=== PATIENT | female | born 1940 | race Caucasian/White ===

== ENCOUNTER → 2017-10-27 | Outpatient (CLI) | payer MEDICARE ==
--- NOTE | 2017-10-27 14:01 | Diagnostic Imaging Report ---
INDICATION: Tobaccoism and chronic fatigue. PA and lateral chest. FINDINGS: Patient has bilateral breast implants with calcified fibrous capsules. Heart size and pulmonary vascularity are normal. Lungs are clear. There are no effusions or pneumothoraces. IMPRESSION: No acute abnormalities in the chest. Dictated by: Dictated on workstation # [id number]
== END ==
LOC: RAD 13:09
PROVIDERS: ATTEND Internal Medicine
DX: R05 Cough (principal); R53.83 Other fatigue; Z72.0 Tobacco use
CPT/HCPCS: 71046

== ENCOUNTER → 2020-02-06 | Outpatient (CLI) | payer MEDICARE | LOC: CARD 15:26 | PROVIDERS: ATTEND Nurse Practitioner Family | DX: I49.9 Cardiac arrhythmia, unspecified (principal); R06.02 Shortness of breath | CPT/HCPCS: 93005 ==

== ENCOUNTER → 2020-07-30 | Outpatient (CLI) | payer MEDICARE ==
[~2020-07-30] VITALS: Ht 165 cm; Wt 49.0 kg
[~2020-07-30] MED LIST: BAMLANIVIMAB (NON FORM) 700 MG in NS (IVPB) 250 ML IV ONE; EPINEPHrine INJECTION 1 MG/ML AMP IM PRN; diphenhydrAMINE 50 MG/ML INJ (BENADRYL) IV PRN
[2020-07-30 13:17] VITALS: BP 161/79
[2020-07-30 15:20] VITALS: BP 131/67
== END ==
LOC: INFUSION 13:19
PROVIDERS: ATTEND Nurse Practitioner Family
DX: U07.1 COVID-19 (principal); J44.9 Chronic obstructive pulmonary disease, unspecified

== ENCOUNTER → 2020-07-31 | Outpatient (CLI) | payer MEDICARE | LOC: LABNPT 05:16 | PROVIDERS: ATTEND Internal Medicine | DX: Z53.9 Procedure and treatment not carried out, unspecified reason (principal) ==

== ENCOUNTER 2021-05-29 10:53 | Emergency (ER) | payer MEDICARE ==
[~2021-05-29] VITALS: Ht 165 cm; Wt 49.0 kg
--- OUTSIDE RECORDS SUMMARY | 2021-05-29 10:58 | XMS REPORT | Clinical Summary ---
Author Author [facility] Organization [facility] Address Unknown Phone Unavailable Care Team Providers Care Cra Name Role Phone PCP Unavailable Allergies Not on File Medications Not on file Active Problems Not on file Social History Date Tobacco Use Types Packs/Day Years Used Never Assessed Sex Assigned at Date Recorded Not on file Last Filed Vital Signs Not on file Plan of Treatment Not on file Results Not on filefrom Last 3 Months
--- NOTE | 2021-05-29 11:22 | ED Lower Extremity ---
General Chief Complaint: Trauma-Non Activation Stated Complaint: FELL, R KNEE PAIN, DIFFICULTY WALKING Nursing Triage Note: TO ED PER W/C PATIENT REPORTS TRIPPED AND FELL IN GARAGE YESTERDAY C/O PAIN IN R KNEE. PAINFUL TO PUT WT ON . Source: patient Exam Limitations: no limitations History of Present Illness Date Seen by Provider: May 29, 2021 Time Seen by Provider: 11:20 Initial Comments To ER by private vehicle accompanied by daughter with reports of right knee pain after she tripped and fell in the garage. She tripped over the exhaust she was on a riding murmur yesterday and landed on a flexed right knee. She has been unable to bear weight on the right knee since then. She cannot lift her heel up off of the bed. Onset: yesterday Severity: moderate Pain/Injury Location: right knee Method of Injury: direct blow, fell Allergies and Home Medications Allergies Coded Allergies: Penicillins (Verified Allergy, Unknown, 07/30/20) Uncoded Allergies: WASP AND BEE STINGS (Allergy, Unknown, 07/30/20) Patient Home Medication List Home Medication List Reviewed: Yes Review of Systems Constitutional: see HPI EENTM: see HPI Respiratory: no symptoms reported Cardiovascular: no symptoms reported Genitourinary: no symptoms reported Musculoskeletal: see HPI Skin: no symptoms reported Psychiatric/Neurological: No Symptoms Reported Past Vuxgxno-Zfcziq-Xkgjcq Hx Patient Social History Tobacco Use?: Yes Tobacco type used: Cigarettes Substance use?: No Immunizations Up To Date First/Initial COVID19 Vaccinat: DECEMBER 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 oz. kg; 17.00 BMI Method: General Appearance: WD/WN, no apparent distress HEENT: PERRL/EOMI, normal ENT inspection, TMs normal Neck: non-tender, full range of motion Cardiovascular: regular rate, rhythm, no murmur Respiratory: no respiratory distress, no accessory muscle use Gastrointestinal: normal bowel sounds, non tender, soft Hips: bilateral hip non-tender, bilateral hip normal inspection, bilateral hip normal range of motion Legs: bilateral leg non-tender Knees: right knee pain, right knee soft tissue tenderness, right knee swelling, right knee other (Palpable joint effusion, swelling around the patella. No open wounds. Unable to lift her heel off of the bed due to pain in the patella.) Ankles: bilateral ankle non-tender, bilateral ankle normal inspection, bilateral ankle normal range of motion Feet: bilateral foot non-tender, bilateral foot normal inspection, bilateral foot normal range of motion Neurologic/Psychiatric: alert, normal mood/affect, oriented x 3 Skin: normal color, warm/dry Nonpalpable dorsalis pedis and posterior tibial pulse on both feet., Both feet have capillary refill of about 3 seconds. Progress/Results/Core Measures Results/Orders My Orders Orders - MARIANNE GUERIN APRN Knee, Right, 3 Views (05/29/21 11:19) Vital Signs/I&O 05/29/21 11:07 Pulse 75 Resp 18 B/P (MAP) 160/83 (108) Pulse Ox 96 O2 Delivery Room Air Blood Pressure Mean: 108 Departure Communication (Admissions) 1202-placed in a knee immobilizer and given a walker. She will follow-up with orthopedics. Daughter at the bedside and patient and daughter verbalized understanding of instructions. NAME: ALPA CORDERO [facility] REC#: [id number] PT STATUS: REG ER : 1940 PHYSICIAN: MARIANNE GUERIN APRN ADMIT DATE: 05/29/21/ER Draft Date of Exam:05/29/21 KNEE, RIGHT, 3 VIEWS INDICATION: Pain following a fall. FINDINGS: There is bony demineralization with osteopenia or osteoporosis. There is chondrocalcinosis with meniscal calcifications medially and laterally with relatively mild tricompartmental osteoarthritic joint space narrowing. Lateral view shows a moderate joint effusion. Seen only in the lateral view is indeterminate and incomplete lucency involving the lower pole of the patella oriented anteroposterior. There was no associated overlying soft tissue swelling, and this likely is incidental, but correlate with any focal tenderness to inferior patellar pole palpation. No other potential osseous injury. There are atherosclerotic vascular calcifications. IMPRESSION: Bony demineralization. Equivocal nondisplaced lucency, inferior patellar pole; correlate with palpation. Moderate joint effusion without loose body. Mild arthritis. Dictated on workstation # [id number] Dict: 05/29/21 1133 Trans: 05/29/21 1142 [id number] Interpreted by: RADHA HANNON Electronically signed by: Impression Primary Impression: Patella fracture Disposition: 01 HOME, SELF-CARE Condition: Stable Departure-Patient Inst. Decision time for Depature: 11:48 Referrals: TRAN PHOENIX MD (PCP/Family) Primary Care Physician KAYLEIGH STANTON MD, TERRY D MD ZAFUTA, MICHAEL P MD Patient Instructions: Patella Fracture ED Add. Discharge Instructions: 1. Ice pack to the area for 30 minutes to 1 hour every couple of hours. Return to ER for any concerns. Pain medication as directed. Call orthopedics today to make an appointment to be seen either later this week or next week for further evaluation. Wear the immobilizer at all times except when showering. All discharge instructions reviewed with patient and/or family. Voiced understanding. Scripts Tramadol HCl (Ultram) 50 Mg Tablet 50 MG PO Q6H PRN for PAIN-SEVERE (8-10), #14 TAB Prov: MARIANNE GUERIN APRN 05/29/21 MARIANNE GUERIN APRN May 29, 2021 11:22
--- NOTE | 2021-05-29 11:43 | Diagnostic Imaging Report ---
INDICATION: Pain following a fall. FINDINGS: There is bony demineralization with osteopenia or osteoporosis. There is chondrocalcinosis with meniscal calcifications medially and laterally with relatively mild tricompartmental osteoarthritic joint space narrowing. Lateral view shows a moderate joint effusion. Seen only in the lateral view is indeterminate and incomplete lucency involving the lower pole of the patella oriented anteroposterior. There was no associated overlying soft tissue swelling, and this likely is incidental, but correlate with any focal tenderness to inferior patellar pole palpation. No other potential osseous injury. There are atherosclerotic vascular calcifications. IMPRESSION: Bony demineralization. Equivocal nondisplaced lucency, inferior patellar pole; correlate with palpation. Moderate joint effusion without loose body. Mild arthritis. Dictated by: Dictated on workstation # [id number]
[2021-05-29] MEDS ORDERED: TRAM-42 PO (12:02)
[2021-05-29 12:09] VITALS: BP 160/83
== END 2021-05-29 12:08 | disposition home or self-care (01) ==
LOC: EDUNIT# 10:53 → ER 10:55
DX: S82.001A Unspecified fracture of right patella, initial encounter for closed fracture (principal); Z72.0 Tobacco use; W01.0XXA Fall on same level from slipping, tripping and stumbling without subsequent striking against object, initial encounter
CPT/HCPCS: 73562; 99282; L1830

== ENCOUNTER → 2021-06-05 | Outpatient (CLI) | payer MEDICARE ==
[~2021-06-05] MED LIST changes: -BAMLANIVIMAB (NON FORM) 700 MG in NS (IVPB) 250 ML IV ONE; +CATHETER FLUSH 10 ML SYR IV PRN; -EPINEPHrine INJECTION 1 MG/ML AMP IM PRN; +HOLD METFORMIN - RECEIVED CONTRAST 20 ML VIAL IV SCH; +IOHEXOL 350 MG/ML 100 ML (OMNIPAQUE 350) VIAL IV ONE; +NS 100 ML (IVPB) BAG IV ONE; +TRAM-42 PO; -diphenhydrAMINE 50 MG/ML INJ (BENADRYL) IV PRN
[2021-06-05 14:14] LABS: CREATININE SERUM 1.06 MG/DL (0.60-1.30)
--- NOTE | 2021-06-05 16:27 | Diagnostic Imaging Report ---
PROCEDURE: CT neck soft tissue with contrast. TECHNIQUE: Multiple contiguous axial images were obtained through the neck after the administration of contrast. Auto Exposure Controls were utilized during the CT exam to meet ALARA standards for radiation dose reduction. INDICATION: Left ear and neck pain. COMPARISON: None. FINDINGS: There is subtle asymmetric subcentimeter region of enhancement in the left submandibular space along the superior anterior margin the left submandibular gland. No sialoliths are identified. The left submandibular gland is unremarkable. Normal floor of the mouth and tongue base. No lymphadenopathy. Normal major salivary glands. The pharynx and larynx demonstrate no suspicious mass or enhancement. Normal thyroid gland. Moderate atherosclerotic calcifications in the carotid bifurcations. Biapical scarring. Mild spondylotic changes in the cervical spine. No acute osseous findings. Paranasal sinuses and mastoids are clear. The skull base is intact. IMPRESSION: 1. There is an indeterminate ill-defined subtle region of subcentimeter enhancement in the left submandibular space along the superior anterior margin of the left submandibular gland. Findings may be artifactual or due to an inflamed lymph node. A mass cannot be excluded. Recommend further evaluation with MRI of the neck without and with IV contrast. No other findings suspicious for lymphadenopathy or mass. 2. Moderate atherosclerotic calcifications in the carotid bifurcations. This likely results in at least 50% narrowing of the internal carotid artery origins bilaterally and could be better evaluated with carotid Doppler ultrasound or dedicated CTA. Dictated by: Dictated on workstation # [id number]
== END ==
LOC: RAD 13:48
PROVIDERS: ATTEND Otolaryngology Otolaryngology/Facial Plastic Surgery
DX: I65.23 Occlusion and stenosis of bilateral carotid arteries (principal); R22.1 Localized swelling, mass and lump, neck
CPT/HCPCS: 36415; 70491; 82565; 84520

== ENCOUNTER → 2021-06-09 | Outpatient (CLI) | payer MEDICARE ==
[~2021-06-09] MED LIST changes: -CATHETER FLUSH 10 ML SYR IV PRN; -HOLD METFORMIN - RECEIVED CONTRAST 20 ML VIAL IV SCH; -IOHEXOL 350 MG/ML 100 ML (OMNIPAQUE 350) VIAL IV ONE; -NS 100 ML (IVPB) BAG IV ONE
--- NOTE | 2021-06-09 12:26 | Diagnostic Imaging Report ---
INDICATION: Osteoarthritis. TIME OF EXAM: 11:50 a.m. COMPARISON: Comparison is made with prior radiograph of the right knee performed 05/29/2021. FINDINGS: Lucency described along the inferior aspect of the patella on the lateral view remains present but is less prominent on today's study. Overlying soft tissues are unremarkable. There is some trace knee joint fluid present. Chondrocalcinosis of the medial and lateral compartments is again noted. No other suspicious abnormalities are seen. IMPRESSION: Stable right knee radiograph. The lucency along the inferior aspect of the patella is less prominent on today's study. No new abnormality is identified. Dictated by: Dictated on workstation # [id number]
== END ==
LOC: ORTHO 11:23
PROVIDERS: ATTEND Orthopaedic Surgery
DX: M17.11 Unilateral primary osteoarthritis, right knee (principal)
CPT/HCPCS: 73562; G0463; 99202

== ENCOUNTER → 2021-06-23 | Outpatient (CLI) | payer MEDICARE ==
--- NOTE | 2021-06-23 11:46 | Diagnostic Imaging Report ---
INDICATION: Right patellar tendinitis. TIME OF EXAM: 10:32 AM 3 views right knee were obtained. Alignment is normal. Joint spaces are well maintained. Articular surfaces are smooth. No fracture, dislocation or effusion is seen. There is chondrocalcinosis of the medial and lateral compartments. IMPRESSION: Chronic changes. No acute bony abnormality is detected. Dictated by: Dictated on workstation # [id number]
== END ==
LOC: ORTHO 09:53
PROVIDERS: ATTEND Orthopaedic Surgery
DX: M76.51 Patellar tendinitis, right knee (principal)
CPT/HCPCS: 73562; G0463; 99212

== ENCOUNTER → 2021-06-24 | Outpatient (CLI) | payer MEDICARE ==
--- NOTE | 2021-06-24 19:27 | Diagnostic Imaging Report ---
PROCEDURE: US carotid duplex, bilateral. TECHNIQUE: Multiple real-time grayscale images were obtained over the carotid arteries in various projections, bilaterally. Additional spectral analysis and color Doppler duplex images were also obtained. INDICATION: Atherosclerosis. Parameters based on the consensus panel Hopkins-Scale and Doppler ultrasound criteria published April 2003, Radiology, Volume 229. DOPPLER (peak systolic velocity CM/S Right Left CCA 55.9 55.9 ICA Proximal 47.9 47.2 ICA Mid 51.8 48.5 ICA Distal 72.9 51.3 RATIO 1.30 .92 ECA 81.4 86.3 VERT 60.3 37.3 FINDINGS: There is significant plaque seen within the bilateral carotid bulbs and bifurcations extending into the internal carotid arteries. Waveforms are normal. There is normal antegrade flow within the vertebral arteries. IMPRESSION: Atherosclerosis with less than 50% stenosis of the bilateral internal carotid arteries by velocity and ratio criteria. Dictated by: Dictated on workstation # [id number]
== END ==
LOC: RAD 14:30
PROVIDERS: ATTEND Otolaryngology Otolaryngology/Facial Plastic Surgery
DX: I65.23 Occlusion and stenosis of bilateral carotid arteries (principal)
CPT/HCPCS: 93880

== ENCOUNTER → 2021-07-09 | Outpatient (CLI) | payer MEDICARE ==
--- NOTE | 2021-07-09 09:26 | Diagnostic Imaging Report ---
INDICATION: Followup patellar fracture. TIME OF EXAM: 9:16 AM Comparison is made with prior radiographs from 06/23/2021. Alignment is normal. No patellar fracture is identified. Lucency along the inferior aspect of the patella is not appreciated on today's study. There is chondrocalcinosis of the medial and lateral compartments. There is no joint effusion. IMPRESSION: Chondrocalcinosis. No definite patellar fracture is identified. Dictated by: Dictated on workstation # [id number]
== END ==
LOC: ORTHO 08:46
PROVIDERS: ATTEND Orthopaedic Surgery
DX: M11.261 Other chondrocalcinosis, right knee (principal); S82.034D Nondisplaced transverse fracture of right patella, subsequent encounter for closed fracture with routine healing; X58.XXXD Exposure to other specified factors, subsequent encounter
CPT/HCPCS: 73560

== ENCOUNTER → 2021-08-04 | Outpatient (CLI) | payer MEDICARE | LOC: ORTHO 11:24 | PROVIDERS: ATTEND Orthopaedic Surgery | DX: S82.001D Unspecified fracture of right patella, subsequent encounter for closed fracture with routine healing (principal); X58.XXXD Exposure to other specified factors, subsequent encounter | CPT/HCPCS: 99212 ==

== ENCOUNTER 2021-08-18 10:12 | Outpatient (RCR) | payer MEDICARE | END 2021-08-18 11:31 | disposition home or self-care (01) | PROVIDERS: ATTEND Orthopaedic Surgery | DX: S82.034D Nondisplaced transverse fracture of right patella, subsequent encounter for closed fracture with routine healing (principal); X58.XXXD Exposure to other specified factors, subsequent encounter ==

== ENCOUNTER → 2021-08-27 | Outpatient (CLI) | payer MEDICARE ==
--- NOTE | 2021-08-27 10:20 | Diagnostic Imaging Report ---
INDICATION: Injury, continued pain. EXAMINATION: Right knee 08/27/2021 COMPARISON: 07/09/2021 FINDINGS: 2 views of the knee. There is mild osteopenia limiting evaluation for nondisplaced fracture. No fracture is identified. No dislocations. 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 There is mild narrowing within the medial joint compartment and patellofemoral joint space. There is a tiny joint effusion. Atherosclerotic disease is noted. IMPRESSION: 1. 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 No acute osseous abnormality appreciated. If pain persists MRI recommended. Dictated by: Dictated on workstation # [id number]
== END ==
LOC: ORTHO 09:49
PROVIDERS: ATTEND Orthopaedic Surgery
DX: S82.034D Nondisplaced transverse fracture of right patella, subsequent encounter for closed fracture with routine healing (principal); X58.XXXD Exposure to other specified factors, subsequent encounter
CPT/HCPCS: 73560

== ENCOUNTER → 2022-02-11 | Outpatient (CLI) | payer MEDICARE ==
--- NOTE | 2022-02-11 17:14 | Diagnostic Imaging Report ---
INDICATION: Cough, chronic - SOB COMPARISON: 10/27/2017. FINDINGS: Frontal and lateral views of the chest demonstrate normal heart size and pulmonary vascularity. The lungs are hyperinflated, but are otherwise clear. There are no signs of infiltrate, pleural effusions or pneumothoraces. The visualized osseous structures show no acute abnormalities. IMPRESSION: 1. No acute process. No signs of infiltrates, effusions or pneumothoraces. 2. Background COPD changes Dictated by: Dictated on workstation # [id number]
== END ==
LOC: RAD 13:53
PROVIDERS: ATTEND Nurse Practitioner Family
DX: J44.9 Chronic obstructive pulmonary disease, unspecified (principal)
CPT/HCPCS: 71046

== ENCOUNTER → 2022-09-07 | Outpatient (CLI) | payer MEDICARE ==
--- NOTE | 2022-09-07 13:01 | Diagnostic Imaging Report ---
PROCEDURE: Pelvic comp/transvaginal sonogram. TECHNIQUE: Complete transabdominal and transvaginal pelvic ultrasound was performed. In addition, limited pelvic Doppler was performed. INDICATION: Vaginal bleeding. Uterus is anteverted measuring 5.2 x 2.6 x 4.1 cm. Endometrium is 2 mm in thickness. No myometrial mass is identified. The ovaries cannot be visualized due to overlying bowel gas. No adnexal mass or free fluid is detected. IMPRESSION: Nonvisualized ovaries. The study is otherwise unremarkable. Dictated by: Dictated on workstation # [id number]
== END ==
LOC: RAD 11:06
PROVIDERS: ATTEND Internal Medicine
DX: N93.9 Abnormal uterine and vaginal bleeding, unspecified (principal)
CPT/HCPCS: 76830; 76856

== ENCOUNTER 2022-10-06 10:13 | Outpatient (RCR) | payer MEDICARE | END 2022-10-25 | disposition home or self-care (01) | LOC: LAB 10:13 | PROVIDERS: ATTEND Internal Medicine | DX: R19.7 Diarrhea, unspecified (principal) | CPT/HCPCS: 87324; 87449 ==

== ENCOUNTER 2022-12-18 20:57 | Inpatient (IN) | payer MEDICARE ==
[~2022-12-18] VITALS: Ht 162.5 cm; Wt 49.6 kg
--- NOTE | 2022-12-18 21:40 | ED Fall/Injury ---
General Chief Complaint: Trauma-Non Activation Stated Complaint: FALL Nursing Triage Note: PT TO ED VIA [facility] FROM HOME W C/O FALL AT 1800 YESTERDAY. PT REMAINED ON CONCRETE FLOOR IN GARAGE UNTIL EMS ARRIVAL TONIGHT, C/O LEFT HIP PAIN. PT VERY HARD OF HEARING, STATES SHE HIT HER HEAD AND SAW STARS. PT A&OX4. EMS ADMIN 50MCG FENTANYL IVP AND 4MG ZOFRAN IVP EN ROUTE TO ED. Source: patient Exam Limitations: no limitations History of Present Illness Date Seen by Provider: Dec 18, 2022 Time Seen by Provider: 21:15 Allergies and Home Medications Allergies Coded Allergies: Penicillins (Verified Allergy, Unknown, 07/30/20) Uncoded Allergies: WASP AND BEE STINGS (Allergy, Unknown, 07/30/20) Patient Home Medication List Tramadol HCl (Ultram) 50 Mg Tablet, 50 MG PO Q6H PRN for PAIN-SEVERE (8-10) Prescribed by: MARIANNE GUERIN on 05/29/21 1202 Past Lzqccml-Fzraln-Ogbaif Hx Patient Social History Tobacco Use?: Yes Smoking Status: Former Smoker Use of E-Cig and/or Vaping dev: No Substance use?: No Alcohol Use?: No Immunizations Up To Date First/Initial COVID19 Vaccinat: DECEMBER Physical Exam Vital Signs Vital Signs - First Documented 12/18/22 20:57 Temp 36.9 Pulse 86 Resp 18 B/P (MAP) 175/95 (121) Pulse Ox 92 O2 Delivery Room Air Capillary Refill : Less Than 3 Seconds Height, Weight, BMI Height: '" Weight: lbs. oz. kg; 18.00 BMI Method: Progress/Results/Core Measures Results/Orders Lab Results Laboratory Tests Test 12/18/22 22:00 12/18/22 22:35 12/18/22 23:59 Range/Units White Blood Count 10.8 4.3-11.0 10^3/uL Red Blood Count 4.64 3.80-5.11 10^6/uL Hemoglobin 15.0 11.5-16.0 g/dL Hematocrit 44 35-52 % Mean Corpuscular Volume 94 80-99 fL Mean Corpuscular Hemoglobin 32 25-34 pg Mean Corpuscular Hemoglobin Concent 34 32-36 g/dL Red Cell Distribution Width 13.5 10.0-14.5 % Platelet Count 141 130-400 10^3/uL Mean Platelet Volume 12.4 H 9.0-12.2 fL Immature Granulocyte % (Auto) 0 % Neutrophils (%) (Auto) 85 H 42-75 % Lymphocytes (%) (Auto) 6 L 12-44 % Monocytes (%) (Auto) 9 0-12 % Eosinophils (%) (Auto) 0 0-10 % Basophils (%) (Auto) 0 0-10 % Neutrophils # (Auto) 9.1 H 1.8-7.8 10^3/uL Lymphocytes # (Auto) 0.7 L 1.0-4.0 10^3/uL Monocytes # (Auto) 0.9 0.0-1.0 10^3/uL Eosinophils # (Auto) 0.0 0.0-0.3 10^3/uL Basophils # (Auto) 0.0 0.0-0.1 10^3/uL Immature Granulocyte # (Auto) 0.0 0.0-0.1 10^3/uL Neutrophils % (Manual) 81 % Lymphocytes % (Manual) 8 % Monocytes % (Manual) 4 % Band Neutrophils 7 % Percent Immature Platelet Fraction 5.5 0.0-7.6 % Acanthocytes SLIGHT Sodium Level 138 135-145 MMOL/L Potassium Level 4.1 3.6-5.0 MMOL/L Chloride Level 101 98-107 MMOL/L Carbon Dioxide Level 23 21-32 MMOL/L Anion Gap 14 5-14 MMOL/L Blood Urea Nitrogen 18 7-18 MG/DL Creatinine 0.95 0.60-1.30 MG/DL Estimat Glomerular Filtration Rate 59 BUN/Creatinine Ratio 19 Glucose Level 117 H 70-105 MG/DL Calcium Level 10.3 H 8.5-10.1 MG/DL Corrected Calcium 10.0 8.5-10.1 MG/DL Magnesium Level 1.8 1.6-2.4 MG/DL Total Bilirubin 0.9 0.1-1.0 MG/DL Aspartate Amino Transf (AST/SGOT) 45 H 5-34 U/L Alanine Aminotransferase (ALT/SGPT) 33 0-55 U/L Alkaline Phosphatase 191 H 40-136 U/L Total Creatine Kinase 936 H 29-168 U/L Total Protein 7.9 6.4-8.2 GM/DL Albumin 4.4 3.2-4.5 GM/DL My Orders Orders - BRUEGGEMANN,SAMEERA T MD Cbc With Automated Diff (12/18/22 21:15) Comprehensive Metabolic Panel (12/18/22 21:15) Creatine Kinase (12/18/22 21:15) Magnesium (12/18/22 21:15) Ua Culture If Indicated (12/18/22 21:15) Ct Head/Cervical Spine Wo (12/18/22 21:15) Ed Iv/Invasive Line Start (12/18/22 21:15) Manual Differential (12/18/22 22:00) Ns Iv 1000 Ml (Sodium Chloride 0.9%) (12/18/22 23:15) Ct Chest/Abdomen/Pelvis Wo (12/18/22 23:06) Ct Lumbar Spine Wo (12/18/22 23:06) Pelvis 1 To 2 Views (12/18/22 23:06) Blood Culture (12/19/22 00:09) Sputum Culture (12/19/22 00:09) Protime With Inr (12/19/22 00:09) Partial Thromboplastin Time (12/19/22 00:09) Vital Signs Adult Sepsis Patie Q15M (12/19/22 00:09) O2 (12/19/22 00:09) Remove Rings In Anticipation O (12/19/22 00:09) Lactic Acid Analyzer (12/19/22 00:09) Ceftriaxone Iv/Im (Rocephin Iv/Im) (12/19/22 00:09) Vital Signs/I&O 12/18/22 20:57 Temp 36.9 Pulse 86 Resp 18 B/P (MAP) 175/95 (121) Pulse Ox 92 O2 Delivery Room Air Blood Pressure Mean: 121 Departure Impression Primary Impression: Intertrochanteric fracture of left hip Qualified Codes: S72.142A - Displaced intertrochanteric fracture of left femur, initial encounter for closed fracture Additional Impressions: Traumatic rhabdomyolysis Qualified Codes: T79.6XXA - Traumatic ischemia of muscle, initial encounter Fall on same level as cause of accidental injury Right lower lobe pneumonia Qualified Codes: J18.9 - Pneumonia, unspecified organism Disposition: ADMITTED INPATIENT Condition: Stable Admissions Decision to Admit Reason: Admit from ER (Trauma) Decision to Admit/Date: Dec 19, 2022 Time/Decision to Admit Time: 00:12 Departure-Patient Inst. Referrals: TRAN PHOENIX MD (PCP/Family) Primary Care Physician SAMEERA DAVIS MD Dec 18, 2022 21:40
--- NOTE | 2022-12-18 22:10 | Diagnostic Imaging Report ---
PROCEDURE: CT head and CT cervical spine without contrast. TECHNIQUE: Multiple contiguous axial images were obtained through the brain and cervical spine without the use of intravenous contrast. Sagittal and coronal reformations through the cervical spine were then performed. Auto Exposure Controls were utilized during the CT exam to meet ALARA standards for radiation dose reduction. INDICATION: Head and neck trauma. FINDINGS: There is prominence of the ventricles and sulci. There is some chronic microvascular ischemic disease. There is no hydrocephalus. There is no midline shift. There is no mass, hemorrhage or extra-axial fluid collection. The calvarium is intact. The sinuses and mastoid air cells are clear. There is mild cervical spondylosis. There is no fracture or traumatic subluxation. Odontoid is intact and the lateral masses are well aligned. IMPRESSION: 1. Atrophy and some chronic microvascular ischemic disease. 2. Mild cervical spondylosis without acute fracture or traumatic subluxation. Dictated by: Dictated on workstation # [id number]
[2022-12-18 22:18] LABS: BASOPHILS % (AUTO) 0 % (0-10); EOSINOPHILS % (AUTO) 0 % (0-10)
[2022-12-18 22:19] LABS: HEMATOCRIT 44 % (35-52); LYMPHOCYTES # (AUTO) 0.7 10^3/uL (1.0-4.0); LYMPHOCYTES % (AUTO) 6 % (12-44); MEAN CORPUSCULAR HEMOGLOBIN 32 pg (25-34); MEAN CORPUSCULAR HGB CONC 34 g/dL (32-36); MEAN CORPUSCULAR VOLUME 94 fL (80-99); MEAN PLATELET VOLUME 12.4 fL (9.0-12.2); MONOCYTES # (AUTO) 0.9 10^3/uL (0.0-1.0); MONOCYTES % (AUTO) 9 % (0-12); NEUTROPHILS # (AUTO) 9.1 10^3/uL (1.8-7.8); NEUTROPHILS % (AUTO) 85 % (42-75); PLATELET COUNT 141 10^3/uL (130-400); WHITE BLOOD COUNT 10.8 10^3/uL (4.3-11.0)
[2022-12-18 22:32] LABS: BAND NEUTROPHILS 7 %; LYMPHOCYTES % (MANUAL) 8 %; MONOCYTES % (MANUAL) 4 %; NEUTROPHILS % (MANUAL) 81 %
[2022-12-18 22:33] LABS: ACANTHOCYTES SLIGHT
[2022-12-18 22:55] LABS: ALBUMIN 4.4 GM/DL (3.2-4.5); POTASSIUM 4.1 MMOL/L (3.6-5.0)
[2022-12-18 22:56] LABS: CALCIUM 10.3 MG/DL (8.5-10.1)
[2022-12-18 22:57] LABS: TOTAL PROTEIN 7.9 GM/DL (6.4-8.2)
[2022-12-18 22:59] LABS: BILIRUBIN,TOTAL 0.9 MG/DL (0.1-1.0)
[2022-12-18 23:01] LABS: CREATININE SERUM 0.95 MG/DL (0.60-1.30)
[2022-12-18 23:04] LABS: MAGNESIUM 1.8 MG/DL (1.6-2.4)
[2022-12-18] MEDS ORDERED: NS IV 1000 ML 1,000 ML IV SCH (23:15)
[2022-12-19] VITALS (13 sets, daily range): BP systolic 89–177; BP diastolic 63–89
[2022-12-19 00:04] LABS: CLARITY,URINE SL CLOUDY; COLOR,URINE DARK YELLOW; GLUCOSE, URINE (UA) NEGATIVE (NEGATIVE); KETONES,URINE NEGATIVE (NEGATIVE); LEUKOCYTE ESTERASE ,URINE 1+ (NEGATIVE); NITRITE,URINE NEGATIVE (NEGATIVE); PH,URINE 5.5 (5-9); PROTEIN,URINE 2+ (NEGATIVE)
[2022-12-19] MEDS ORDERED: cefTRIAXone IV/IM 1,000 MG in NS (IVPB) 50 ML IV STA (00:09)
[2022-12-19 00:14] LABS: BILIRUBIN,URINE 1+ (NEGATIVE); RBC,URINE 0-2 /HPF
[2022-12-19 00:15] LABS: AMORPHOUS SEDIMENT,UR FEW AMOR URATES /LPF; BACTERIA,URINE FEW /HPF
[2022-12-19 00:16] LABS: GRANULAR CASTS,URINE RARE /LPF
[2022-12-19 01:23] LABS: PROTHROMBIN TIME PATIENT 13.5 SEC (12.2-14.7)
[2022-12-19] MEDS ORDERED: ONDANSETRON 4 MG/2 ML (SDV) Z0FRAN IV PRN ×2 (03:30→08:30)
[2022-12-19] MEDS ORDERED: NICOTINE 14 MG (NICODERM) PATCH TD PRN (03:30)
[2022-12-19] MEDS ORDERED: morphine INJ 4 MG/ML 1 ML (VIAL/SYRINGE) IV PRN (03:30)
[2022-12-19] MEDS: LACTATED RINGERS 1,000 ML IV SCH ×4 (03:33→20:50)
[2022-12-19] MEDS ORDERED: [UNRECOGNIZED DRUG - OTHER] PO (03:49)
[2022-12-19] MEDS ORDERED: ALPR.25T PO ×2 (03:49)
[2022-12-19] MEDS ORDERED: NICO-587 TD (03:49)
[2022-12-19] MEDS ORDERED: ROSU10TA28 PO (03:49)
[2022-12-19] MEDS ORDERED: PROP1DRO7 OU (03:49)
[2022-12-19] MEDS ORDERED: CETI10TA17 PO (03:49)
[2022-12-19] MEDS ORDERED: CHOL100048 PO (03:49)
[2022-12-19] MEDS ORDERED: ASCO500T16 PO (03:49)
[2022-12-19] MEDS ORDERED: OMEP20TA56 PO (03:49)
[2022-12-19 05:41] LABS: BASOPHILS % (AUTO) 0 % (0-10); EOSINOPHILS % (AUTO) 0 % (0-10); HEMATOCRIT 42 % (35-52); HEMOGLOBIN 13.9 g/dL (11.5-16.0); LYMPHOCYTES # (AUTO) 0.9 10^3/uL (1.0-4.0); LYMPHOCYTES % (AUTO) 9 % (12-44); MEAN CORPUSCULAR HEMOGLOBIN 31 pg (25-34); MEAN CORPUSCULAR HGB CONC 33 g/dL (32-36); MEAN CORPUSCULAR VOLUME 95 fL (80-99); MEAN PLATELET VOLUME 10.6 fL (9.0-12.2); MONOCYTES % (AUTO) 10 % (0-12); NEUTROPHILS # (AUTO) 8.4 10^3/uL (1.8-7.8); NEUTROPHILS % (AUTO) 81 % (42-75); PLATELET COUNT 191 10^3/uL (130-400); WHITE BLOOD COUNT 10.3 10^3/uL (4.3-11.0)
[2022-12-19 06:15] LABS: CALCIUM 9.3 MG/DL (8.5-10.1); CREATININE SERUM 0.92 MG/DL (0.60-1.30); POTASSIUM 4.3 MMOL/L (3.6-5.0)
--- NOTE | 2022-12-19 07:09 | Diagnostic Imaging Report ---
PROCEDURE: CT lumbar spine without contrast. TECHNIQUE: Multiple contiguous axial images were obtained through the lumbar spine without the use of intravenous contrast. Sagittal and coronal reformations were then performed. Auto Exposure Controls were utilized during the CT exam to meet ALARA standards for radiation dose reduction. INDICATION: Back pain after trauma. COMPARISON: CT chest, abdomen and pelvis performed concurrently. FINDINGS: Diffuse osseous demineralization. Degenerative dextrocurvature of the lumbar spine is present. No acute fracture. No traumatic subluxation. Severe degenerative disc disease is present at all levels. Please see CT abdomen and pelvis report for details of the aortic aneurysm. IMPRESSION: 1. No fracture within the lumbar spine. 2. Findings are in agreement with the preliminary report. Dictated by: Dictated on workstation # [id number]
--- NOTE | 2022-12-19 07:52 | Diagnostic Imaging Report ---
EXAMINATION: Left hip unilateral, 1 view (w/pelvis when done). HISTORY: Fracture. COMPARISON: None available. FINDINGS: A single frontal view shows a comminuted intertrochanteric fracture of the left femur. No dislocation. IMPRESSION: Comminuted intertrochanteric fracture of the left femur. Dictated by: Dictated on workstation # [id number]
--- NOTE | 2022-12-19 08:20 | Diagnostic Imaging Report ---
PROCEDURE: CT chest, abdomen, and pelvis without contrast. TECHNIQUE: Multiple contiguous axial images were obtained through the chest, abdomen, and pelvis without the use of intravenous contrast. Auto Exposure Controls were utilized during the CT exam to meet ALARA standards for radiation dose reduction. INDICATION: Chest and abdominal trauma. COMPARISON: CT lumbar spine performed concurrently FINDINGS: CT CHEST: Visualized portions of the thyroid are normal. No supraclavicular or axillary lymphadenopathy. No mediastinal or hilar lymphadenopathy. Heart is normal in size without pericardial effusion. Descending thoracic aortic aneurysm measures up to 5 cm near the level of the diaphragm. Ascending aorta is normal in caliber. Moderate calcification throughout the aorta. No pleural effusion or pneumothorax. No abnormality in the trachea. Mild centrilobular emphysema is noted. Calcified right perihilar nodule is indicative of old granulomatous infection. There are additional smaller skeleton pulmonary nodules also due to old granulomatous infection. No pneumonia or edema. Right basilar subpleural opacities favor atelectasis. Bilateral clavicles are intact. No sternal fracture. Rim calcified breast implants. No fracture within the thoracic spine. CT ABDOMEN AND PELVIS: Abdominal aortic aneurysm measures 4.5 cm. Unenhanced liver, spleen and pancreas are grossly normal. No free intraperitoneal air or fluid. Unenhanced kidneys are grossly normal. No features of bladder rupture. Uterus is unremarkable. No bowel obstruction or pericolonic inflammatory change. No abdominal or pelvic lymphadenopathy is seen. Multi-fragmentary intertrochanteric fracture in the proximal left femur. No additional fracture within the pelvis. IMPRESSION: 1. Left-sided intertrochanteric fracture of the proximal femur. 2. No other acute traumatic injury in the chest, abdomen or pelvis by noncontrast CT. 3. Thoracic and abdominal aortic aneurysm measures up to 5 cm. 4. Findings are in agreement with the preliminary report. Dictated by: Dictated on workstation # [id number]
[2022-12-19] MEDS ORDERED: ACETAMINOPHEN 325 MG TABLET PO PRN (08:30)
[2022-12-19] MEDS ORDERED: CALCIUM CARBONATE 500 MG (TUMS) TAB.CHEW PO PRN (08:30)
[2022-12-19] MEDS ORDERED: MELATONIN 3 MG TABLET PO PRN (08:30)
[2022-12-19] MEDS ORDERED: LACTULOSE SYRUP 10GM/15ML (ENULOSE) 30ML UDC PO PRN (08:30)
[2022-12-19] MEDS ORDERED: polyethylene glycoL POWDER 17 GM (MIRALAX) PACK PO PRN (08:30)
[2022-12-19] MEDS ORDERED: hydrALAZINE (APESOLINE) 20 MG/ML VIAL IV PRN (08:30)
[2022-12-19] MEDS ORDERED: BISACODYL 10 MG SUPP (DULCOLAX) PR PRN (08:30)
[2022-12-19] MEDS ORDERED: ONDANSETRON 4 MG (ZOFRAN) ORAL DISSOLVE TAB PO PRN (08:30)
[2022-12-19] MEDS ORDERED: ANTACID SUSP 30 ML UDC (MYLANTA) PO PRN (08:30)
[2022-12-19] MEDS ORDERED: MILK OF MAGNESIA 400 MG/5 ML 30 ML UDC PO PRN (08:30)
--- NOTE | 2022-12-19 09:07 | Progress Note-Pre Operative ---
Pre-Operative Progress Note Date of Available H&P: Dec 19, 2022 Date H&P Reviewed: Dec 19, 2022 Time H&P Reviewed: 09:06 Changes from last HP none Pre-Operative Diagnosis: left intertrochanteric femur fracture CHERELLE HERRMANN MD Dec 19, 2022 09:07
--- NOTE | 2022-12-19 09:08 | Progress Note-Post Operative ---
Post-Operative Progess Note Surgeon (s)/Esl Instructional Assistant (s) Surgeon CHERELLE HERRMANN MD Esl Instructional Assistant: Elian Strong Pre-Operative Diagnosis left intertrochanteric femur fracture Post-Operative Diagnosis left intertrochanteric femur fracture Procedure & Operative Findings Date of Procedure 12/19/22 Procedure Performed/Findings left hip IM nail Anesthesia Type spinal Estimated Blood Loss Estimated blood loss (mL): 100 ml Specimens/Packing Specimens Removed none Packing: none CHERELLE HERRMANN MD Dec 19, 2022 09:07
[2022-12-19] MEDS: SENNOSIDES 8.6 MG (SENOKOT) TAB PO SCH ×2 (09:29→20:14)
[2022-12-19] MEDS: DOCUSATE SODIUM 100 MG (COLACE) CAP PO SCH ×2 (09:29→20:14)
[2022-12-19] MEDS ORDERED: RT-ALBUTEROL/IPRATROPIUM 3 ML (DUONEB) VIAL INH PRN (09:30)
[2022-12-19] MEDS ORDERED: BUPIVACAINE 0.5% 30 ML (SENSORCAINE) VIAL ONE ×2 (10:37→11:03)
[2022-12-19] MEDS ORDERED: NALOXONE 0.4 MG/ML 1 ML (NARCAN) VIAL IV PRN (10:45)
[2022-12-19] MEDS ORDERED: ONDANSETRON 4 MG/2 ML (SDV) Z0FRAN IVP PRN (10:45)
[2022-12-19] MEDS ORDERED: morphine INJ 4 MG/ML 1 ML (VIAL/SYRINGE) IVP PRN (10:45)
--- NOTE | 2022-12-19 10:48 | CONSULTATION REPORT ---
DATE OF SERVICE: 12/19/2022 REASON FOR CONSULTATION: Left intertrochanteric femur fracture. HISTORY OF PRESENT ILLNESS: The patient is an 82-year-old female who fell sometime evening and presented to the emergency room late last evening after being found down in her garage. Ultimately, she was found to have a left intertrochanteric femur fracture for which I was consulted. She denies antecedent hip pain. The patient is slightly confused. ALLERGIES: PENICILLIN AND BEE STINGS. MEDICATIONS: Tramadol. SOCIAL HISTORY: The patient is a former smoker. Denies alcohol use. PHYSICAL EXAMINATION: ORTHOPEDIC EXAM: The left lower extremity shortened and externally rotated. CHEST: Symmetric. PULSES: She has intact dorsiflexion and plantarflexion of the toes. She is tender along her lateral aspect of the left hip. Radiographs reveal a displaced left intertrochanteric femur fracture. ASSESSMENT: Left intertrochanteric femur fracture. PLAN: Left hip intramedullary nail. Discussed risks, benefits, options, ramifications and recovery with the patient and her daughter due to her confusion. They understand and wished to proceed. Job ID: [id number] DocumentID: [id number] Dictated Date: 12/19/2022 09:10:05 Tool Clerk Date: 12/19/2022 10:46:00 Dictated By: CHERELLE HERRMANN MD
[2022-12-19] MEDS ORDERED: ceFAZolin INJECTION 2,000 MG in NS (IVPB) 50 ML IV ONE (11:00)
[2022-12-19] MEDS ORDERED: KETAMINE 50 MG/5 ML SYRINGE ONE (11:02)
[2022-12-19] MEDS ORDERED: MIDAZOLAM 2 MG/2 ML (VERSED) VIAL ONE (11:02)
[2022-12-19] MEDS ORDERED: ONDANSETRON 4 MG/2 ML (SDV) Z0FRAN ONE (11:02)
[2022-12-19] MEDS ORDERED: proPOfol 200 MG/20 ML (DIPRIVAN) VIAL IV ONE (11:02)
[2022-12-19] MEDS ORDERED: ceFAZolin INJECTION 2,000 MG ONE (11:24)
[2022-12-19] MEDS ORDERED: LACTATED RINGERS 1,000 ML IV PRN (12:00)
--- NOTE | 2022-12-19 13:10 | Diagnostic Imaging Report ---
EXAMINATION: Fluoroscopy up to 1 hour. HISTORY: Hip arthroplasty. COMPARISON: 12/19/2022. FINDINGS/ IMPRESSION: Three fluoroscopic images were provided for fluoroscopic guidance during hip arthroplasty. Dictated by: Dictated on workstation # [id number]
--- NOTE | 2022-12-19 14:35 | History & Physical-Hospitalist ---
History of Present Illness HPI/Chief Complaint Melissa Vicente is an 82 year old female with PMH HTN, HLD, anxiety, who was admitted after a fall. She had been down on the ground in her home for about a day. She had been in her normal state of health prior to the fall. She only has pain when she moves. She denies any other pain than her hip. She denies chest pain and shortness of breath. She had some nausea yesterday. Source: patient, family Exam Limitations: no limitations Date Seen 12/19/22 Time Seen by a Provider: 10:00 Attending Physician Brad Enrique MD PCP Admitting Physician: Ni Warner MD Attending Physician: Ni Warner MD Referring Physician Date of Admission Dec 19, 2022 at 02:17 Home Medications & Allergies Home Medications Reviewed patient Home Medication Reconciliation performed by pharmacy medication reconciliations echo technician and/or nursing. Patients Allergies have been reviewed. Allergies Allergies Coded Allergies Penicillins (Verified Allergy, Unknown, 07/30/20) Uncoded Allergies WASP AND BEE STINGS ( Allergy, Unknown, 07/30/20) Past Lkispmt-Uikcup-Rjgklw Hx Patient Social History Tobacco Use?: Yes Tobacco type used: Cigarettes Smoking Status: Former Smoker Use of E-Cig and/or Vaping dev: No Substance use?: No Alcohol Use?: No Pt feels they are or have been: Unable to obtain Immunizations Up To Date First/Initial COVID19 Vaccinat: DECEMBER Tetanus Booster (TDap): More Than 5 Years Hepatitis A: No Hepatitis B: No Current Status status: No status: No Advance Directives: Yes Communicates: Verbally Primary Language: Tongan Preferred Spoken Language: Tongan Is interpretation needed?: No Sensory deficits: Hearing impairment Implanted or Applied Medical D: None Past Medical History Currently Using CPAP: No Currently Using BIPAP: No Family Medical History No Pertinent Family Hx Review of Systems Constitutional: no symptoms reported Respiratory: no symptoms reported Cardiovascular: no symptoms reported Gastrointestinal: no symptoms reported Physical Exam Physical Exam Vital Signs Vital Signs - First Documented 12/18/22 12/19/22 20:57 02:34 Temp 36.9 Pulse 86 Resp 18 B/P (MAP) 175/95 (121) Pulse Ox 92 O2 Delivery Room Air O2 Flow Rate 1.00 Capillary Refill : Less Than 3 Seconds Height, Weight, BMI Height: '" Weight: lbs. oz. kg; 18.78 BMI Method: General Appearance: No Apparent Distress, Thin HEENT: PERRL/EOMI, Pharynx Normal Neck: Normal Inspection, Supple Respiratory: Lungs Clear, Normal Breath Sounds, No Respiratory Distress Cardiovascular: Regular Rate, Rhythm, No Edema Gastrointestinal: Normal Bowel Sounds, Non Tender, Soft Extremity: Normal Inspection, No Pedal Edema Neurologic/Psychiatric: Alert, Normal Mood/Affect Skin: Normal Color, Warm/Dry Results Results/Procedures Labs Laboratory Tests 12/18/22 22:00 12/18/22 22:35 12/19/22 05:15 Patient resulted labs reviewed. Imaging: Reviewed Imaging Report Assessment/Plan Admission Diagnosis Left comminuted intertrochanteric fracture of the femur Admission Status: Inpatient Order (span 2 midnights) Reason for Inpatient Admission: Hip surgery Assessment and Plan Left comminuted intertrochanteric fracture of femur Fall Rhabdomyolysis Ortho consulted, planning for surgery today, case discussed with Dr. Mueller IV fluids Pain regimen Bowel regimen PT/OT IRU evaluation Incentive spirometry Tobacco abuse Nicotine patch HTN IV Hydralazine as needed HLD Anxiety Continue home meds as able DVT prophylaxis: Lovenox Diagnosis/Problems Diagnosis/Problems (1) Intertrochanteric fracture of left hip Status: Acute Qualifiers: Encounter type: initial encounter Fracture type: closed Fracture alignment: displaced Qualified Codes: S72.142A - Displaced intertrochanteric fracture of left femur, initial encounter for closed fracture (2) Traumatic rhabdomyolysis Status: Acute Qualifiers: Encounter type: initial encounter Qualified Codes: T79.6XXA - Traumatic ischemia of muscle, initial encounter (3) Fall on same level as cause of accidental injury Status: Acute (4) AAA (abdominal aortic aneurysm) without rupture Status: Acute (5) Thoracic aortic aneurysm (TAA) Status: Acute Qualifiers: Thoracic aorta location: descending thoracic aorta Presence of rupture: without rupture Qualified Codes: I71.23 - Aneurysm of the descending thoracic aorta, without rupture (6) Tobacco abuse Status: Acute NI WARNER MD Dec 19, 2022 14:35
--- NOTE | 2022-12-19 17:35 | Physical Therapy Evaluation ---
PT Evaluation-General Medical Diagnosis Admission Date Dec 19, 2022 at 02:17 Medical Diagnosis: (L) intertrochanteric hip fx Onset Date: Dec 18, 2022 Therapy Diagnosis Therapy Diagnosis: impaired mobility Precautions Precautions/Isolations: Standard Precautions Weight Bear Status Right Lower Extremity: Right Full Weight Bearing Left Lower Extremity: Left Partial Weight Bearing Referral Physician: Ni Baez Reason for Referral: Evaluation/Treatment Medical History Pertinent Medical History: HTN Additional Medical History anxiety Reviewed History: Yes Social History Home: Single Level Current Living Status: Alone PT Steps Into Home: 1 reports one small step, no handrail, holds onto a concrete statue Prior Prior Level of Function SCALE: Activities may be completed with or without assistive devices. 8-Rcuhpvucpn-oaycnbu completes the activity by him/herself with no assistance from a helper. 5-Set-up or Clean-up Assistance-helper sets up or cleans up; patient completes activity. [place] assists only prior to or following the activity. 4-Supervision or Touching Assistance-helper provides verbal cues and/or touching/steadying and/or contact guard assistance as patient completes activity. Assistance may be provided throughout the activity or intermittently. 3-Partial/Moderate Assistance-helper does LESS THAN HALF the effort. [place] lifts, holds or supports trunk or limbs, but provides less than half the effort. 2-Substantial/Maximal Assistance-helper does MORE THAN HALF the effort. [place] lifts or holds trunk or limbs and provides more than half the effort. 0-Vsxqlxedt-pfhnjl does ALL the effort. Patient does none of the effort to complete the activity. Or, the assistance of 2 or more helpers is required for the patient to complete the activity. If activity was not attempted, code reason: 7-Patient Refused. 9-Not Applicable-not attempted and the patient did not perform the activity before the current illness, exacerbation or injury. 10-Not Attempted due to Environmental Limitations-(lack of equipment, weather restraints, etc.). 88-Not Attempted due to Medical Conditions or Safety Concerns. Bed Mobility: 6 Transfers (B,C,W/C): 6 Gait: 6 Prior Devices Use: None drives and does her own shopping; cares for her own home PT Evaluation-Current Subjective Pt reports she went to her garage to get some fly spray, turned around and lost her balance. When she fell she struck her head and fx her hip. she was on the floor for 24 hours before she was found. She reports she is a hard worker and will get through this. Objective Patient Orientation: Confused, Place, Situation Attachments: Oxygen, Mark Catheter, IV ROM/Strength ROM Upper Extremities WFL ROM Lower Extremities (R) LE WFL (L) LE ankle and knee WFL, hip flex 80 degrees, abd 10 degrees Strength Lower Extremities (R) LE gross 4/5 (L) LE gross 2/5 throughout, hip flex 1/5 Sensory Vision: Functional Hearing: Hearing Aid/Aides Sensation Right Lower Extremit: Intact Sensation Left Lower Extremity: Intact Transfers Roll Left to Right (QC): 1 Sit to Lying (QC): 1 Lying to Sitting/Side of Bed(Q: 1 Sit to Stand (QC): 3 Chair/Igk-su-Kbvox Xfer(QC): 1 Pt required assistance of 2 to come to sitting at edge of bed and to return to bed. Sit to stand was Moderate assist of 1 person. Required 2 people for stand pivot. one for balance and one to advance the (L) leg. Gait Does the Patient Walk?: Yes Mode of Locomotion: Walk Anticipated Mode of Locomotion: Walk Walk 10 feet (QC): 88 Walk 50 ft with 2 Turns(QC): 88 Walk 150 ft (QC): 88 Distance: 2 steps Dependent assist Gait Assistive Device: FWW Balance Sitting Static: Fair Sitting Dynamic: Fair Standing Static: Fair Standing Dynamic: Poor Treatment LE PROM (B) x 10 reps Assessment/Needs Rehab Potential: Good PT [facility] Goals Sales Account Director Goals PT M[facility] Goals Time Frame: Dec 25, 2022 Roll Left & Right (QC): 4 Sit to Lying (QC): 4 Lying-Sitting on Side/Bed(QC): 4 Sit to Stand (QC): 4 Chair/Kjg-fn-Vfwdd Xfer(QC): 4 Toilet Transfer (QC): 4 Walk 50ft with 2 Turns (QC): 4 PT Plan Problem List Problem List: Activity Tolerance, Balance, Gait, Transfer, Bed Mobility, ROM Treatment/Plan Treatment Plan: Continue Plan of Care Treatment Plan: Bed Mobility, Functional Strength, Gait, Safety, Therapeutic Exercise, Transfers Treatment Duration: Dec 25, 2022 Frequency: 6 times per week Estimated Hrs Per Day: .25 hour per day Patient and/or Family Agrees t: Yes Discharge Recommendations Therapy Discharge Recommendati: Post Acute PT, Post Acute OT Time Time In: 1700 Time Out: 1730 DATE: Dec 19, 2022 Total Billed Treatment Time: 30 Total Billed Treatment visit, evaluation Moderate complexity 30 minutes VAHE MERCHANT PT Dec 19, 2022 17:35
--- NOTE | 2022-12-19 17:49 | OPERATIVE REPORT ---
DATE OF SERVICE: 12/19/2022 PREOPERATIVE DIAGNOSIS: Left intertrochanteric femur fracture. POSTOPERATIVE DIAGNOSIS: Left intertrochanteric femur fracture. PROCEDURE: Left hip intramedullary nail. SURGEON: Satinder Mueller MD BLAST HOLE DRILLER: Elian Strong, who assisted throughout the procedure and closed the incisions. ANESTHESIA: Spinal anesthetic by Demian Hi CRNA. ESTIMATED BLOOD LOSS: 100 mL DRAINS: None. COMPLICATIONS: None. POSTOPERATIVE PLAN: Weightbearing as tolerated left lower extremity. MATERIALS: Synthes 11 diameter nail with a 95 mm blade, distally locked. STATEMENT OF MEDICAL NECESSITY: The patient is an 82-year-old female who presented to the emergency department early this morning with a left intertrochanteric femur fracture. She was admitted and I was consulted. She has been unattended for over 24 hours since her fall. Because of this, it was recommended the patient undergo urgent fixation. DESCRIPTION OF PROCEDURE: After risks and benefits of the procedure were discussed with the patient and her family and informed consent was signed and placed on chart. The operative site was confirmed in the preoperative holding area initialed by surgeon. The patient was then transferred to the operating room and after adequate levels of spinal anesthetic, was obtained, a timeout was called, confirming the operative site. The patient was then carefully placed on the traction table gentle longitudinal traction was applied. Fluoroscopy indicated and an anatomic reduction in the AP and lateral planes. The left hip and lower extremity were then prepped and draped in the usual sterile fashion. An incision was made from the greater trochanter extending proximally. Guidewire was passed from the greater trochanter tip into the canal. This was confirmed to be well positioned with AP and lateral projections. This was then overreamed. An 11 mm Synthes nail was placed through a percutaneous incision, the guidewire was passed into the femoral head. This was felt to be in excellent position in the AP and lateral planes. This was then overreamed and a 95 mm blade was placed with good purchase. This was then compressed anatomically and then left unlocked for compression. The distal locking screw was then placed through the guide. AP and lateral planes revealed anatomic reduction of the fracture with well placed hardware. The wounds were copiously irrigated. The iliotibial band was closed proximally with #1 Vicryl. Then, 2-0 Vicryl was used for the subcutaneous layers of both incisions and sophia used on the skin. Incisions were infiltrated with plain Marcaine. A sterile dressing was applied. The patient was transferred to recovery room awake and stable condition. Job ID: [id number] DocumentID: [id number] Dictated Date: 12/19/2022 12:37:35 Behavioral Health Consultant Date: 12/19/2022 17:47:00 Dictated By: SATINDER MUELLER MD
[2022-12-19] MEDS: ceFAZolin INJECTION 2,000 MG in NS (IVPB) 50 ML IV SCH (17:59)
[2022-12-19] MEDS ORDERED: ENOXAPARIN INJECTION 30 MG/0.3 ML SYR SC SCH (18:00)
[2022-12-19] MEDS: ROSUVASTATIN 10 MG (CRESTOR) TABLET PO SCH (20:50)
[2022-12-19] MEDS: HYDROcodone/APAP 5 MG/325 MG (LORTAB) TAB PO PRN (20:50)
[2022-12-19] MEDS: ALPRAZolam 0.5 MG (XANAX) TAB PO SCH (20:50)
[2022-12-19] MEDS ORDERED: cefTRIAXone 1 GM/NS 50 ML IVPB IV SCH ×2 (22:00)
[2022-12-20] VITALS (7 sets, daily range): BP systolic 100–157; BP diastolic 54–76
[2022-12-20] MEDS: ceFAZolin INJECTION 2,000 MG in NS (IVPB) 50 ML IV SCH (02:07)
[2022-12-20 05:26] LABS: BASOPHILS % (AUTO) 0 % (0-10); EOSINOPHILS % (AUTO) 0 % (0-10); HEMATOCRIT 34 % (35-52); HEMOGLOBIN 11.3 g/dL (11.5-16.0); LYMPHOCYTES # (AUTO) 1.2 10^3/uL (1.0-4.0); LYMPHOCYTES % (AUTO) 13 % (12-44); MEAN CORPUSCULAR HEMOGLOBIN 32 pg (25-34); MEAN CORPUSCULAR HGB CONC 33 g/dL (32-36); MEAN CORPUSCULAR VOLUME 97 fL (80-99); MEAN PLATELET VOLUME 10.7 fL (9.0-12.2); MONOCYTES # (AUTO) 1.1 10^3/uL (0.0-1.0); MONOCYTES % (AUTO) 13 % (0-12); NEUTROPHILS # (AUTO) 6.5 10^3/uL (1.8-7.8); NEUTROPHILS % (AUTO) 73 % (42-75); PLATELET COUNT 154 10^3/uL (130-400); WHITE BLOOD COUNT 8.8 10^3/uL (4.3-11.0)
[2022-12-20] MEDS: LACTATED RINGERS 1,000 ML IV SCH ×2 (05:34→10:43)
[2022-12-20 05:37] LABS: CALCIUM 8.6 MG/DL (8.5-10.1); CREATININE SERUM 0.8 MG/DL (0.60-1.30); POTASSIUM 3.6 MMOL/L (3.6-5.0)
[2022-12-20] MEDS: ALPRAZolam 0.5 MG (XANAX) TAB PO SCH ×2 (08:27→21:40)
[2022-12-20] MEDS: SENNOSIDES 8.6 MG (SENOKOT) TAB PO SCH ×2 (08:27→21:40)
[2022-12-20] MEDS: LORATADINE (CLARITIN) 10 MG TAB PO SCH (08:27)
[2022-12-20] MEDS: DOCUSATE SODIUM 100 MG (COLACE) CAP PO SCH ×2 (08:27→21:40)
[2022-12-20] MEDS: ENOXAPARIN INJECTION 30 MG/0.3 ML SYR SC SCH (08:27)
--- NOTE | 2022-12-20 08:30 | Physical Therapy Daily Note ---
PT Daily Note-Current Subjective Pt says she is better today. she is now able to move her right leg to shift in bed. Pain Section J - Health Conditions 1. Rarely or not at all 2. Occasionally 3. Frequently 4. Almost constantly 8. Unable to answer Pain Effect on Sleep: 2 Pain Interference with Therapy: 2 Pain Interference w/Day-to-Day: 2 Mental Status Patient Orientation: Person, Place, Situation Attachments: Mark Catheter, IV Transfers SCALE: Activities may be completed with or without assistive devices. 9-Objzojuxdp-uhnfuof completes the activity by him/herself with no assistance from a helper. 5-Set-up or Clean-up Assistance-helper sets up or cleans up; patient completes activity. [place] assists only prior to or following the activity. 4-Supervision or Touching Assistance-helper provides verbal cues and/or touching/steadying and/or contact guard assistance as patient completes activity. Assistance may be provided throughout the activity or intermittently. 3-Partial/Moderate Assistance-helper does LESS THAN HALF the effort. [place] lift s, holds or supports trunk or limbs, but provides less than half the effort. 2-Substantial/Maximal Assistance-helper does MORE THAN HALF the effort. [place] lifts or holds trunk or limbs and provides more than half the effort. 1-Xvxvavkfv-mdiydf does ALL the effort. Patient does none of the effort to complete the activity. Or, the assistance of 2 or more helpers is required for the patient to complete the activity. If activity was not attempted, code reason: 7-Patient Refused. 9-Not Applicable-not attempted and the patient did not perform the activity before the current illness, exacerbation or injury. 10-Not Attempted due to Environmental Limitations-(lack of equipment, weather restraints, etc.). 88-Not Attempted due to Medical Conditions or Safety Concerns. Roll Left & Right (QC): 2 Sit to Lying (QC): 2 Lying to Sitting/Side of Bed(Q: 2 Sit to Stand (QC): 3 Improved mobility this session. Able to transition sit to supine with assist of 1 person Weight Bearing Right Lower Extremity: Right Full Weight Bearing Left Lower Extremity: Left Partial Weight Bearing Gait Training Gait Assistive Device: FWW 3 steps forward and back with Moderate assist for (L) LE advancement. Able to take 5 side steps at bedside using FWW Exercises Supine Ex: LE Protocol Supine Reps: 10 AAROM left LE Assessment Current Status: Good Progress Pt showed good progress from yesterday with improved bed mobility and ability to advance the LE in standing. she has difficulty maintaing PWB status. Pt will benefit from continued therapy for mobility training. PT Long-Term Goals Long-Term Goals PT Long-Term Goals Time Frame: Dec 25, 2022 Roll Left & Right (QC): 4 Sit to Lying (QC): 4 Lying-Sitting on Side/Bed(QC): 4 Sit to Stand (QC): 4 Chair/Sqz-bm-Fehzq Xfer(QC): 4 Toilet Transfer (QC): 4 Walk 50ft with 2 Turns (QC): 4 PT Plan Treatment/Plan Treatment Plan: Continue Plan of Care Treatment Plan: Bed Mobility, Functional Strength, Gait, Safety, Therapeutic Exercise, Transfers Treatment Duration: Dec 25, 2022 Frequency: 6 times per week Estimated Hrs Per Day: .25 hour per day Patient and/or Family Agrees t: Yes Time Time In: 745 Time Out: 805 DATE: Dec 20, 2022 Total Billed Treatment Time: 20 Total Billed Treatment visit, FA 15 min, Gt 5 min VAHE MERCHANT PT Dec 20, 2022 08:30
[2022-12-20] MEDS: HYDROcodone/APAP 5 MG/325 MG (LORTAB) TAB PO PRN ×3 (08:31→21:40)
--- NOTE | 2022-12-20 11:13 | Progress Note ---
Standard Progress Note Progress Notes/Assess & Plan Date Seen by a Provider: Dec 20, 2022 Time Seen by a Provider: 11:04 Progress/Assessment & Plan no complaints Laboratory Tests Test 12/20/22 05:13 Range/Units White Blood Count 8.8 4.3-11.0 10^3/uL Red Blood Count 3.56 L 3.80-5.11 10^6/uL Hemoglobin 11.3 L 11.5-16.0 g/dL Hematocrit 34 L 35-52 % Mean Corpuscular Volume 97 80-99 fL Mean Corpuscular Hemoglobin 32 25-34 pg Mean Corpuscular Hemoglobin Concent 33 32-36 g/dL Red Cell Distribution Width 13.2 10.0-14.5 % Platelet Count 154 130-400 10^3/uL Mean Platelet Volume 10.7 9.0-12.2 fL Immature Granulocyte % (Auto) 0 % Neutrophils (%) (Auto) 73 42-75 % Lymphocytes (%) (Auto) 13 12-44 % Monocytes (%) (Auto) 13 H 0-12 % Eosinophils (%) (Auto) 0 0-10 % Basophils (%) (Auto) 0 0-10 % Neutrophils # (Auto) 6.5 1.8-7.8 10^3/uL Lymphocytes # (Auto) 1.2 1.0-4.0 10^3/uL Monocytes # (Auto) 1.1 H 0.0-1.0 10^3/uL Eosinophils # (Auto) 0.0 0.0-0.3 10^3/uL Basophils # (Auto) 0.0 0.0-0.1 10^3/uL Immature Granulocyte # (Auto) 0.0 0.0-0.1 10^3/uL Sodium Level 139 135-145 MMOL/L Potassium Level 3.6 3.6-5.0 MMOL/L Chloride Level 104 98-107 MMOL/L Carbon Dioxide Level 26 21-32 MMOL/L Anion Gap 9 5-14 MMOL/L Blood Urea Nitrogen 15 7-18 MG/DL Creatinine 0.80 0.60-1.30 MG/DL Estimat Glomerular Filtration Rate 73 BUN/Creatinine Ratio 19 Glucose Level 89 70-105 MG/DL Calcium Level 8.6 8.5-10.1 MG/DL Vital Signs Date Time Temp Pulse Resp B/P (MAP) Pulse Ox O2 Delivery O2 Flow Rate FiO2 12/20/22 08:13 37.0 85 16 150/72 (98) 94 Nasal Cannula 2.00 12/20/22 04:00 36.8 85 16 157/76 (103) 96 Nasal Cannula 2.00 12/20/22 00:00 36.9 84 16 125/68 (87) 98 Nasal Cannula 2.00 12/19/22 20:45 36.5 90 18 157/69 (98) 95 Nasal Cannula 2.00 12/19/22 20:45 Nasal Cannula 2.00 12/19/22 16:00 36.8 86 16 167/89 (115) 99 Nasal Cannula 2.00 12/19/22 14:08 35.8 74 18 139/85 (103) 97 Nasal Cannula 2.00 12/19/22 13:40 Nasal Cannula 2.00 12/19/22 13:30 36.7 16 150/82 (104) 99 Nasal Cannula 2.00 12/19/22 13:25 Nasal Cannula 2.00 12/19/22 13:20 16 154/82 (106) 98 Nasal Cannula 2.00 12/19/22 13:10 16 155/83 (107) 98 Nasal Cannula 2.00 12/19/22 13:10 Nasal Cannula 2.00 12/19/22 13:00 17 151/74 (99) 100 Nasal Cannula 2.00 12/19/22 12:50 Nasal Cannula 2.00 12/19/22 12:50 16 102/64 (77) 99 Nasal Cannula 2.00 12/19/22 12:40 16 107/63 (78) 99 Nasal Cannula 4.00 12/19/22 12:35 Nasal Cannula 4.00 12/19/22 12:35 36.3 16 89/68 (75) 99 Nasal Cannula 4.00 I & O 12/20/22 07:00 Intake Total 2300 ml Output Total 1715 ml Balance 585 ml L hip dressing intact intact DF and PF of toes and ankle sensation intact to light touch throughout equal pulses with brisk cap refill s/p L hip IM geri PT/OT IRU? Focused Exam Lactate Level 12/19/22 00:32: Lactic Acid Level 0.94 CHERELLE HERRMANN MD Dec 20, 2022 11:13
--- NOTE | 2022-12-20 15:16 | Progress Note - Hospitalist ---
Subjective HPI/CC On Admission Date Seen by Provider: Dec 20, 2022 Time Seen by Provider: 11:30 Melissa Vicente is an 82 year old female with PMH HTN, HLD, anxiety, who was admitted after a fall. She had been down on the ground in her home for about a day. She had been in her normal state of health prior to the fall. She only has pain when she moves. She denies any other pain than her hip. She denies chest pain and shortness of breath. She had some nausea yesterday. Subjective/Events-last exam She is feeling better. She was able to do more with therapy today. She has no complaints. Focused Exam Lactate Level 12/19/22 00:32: Lactic Acid Level 0.94 Objective Exam Vital Signs Vital Signs Date Time Temp Pulse Resp B/P (MAP) Pulse Ox O2 Delivery O2 Flow Rate FiO2 12/20/22 11:49 36.8 90 18 110/54 (72) 89 Nasal Cannula 2.00 Capillary Refill : Less Than 3 Seconds General Appearance: No Apparent Distress, Thin Respiratory: No Respiratory Distress, Decreased Breath Sounds Cardiovascular: Regular Rate, Rhythm, Systolic Murmur Gastrointestinal: Normal Bowel Sounds, Soft Extremity: Normal Inspection, No Pedal Edema Neurologic/Psychiatric: Alert, Normal Mood/Affect Skin: Normal Color, Warm/Dry Results/Procedures Lab Laboratory Tests 12/20/22 05:13 Patient resulted labs reviewed. Imaging: Reviewed Imaging Report Assessment/Plan Assessment and Plan Assess & Plan/Chief Complaint Left comminuted intertrochanteric fracture of femur Fall Rhabdomyolysis Ortho following, underwent left hip IM nailing 12/19 Stop IV fluids Pain regimen Bowel regimen PT/OT IRU evaluation Incentive spirometry Tobacco abuse Nicotine patch HTN IV Hydralazine as needed HLD Anxiety Continue home meds as able DVT prophylaxis: Lovenox Diagnosis/Problems Diagnosis/Problems (1) Intertrochanteric fracture of left hip Status: Acute Qualifiers: Encounter type: initial encounter Fracture type: closed Fracture alignment: displaced Qualified Codes: S72.142A - Displaced intertrochanteric fracture of left femur, initial encounter for closed fracture (2) Traumatic rhabdomyolysis Status: Acute Qualifiers: Encounter type: initial encounter Qualified Codes: T79.6XXA - Traumatic ischemia of muscle, initial encounter (3) Fall on same level as cause of accidental injury Status: Acute (4) AAA (abdominal aortic aneurysm) without rupture Status: Acute (5) Thoracic aortic aneurysm (TAA) Status: Acute Qualifiers: Thoracic aorta location: descending thoracic aorta Presence of rupture: without rupture Qualified Codes: I71.23 - Aneurysm of the descending thoracic aorta, without rupture (6) Tobacco abuse Status: Acute JOSE WARNER MD Dec 20, 2022 15:15
[2022-12-20] MEDS: ROSUVASTATIN 10 MG (CRESTOR) TABLET PO SCH (21:40)
[2022-12-21 03:38] VITALS: BP 146/69
[2022-12-21 06:07] LABS: CALCIUM 8.6 MG/DL (8.5-10.1); CREATININE SERUM 0.74 MG/DL (0.60-1.30); POTASSIUM 3.5 MMOL/L (3.6-5.0)
--- NOTE | 2022-12-21 07:40 | Progress Note ---
Standard Progress Note Progress Notes/Assess & Plan Date Seen by a Provider: Dec 21, 2022 Time Seen by a Provider: 07:32 Progress/Assessment & Plan no complaints Laboratory Tests Test 12/20/22 05:13 Range/Units White Blood Count 8.8 4.3-11.0 10^3/uL Red Blood Count 3.56 L 3.80-5.11 10^6/uL Hemoglobin 11.3 L 11.5-16.0 g/dL Hematocrit 34 L 35-52 % Mean Corpuscular Volume 97 80-99 fL Mean Corpuscular Hemoglobin 32 25-34 pg Mean Corpuscular Hemoglobin Concent 33 32-36 g/dL Red Cell Distribution Width 13.2 10.0-14.5 % Platelet Count 154 130-400 10^3/uL Mean Platelet Volume 10.7 9.0-12.2 fL Immature Granulocyte % (Auto) 0 % Neutrophils (%) (Auto) 73 42-75 % Lymphocytes (%) (Auto) 13 12-44 % Monocytes (%) (Auto) 13 H 0-12 % Eosinophils (%) (Auto) 0 0-10 % Basophils (%) (Auto) 0 0-10 % Neutrophils # (Auto) 6.5 1.8-7.8 10^3/uL Lymphocytes # (Auto) 1.2 1.0-4.0 10^3/uL Monocytes # (Auto) 1.1 H 0.0-1.0 10^3/uL Eosinophils # (Auto) 0.0 0.0-0.3 10^3/uL Basophils # (Auto) 0.0 0.0-0.1 10^3/uL Immature Granulocyte # (Auto) 0.0 0.0-0.1 10^3/uL Sodium Level 139 135-145 MMOL/L Potassium Level 3.6 3.6-5.0 MMOL/L Chloride Level 104 98-107 MMOL/L Carbon Dioxide Level 26 21-32 MMOL/L Anion Gap 9 5-14 MMOL/L Blood Urea Nitrogen 15 7-18 MG/DL Creatinine 0.80 0.60-1.30 MG/DL Estimat Glomerular Filtration Rate 73 BUN/Creatinine Ratio 19 Glucose Level 89 70-105 MG/DL Calcium Level 8.6 8.5-10.1 MG/DL Vital Signs Date Time Temp Pulse Resp B/P (MAP) Pulse Ox O2 Delivery O2 Flow Rate FiO2 12/20/22 08:13 37.0 85 16 150/72 (98) 94 Nasal Cannula 2.00 12/20/22 04:00 36.8 85 16 157/76 (103) 96 Nasal Cannula 2.00 12/20/22 00:00 36.9 84 16 125/68 (87) 98 Nasal Cannula 2.00 12/19/22 20:45 36.5 90 18 157/69 (98) 95 Nasal Cannula 2.00 12/19/22 20:45 Nasal Cannula 2.00 12/19/22 16:00 36.8 86 16 167/89 (115) 99 Nasal Cannula 2.00 12/19/22 14:08 35.8 74 18 139/85 (103) 97 Nasal Cannula 2.00 12/19/22 13:40 Nasal Cannula 2.00 12/19/22 13:30 36.7 16 150/82 (104) 99 Nasal Cannula 2.00 12/19/22 13:25 Nasal Cannula 2.00 12/19/22 13:20 16 154/82 (106) 98 Nasal Cannula 2.00 12/19/22 13:10 16 155/83 (107) 98 Nasal Cannula 2.00 12/19/22 13:10 Nasal Cannula 2.00 12/19/22 13:00 17 151/74 (99) 100 Nasal Cannula 2.00 12/19/22 12:50 Nasal Cannula 2.00 12/19/22 12:50 16 102/64 (77) 99 Nasal Cannula 2.00 12/19/22 12:40 16 107/63 (78) 99 Nasal Cannula 4.00 12/19/22 12:35 Nasal Cannula 4.00 12/19/22 12:35 36.3 16 89/68 (75) 99 Nasal Cannula 4.00 I & O 12/20/22 07:00 Intake Total 2300 ml Output Total 1715 ml Balance 585 ml L hip dressing intact intact DF and PF of toes and ankle sensation intact to light touch throughout equal pulses with brisk cap refill s/p L hip IM adamaris PT/OT IRU? Final Diagnosis feeling better Laboratory Tests Test 12/21/22 05:21 Range/Units Sodium Level 141 135-145 MMOL/L Potassium Level 3.5 L 3.6-5.0 MMOL/L Chloride Level 104 98-107 MMOL/L Carbon Dioxide Level 29 21-32 MMOL/L Anion Gap 8 5-14 MMOL/L Blood Urea Nitrogen 13 7-18 MG/DL Creatinine 0.74 0.60-1.30 MG/DL Estimat Glomerular Filtration Rate 80 BUN/Creatinine Ratio 18 Glucose Level 105 70-105 MG/DL Calcium Level 8.6 8.5-10.1 MG/DL Vital Signs Date Time Temp Pulse Resp B/P (MAP) Pulse Ox O2 Delivery O2 Flow Rate FiO2 12/21/22 03:38 36.9 73 18 146/69 (94) 97 Nasal Cannula 2.00 12/20/22 23:46 36.7 75 16 139/67 (91) 97 Nasal Cannula 2.00 12/20/22 20:17 36.9 73 20 100/56 (71) 95 Nasal Cannula 2.00 12/20/22 20:00 Nasal Cannula 2.00 12/20/22 18:45 Nasal Cannula 2.00 12/20/22 16:14 37.5 88 18 122/62 (82) 96 Nasal Cannula 2.00 12/20/22 11:49 36.8 90 18 110/54 (72) 89 Nasal Cannula 2.00 12/20/22 08:13 37.0 85 16 150/72 (98) 94 Nasal Cannula 2.00 12/20/22 08:00 Nasal Cannula 2.00 I & O 12/21/22 07:00 Intake Total 2030 ml Output Total 800 ml Balance 1230 ml L hip incisions clean and dry no calf tenderness neg Eddie's s/p L hip IM ADAMARIS to IRU when approved ZARIA Das Focused Exam Lactate Level 12/19/22 00:32: Lactic Acid Level 0.94 CHERELLE HERRMANN MD Dec 21, 2022 07:40
[2022-12-21 07:58] VITALS: BP 106/67
[2022-12-21] MEDS: LORATADINE (CLARITIN) 10 MG TAB PO SCH (08:31)
[2022-12-21] MEDS: SENNOSIDES 8.6 MG (SENOKOT) TAB PO SCH (08:31)
[2022-12-21] MEDS: ALPRAZolam 0.5 MG (XANAX) TAB PO SCH (08:31)
[2022-12-21] MEDS: DOCUSATE SODIUM 100 MG (COLACE) CAP PO SCH (08:31)
[2022-12-21] MEDS: ENOXAPARIN INJECTION 30 MG/0.3 ML SYR SC SCH (08:32)
[2022-12-21] MEDS: HYDROcodone/APAP 5 MG/325 MG (LORTAB) TAB PO PRN (08:32)
[2022-12-21] MEDS ORDERED: ALPR1TAB7 PO ×3 (08:59)
[2022-12-21] MEDS ORDERED: LORA10TA76 PO (09:00)
[2022-12-21] MEDS ORDERED: VITA0.4T18 PO (09:00)
--- NOTE | 2022-12-21 10:33 | Discharge Summary ---
Diagnosis/Chief Complaint Date of Admission Dec 19, 2022 at 02:17 Date of Discharge Discharge Date: Dec 21, 2022 Admission Diagnosis Left comminuted intertrochanteric fracture of the femur Primary Care Brad Enrique MD Discharge Diagnosis (1) Intertrochanteric fracture of left hip Status: Acute (2) Traumatic rhabdomyolysis Status: Acute (3) Fall on same level as cause of accidental injury Status: Acute (4) AAA (abdominal aortic aneurysm) without rupture Status: Acute (5) Thoracic aortic aneurysm (TAA) Status: Acute (6) Tobacco abuse Status: Acute Discharge Summary Discharge Physical Exam Allergies: Coded Allergies: Penicillins (Verified Allergy, Unknown, 07/30/20) Uncoded Allergies: WASP AND BEE STINGS (Allergy, Unknown, 07/30/20) Vitals & I&Os Vital Signs Date Time Temp Pulse Resp B/P (MAP) Pulse Ox O2 Delivery O2 Flow Rate FiO2 12/21/22 08:00 94 Nasal Cannula 2.00 12/21/22 07:58 37.0 87 18 106/67 (80) Hospital Course Labs (last 24 hrs) Laboratory Tests 12/21/22 05:21: Sodium Level 141, Potassium Level 3.5L, Chloride Level 104, Carbon Dioxide Level 29, Anion Gap 8, Blood Urea Nitrogen 13, Creatinine 0.74, Estimat Glomerular Filtration Rate 80, BUN/Creatinine Ratio 18, Glucose Level 105, Calcium Level 8.6 Microbiology 12/19/22 Blood Culture - Preliminary, Resulted No growth 12/18/22 Urine Culture - Preliminary, Resulted Pseudomonas aeruginosa Patient resulted labs reviewed. Pending Labs Laboratory Tests 12/21/22 05:21: Sodium Level 141, Potassium Level 3.5, Chloride Level 104, Carbon Dioxide Level 29, Anion Gap 8, Blood Urea Nitrogen 13, Creatinine 0.74, Estimat Glomerular Filtration Rate 80, BUN/Creatinine Ratio 18, Glucose Level 105, Calcium Level 8.6 Imaging: Reviewed Imaging Report Discharge Home Medications: Active Scripts Active Reported Claritin (Loratadine) 10 Mg Tablet 10 Mg PO DAILY Super B Maxi Complex Caplet (Vitamin B Complex/Folic Acid) 0.4 Mg Tablet 0.4 Mg PO DAILY Alprazolam 1 Mg Tablet 0.5 Mg PO HS Alprazolam 1 Mg Tablet 0.5 Mg PO 1200 Alprazolam 1 Mg Tablet 1 Mg PO DAILY Vitamin D3 (Cholecalciferol (Vitamin D3)) 25 Mcg (1000 Unit) Capsule 25 Mcg PO DAILY Vitamin C 500 mg Tablet Chew (Ascorbic Acid/Ascorbate Sodium) 500 Mg Tab.chew 1,000 Mg PO DAILY TAKES 2 (500MG) TAB Probiotic Pearls Women's Sfgl (L. Acidoph/L. Plantar/L. Rhamn) 1 Billion Cell Capsule.dr 1 Each PO DAILY Cetirizine HCl 10 Mg Tablet 10 Mg PO HS Omeprazole 20 Mg Tablet.dr 20 Mg PO DAILY Systane 0.3-0.4% Eye Drops (Propylene Glycol/Peg 400/Pf) 0.3 %-0.4 % Droperette 1 Drop OU BID Nicotine Patch (Nicotine) 14 Mg/24 Hour Patch.td24 14 Mg TD DAILY Rosuvastatin Calcium 10 Mg Tablet 10 Mg PO DAILY Instructions to patient/family Please see electronic discharge instructions given to patient. Problem Qualifiers (1) Intertrochanteric fracture of left hip: Encounter type: initial encounter Fracture type: closed Fracture alignment: displaced Qualified Codes: S72.142A - Displaced intertrochanteric fracture of left femur, initial encounter for closed fracture (2) Traumatic rhabdomyolysis: Encounter type: initial encounter Qualified Codes: T79.6XXA - Traumatic ischemia of muscle, initial encounter (3) Thoracic aortic aneurysm (TAA): Thoracic aorta location: descending thoracic aorta Presence of rupture: without rupture Qualified Codes: I71.23 - Aneurysm of the descending thoracic aorta, without rupture KEYLA MEI MD Dec 21, 2022 10:33
--- NOTE | 2022-12-21 11:26 | Occupational Therapy Eval ---
OT Evaluation-General/PLF Medical Diagnosis Admission Date Dec 19, 2022 at 02:17 Medical Diagnosis: (L) intertrochanteric hip fx Onset Date: Dec 18, 2022 Therapy Diagnosis Therapy Diagnosis: UE weaskness, s/p LLE fx Precautions Precautions/Isolations: Fall Prevention, Standard Precautions Weight Bear Status Weight Bearing Restriction: Partial Weight Bearing Location Restriction: L LE WBS (Ord/Comment): Requires constant cues for PWB precaution Referral Physician: Ni Baez Referral Reason: Activity Tolerance, Self Care, Evaluation/Treatment, Strengthening/ROM Medical History Pertinent Medical History: HTN Additional Medical History 82 year old female with PMH HTN, HLD, anxiety, who was admitted after a fall. She had been down on the ground in her home for about a day. She had been in her normal state of health prior to the fall. She only has pain when she moves. She denies any other pain than her hip. She denies chest pain and shortness of breath. Social History Home: Single Level Current Living Status: Alone Steps Into Home: 1 ADL-Prior Level of Function SCALE: Activities may be completed with or without assistive devices. 6-Idcgleldxz-lcbxfos completes the activity by him/herself with no assistance from a helper. 5-Set-up or Clean-up Assistance-helper sets up or cleans up; patient completes activity. [place] assists only prior to or following the activity. 4-Supervision or Touching Assistance-helper provides verbal cues and/or t ouching/steadying and/or contact guard assistance as patient completes activity. Assistance may be provided throughout the activity or intermittently. 3-Partial/Moderate Assistance-helper does LESS THAN HALF the effort. [place] lifts, holds or supports trunk or limbs, but provides less than half the effort. 2-Substantial/Maximal Assistance-helper does MORE THAN HALF the effort. [place] lifts or holds trunk or limbs and provides more than half the effort. 8-Kluklfvol-awbywh does ALL the effort. Patient does none of the effort to complete the activity. Or, the assistance of 2 or more helpers is required for the patient to complete the activity. If activity was not attempted, code reason: 7-Patient Refused. 9-Not Applicable-not attempted and the patient did not perform the activity before the current illness, exacerbation or injury. 10-Not Attempted due to Environmental Limitations-(lack of equipment, weather restraints, etc.). 88-Not Attempted due to Medical Conditions or Safety Concerns. Self Care: Independent Functional Cognition: Independent OT Current Status Subjective Up in bed looking for Hearing aid w/ housekeeping, agreeable to OT and sitting in recliner. Pain Numeric Pain Scale: 4 Location: Left Location Body Site: Thigh Comment: Patient is able to bridge and move BLEs to EOB for preparion of tra nsfer. 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 Patient reports she urinates frequently at home. 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 in both ears Education OT Patient Education: Correct positioning, Exercise program, Modified ADL techniques, Progress toward Goal/Update tx plan, Purpose of tx/functional activities, Reviewed precautions, Rehab process, Safety issues, Transfer techniques, Use of adapted equipment Teaching Recipient: Patient Teaching Methods: Demonstration, Discussion Response to Teaching: Reinforcement Needed OT Sugar Grinder Goals Skilled Nursing Goals Eating (QC): 6 Oral Hygiene (QC): 6 Toileting Hygiene (QC): 6 Shower/Bathe Self (QC): 6 Upper Body Dressing (QC): 6 Lower Body Dressing (QC): 6 On/Off Footwear (QC): 6 1=Demonstrate adherence to instructed precautions during ADL tasks. 2=Patient will verbalize/demonstrate understanding of assistive devices/modifications for ADL. 3=Patient will improve strength/tolerance for activity to enable patient to perform ADL's. OT Education/Plan Problem List/Assessment Assessment: Decreased Activ Tolerance, Decreased UE Strength, Impaired Funct Balance, Impaired Self-Care Skills Discharge Recommendations Plan/Recommendations: Continue POC Treatment Plan/Plan of Care Treatment,Training & Education: Yes Patient would benefit from OT for education, treatment and training to promote independence in ADL's, mobility, safety and/or upper extremity function for ADL's. Plan of Care: ADL Retraining, Functional Mobility, Group Exercise/Act as Ind, UE Funct Exercise/Act Treatment Duration: Dec 26, 2022 Frequency: 3 times per week (3-5 times per week) Rehab Potential: Good Time Start Time: 09:10 Stop Time: 09:25 DATE: Dec 21, 2022 Total Time Billed (hr/min): 15 Billed Treatment Time ADL 15 JOSE GONG OT Dec 21, 2022 11:26
[2022-12-21 11:36] VITALS: BP 106/67
[2022-12-22] MEDS ORDERED: IPRA3AMP31 INH (09:18)
[2022-12-22] MEDS ORDERED: ASPI-1238 PO (09:18)
[2022-12-22] MEDS ORDERED: CLOP75TA28 PO (09:18)
== END 2022-12-21 11:36 | DRG 956 ==
LOC: EDUNIT# 20:57 → ER 20:58 → 4TH 12-19 02:17
PROVIDERS: ADMIT Internal Medicine; ATTEND Internal Medicine
PROC: 0QS736Z Reposition Left Upper Femur with Intramedullary Internal Fixation Device, Percutaneous Approach (ICD-10-PCS; principal; 2022-12-19 11:03)
DX: S72.142A Displaced intertrochanteric fracture of left femur, initial encounter for closed fracture (principal); T79.6XXA Traumatic ischemia of muscle, initial encounter; J18.9 Pneumonia, unspecified organism; I71.20 Thoracic aortic aneurysm, without rupture, unspecified; I10 Essential (primary) hypertension; E78.5 Hyperlipidemia, unspecified; I71.40 Abdominal aortic aneurysm, without rupture, unspecified; F41.9 Anxiety disorder, unspecified; Z66 Do not resuscitate; H91.90 Unspecified hearing loss, unspecified ear; Z87.891 Personal history of nicotine dependence; Z79.891 Long term (current) use of opiate analgesic; Z88.0 Allergy status to penicillin; W19.XXXA Unspecified fall, initial encounter; Y92.008 Other place in unspecified non-institutional (private) residence as the place of occurrence of the external cause
CPT/HCPCS: 36415; 51702; 70450; 71250; 72125; 72131; 73502; 74176; 76000; 80048; 80053; 81000; 82550; 83605; 83735; 85007; 85025; 85027; 85610; 85730; 87040; 87077; 87088; 87186

== ENCOUNTER 2022-12-21 10:36 | Inpatient (IN) | payer MEDICARE ==
[~2022-12-21] VITALS: Ht 162.5 cm; Wt 48.6 kg
[~2022-12-21 10:36] MED LIST changes: +ALPR.25T PO; +ALPR1TAB7 PO; +ASCO500T16 PO; +CETI10TA17 PO; +CHOL100048 PO; +LORA10TA76 PO; +NICO-587 TD; +OMEP20TA56 PO; +PROP1DRO7 OU; +ROSU10TA28 PO; +VITA0.4T18 PO; +[UNRECOGNIZED DRUG - OTHER] PO
[2022-12-21 11:40] VITALS: BP 130/63
[2022-12-21 11:53] VITALS: BP 130/63
--- NOTE | 2022-12-21 12:11 | PM&R Post Admission Assessment ---
PM&R Date of Visit: Dec 21, 2022 Time of Visit: 12:30 History of Present Illness Chief complaint: Left hip fracture repair in need of recovery HPI: This is an 82-year-old female known to me from [place] admission a few months ago for generalized weakness and COPD issues prompting [facility] admission but returned home after skilled care who presented after a fall at her home on 12/17/2022 but could not get out of bed the next day so she was brought and found to have a left hip fracture and that was repaired on 12/19/2022 without complication. She continues to smoke and has COPD and she has been able to participate in therapy but will require aggressive therapy with slow recovery expected. Her prior level of functioning at home was use of a walker with independence in ADLs and family checking in on her. Past Mtuwoao-Iiiqia-Yqhpbd Hx Past Med/Social Hx: Reviewed Nursing Past Med/Soc Hx, Reviewed and Corrections made Patient Social History Marrital Status: single Employed/Student: retired Alcohol Use: Denies Use Smoking Status: Former Smoker Past Medical History Surgeries: Orthopedic (Left hip fracture) Respiratory: COPD Currently Using CPAP: No Currently Using BIPAP: No Cardiac: High Cholesterol Genitourinary: Bladder Infection Musculoskeletal: Arthritis Psychosocial: Sleep Difficulties, Anxiety Family History No Pertinent Family Hx PM&R Allergy/Meds/Data Review Allergies Coded Allergies: Penicillins (Verified Allergy, Unknown, 07/30/20) Uncoded Allergies: WASP AND BEE STINGS (Allergy, Unknown, 07/30/20) Home Medications Scheduled Alprazolam (Alprazolam), 1 MG PO DAILY, (Reported) Alprazolam (Alprazolam), 0.5 MG PO 1200, (Reported) Alprazolam (Alprazolam), 0.5 MG PO HS, (Reported) Ascorbic Acid/Ascorbate Sodium (Vitamin C 500 mg Tablet Chew), 1,000 MG PO DAILY , (Reported) Cetirizine HCl (Cetirizine HCl), 10 MG PO HS, (Reported) Cholecalciferol (Vitamin D3) (Vitamin D3), 25 MCG PO DAILY, (Reported) L. Acidoph/L. Plantar/L. Rhamn (Probiotic Pearls Women's Sfgl), 1 EACH PO DAILY, (Reported) Loratadine (Claritin), 10 MG PO DAILY, (Reported) Nicotine (Nicotine Patch), 14 MG TD DAILY, (Reported) Omeprazole (Omeprazole), 20 MG PO DAILY, (Reported) Propylene Glycol/Peg 400/Pf (Systane 0.3-0.4% Eye Drops), 1 DROP OU BID, (Reported) Rosuvastatin Calcium (Rosuvastatin Calcium), 10 MG PO DAILY, (Reported) Vitamin B Complex/Folic Acid (Super B Maxi Complex Caplet), 0.4 MG PO DAILY, (Reported) Current Medications Current Medications Reviewed Review of Systems Constitutional: see HPI, dizziness, malaise, weakness EENTM: no symptoms reported Respiratory: cough, dyspnea on exertion Cardiovascular: no symptoms reported Gastrointestinal: constipation Genitourinary: no symptoms reported Musculoskeletal: back pain, joint pain Skin: no symptoms reported Psychiatric/Neurological: Anxiety, Depressed All Other Systems Reviewed Negative Unless Noted: Yes Physical Exam Physical Exam Vital Signs Vital Signs - First Documented 12/21/22 11:40 Temp 36.6 Pulse 86 Resp 16 B/P (MAP) 130/63 (85) Pulse Ox 90 O2 Delivery Room Air Capillary Refill : Height, Weight, BMI Height: '" Weight: lbs. oz. kg; 18.78 BMI Method: General Appearance: No Apparent Distress, WD/WN, Chronically ill, Thin Eyes: Bilateral Eye Normal Inspection, Bilateral Eye PERRL HEENT: PERRL/EOMI, Normal ENT Inspection, Pharynx Normal Neck: Full Range of Motion, Normal Inspection, Non Tender, Supple, Carotid Bruit Respiratory: Chest Non Tender, Lungs Clear, No Accessory Muscle Use, No Respiratory Distress, Decreased Breath Sounds Cardiovascular: Regular Rate, Rhythm, No Edema, No Gallop, No JVD, No Murmur, Normal Peripheral Pulses Gastrointestinal: Normal Bowel Sounds, No Organomegaly, No Pulsatile Mass, Non Tender, Soft Back: Normal Inspection, No CVA Tenderness, No Vertebral Tenderness Extremity: Normal Capillary Refill, Normal Inspection, Normal Range of Motion (Except left leg), Non Tender, No Calf Tenderness, No Pedal Edema Neurologic/Psychiatric: Alert, Oriented x3, software engineering manager II-XII Norm as Tested, Abnormal Gait, Depressed Affect, Motor Weakness ( left leg weakness) Skin: Normal Color, Warm/Dry Lymphatic: No Adenopathy PM&R Medical Assessment & Plan REHAB/MEDICAL ASSESSMENT AND PLAN: REHAB IMPAIRMENT GROUP: Left hip fracture ETIOLOGIC DIAGNOSIS: left hip fracture The comorbidities that impact the patients function and/or functional outcome by: frail status, advanced age, COPD, anxiety REHAB PLAN: The patient is being admitted to our comprehensive inpatient rehabilitation facility and can tolerate the intensity of service consisting of at least: 180 minutes of therapy a day, 5 out of 7 days a week Rehab treatment will consist of: PT and OT will focus on ambulation with use of assistive devices in order to increase stamina and increase independence in ADLs in order to return back home to independent status The patient/family has a good understanding of our discharge process and will benefit from an interdisciplinary inpatient rehabilitation program. The patient has potential to make improvement and is in need of at least two of the following multidisciplinary therapies including but not limited to physical, occupational, speech, and prosthetics and orthotics. Additionally the patient will need services from respiratory, nutritional services, wound care, psychology, etc. (Customize this to each patient). Given the patients complex condition and risk of further medical complications, rehabilitation services cannot be safely or effectively provided at a lower level of care such as a [facility] facility. BARRIERS TO DISCHARGE: Lives alone with frail status and advanced age ESTIMATED LOS: 10 days DISPOSITION: home RELEVANT CHANGES SINCE PREADMISSION SCREENING: I have compared the patients medical and functional status at the time of the preadmission screening and there are: no changes PROGNOSIS: fair REHABILITATION GOALS: 1. PT and OT will focus on ambulation with use of assistive devices in order to increase stamina and increase independence in ADLs in order to return back home to independent status All the above goals were reviewed with the patient and he/she is in agreement. By signing this document, I acknowledge that I have personally performed a full physical examination on this patient within 24 hours of admission to this inpatient rehabilitation facility and have determined the patient to be able to tolerate the above course of treatment at an intensive level for a reasonable period of time. I will be completing a detailed individualized Plan of Care for this patient by day #4 of the patients stay based upon the Preadmission Screen, the Post-Admission Evaluation, and the therapy evaluations. Admission Dx/Comorbidities: (1) Hip fracture, left ICD Codes: S72.002A - Fracture of unspecified part of neck of left femur, initial encounter for closed fracture (2) Tobacco abuse Status: Acute ICD Codes: Z72.0 - Tobacco use (3) Thoracic aortic aneurysm (TAA) Status: Acute ICD Codes: I71.20 - Thoracic aortic aneurysm, without rupture, unspecified Assessment/Plan Assessment and Plan Assess & Plan/Chief Complaint Assessment: Left hip fracture with residual debility Acute neurological deficit with signs consistent with CVA NIH score 17 prompting ICU transfer a few hours after admission COPD Current smoker Frail status Advanced age Hyperlipidemia Anxiety Vitamin D deficiency Plan: Supportive care Monitor closely Fall risk Pain control ICU transfer for neurological deficit SOHAM LEBLANC DO Dec 21, 2022 12:11
[2022-12-21] MEDS ORDERED: BISACODYL 10 MG SUPP (DULCOLAX) PR PRN ×2 (12:15→12:30)
[2022-12-21] MEDS ORDERED: DOCUSATE SODIUM 100 MG (COLACE) CAP PO PRN (12:15)
[2022-12-21] MEDS ORDERED: guaiFENesin/CODEINE (ROBITUSSIN AC) 10ML UDC PO PRN (12:15)
[2022-12-21] MEDS ORDERED: diphenhydrAMINE 25 MG TAB (BENADRYL) PO PRN (12:15)
[2022-12-21] MEDS ORDERED: LACTULOSE SYRUP 10GM/15ML (ENULOSE) 30ML UDC PO PRN ×2 (12:15→12:30)
[2022-12-21] MEDS ORDERED: CALCIUM CARBONATE 500 MG (TUMS) TAB.CHEW PO PRN ×2 (12:15→12:30)
[2022-12-21] MEDS ORDERED: ONDANSETRON 4 MG (ZOFRAN) ORAL DISSOLVE TAB PO PRN (12:15)
[2022-12-21] MEDS ORDERED: FLEET ENEMA ADULT 1 EA BTL PR PRN (12:15)
[2022-12-21] MEDS ORDERED: MELATONIN 3 MG TABLET PO PRN (12:15)
[2022-12-21] MEDS ORDERED: LOPERAMIDE 2 MG (IMODIUM) TABLET PO PRN (12:15)
[2022-12-21] MEDS ORDERED: ANTACID SUSP 30 ML UDC (MYLANTA) PO PRN (12:30)
[2022-12-21] MEDS ORDERED: MILK OF MAGNESIA 400 MG/5 ML 30 ML UDC PO PRN (12:30)
[2022-12-21] MEDS ORDERED: hydrALAZINE (APESOLINE) 20 MG/ML VIAL IV PRN (12:30)
[2022-12-21] MEDS ORDERED: NICOTINE 14 MG (NICODERM) PATCH TD PRN (12:30)
[2022-12-21] MEDS ORDERED: NALOXONE 0.4 MG/ML 1 ML (NARCAN) VIAL IV PRN (12:30)
[2022-12-21] MEDS ORDERED: morphine INJ 4 MG/ML 1 ML (VIAL/SYRINGE) IVP PRN (12:30)
[2022-12-21] MEDS ORDERED: ONDANSETRON 4 MG/2 ML (SDV) Z0FRAN IVP PRN (12:30)
[2022-12-21] MEDS ORDERED: polyethylene glycoL POWDER 17 GM (MIRALAX) PACK PO PRN (12:30)
[2022-12-21] MEDS ORDERED: RT-ALBUTEROL/IPRATROPIUM 3 ML (DUONEB) VIAL INH PRN (12:30)
[2022-12-21] MEDS ORDERED: ACETAMINOPHEN 325 MG TABLET PO PRN (12:30)
--- NOTE | 2022-12-21 12:41 | Physical Therapy Evaluation ---
PT Evaluation-General Medical Diagnosis Admission Date Dec 21, 2022 at 11:44 Medical Diagnosis: L hip fracture s/p IM nail Onset Date: Dec 17, 2022 Therapy Diagnosis Therapy Diagnosis: Weakness, L hip pain, Decreased functional mobility Precautions Precautions/Isolations: Fall Prevention, Standard Precautions Weight Bear Status Right Lower Extremity: Right Full Weight Bearing Left Lower Extremity: Left Weight Bearing/Tolerated Referral Physician: Malik Reason for Referral: Evaluation/Treatment Medical History Pertinent Medical History: HTN Additional Medical History HTN, Tobacco abuse, HLD, Anxiety Current History Pt fell on 12/17/22, was unable to get up until the next day, when someone arrived and helped her up. ED 12/18/22 with L hip comminuted intertrochantic fx of femur, s/p L hip IM nail on 12/19/22. Reviewed History: Yes Social History Home: Single Level Current Living Status: Alone Entry Into Home: Stairs Without Railing PT Steps Into Home: 1 Pt lives alone in a single story home with 1 step without HR to enter/exit at the front door and the garage. Pt has a walk-in shower with SC, GBs, and standard toilet. Prior Prior Level of Function SCALE: Activities may be completed with or without assistive devices. 9-Bzbjbqineh-zmsqwom completes the activity by him/herself with no assistance from a helper. 5-Set-up or Clean-up Assistance-helper sets up or cleans up; patient completes activity. [place] assists only prior to or following the activity. 4-Supervision or Touching Assistance-helper provides verbal cues and/or touching/steadying and/or contact guard assistance as patient completes activity. Assistance may be provided throughout the activity or intermittently. 3-Partial/Moderate Assistance-helper does LESS THAN HALF the effort. [place] lifts, holds or supports trunk or limbs, but provides less than half the effort. 2-Substantial/Maximal Assistance-helper does MORE THAN HALF the effort. [place] lifts or holds trunk or limbs and provides more than half the effort. 9-Oghvgiwru-dsjurw does ALL the effort. Patient does none of the effort to complete the activity. Or, the assistance of 2 or more helpers is required for the patient to complete the activity. If activity was not attempted, code reason: 7-Patient Refused. 9-Not Applicable-not attempted and the patient did not perform the activity before the current illness, exacerbation or injury. 10-Not Attempted due to Environmental Limitations-(lack of equipment, weather restraints, etc.). 88-Not Attempted due to Medical Conditions or Safety Concerns. Bed Mobility: 6 Transfers (B,C,W/C): 6 Gait: 6 Stairs: 6 Wheelchair Mobility: 9 Indoor Mobility (Ambulation): Independent Stairs: Independent Prior Devices Use: None At PLOF, pt reports she was Ind with no AD and driving. Pt reports she does own a FWW. PT Evaluation-Current Subjective Pt is ageeable to PT eval. Reports L hip pain at 7/10. Pain Numeric Pain Scale: 7 Location: Left Location Body Site: Hip Section J - Health Conditions 1. Rarely or not at all 2. Occasionally 3. Frequently 4. Almost constantly 8. Unable to answer Pain Effect on Sleep: 2 Pain Interference with Therapy: 3 Pain Interference w/Day-to-Day: 3 Pt/Family Goals Safely return home Objective Patient Orientation: Person, Place, Time, Situation ROM/Strength ROM Upper Extremities WFL ROM Lower Extremities R LE - WFL L LE - Decreased due to pain and weakness Strength Upper Extremities WFL Strength Lower Extremities R LE MMT - 4/5 grossly L hip MMT - 3-/5; L knee/ankle MMT - 3+/5 Integumentary/Posture Integumentary See nurses note Bowel Incontinence: No Bladder Incontinence: Yes Sensory Vision: Wears Glasses Hearing: Hearing Aid/Aides Hand Dominance: Right Sensation Right Upper Extremit: Intact Sensation Left Upper Extremity: Intact Sensation Right Lower Extremit: Intact Sensation Left Lower Extremity: Intact Transfers Roll Left & Right (QC): 3 (Min A) Sit to Lying (QC): 3 (Min A) Lying to Sitting/Side of Bed(Q: 3 (Min A) Sit to Stand (QC): 3 (Min A) Chair/Ndx-xg-Jgnqc Xfer(QC): 3 (Min A) Toilet Transfer (QC): 3 (Min A) Car Transfer (QC): 88 Gait Does the Patient Walk?: Yes Mode of Locomotion: Both Anticipated Mode of Locomotion: Both Walk 10 feet (QC): 3 (Min A) Walk 50 ft with 2 Turns(QC): 88 Walk 150 ft (QC): 88 Walking 10ft/uneven surface-QC: 88 Distance: 10ft Gait Assistive Device: FWW Wheelchair Training Does the Pt Use a Wheelchair?: Yes Wheel 50 ft with 2 turns (QC): 3 (Min A) Wheel 150 ft (QC): 3 (Min A) Type of Wheelchair: Manual Stairs 1 Step (curb) (QC): 88 4 Steps (QC): 88 12 Steps (QC): 88 Balance Sitting Static: Good Sitting Dynamic: Fair Standing Static: Fair Picking up an Object (QC): 3 (Min A) Special Test Comments KU standing balance test - 3+/5 (goal - 4+/5) Treatment PT eval completed. Pt was Min A for bed mobility, functional transfers, walking with the FWW up to 10ft, and w/c mobility. Assessment/Needs Pt tolerated PT fairly well with good effort Rehab Potential: Good Post Rehab Potential-Barriers: Pain, Weakness Equipment Needs W/C? PT Retirement Goals Welt Stitcher Goals PT Welt Stitcher Goals Time Frame: Jan 01, 2023 Roll Left to Right (QC): 6 (Pt will be Mod I with bed mobility ) Sit to Lying (QC): 6 (Pt will be Mod I with bed mobility ) Lying-Sitting on Side/Bed(QC): 6 (Pt will be Mod I with bed mobility ) Sit to Stand (QC): 4 (SBA ) Chair/Ghm-qu-Oktyy Xfer(QC): 4 (SBA) Toilet/Commode Transfer (QC): 4 (SBA ) Car Transfer (QC): 4 (SBA ) Does the Patient Walk: Yes Walk 10 feet (QC): 4 (SBA) Walk 10ft-Uneven Surface(QC): 4 (SBA) Walk 50ft with 2 Turns (QC): 4 (SBA) Walk 150 ft (QC): 4 (SBA) Does the Pt use WC or Scooter?: Yes Wheel 50 feet with 2 turns (QC: 4 (SBA) Type: Manual Wheel 150 feet: 4 (SBA ) Type: Manual 1 Step (curb) (QC): 4 (CGA ) 4 Steps (QC): 4 (CGA ) 12 Steps (QC): 4 (CGA ) Picking up an Object (QC): 4 (SBA ) KU standing balance scale goal = 4+/5 PT Plan Problem List Problem List: Activity Tolerance, Functional Strength, Safety, Balance, Gait, Transfer, Bed Mobility Treatment/Plan Treatment Plan: Continue Plan of Care Treatment Plan: Bed Mobility, Concurrent Therapy, Education, Functional Activity Vincent, Functional Strength, Group Therapy, Gait, Safety, Therapeutic Exercise, Transfers Treatment Duration: Jan 01, 2023 Frequency: At least 5 of 7 days/Wk (IRF) Estimated Hrs Per Day: 1.5 hours per day Patient and/or Family Agrees t: Yes Safety Risks/Education Patient Education: Gait Training, Transfer Techniques, W/C Management, Safety Issues Teaching Recipient: Patient Teaching Methods: Demonstration, Discussion Response to Teaching: Verbalize Understanding, Return Demonstration, Sarabjit nforcement Needed Discharge Recommendations Therapy Discharge Recommendati: Home & Family Equpiment Recommendations-D/C: Manual Wheelchair Discharge Status/Home Program Cont per POC Barriers to Progress Pain/Weakness Target Placement Home Time Time In: 1230 Time Out: 1305 DATE: Dec 21, 2022 Total Billed Treatment Time: 35 Total Billed Treatment 35 min JOB MIGUEL PT Dec 21, 2022 12:41
--- NOTE | 2022-12-21 13:05 | Speech Therapy Progress Note ---
Therapy Progress Note Speech pathology was contacted by the patient's RN, Lenora, regarding a recent report she received on the patient. Per transfer RN, the patient "has some difficulties swallowing and when they occur the patient says she just stops eating." The clinician attempted to complete a discussion with the patient following the information received at 1249. At this time, the patient is receiving physical therapy services. The clinician will re-attempt discussion/possible clinical bedside swallowing on the subsequent treatment date, if appropriate. If concerns regarding swallowing safety or aspiration are present, please place the patient N.P.O. pending assessment by speech pathology. YOU LE 26, 2023 13:05
--- NOTE | 2022-12-21 13:28 | Occupational Therapy Eval ---
OT Evaluation-General/PLF Medical Diagnosis Admission Date Dec 21, 2022 at 11:44 Medical Diagnosis: L hip fracture s/p IM nail Onset Date: Dec 17, 2022 Therapy Diagnosis Therapy Diagnosis: UE weakness, s/p LLE fx Precautions Precautions/Isolations: Fall Prevention, Standard Precautions Weight Bear Status Weight Bearing Restriction: Weight Bearing/Tolerated Location Restriction: L LE Referral Physician: Malik Referral Reason: Activity Tolerance, Self Care, Evaluation/Treatment, Strengthening/ROM Medical History Pertinent Medical History: HTN Additional Medical History 82 year old female with PMH HTN, HLD, anxiety, who was admitted after a fall. She had been down on the ground in her home for about a day. She had been in her normal state of health prior to the fall. She only has pain when she moves. She denies any other pain than her hip Current History t fell on 12/17/22, was unable to get up until the next day, when someone arrived and helped her up. ED 12/18/22 with L hip comminuted intertrochantic fx of femur, s/p L hip IM nail on 12/19/22. Reviewed History: Yes Social History Home: Single Level Current Living Status: Alone Entry Into Home: Stairs Without Railing Steps Into Home: 1 ADL-Prior Level of Function SCALE: Activities may be completed with or without assistive devices. 0-Uatnksxiki-ffarghu completes the activity by him/herself with no assistance from a helper. 5-Set-up or Clean-up Assistance-helper sets up or cleans up; patient completes activity. [place] assists only prior to or following the activity. 4-Supervision or Touching Assistance-helper provides verbal cues and/or touching/steadying and/or contact guard assistance as patient completes activity. Assistance may be provided throughout the activity or intermittently. 3-Partial/Moderate Assistance-helper does LESS THAN HALF the effort. [place] lifts, holds or supports trunk or limbs, but provides less than half the effort. 2-Substantial/Maximal Assistance-helper does MORE THAN HALF the effort. [place] lifts or holds trunk or limbs and provides more than half the effort. 9-Suulchlrd-zauoij does ALL the effort. Patient does none of the effort to complete the activity. Or, the assistance of 2 or more helpers is required for the patient to complete the activity. If activity was not attempted, code reason: 7-Patient Refused. 9-Not Applicable-not attempted and the patient did not perform the activity before the current illness, exacerbation or injury. 10-Not Attempted due to Environmental Limitations-(lack of equipment, weather restraints, etc.). 88-Not Attempted due to Medical Conditions or Safety Concerns. Self Care: Independent Functional Cognition: Independent DME/Equipment: Bath Bench, Grab Bars, Shower (walk in shower) DME/Equipment Comments standard toilet OT Current Status Subjective OT arrives ion room following patient delivery of lunch, agrees to OT evaluation. Pain Numeric Pain Scale: 4 Location: Left Location Body Site: Hip Comment: Pain with movement and resides at rest Mental Status/Objective Patient Orientation: Person, Place, Time, Situation Current Glasses/Contacts: Yes Hearing Aids: Yes Hand Dominance: Right Upper Extremity ROM BUE ROM WFLS Upper Extremity Coordination Slow responses and processing commands Upper Extremity Sensation intact Upper Extremity Strength +3/5 proximal strength -4/5 distal strength, composite department clinician 4/5 ADL-Treatment Eating (QC): 5 Oral Hygiene (QC): 4 (VCs SBA in sitting) Shower/Bathe Self (QC): 4 (sitting, constant VCs, HHSH, GB) Upper Body Dressing (QC): 2 Lower Body Dressing (QC): 2 On/Off Footwear (QC): 2 Toileting Hygiene (QC): 3 Education OT Patient Education: Correct positioning, Exercise program, Modified ADL techniques, Progress toward Goal/Update tx plan, Purpose of tx/functional activities, Reviewed precautions, Rehab process, Safety issues, Transfer t echniques, Use of adapted equipment, W/C management Teaching Recipient: Patient Teaching Methods: Demonstration, Discussion Response to Teaching: Verbalize Understanding, Reinforcement Needed BIMS CAM BIMS Expression of Ideas and Wants: Without Difficulty Understanding Verbal Content: Understands Brief Interview/Mental Status: No IRF VERITO BIMS: IRF VERITO BIMS Response (Comments) Value Repitition of Three Words Three 3 Recalls Socks Yes, No Cue Required 2 Recalls Blue Yes, No Cue Required 2 Recalls Bed Yes, No Cue Required 2 Year Correct 3 Month Accurate Within 5 Days 2 Day Correct 1 Total 15 Patient Normally Able to Recal: Location of own room, Staff Names and faces, That he/she in a hsp Should Staff Asses. Mental St.: No CAM Mental Status Change/Baseline: 0 Inattention: 0 Disorganized thinkin Altered level of consciousness: 0 OT Short Term Goals Short Term Goals Time Frame: Dec 29, 2022 Eatin Oral hygiene: 5 Upper body dressin OT Engineer Assistant Goals Engineer Assistant Goals Time Frame: Jan 22, 2023 Disorganized thinkin Eating (QC): 6 Oral Hygiene (QC): 6 Toileting Hygiene (QC): 6 Shower/Bathe Self (QC): 6 Upper Body Dressing (QC): 6 Lower Body Dressing (QC): 6 On/Off Footwear (QC): 6 1=Demonstrate adherence to instructed precautions during ADL tasks. 2=Patient will verbalize/demonstrate understanding of assistive devices/ayden fications for ADL. 3=Patient will improve strength/tolerance for activity to enable patient to perform ADL's. OT Education/Plan Problem List/Assessment Assessment: Decreased Activ Tolerance, Decreased UE Strength, Impaired Cognition (questionable d/t hearing loss), Impaired Funct Balance, Impaired Self-Care Skills Discharge Recommendations Plan/Recommendations: Continue POC Treatment Plan/Plan of Care Treatment,Training & Education: Yes Patient would benefit from OT for education, treatment and training to promote independence in ADL's, mobility, safety and/or upper extremity function for ADL's. Plan of Care: ADL Retraining, Cognitive Retraining, Concurrent Therapy, Functional Mobility, Group Exercise/Act as Ind, UE Funct Exercise/Act, W/C Management Training Treatment Duration: Jan 22, 2023 Frequency: At least 5 of 7 days/Wk (IRF) Estimated Hrs Per Day: 1.5 hours per day Rehab Potential: Good Time Start Time: 13:05 Stop Time: 13:20 DATE: Dec 21, 2022 Total Time Billed (hr/min): 15 Billed Treatment Time EVM 15 min JOSE GONG OT Dec 21, 2022 13:28
[2022-12-21 13:35] VITALS: BP 113/56
[2022-12-21 13:54] VITALS: BP 113/56
--- NOTE | 2022-12-21 14:16 | Occupational Ther Daily Note ---
OT Current Status-Daily Note Subjective Took over care from OTR/L. Pt alert, answering questions at beginning of therapy session. Pt taken to bathroom to initiate shower via w/c. As pt transferred to shower, pt stopped following directions, verbalized she was dizzy. SHEA had pt sit on shower bench immediately. Pt stopped talking, attempted to rub pt's shldrs and sternum, place cold wash cloth on head and neck, pt would not verbalize but eyes open and blinking. Called nrsg in. Pt sitting on shower bench then turned head toward R side and kept it there. Vital signs taken 113/58, P 100, O2 93%. Nrsg took blood sugar 130. Assist x3 to transfer back to w/c then bed. Nrsg call physician and took over care. Mental Status/Objective Patient Orientation: Person, Unable to Assess Attachments: IV ADL-Treatment PT/OT cotreat([id number]), skills of 2 clinicians required to decrease fall risk, increase overall safety during all functional tasks. Assist x3 needed for all transfers due to episode. PT focusing on transfers and mobility while OT focusing on functional mobility. Unable to complete shower or any other ADLs due to episode. Pt left in nrsg care. Therapy Code Descriptions/Definitions Functional [place] Measure: 0=Not Assessed/NA 4=Minimal Assistance 1=Total Assistance 5=Supervision or Setup 2=Maximal Assistance 6=Modified [place] 3=Moderate Assistance 7=Complete IndependenceSCALE: Activities may be completed with or without assistive devices. 2-Pbessqxvsz-lfpzdth completes the activity by him/herself with no assistance from a helper. 5-Set-up or Clean-up Assistance-helper sets up or cleans up; patient completes activity. [place] assists only prior to or following the activity. 4-Supervision or Touching Assistance-helper provides verbal cues and/or touching/steadying and/or contact guard assistance as patient completes activity. Assistance may be provided throughout the activity or intermittently. 3-Partial/Moderate Assistance-helper does LESS THAN HALF the effort. [place] lifts, holds or supports trunk or limbs, but provides less than half the effort. 2-Substantial/Maximal Assistance-helper does MORE THAN HALF the effort. [place] lifts or holds trunk or limbs and provides more than half the effort. 1-Quetbkwuv-svxmic does ALL the effort. Patient does none of the effort to complete the activity. Or, the assistance of 2 or more helpers is required for the patient to complete the activity. If activity was not attempted, code reason: 7-Patient Refused. 9-Not Applicable-not attempted and the patient did not perform the activity befo re the current illness, exacerbation or injury. 10-Not Attempted due to Environmental Limitations-(lack of equipment, weather re straints, etc.). 88-Not Attempted due to Medical Conditions or Safety Concerns. OT Short Term Goals Short Term Goals Eatin Oral hygiene: 5 Upper body dressin OT Phone Technician Goals Phone Technician Goals Acute change in mental status: 0 Inattention: 0 Disorganized thinkin Altered level of consciousness: 0 Eating (QC): 6 Oral Hygiene (QC): 6 Toileting Hygiene (QC): 6 Shower/Bathe Self (QC): 6 Upper Body Dressing (QC): 6 Lower Body Dressing (QC): 6 On/Off Footwear (QC): 6 1=Demonstrate adherence to instructed precautions during ADL tasks. 2=Patient will verbalize/demonstrate understanding of assistive devices/modifications for ADL. 3=Patient will improve strength/tolerance for activity to enable patient to perform ADL's. OT Education/Plan Problem List/Assessment Assessment: Decreased Activ Tolerance, Impaired Self-Care Skills Discharge Recommendations Plan/Recommendations: Continue POC Treatment Plan/Plan of Care Patient would benefit from OT for education, treatment and training to promote independence in ADL's, mobility, safety and/or upper extremity function for ADL's. Plan of Care: ADL Retraining, Cognitive Retraining, Concurrent Therapy, Functional Mobility, Group Exercise/Act as Ind, UE Funct Exercise/Act, W/C Management Training Treatment Duration: Jan 22, 2023 Frequency: At least 5 of 7 days/Wk (IRF) Estimated Hrs Per Day: 1.5 hours per day Rehab Potential: Good Time Start Time: 13:20 Stop Time: 14:00 DATE: Dec 21, 2022 Total Time Billed (hr/min): 40 Billed Treatment Time 1 visit-FA 3 (40 min) co-treat with PT 40 min MOSHE SCHAFFER Dec 21, 2022 14:16
[2022-12-21 14:18] LABS: BASOPHILS % (AUTO) 0 % (0-10); EOSINOPHILS % (AUTO) 0 % (0-10); HEMATOCRIT 36 % (35-52); HEMOGLOBIN 11.4 g/dL (11.5-16.0); LYMPHOCYTES # (AUTO) 1.3 10^3/uL (1.0-4.0); LYMPHOCYTES % (AUTO) 12 % (12-44); MEAN CORPUSCULAR HEMOGLOBIN 32 pg (25-34); MEAN CORPUSCULAR HGB CONC 32 g/dL (32-36); MEAN CORPUSCULAR VOLUME 98 fL (80-99); MEAN PLATELET VOLUME 10.7 fL (9.0-12.2); MONOCYTES # (AUTO) 1.1 10^3/uL (0.0-1.0); MONOCYTES % (AUTO) 11 % (0-12); NEUTROPHILS # (AUTO) 8.1 10^3/uL (1.8-7.8); NEUTROPHILS % (AUTO) 76 % (42-75); PLATELET COUNT 194 10^3/uL (130-400); WHITE BLOOD COUNT 10.5 10^3/uL (4.3-11.0)
--- NOTE | 2022-12-21 14:25 | Physical Therapy Daily Note ---
PT Daily Note-Current Subjective Pt sitting upon arrival. TON CYLINDER INSPECTOR takes over care from PT. Pain Section J - Health Conditions 1. Rarely or not at all 2. Occasionally 3. Frequently 4. Almost constantly 8. Unable to answer Pain Effect on Sleep: 2 Pain Interference with Therapy: 3 Pain Interference w/Day-to-Day: 3 Mental Status Patient Orientation: Person Transfers SCALE: Activities may be completed with or without assistive devices. 9-Oephgojdnn-ssjdkiq completes the activity by him/herself with no assistance from a helper. 5-Set-up or Clean-up Assistance-helper sets up or cleans up; patient completes activity. [place] assists only prior to or following the activity. 4-Supervision or Touching Assistance-helper provides verbal cues and/or touching/steadying and/or contact guard assistance as patient completes activity. Assistance may be provided throughout the activity or intermittently. 3-Partial/Moderate Assistance-helper does LESS THAN HALF the effort. [place] lifts, holds or supports trunk or limbs, but provides less than half the effort. 2-Substantial/Maximal Assistance-helper does MORE THAN HALF the effort. [place] lifts or holds trunk or limbs and provides more than half the effort. 8-Aklzmzcvf-dvpmir does ALL the effort. Patient does none of the effort to complete the activity. Or, the assistance of 2 or more helpers is required for the patient to complete the activity. If activity was not attempted, code reason: 7-Patient Refused. 9-Not Applicable-not attempted and the patient did not perform the activity before the current illness, exacerbation or injury. 10-Not Attempted due to Environmental Limitations-(lack of equipment, weather restraints, etc.). 88-Not Attempted due to Medical Conditions or Safety Concerns. Weight Bearing Right Lower Extremity: Right Full Weight Bearing Left Lower Extremity: Left Weight Bearing/Tolerated Treatments Took over care from PT. Pt alert, answering questions at beginning of therapy session. Pt taken to bathroom to initiate shower via w/c. As pt transferred to shower, pt stopped following directions, verbalized she was dizzy. SHEA had pt sit on shower bench immediately. Pt stopped talking, attempted to rub pt's shldrs and sternum, place cold wash cloth on head and neck, pt would not verbalize but eyes open and blinking. Called nrsg in. Pt sitting on shower bench then turned head toward R side and kept it there. Vital signs taken 113/58, P 100, O2 93%. Nrsg took blood sugar 130. Assist x3 to transfer back to w/c then bed. Nrsg call physician and took over care. Assessment Current Status: Poor Progress See tx section. PT Jail Goals Rover Tender Goals Roll Left & Right (QC): 6 Sit to Lying (QC): 6 Lying-Sitting on Side/Bed(QC): 6 Sit to Stand (QC): 4 Chair/Thf-et-Ecptm Xfer(QC): 4 Toilet Transfer (QC): 4 Car Transfer (QC): 4 Does the Patient Walk: Yes Walk 10 feet (QC): 4 Walk 50ft with 2 Turns (QC): 4 Walk 150 ft (QC): 4 Walking 10ft on Uneven Surface: 4 1 Step (curb) (QC): 4 4 Steps (QC): 4 12 Steps (QC): 4 Picking up an Object (QC): 4 Does the Pt use WC or Scooter?: Yes Wheel 50 feet with 2 turns (QC: 4 Wheel 150 feet: 4 Type: Manual PT Plan Treatment/Plan Treatment Plan: Continue Plan of Care Treatment Plan: Bed Mobility, Concurrent Therapy, Education, Functional Activity Vincent, Functional Strength, Group Therapy, Gait, Safety, Therapeutic Exercise, Transfers Treatment Duration: Jan 01, 2023 Frequency: At least 5 of 7 days/Wk (IRF) Estimated Hrs Per Day: 1.5 hours per day Patient and/or Family Agrees t: Yes Time Time In: 1320 Time Out: 1400 DATE: Dec 21, 2022 Total Billed Treatment Time: 40 Total Billed Treatment 1, FA x3 (40m) SANTANA OATES TON CYLINDER INSPECTOR Dec 21, 2022 14:25
[2022-12-21 14:30] LABS: ALBUMIN 3.4 GM/DL (3.2-4.5); CHLORIDE 101 MMOL/L (98-107); POTASSIUM 3.7 MMOL/L (3.6-5.0); SODIUM 140 MMOL/L (135-145)
[2022-12-21 14:32] LABS: GLUCOSE 130 MG/DL (70-105); INR 1.1 (0.8-1.4)
[2022-12-21 14:33] LABS: CARBON DIOXIDE 31 MMOL/L (21-32)
[2022-12-21 14:34] LABS: BILIRUBIN,TOTAL 0.7 MG/DL (0.1-1.0)
[2022-12-21 14:36] LABS: ALKALINE PHOSPHATASE 119 U/L (40-136); CREATININE SERUM 0.84 MG/DL (0.60-1.30); GFR ESTIMATED 68
[2022-12-21 14:37] LABS: BUN/CREATININE RATIO 17
--- NOTE | 2022-12-21 14:38 | Diagnostic Imaging Report ---
PROCEDURE: CT head wo r/o stroke. TECHNIQUE: Multiple contiguous axial images were obtained through the brain without the use of intravenous contrast. Auto Exposure Controls were utilized during the CT exam to meet ALARA standards for radiation dose reduction. INDICATION: Left-sided weakness. COMPARISON: CT of the head and cervical spine 12/18/2022. FINDINGS: No acute intracranial hemorrhage. No intracranial mass or fluid collection. The recio-white matter differentiation is preserved. Mild generalized cerebral volume loss. Mild nonspecific periventricular hypoattenuation. No midline shift or mass effect. Mild generalized prominence of the ventricles and cortical sulci. The paranasal sinuses and mastoids are clear. The globes and orbits are normal. IMPRESSION: No acute intracranial hemorrhage. No large vascular territory carcamo-white loss. No intracranial mass, midline shift, or hydrocephalus. Mild chronic small vessel ischemic disease. Mild global volume loss. Dictated by: Dictated on workstation # [id number]
[2022-12-21 14:39] LABS: ALANINE AMINOTRANSFERASE 10 U/L (0-55)
[2022-12-21 14:42] LABS: FIBRIN DEGRADATION PRODUCTS 5.05 UG/ML (0.00-0.49)
--- NOTE | 2022-12-21 14:50 | Diagnostic Imaging Report ---
INDICATION: Cerebrovascular accident. Single AP view of chest is obtained. Study limited by patient positioning. Heart size is at the upper limits of normal. There is no evidence of pneumothorax, consolidation or pleural fluid. IMPRESSION: Borderline cardiomegaly without other evidence of acute abnormality. Dictated by: Dictated on workstation # [id number]
[2022-12-21] MEDS ORDERED: SENNA W/DOCUSATE (SENOKOT S) TABLET PO SCH (21:00)
[2022-12-21] MEDS ORDERED: DOCUSATE SODIUM 100 MG (COLACE) CAP PO SCH (21:00)
[2022-12-22] MEDS ORDERED: IPRA3AMP31 INH (09:18)
[2022-12-22] MEDS ORDERED: CLOP75TA28 PO (09:18)
[2022-12-22] MEDS ORDERED: ASPI-1238 PO (09:18)
[2022-12-22] MEDS: DOCUSATE SODIUM 100 MG (COLACE) CAP PO SCH ×3 (11:18→21:20)
[2022-12-22] MEDS: ROSUVASTATIN 10 MG (CRESTOR) TABLET PO SCH ×2 (11:19→21:19)
[2022-12-22] MEDS: LORATADINE (CLARITIN) 10 MG TAB PO SCH (11:20)
[2022-12-22] MEDS: ALPRAZolam 0.5 MG (XANAX) TAB PO SCH ×3 (11:20→21:19)
[2022-12-22] MEDS: SENNOSIDES 8.6 MG (SENOKOT) TAB PO SCH ×2 (11:21→21:20)
[2022-12-22] MEDS: polyethylene glycoL POWDER 17 GM (MIRALAX) PACK PO SCH ×2 (11:21→21:20)
[2022-12-22] MEDS: ENOXAPARIN INJECTION 30 MG/0.3 ML SYR SC SCH (11:23)
--- NOTE | 2022-12-22 11:31 | Physical Therapy Daily Note ---
PT Daily Note-Current Subjective Pt in ICU upon arrival and aided with transfer down to 2nd floor. pt reports pain only when standing this day. pt is alert and aware of surroundings and willing for therapy. pt was left in room upright in WC with call light, ST was coming in directly after me. Pain Section J - Health Conditions 1. Rarely or not at all 2. Occasionally 3. Frequently 4. Almost constantly 8. Unable to answer Pain Effect on Sleep: 2 Pain Interference with Therapy: 3 Pain Interference w/Day-to-Day: 3 Mental Status Patient Orientation: Person, Place, Situation Transfers SCALE: Activities may be completed with or without assistive devices. 1-Irngmkaosv-pvilewa completes the activity by him/herself with no assistance from a helper. 5-Set-up or Clean-up Assistance-helper sets up or cleans up; patient completes activity. [place] assists only prior to or following the activity. 4-Supervision or Touching Assistance-helper provides verbal cues and/or touching/steadying and/or contact guard assistance as patient completes activity. Assistance may be provided throughout the activity or intermittently. 3-Partial/Moderate Assistance-helper does LESS THAN HALF the effort. [place] lifts, holds or supports trunk or limbs, but provides less than half the effort. 2-Substantial/Maximal Assistance-helper does MORE THAN HALF the effort. [place] lifts or holds trunk or limbs and provides more than half the effort. 1-Ncxtrfonw-qotxcc does ALL the effort. Patient does none of the effort to complete the activity. Or, the assistance of 2 or more helpers is required for the patient to complete the activity. If activity was not attempted, code reason: 7-Patient Refused. 9-Not Applicable-not attempted and the patient did not perform the activity before the current illness, exacerbation or injury. 10-Not Attempted due to Environmental Limitations-(lack of equipment, weather restraints, etc.). 88-Not Attempted due to Medical Conditions or Safety Concerns. Weight Bearing Right Lower Extremity: Right Full Weight Bearing Left Lower Extremity: Left Weight Bearing/Tolerated Exercises Seated Therapy Exercises: Ankle pumps, Long arc quads, Hip flexion, Kicking activity Standing: Sit to Stand Treatments Pt preformed 3 stand pivot transfer with Min A. VC for sequencing and correct hand placement of 40% where needed for safety. Pt preformed sitting there-ex in all planes of motion available. pt preformed 2 sets of 10 each with rest in between secondary to fatigue in the left leg especially. Assessment Current Status: Good Progress PT Halfway Goals Halfway Goals PT Halfway Goals Time Frame: Jan 01, 2023 Roll Left & Right (QC): 6 Sit to Lying (QC): 6 Lying-Sitting on Side/Bed(QC): 6 Sit to Stand (QC): 4 Chair/Gfl-gw-Pgaqb Xfer(QC): 4 Toilet Transfer (QC): 4 Car Transfer (QC): 4 Does the Patient Walk: Yes Walk 10 feet (QC): 4 Walk 50ft with 2 Turns (QC): 4 Walk 150 ft (QC): 4 Walking 10ft on Uneven Surface: 4 1 Step (curb) (QC): 4 4 Steps (QC): 4 12 Steps (QC): 4 Picking up an Object (QC): 4 Does the Pt use WC or Scooter?: Yes Wheel 50 feet with 2 turns (QC: 4 Type: Manual Wheel 150 feet: 4 Type: Manual PT Plan Treatment/Plan Treatment Plan: Continue Plan of Care Treatment Plan: Bed Mobility, Concurrent Therapy, Education, Functional Activity Vincent, Functional Strength, Group Therapy, Gait, Safety, Therapeutic Exercise, Transfers Treatment Duration: Jan 01, 2023 Frequency: At least 5 of 7 days/Wk (IRF) Estimated Hrs Per Day: 1.5 hours per day Patient and/or Family Agrees t: Yes Time Time In: 0945 Time Out: 1030 DATE: Dec 22, 2022 Total Billed Treatment Time: 45 Total Billed Treatment 1 FAx 2 EX Mayra Navas WET CHEMISTRY ANALYST Dec 22, 2022 11:31
[2022-12-22 12:00] VITALS: BP 103/51
[2022-12-22] MEDS: HYDROcodone/APAP 5 MG/325 MG (LORTAB) TAB PO PRN (12:04)
--- NOTE | 2022-12-22 12:17 | Occupational Ther Daily Note ---
OT Current Status-Daily Note Subjective Pt alert, sitting in w/c. Daughter in room. Pt began session making appropriate conversations with SHEA and daughter. After shower, pt began to be come more confused and with speech amplifier on was not able to follow the conversation or answer questions appropriately. Nrsg aware and pain pills administered, pt left with feet elevated in recliner. Mental Status/Objective Patient Orientation: Person, Situation Attachments: IV ADL-Treatment Pt able to complete shower using shower bench, grabbar and hand held shower, close SBA and verbal cues. Pt able to doff shirt by self before shower then after shower pt began by attempting to don shirt like pants and required max A to don appropriately. Pt doffed briefs with CGA for safety in standing then after shower assist to thread feet and CGA while pt hiked pants over hips. Pt doffed R sock by self, assist with L sock then assist donning B socks. Pt required physical and gestural cues for transfers. CGA to min A for transfers. After session, pt sitting in recliner with feet elevated, TalkBox in place. Call light/phone in reach. Nrsg in room. Therapy Code Descriptions/Definitions Functional [place] Measure: 0=Not Assessed/NA 4=Minimal Assistance 1=Total Assistance 5=Supervision or Setup 2=Maximal Assistance 6=Modified [place] 3=Moderate Assistance 7=Complete IndependenceSCALE: Activities may be completed with or without assistive devices. 5-Vvifqxvpaa-zqegizr completes the activity by him/herself with no assistance from a helper. 5-Set-up or Clean-up Assistance-helper sets up or cleans up; patient completes activity. [place] assists only prior to or following the activity. 4-Supervision or Touching Assistance-helper provides verbal cues and/or touching/steadying and/or contact guard assistance as patient completes activity. Assistance may be provided throughout the activity or intermittently. 3-Partial/Moderate Assistance-helper does LESS THAN HALF the effort. [place] lifts, holds or supports trunk or limbs, but provides less than half the effort. 2-Substantial/Maximal Assistance-helper does MORE THAN HALF the effort. [place] lifts or holds trunk or limbs and provides more than half the effort. 0-Gsvlwwabd-ldtaxu does ALL the effort. Patient does none of the effort to complete the activity. Or, the assistance of 2 or more helpers is required for the patient to complete the activity. If activity was not attempted, code reason: 7-Patient Refused. 9-Not Applicable-not attempted and the patient did not perform the activity before the current illness, exacerbation or injury. 10-Not Attempted due to Environmental Limitations-(lack of equipment, weather restraints, etc.). 88-Not Attempted due to Medical Conditions or Safety Concerns. OT Short Term Goals Short Term Goals Eatin Oral hygiene: 5 Upper body dressin OT Penitentiary Goals Penitentiary Goals Acute change in mental status: 0 Inattention: 0 Disorganized thinkin Altered level of consciousness: 0 Eating (QC): 6 Oral Hygiene (QC): 6 Toileting Hygiene (QC): 6 Shower/Bathe Self (QC): 6 Upper Body Dressing (QC): 6 Lower Body Dressing (QC): 6 On/Off Footwear (QC): 6 1=Demonstrate adherence to instructed precautions during ADL tasks. 2=Patient will verbalize/demonstrate understanding of assistive devices/modifications for ADL. 3=Patient will improve strength/tolerance for activity to enable patient to perform ADL's. OT Education/Plan Problem List/Assessment Assessment: Decreased Activ Tolerance, Decreased Safety Aware, Decreased UE Strength, Impaired Cognition, Impaired Coordination, Impaired Funct Balance, Impaired Self-Care Skills Discharge Recommendations Plan/Recommendations: Continue POC Treatment Plan/Plan of Care Patient would benefit from OT for education, treatment and training to promote independence in ADL's, mobility, safety and/or upper extremity function for ADL's. Plan of Care: ADL Retraining, Cognitive Retraining, Concurrent Therapy, Functional Mobility, Group Exercise/Act as Ind, UE Funct Exercise/Act, W/C Management Training Treatment Duration: Jan 22, 2023 Frequency: At least 5 of 7 days/Wk (IRF) Estimated Hrs Per Day: 1.5 hours per day Rehab Potential: Good Time Start Time: 11:00 Stop Time: 12:15 DATE: Dec 22, 2022 Total Time Billed (hr/min): 75 Billed Treatment Time 1 visit-ADL 5 (75 min) MOSHE SCHAFFER Dec 22, 2022 12:17
--- NOTE | 2022-12-22 12:53 | Individualized Plan of Care ---
Individualized Plan of Care Rehab Nursing IPOC Order Admission Date Dec 21, 2022 at 11:44 Current Orders Orders Admission Arrival Bed Request (12/21/22 11:44) Admission Order(Inpt,Obs,Sdc) (12/21/22 12:06) Vital Signs: Per Unit Policy ( 08,16,00 (12/21/22 12:06) Phu Brito 09,21 (12/21/22 12:06) Sequential Compression Device (12/21/22 12:06) Emery Wheel Molder-Inpt Rehab Con (12/21/22 12:06) Rehab Nursing Orders-Ipoc (12/21/22 12:06) Physical Therapy Rehab Orders (12/21/22 12:06) Occupational Therapy Rehab Ord (12/21/22 12:06) Speech Therapy Rehab Orders (12/21/22 12:06) Precautions (Aru) (12/21/22 12:06) Weekly Weight WEEK (12/21/22 12:06) Rehab-Intensity Of Therapy (12/21/22 12:06) Initiate Admission Nursing Pro .admission (12/21/22 12:06) Alprazolam Tablet (Xanax Tablet) (12/21/22 12:15) Calcium Carbonate Chew Tablet (Antacid C (12/21/22 12:15) Diphenhydramine Tablet (Benadryl Tablet) (12/21/22 12:15) Docusate Sodium Capsule (Colace Capsule) (12/21/22 21:00) Docusate Sodium Capsule (Colace Capsule) (12/21/22 12:15) Bisacodyl Suppository (Dulcolax Supposit (12/21/22 12:15) Lactulose Oral Solution (Enulose Oral So (12/21/22 12:15) Na Phos/Na Biphos Enema (Fleet Enema [place] (12/21/22 12:15) Guaifenesin/Codeine Syrup (Robitussin Ac (12/21/22 12:15) Loperamide Tablet (Imodium Tablet) (12/21/22 12:15) Melatonin Tablet (Melatonin Tablet) (12/21/22 12:15) Polyethylene Glycol Powder Pkt (Miralax (12/21/22 21:00) Ondansetron Oral Dissolve Tab (Zofran (12/21/22 12:15) Senna S Tablet (Senokot S Tablet) (12/21/22 21:00) Acetaminophen Tablet/Caplet (Tylenol T (12/21/22 12:15) Therapeutic Activity Goals: .PRN (12/21/22 12:06) Nursing Communication (Order) (12/21/22 ) Initiate Admission Nursing Pro .admission (12/21/22 12:06) Code/Resuscitation (12/21/22 12:19) Activity (12/21/22 12:19) Catheter(Urinary) Discontinue (12/21/22 12:19) Dressing Order (Intervention) DAILY (12/21/22 12:19) Ice: Apply To Affected Area (12/21/22 12:19) Incentive Spirometry (Nursing) Q2H (12/21/22 12:19) Sequential Compression Device (12/21/22 12:19) Phu Hose (12/21/22 12:19) Vital Signs: Every 4 Hours (Or (12/21/22 12:19) Alprazolam Tablet (Xanax Tablet) (12/21/22 21:00) Albuterol/Ipra Inhalation Soln (Duoneb I (12/21/22 12:30) Docusate Sodium Capsule (Colace Capsule) (12/21/22 21:00) Bisacodyl Suppository (Dulcolax Supposit (12/21/22 12:30) Lactulose Oral Solution (Enulose Oral So (12/21/22 12:30) Hydrocodone/Apap 5/325 Tablet (Lortab 5 (12/21/22 12:30) Loratadine Tablet (Claritin Tablet) (12/22/22 09:00) Melatonin Tablet (Melatonin Tablet) (12/21/22 12:30) Magnesium Hydroxide Oral Susp (Mom Oral (12/21/22 12:30) Polyethylene Glycol Powder Pkt (Miralax (12/21/22 12:30) Antacid Suspension (Mylanta Suspension (12/21/22 12:30) Naloxone Injection (Narcan Injection) (12/21/22 12:30) Nicotine Patch (Nicoderm Patch) (12/21/22 12:30) Rosuvastatin Tablet (Crestor Tablet) (12/21/22 21:00) Sennosides Tablet (Senokot Tablet) (12/21/22 21:00) Calcium Carbonate Chew Tablet (Antacid C (12/21/22 12:30) Acetaminophen Tablet/Caplet (Tylenol T (12/21/22 12:30) Ondansetron Injection (Zofran Injectio (12/21/22 12:30) Hydralazine Injection (Apresoline Inject (12/21/22 12:30) Morphine Injection (Morphine Injection (12/21/22 12:30) Consult Orthopedic Surgery (12/21/22 12:19) Mat Initiate Protocol (12/21/22 12:19) Svn Small Volume Nebulizer (12/21/22 12:19) Svn Small Volume Nebulizer (12/21/22 12:19) Enoxaparin Injection (Lovenox Injection) (12/22/22 08:00) Cbc With Automated Diff (12/21/22 13:51) Protime With Inr (12/21/22 13:51) Partial Thromboplastin Time (12/21/22 13:51) Comprehensive Metabolic Panel (12/21/22 13:51) Fibrin Degradation Products (12/21/22 13:51) Troponin I Yaakov (12/21/22 13:51) Ua Culture If Indicated (12/21/22 13:51) Chest 1 View, Ap/Pa Only (12/21/22 13:51) Ekg Tracing (12/21/22 13:51) Nothing By Mouth (12/21/22 Lunch) Accucheck Stat ONCE (12/21/22 13:51) Vital Signs Stroke Patient Q15M (12/21/22 13:51) Ct Head Wo-R/O Stroke (12/21/22 13:51) Intake & Output 06,14,22 (12/21/22 13:50) Monitor-Rhythm Ecg Trace Only (12/21/22 13:51) Dysphagia Screening Tool Q10MX1 (12/21/22 13:51) Notify Physician (12/21/22 13:51) HOB (12/21/22 13:51) Oxygen-Administer 07,19 (12/21/22 13:51) Accucheck Stat ONCE (12/21/22 13:51) Vital Signs Stroke Patient Q15M (12/21/22 13:51) Follow Hypoglycemia Protocol (12/21/22 13:51) Dysphagia Screening Tool Q10MX1 (12/21/22 14:00) Stroke Team Activation (12/21/22 13:51) Telemetry (12/21/22 13:51) Notify Physician: (12/21/22 13:51) Asrt Form (12/21/22 13:51) Patient Visit (12/21/22 ) Functional Activities, Ea 15 (12/21/22 ) Patient Visit (12/21/22 ) Pt Eval Moderate Complexity (12/21/22 ) Nih-Stroke Scale 09,21 (12/21/22 15:12) Clopidogrel Tablet (Plavix Tablet) (12/23/22 09:00) Aspirin Enteric Coated Tablet (Ecotrin T (12/23/22 09:00) General/Regular (12/22/22 Lunch) Patient Visit (12/22/22 ) Functional Activities, Ea 15 (12/22/22 ) Exercise Therap, Ea 15 Min (12/22/22 ) Patient Visit (12/22/22 ) Functional Activities, Ea 15 (12/22/22 ) Patient Visit (12/22/22 ) Speech Sound Lang Comp (12/22/22 ) Telemetry (12/22/22 19:33) Telemetry Nursing Assessment ( (12/22/22 19:33) Rehab Nursing Orders: Ongoing Assess. of Cognitive Status, Ongoing Assess. of Function Status, Bladder Management, Bladder Scan, Bladder Training, Bowel Management, Bowel Training, Disease Management & Educaiton, DVT Prophylaxis, Fall Prevention, Fluid/Electrolyte/Nutrition Mgmt, Infection Prevention, Medication Management & Education, Management of Risks & Complications, Nutrition Management, Pain Management, Patient/Family Support, Safety Management, Wound Management Intensity of Therapy to be met Patient to be seen: Min.3h per day/5 of 7d PT IPOC Problem List: Activity Tolerance, Functional Strength, Safety, Balance, Gait, Transfer, Bed Mobility Treatment Plan: Continue Plan of Care Bed Mobility, Concurrent Therapy, Education, Functional Activity Vincent, Functional Strength, Group Therapy, Gait, Safety, Therapeutic Exercise, Transfers Treatment Duration: Jan 01, 2023 Frequency: At least 5 of 7 days/Wk (IRF) Estimated Hrs Per Day: 1.5 hours per day OT IPOC Problems: Decreased Activ Tolerance, Decreased Safety Aware, Decreased UE Strength, Impaired Cognition, Impaired Coordination, Impaired Funct Balance, Impaired Self-Care Skills OT Treatment, Training and Edu: Yes Plan of Care: ADL Retraining, Cognitive Retraining, Concurrent Therapy, Functional Mobility, Group Exercise/Act as Ind, UE Funct Exercise/Act, W/C Management Training Treatment Duration: Jan 22, 2023 Frequency: At least 5 of 7 days/Wk (IRF) Estimated Hrs Per Day: 1.[address] IPOC Speech Therapy Treatment Plan: Continue Plan of Care Treatment Duration: Dec 22, 2022 Frequency: Modified Program (IRF) Estimated Hrs Per Day: Other Emery Wheel Molder/Case Mgmt Emery Wheel Molder/Case Managemen: Discharge Planning Dietitian/[place] Hand Dietitian/[place] Hand to monitor nutritional status and make changes and/or recommendations as needed and work with speech pathology on dietary upgrades as the occur. Physician IPOC Medical Issues being managed closely and that require the 24 hour availability of a physician: Recent hip fracture repair with debility and recent severe neurological deficit with NIH score of 17 now resolved but carotid stenosis on carotid ultrasound and MRI unable to be performed due to recent hip fracture with sophia that could heat will require close monitoring for any decompensation Medical Issues: Bowel/Bladder Function, DVT Prophylaxis, Falls Precautions, Fluid/Electrolyte/Nutrition Balance, Infection Protection, Pain Management, Wound Care Brief Synthesis of Preadmission Screen, Post-Admission Evaluation, and Therapy Evaluations: PT and OT will focus on regaining function from neurological deficit and the hip fracture with subsequent debility and COPD and very severe presbycusis in order to gain stamina and increase ADL independence. Medical Prognosis: Fair Anticipated Length of Stay: 10 days SOHAM LEBLANC DO Dec 22, 2022 12:53
--- NOTE | 2022-12-22 12:53 | PM&R Progress Note ---
Subjective HPI/CC On Admission Date Seen by Provider: Dec 22, 2022 Time Seen by Provider: 11:00 Subjective/Events-last exam 12/22/2022: Patient doing well Moved down from the ICU today No residual from TIA Carotid stenosis noted maintained on Plavix and aspirin and statin Cannot perform MRI due to sophia from hip repair could heat up Review of Systems General: Fatigue, Malaise Pulmonary: Dyspnea Neurological: Weakness Objective Exam Vital Signs Vital Signs Date Time Temp Pulse Resp B/P (MAP) Pulse Ox O2 Delivery O2 Flow Rate FiO2 12/22/22 19:55 101 12/22/22 19:30 37.6 18 137/66 (89) 94 Room Air Capillary Refill : General Appearance: No Apparent Distress, WD/WN, Chronically ill, Thin HEENT: PERRL/EOMI, Normal ENT Inspection, Pharynx Normal Neck: Full Range of Motion, Normal Inspection, Non Tender, Supple, Carotid Bruit Respiratory: Chest Non Tender, Lungs Clear, No Accessory Muscle Use, No Respiratory Distress, Decreased Breath Sounds Cardiovascular: Regular Rate, Rhythm, No Edema, No Gallop, No JVD, No Murmur, Normal Peripheral Pulses Gastrointestinal: Normal Bowel Sounds, No Organomegaly, No Pulsatile Mass, Non Tender, Soft Back: Normal Inspection, No CVA Tenderness, No Vertebral Tenderness Extremity: Normal Capillary Refill, Normal Inspection, Normal Range of Motion (Except left leg), Non Tender, No Calf Tenderness, No Pedal Edema Neurologic/Psychiatric: Alert, Oriented x3, rock splitter II-XII Norm as Tested, Abnormal Gait, Depressed Affect, Motor Weakness ( left leg weakness) Skin: Normal Color, Warm/Dry Lymphatic: No Adenopathy Results/Procedures Lab Patient resulted labs reviewed. FIM Transfers Therapy Code Descriptions/Definitions Functional [place] Measure: 0=Not Assessed/NA 4=Minimal Assistance 1=Total Assistance 5=Supervision or Setup 2=Maximal Assistance 6=Modified [place] 3=Moderate Assistance 7=Complete IndependenceSCALE: Activities may be completed with or without assistive devices. 7-Rxkgkjoyyb-wihbmzr completes the activity by him/herself with no assistance from a helper. 5-Set-up or Clean-up Assistance-helper sets up or cleans up; patient completes activity. [place] assists only prior to or following the activity. 4-Supervision or Touching Assistance-helper provides verbal cues and/or touching/steadying and/or contact guard assistance as patient completes activity. Assistance may be provided throughout the activity or intermittently. 3-Partial/Moderate Assistance-helper does LESS THAN HALF the effort. [place] lifts, holds or supports trunk or limbs, but provides less than half the effort. 2-Substantial/Maximal Assistance-helper does MORE THAN HALF the effort. [place] lifts or holds trunk or limbs and provides more than half the effort. 9-Tewojucgq-heqxlj does ALL the effort. Patient does none of the effort to complete the activity. Or, the assistance of 2 or more helpers is required for the patient to complete the activity. If activity was not attempted, code reason: 7-Patient Refused. 9-Not Applicable-not attempted and the patient did not perform the activity before the current illness, exacerbation or injury. 10-Not Attempted due to Environmental Limitations-(lack of equipment, weather restraints, etc.). 88-Not Attempted due to Medical Conditions or Safety Concerns. Roll Left to Right (QC): 3 (Min A) Sit to Lying (QC): 3 (Min A) Sit to Stand (QC): 3 (Min A) Chair/Bog-pj-Uurmg Xfer(QC): 3 (Min A) Car Transfer (QC): 88 Gait Training Does the Patient Walk?: Yes Walk 10 feet (QC): 3 (Min A) Walk 50 ft with 2 Turns(QC): 88 Walk 150 ft (QC): 88 Walking 10ft/uneven surface-QC: 88 Gait Assistive Device: FWW Wheelchair Training Does the Pt Use a Wheelchair?: Yes Wheel 50 ft with 2 turns (QC): 3 (Min A) Wheel 150 ft (QC): 3 (Min A) Type of Wheelchair: Manual Stair Training 1 Step (curb) (QC): 88 4 Steps (QC): 88 12 Steps (QC): 88 Balance Picking up an Object (QC): 3 (Min A) Assessment/Plan Assessment and Plan Assess & Plan/Chief Complaint Assessment: Left hip fracture with residual debility Acute neurological deficit with signs consistent with CVA NIH score 17 prompting ICU transfer a few hours after admissionBut resolved spontaneously so maintained on aspirin Plavix and statin COPD Current smoker Frail status Advanced age Hyperlipidemia Anxiety Vitamin D deficiency Aortic aneurysm chronic Hypertension Plan: Supportive care Monitor closely Fall risk Pain control ICU transfer for neurological deficit 12/22/2022: Aggressive rehab Supportive care (1) Hip fracture, left (2) Tobacco abuse Status: Acute (3) Thoracic aortic aneurysm (TAA) Status: Acute SOHAM LEBLANC DO Dec 22, 2022 12:53
--- NOTE | 2022-12-22 12:59 | ST Cognitive Linguistic Eval ---
Speech Evaluation-General Medical Diagnosis L hip fracture s/p IM nail Onset Date: Dec 17, 2022 Therapy Diagnosis Therapy Diagnosis: Severe cognitive deficits Precautions Precautions/Isolations: Fall Prevention, Standard Precautions Referral Referring Physician: Dr. Gan Reason for Referral: Evaluation/Treatment Medical History Pertinent Medical History: HTN HTN, tobacco use, HLD, Anxiety Current History Pt fell at home on 12/17/2022 and was unable to get up until the following day when someone arrived and helped her up. Pt was diagnosed with a L hip fracture at the ED on 12/18 and s/p L hip IM nail on 12/19/2022. Reviewed History: Yes Social History Current Living Status: Alone Speech PLF-Current Status Prior Level of Function Pt was living at home. Pt managed her own medications and finances. Subjective Pt sitting up in wheelchair, having just finished with physical therapy. Pt hard of hearing and wearing an amplifying system. Pt still has difficulty hearing and understanding therapist, which could have affected results. Pt was pleasant and cooperative throughout the evaluation. She did require some redirection throughout the session. Pt's daughter arrives for the last half of the evaluation. Pt's daughter clarifies information for the INSURANCE CONSULTANT. Language Eval: Auditory Comprehends Simple Yes/No Ques: Mild Follows 1-Step Commands: Moderate Follows General Conversations: Moderate Objective Cognitive Domain Attention: Moderate Memory: Severe Problem Solving: Severe Executive Functions: Severe Visuospatial Skills: Severe Composite Severity Rating: Severe Clock Drawing Severity Rating: Severe Score: 5 Objective Formal/Standardized Tests SLUMS Results 11/24 Impression Pt presents with SEVERE cognitive deficits at this time. As noted previously, pt with significant difficulty understanding therapist, even with an amplifying system. This difficulty could have resulted in a lower score than pt's abilities. Pt states the day of the week is Wednesday and tells the therapist she has her days and nights mixed up and is not sure if it morning or night at the time of this evaluation. Pt is able to immediately recall 2/5 words and is able to recall 1/5 words after a short delay. Pt demonstrates difficulty with basic problem solving. Pt demonstrates difficulty generative naming/speed of processing, naming 6 animals in 1 minute. Pt unable to complete mental manipul ation, the clock drawing. Pt follows 1/2 simple directions and is unable to recall details from a story. Pt to receive skilled speech therapy services. Pt was asked about swallowing. Pt and daughter stated pt was having difficulty, however this was the day she had surgery and her mouth was dry. When asked multiple times, pt states the difficulty with swallowing has resolved. Pt and daughter informed to let staff know if difficulties with swallowing reoccur. Speech Short Term Goals Short Term Goals Short Term Goals 1. Pt to complete immediate memory tasks with 80% accuracy with min verbal cues. 2. Pt to complete basic problem solving tasks with 80% accuracy with min verbal cues. Speech Penitentiary Goals Penitentiary Goals 1. Pt to complete mental manipulation tasks containing 3 components with 80% accuracy with min verbal cues. 2. Pt to follow basic directions with 80% accuracy with min verbal cues. 3. Pt to complete basic executive functioning tasks with 80% accuracy with min verbal cues. Speech-Plan Patient/Family Goals Patient/Family Goals: Pending progress while on IRU Treatment Plan Speech Therapy Treatment Plan: Continue Plan of Care Frequency: 5 times per week Estimated Hrs Per Day: .5 hour per day Rehab Potential: Good Pt/Family Agrees to Plan: Yes Safety Risks/Education Teaching Recipient: Patient, Family Teaching Methods: Discussion Response to Teaching: Verbalize Understanding, Reinforcement Needed Education Topics Provided: Pt and daughter educated on the role of the INSURANCE CONSULTANT, purpose of the evaluation, results, and recommendations. Pt and daughter receptive and verbalized understanding. The pt will likely require reinforcement. Time Speech Therapy Time In: 10:30 Speech Therapy Time Out: 11:00 DATE: Dec 22, 2022 Total Billed Time: 30 Billed Treatment Time S/L Marika Jain Speech Therapy Dec 22, 2022 12:59
--- NOTE | 2022-12-22 13:23 | Physical Therapy Daily Note ---
PT Daily Note-Current Subjective Pt in recliner upon arrival and willing for therapy. captain waiter noticed pt slurring speech a bit and nursing was notified to check vitals. BP was 107/52 O2 95 HR was 87. nursing assessed for possible stroke. . Pt was moved from recliner to bed as ECHO was needed for pt was prescribed earlier. pt was left in bed with call light and an ECHO was being preformed. Pain Section J - Health Conditions 1. Rarely or not at all 2. Occasionally 3. Frequently 4. Almost constantly 8. Unable to answer Pain Effect on Sleep: 2 Pain Interference with Therapy: 3 Pain Interference w/Day-to-Day: 3 Transfers SCALE: Activities may be completed with or without assistive devices. 7-Btmrrlyfri-ebnbotr completes the activity by him/herself with no assistance from a helper. 5-Set-up or Clean-up Assistance-helper sets up or cleans up; patient completes activity. [place] assists only prior to or following the activity. 4-Supervision or Touching Assistance-helper provides verbal cues and/or touching/steadying and/or contact guard assistance as patient completes activity. Assistance may be provided throughout the activity or intermittently. 3-Partial/Moderate Assistance-helper does LESS THAN HALF the effort. [place] lifts, holds or supports trunk or limbs, but provides less than half the effort. 2-Substantial/Maximal Assistance-helper does MORE THAN HALF the effort. [place] lifts or holds trunk or limbs and provides more than half the effort. 5-Lxueynarw-qgujpe does ALL the effort. Patient does none of the effort to complete the activity. Or, the assistance of 2 or more helpers is required for the patient to complete the activity. If activity was not attempted, code reason: 7-Patient Refused. 9-Not Applicable-not attempted and the patient did not perform the activity before the current illness, exacerbation or injury. 10-Not Attempted due to Environmental Limitations-(lack of equipment, weather restraints, etc.). 88-Not Attempted due to Medical Conditions or Safety Concerns. Weight Bearing Right Lower Extremity: Right Full Weight Bearing Left Lower Extremity: Left Weight Bearing/Tolerated Treatments Pt preformed stand pivot transfer from recliner with Min A x 2 for safety. PT Veterinary Technology Instructor Goals Veterinary Technology Instructor Goals PT Veterinary Technology Instructor Goals Time Frame: Jan 01, 2023 Roll Left & Right (QC): 6 Sit to Lying (QC): 6 Lying-Sitting on Side/Bed(QC): 6 Sit to Stand (QC): 4 Chair/Sey-vb-Gztkt Xfer(QC): 4 Toilet Transfer (QC): 4 Car Transfer (QC): 4 Does the Patient Walk: Yes Walk 10 feet (QC): 4 Walk 50ft with 2 Turns (QC): 4 Walk 150 ft (QC): 4 Walking 10ft on Uneven Surface: 4 1 Step (curb) (QC): 4 4 Steps (QC): 4 12 Steps (QC): 4 Picking up an Object (QC): 4 Does the Pt use WC or Scooter?: Yes Wheel 50 feet with 2 turns (QC: 4 Type: Manual Wheel 150 feet: 4 Type: Manual PT Plan Treatment/Plan Treatment Plan: Continue Plan of Care Treatment Plan: Bed Mobility, Concurrent Therapy, Education, Functional Activity Vincent, Functional Strength, Group Therapy, Gait, Safety, Therapeutic Exercise, Transfers Treatment Duration: Jan 01, 2023 Frequency: At least 5 of 7 days/Wk (IRF) Estimated Hrs Per Day: 1.5 hours per day Patient and/or Family Agrees t: Yes Time Time In: 1245 Time Out: 1315 DATE: Dec 22, 2022 Total Billed Treatment Time: 30 Total Billed Treatment 1 FA x 2 Mayra Navas MEDICAL BILL PROCESSOR Dec 22, 2022 13:23
[2022-12-22] MEDS: ALPRAZolam 0.25 MG (XANAX) TAB PO PRN (15:39)
[2022-12-22 19:30] VITALS: BP 137/66
[2022-12-22] MEDS: MELATONIN 3 MG TABLET PO PRN (21:20)
[2022-12-23 00:30] LABS: BILIRUBIN,URINE NEGATIVE (NEGATIVE); CLARITY,URINE SL CLOUDY; COLOR,URINE YELLOW; GLUCOSE, URINE (UA) NEGATIVE (NEGATIVE); KETONES,URINE NEGATIVE (NEGATIVE); LEUKOCYTE ESTERASE ,URINE NEGATIVE (NEGATIVE); NITRITE,URINE NEGATIVE (NEGATIVE); PROTEIN,URINE TRACE (NEGATIVE)
[2022-12-23 02:16] LABS: BACTERIA,URINE NEGATIVE /HPF; WBC,URINE 0-2 /HPF
[2022-12-23 02:17] LABS: HYALINE CASTS, URINE 0-2 /LPF
[2022-12-23] MEDS: HYDROcodone/APAP 5 MG/325 MG (LORTAB) TAB PO PRN ×3 (03:27→20:28)
--- NOTE | 2022-12-23 05:59 | PM&R Progress Note ---
Subjective HPI/CC On Admission Date Seen by Provider: Dec 23, 2022 Time Seen by Provider: 12:30 Subjective/Events-last exam 12/23/2022: Patient doing tremendously well No pain is reported Walking very well with walker No neurological deficits Cardiothoracic surgeon will needed to assess carotid stenosis 12/22/2022: Patient doing well Moved down from the ICU today No residual from TIA Carotid stenosis noted maintained on Plavix and aspirin and statin Cannot perform MRI due to sophia from hip repair could heat up Review of Systems General: Fatigue, Malaise Pulmonary: Dyspnea Musculoskeletal: leg pain Objective Exam Vital Signs Vital Signs Date Time Temp Pulse Resp B/P (MAP) Pulse Ox O2 Delivery O2 Flow Rate FiO2 12/23/22 19:02 36.8 92 18 107/53 (71) 94 Room Air 18 94 Room Air 12/22/22 22:21 21 Capillary Refill : General Appearance: No Apparent Distress, WD/WN, Chronically ill, Thin HEENT: PERRL/EOMI, Normal ENT Inspection, Pharynx Normal Neck: Full Range of Motion, Normal Inspection, Non Tender, Supple, Carotid Bruit Respiratory: Chest Non Tender, Lungs Clear, No Accessory Muscle Use, No Respiratory Distress, Decreased Breath Sounds Cardiovascular: Regular Rate, Rhythm, No Edema, No Gallop, No JVD, No Murmur, Normal Peripheral Pulses Gastrointestinal: Normal Bowel Sounds, No Organomegaly, No Pulsatile Mass, Non Tender, Soft Back: Normal Inspection, No CVA Tenderness, No Vertebral Tenderness Extremity: Normal Capillary Refill, Normal Inspection, Normal Range of Motion (Except left leg), Non Tender, No Calf Tenderness, No Pedal Edema Neurologic/Psychiatric: Alert, Oriented x3, mushroom cutter II-XII Norm as Tested, Abnormal Gait, Depressed Affect, Motor Weakness ( left leg weakness) Skin: Normal Color, Warm/Dry Lymphatic: No Adenopathy Results/Procedures Lab Patient resulted labs reviewed. FIM Transfers Therapy Code Descriptions/Definitions Functional [place] Measure: 0=Not Assessed/NA 4=Minimal Assistance 1=Total Assistance 5=Supervision or Setup 2=Maximal Assistance 6=Modified [place] 3=Moderate Assistance 7=Complete IndependenceSCALE: Activities may be completed with or without assistive devices. 7-Lmyqjmgkuy-qcptbdj completes the activity by him/herself with no assistance from a helper. 5-Set-up or Clean-up Assistance-helper sets up or cleans up; patient completes activity. [place] assists only prior to or following the activity. 4-Supervision or Touching Assistance-helper provides verbal cues and/or touching/steadying and/or contact guard assistance as patient completes activity. Assistance may be provided throughout the activity or intermittently. 3-Partial/Moderate Assistance-helper does LESS THAN HALF the effort. [place] lifts, holds or supports trunk or limbs, but provides less than half the effort. 2-Substantial/Maximal Assistance-helper does MORE THAN HALF the effort. [place] lifts or holds trunk or limbs and provides more than half the effort. 0-Tqcmmogbv-lpjzuq does ALL the effort. Patient does none of the effort to complete the activity. Or, the assistance of 2 or more helpers is required for the patient to complete the activity. If activity was not attempted, code reason: 7-Patient Refused. 9-Not Applicable-not attempted and the patient did not perform the activity before the current illness, exacerbation or injury. 10-Not Attempted due to Environmental Limitations-(lack of equipment, weather restraints, etc.). 88-Not Attempted due to Medical Conditions or Safety Concerns. Roll Left to Right (QC): 3 (Min A) Sit to Lying (QC): 3 (Min A) Sit to Stand (QC): 3 (Min A) Chair/Wcg-up-Ryxxb Xfer(QC): 3 (Min A) Car Transfer (QC): 88 Gait Training Does the Patient Walk?: Yes Walk 10 feet (QC): 3 (Min A) Walk 50 ft with 2 Turns(QC): 88 Walk 150 ft (QC): 88 Walking 10ft/uneven surface-QC: 88 Gait Assistive Device: FWW Wheelchair Training Does the Pt Use a Wheelchair?: Yes Wheel 50 ft with 2 turns (QC): 3 (Min A) Wheel 150 ft (QC): 3 (Min A) Type of Wheelchair: Manual Stair Training 1 Step (curb) (QC): 88 4 Steps (QC): 88 12 Steps (QC): 88 Balance Picking up an Object (QC): 3 (Min A) ADL-Treatment Eating (QC): 5 Oral Hygiene (QC): 4 (VCs SBA in sitting) Shower/Bathe Self (QC): 4 (sitting, constant VCs, HHSH, GB) Upper Body Dressing (QC): 2 Lower Body Dressing (QC): 2 On/Off Footwear (QC): 2 Toileting Hygiene (QC): 3 Assessment/Plan Assessment and Plan Assess & Plan/Chief Complaint Assessment: Left hip fracture with residual debility Acute neurological deficit with signs consistent with CVA NIH score 17 prompting ICU transfer a few hours after admissionBut resolved spontaneously so maintained on aspirin Plavix and statin COPD Current smoker Frail status Advanced age Hyperlipidemia Anxiety Vitamin D deficiency Aortic aneurysm chronic Hypertension Plan: Supportive care Monitor closely Fall risk Pain control ICU transfer for neurological deficit 12/22/2022: Aggressive rehab Supportive care 12/23/2022: Cardiothoracic surgery appointment for carotid stenosis (1) Hip fracture, left (2) Tobacco abuse Status: Acute (3) Thoracic aortic aneurysm (TAA) Status: Acute SOHAM LEBLANC DO Dec 23, 2022 05:59
[2022-12-23 08:00] VITALS: BP 144/69
[2022-12-23] MEDS: ASPIRIN E.C. 81 MG (ECOTRIN) TAB PO SCH (08:14)
[2022-12-23] MEDS: LORATADINE (CLARITIN) 10 MG TAB PO SCH (08:14)
[2022-12-23] MEDS: CLOPIDOGREL 75 MG (PLAVIX) TABLET PO SCH (08:14)
[2022-12-23] MEDS: DOCUSATE SODIUM 100 MG (COLACE) CAP PO SCH ×2 (08:15→20:22)
[2022-12-23] MEDS: ALPRAZolam 0.5 MG (XANAX) TAB PO SCH ×2 (08:15→20:22)
[2022-12-23] MEDS: SENNOSIDES 8.6 MG (SENOKOT) TAB PO SCH ×2 (08:16→20:22)
[2022-12-23] MEDS: polyethylene glycoL POWDER 17 GM (MIRALAX) PACK PO SCH ×2 (08:16→20:30)
[2022-12-23] MEDS: ENOXAPARIN INJECTION 30 MG/0.3 ML SYR SC SCH (08:17)
--- NOTE | 2022-12-23 09:30 | Physical Therapy Daily Note ---
PT Daily Note-Current Subjective Pt in recliner and willing for therapy. pt was eating breakfast and requested to "eat a couple more bites before we start" pt stated 3/10 pain "soreness" in the left leg. Pt recieved her morning meds while eating. Pt stated after ambulation that "that's what i needed to get me jumpstarted" pt is very motivated to work and get back home. Pt was left in recliner at the end of therapy with call light and all needs met. Pain Section J - Health Conditions 1. Rarely or not at all 2. Occasionally 3. Frequently 4. Almost constantly 8. Unable to answer Pain Effect on Sleep: 2 Pain Interference with Therapy: 3 Pain Interference w/Day-to-Day: 3 Mental Status Patient Orientation: Person, Place Transfers SCALE: Activities may be completed with or without assistive devices. 4-Oaslemzrri-jnnrwcz completes the activity by him/herself with no assistance from a helper. 5-Set-up or Clean-up Assistance-helper sets up or cleans up; patient completes activity. [place] assists only prior to or following the activity. 4-Supervision or Touching Assistance-helper provides verbal cues and/or touching/steadying and/or contact guard assistance as patient completes activity. Assistance may be provided throughout the activity or intermittently. 3-Partial/Moderate Assistance-helper does LESS THAN HALF the effort. [place] lifts, holds or supports trunk or limbs, but provides less than half the effort. 2-Substantial/Maximal Assistance-helper does MORE THAN HALF the effort. [place] lifts or holds trunk or limbs and provides more than half the effort. 0-Qdepbpigg-bhtrkp does ALL the effort. Patient does none of the effort to complete the activity. Or, the assistance of 2 or more helpers is required for the patient to complete the activity. If activity was not attempted, code reason: 7-Patient Refused. 9-Not Applicable-not attempted and the patient did not perform the activity before the current illness, exacerbation or injury. 10-Not Attempted due to Environmental Limitations-(lack of equipment, weather restraints, etc.). 88-Not Attempted due to Medical Conditions or Safety Concerns. Sit to Stand (QC): 4 Chair/Xni-sj-Yiall Xfer(QC): 4 Weight Bearing Right Lower Extremity: Right Full Weight Bearing Left Lower Extremity: Left Weight Bearing/Tolerated Gait Training Walk 10 feet (QC): 4 Walk 50 ft with 2 Turns(QC): 4 Walk 150 ft (QC): 4 Wheelchair Training Wheel 50 ft with 2 turns (QC): 9 Wheel 150 ft (QC): 9 Exercises Seated Therapy Exercises: Ankle pumps, Sit to stand, Long arc quads, Hip flexion, Kicking activity, Hamstring Curls, Glut set Treatments Pt was able to preform 4 sit to stand with CGA for safety secondary to left leg pain. pt is able to ambulate 335 ft with RW and CGA for safety and then rest and fishing vessel captain adjusted RW height for the 20 degree arm angle required. pt is then able to ambulate another 256 ft with RW and CGA for a total of 591 ft. pt presents with no LOB and has a quickened gait speed with VC of 30% reminder to slow down for safety to prevent falls. Assessment Current Status: Good Progress PT Mcc Goals Mcc Goals PT Behavioral Consultant Goals Time Frame: Jan 01, 2023 Roll Left & Right (QC): 6 Sit to Lying (QC): 6 Lying-Sitting on Side/Bed(QC): 6 Sit to Stand (QC): 4 Chair/Qcm-du-Hajtx Xfer(QC): 4 Toilet Transfer (QC): 4 Car Transfer (QC): 4 Does the Patient Walk: Yes Walk 10 feet (QC): 4 Walk 50ft with 2 Turns (QC): 4 Walk 150 ft (QC): 4 Walking 10ft on Uneven Surface: 4 1 Step (curb) (QC): 4 4 Steps (QC): 4 12 Steps (QC): 4 Picking up an Object (QC): 4 Does the Pt use WC or Scooter?: Yes Wheel 50 feet with 2 turns (QC: 4 Type: Manual Wheel 150 feet: 4 Type: Manual PT Plan Treatment/Plan Treatment Plan: Continue Plan of Care Treatment Plan: Bed Mobility, Concurrent Therapy, Education, Functional Activity Vincent, Functional Strength, Group Therapy, Gait, Safety, Therapeutic Exercise, Transfers Treatment Duration: Jan 01, 2023 Frequency: At least 5 of 7 days/Wk (IRF) Estimated Hrs Per Day: 1.5 hours per day Patient and/or Family Agrees t: Yes Time Time In: 0800 Time Out: 0915 DATE: Dec 23, 2022 Total Billed Treatment Time: 75 Total Billed Treatment 1 FA x 2 GT x 3 Mayra Navas TECHNOLOGY TRAINING ASSOCIATE Dec 23, 2022 09:30
--- NOTE | 2022-12-23 13:57 | Speech Therapy Daily Note ---
Speech Daily Progress Note Subjective Date Seen by Provider: Dec 23, 2022 Time Seen by Provider: 12:30 Pt sitting up in recliner. Pt did not eat very much lunch. Pt said she did not have much of an appetite. Pt's cognition appears to be better this date. Dr. Gan requested the SLUMS be readministered. Pt had her hearing aids in this date appears to more easily understand the FRESH MEAT GRADER. Pt was pleasant and cooperative throughout the session. Pain Location: Left Pain Description: Ache, Throbbing Comment: leg Objective The SLUMS was readministered this date. Pt received a score of 14/30. Pt unable to recall any of the words following a delay, pt unable to complete basic problem solving. Pt able to answer 2/4 questions following story. Pt demonstrates significant difficulty with executive functioning and visuospatial skills during the clock drawing. Pt aware that her drawing was not correct but was unable to correct the spacing of the numbers on her second attempt. Pt does well with generative naming task and mental manipulation. Pt answers all orientation questions correctly and follows basic directions. Assessment Assessment Current Status: Good Progress Treatment Plan Continue Plan of Care Speech Short Term Goals Short Term Goals Short Term Goals 1. Pt to complete immediate memory tasks with 80% accuracy with min verbal cues. 2. Pt to complete basic problem solving tasks with 80% accuracy with min verbal cues. Speech Helminthologist Goals Helminthologist Goals 1. Pt to complete mental manipulation tasks containing 3 components with 80% accuracy with min verbal cues. 2. Pt to follow basic directions with 80% accuracy with min verbal cues. 3. Pt to complete basic executive functioning tasks with 80% accuracy with min verbal cues. Speech-Plan Patient/Family Goals Patient/Family Goals: Pt's goal is to return home. Treatment Plan Speech Therapy Treatment Plan: Continue Plan of Care Treatment Duration: Dec 22, 2022 Frequency: Modified Program (IRF) Estimated Hrs Per Day: Other Rehab Potential: Good Safety Risks/Education Teaching Recipient: Patient Teaching Methods: Discussion Response to Teaching: Verbalize Understanding Education Topics Provided: Pt educated on purpose of speech therapy tasks. Pt receptive and verbalized understanding. Time Speech Therapy Time In: 12:30 Speech Therapy Time Out: 13:00 DATE: Dec 23, 2022 Total Billed Time: 30 Billed Treatment Time S/L Marika Hernández Speech Therapy Dec 23, 2022 13:57
[2022-12-23] MEDS ORDERED: PATIENT MAY USE OWN MED,SINGLE MED PO PRN (14:30)
--- NOTE | 2022-12-23 14:32 | Progress Note ---
Standard Progress Note Progress Notes/Assess & Plan Date Seen by a Provider: Dec 23, 2022 Time Seen by a Provider: 14:22 Progress/Assessment & Plan no complaints LLE without calf tenderness neg Eddie's s/p L hip IM geri PT/OT CHERELLE HERRMANN MD Dec 23, 2022 14:32
--- NOTE | 2022-12-23 14:38 | Occupational Ther Daily Note ---
OT Current Status-Daily Note Subjective Pt was sitting up in chair, upon arrival, agreed to therapy, alert and cooperative. Pt refused to change clothes today, "didn't feel up to it". ADL-Treatment Pt ambulated with FWW CGA, max assist verbal cues for placement of walker. Pt attempted to stand and completed oral care, and grooming, pt fatigued, so therapist got chair, and pt completed rest of task while seated. Pt then ambulated with FWW, CGA to therapy gym. Pt sat and completed arm bike for 10 mins with 2 recovery recovery breaks required. Pt then ambulated back to room from therapy gym with FWW, CGA. Pt faitgued quickly and had to stop for multiple recovery breaks while standing with FWW. Pt completed ambulation to chair in room, and was left sitting up in chair, with call light and phone within reach and lunch tray brought to side table. All needs met, in room Therapy Code Descriptions/Definitions Functional [place] Measure: 0=Not Assessed/NA 4=Minimal Assistance 1=Total Assistance 5=Supervision or Setup 2=Maximal Assistance 6=Modified [place] 3=Moderate Assistance 7=Complete IndependenceSCALE: Activities may be completed with or without assistive devices. 4-Qiauwmoglr-tcyfxtt completes the activity by him/herself with no assistance from a helper. 5-Set-up or Clean-up Assistance-helper sets up or cleans up; patient completes activity. [place] assists only prior to or following the activity. 4-Supervision or Touching Assistance-helper provides verbal cues and/or touch ing/steadying and/or contact guard assistance as patient completes activity. Assistance may be provided throughout the activity or intermittently. 3-Partial/Moderate Assistance-helper does LESS THAN HALF the effort. [place] lifts, holds or supports trunk or limbs, but provides less than half the effort. 2-Substantial/Maximal Assistance-helper does MORE THAN HALF the effort. [place] lifts or holds trunk or limbs and provides more than half the effort. 4-Ezhvywhfr-grkqpb does ALL the effort. Patient does none of the effort to complete the activity. Or, the assistance of 2 or more helpers is required for the patient to complete the activity. If activity was not attempted, code reason: 7-Patient Refused. 9-Not Applicable-not attempted and the patient did not perform the activity before the current illness, exacerbation or injury. 10-Not Attempted due to Environmental Limitations-(lack of equipment, weather restraints, etc.). 88-Not Attempted due to Medical Conditions or Safety Concerns. OT Short Term Goals Short Term Goals Time Frame: Dec 29, 2022 Eatin Oral hygiene: 5 Upper body dressin OT Prison Goals Fruit Thinner Goals Time Frame: Jan 22, 2023 Acute change in mental status: 0 Inattention: 0 Disorganized thinkin Altered level of consciousness: 0 Eating (QC): 6 Oral Hygiene (QC): 6 Toileting Hygiene (QC): 6 Shower/Bathe Self (QC): 6 Upper Body Dressing (QC): 6 Lower Body Dressing (QC): 6 On/Off Footwear (QC): 6 1=Demonstrate adherence to instructed precautions during ADL tasks. 2=Patient will verbalize/demonstrate understanding of assistive devices/modifications for ADL. 3=Patient will improve strength/tolerance for activity to enable patient to perform ADL's. OT Education/Plan Discharge Recommendations Plan/Recommendations: Continue POC Treatment Plan/Plan of Care Patient would benefit from OT for education, treatment and training to promote independence in ADL's, mobility, safety and/or upper extremity function for ADL's. Plan of Care: ADL Retraining, Cognitive Retraining, Concurrent Therapy, Functional Mobility, Group Exercise/Act as Ind, UE Funct Exercise/Act, W/C Management Training Treatment Duration: Jan 22, 2023 Frequency: At least 5 of 7 days/Wk (IRF) Estimated Hrs Per Day: 1.5 hours per day Rehab Potential: Good Time Start Time: 11:15 Stop Time: 12:15 DATE: Dec 23, 2022 Total Time Billed (hr/min): 60 Billed Treatment Time 1 visit ADL 4 (60 min) Danyelle Macias COTA Dec 23, 2022 14:38
[2022-12-23] MEDS ORDERED: SYSTANE LUBRICANT EYE DROPS PO PRN (14:45)
--- NOTE | 2022-12-23 14:54 | Physical Therapy Daily Note ---
PT Daily Note-Current Subjective Pt in [facility] area and willing for therapy. pt reports no pain at this time. pt was left in therapy [facility] area with coffee and all needs met. Pain Section J - Health Conditions 1. Rarely or not at all 2. Occasionally 3. Frequently 4. Almost constantly 8. Unable to answer Pain Effect on Sleep: 2 Pain Interference with Therapy: 3 Pain Interference w/Day-to-Day: 3 Mental Status Patient Orientation: Person, Place, Situation Transfers SCALE: Activities may be completed with or without assistive devices. 8-Xojnaedwwg-gqzyiqs completes the activity by him/herself with no assistance from a helper. 5-Set-up or Clean-up Assistance-helper sets up or cleans up; patient completes activity. [place] assists only prior to or following the activity. 4-Supervision or Touching Assistance-helper provides verbal cues and/or touching/steadying and/or contact guard assistance as patient completes activity. Assistance may be provided throughout the activity or intermittently. 3-Partial/Moderate Assistance-helper does LESS THAN HALF the effort. [place] lifts, holds or supports trunk or limbs, but provides less than half the effort. 2-Substantial/Maximal Assistance-helper does MORE THAN HALF the effort. [place] lifts or holds trunk or limbs and provides more than half the effort. 4-Uterprnpx-lkzskt does ALL the effort. Patient does none of the effort to complete the activity. Or, the assistance of 2 or more helpers is required for the patient to complete the activity. If activity was not attempted, code reason: 7-Patient Refused. 9-Not Applicable-not attempted and the patient did not perform the activity before the current illness, exacerbation or injury. 10-Not Attempted due to Environmental Limitations-(lack of equipment, weather restraints, etc.). 88-Not Attempted due to Medical Conditions or Safety Concerns. Weight Bearing Right Lower Extremity: Right Full Weight Bearing Left Lower Extremity: Left Weight Bearing/Tolerated Treatments Pt ambulated 80ft with RW and SBA and no LOB and no rest breaks. Assessment Current Status: Good Progress PT Nursing Home Goals Nursing Home Goals PT Machine Tool Mechanic Goals Time Frame: Jan 01, 2023 Roll Left & Right (QC): 6 Sit to Lying (QC): 6 Lying-Sitting on Side/Bed(QC): 6 Sit to Stand (QC): 4 Chair/Jjb-jx-Jpkga Xfer(QC): 4 Toilet Transfer (QC): 4 Car Transfer (QC): 4 Does the Patient Walk: Yes Walk 10 feet (QC): 4 Walk 50ft with 2 Turns (QC): 4 Walk 150 ft (QC): 4 Walking 10ft on Uneven Surface: 4 1 Step (curb) (QC): 4 4 Steps (QC): 4 12 Steps (QC): 4 Picking up an Object (QC): 4 Does the Pt use WC or Scooter?: Yes Wheel 50 feet with 2 turns (QC: 4 Type: Manual Wheel 150 feet: 4 Type: Manual PT Plan Treatment/Plan Treatment Plan: Continue Plan of Care Treatment Plan: Bed Mobility, Concurrent Therapy, Education, Functional Activi ty Vincent, Functional Strength, Group Therapy, Gait, Safety, Therapeutic Exercise, Transfers Treatment Duration: Jan 01, 2023 Frequency: At least 5 of 7 days/Wk (IRF) Estimated Hrs Per Day: 1.5 hours per day Patient and/or Family Agrees t: Yes Time Time In: 1430 Time Out: 1445 DATE: Dec 23, 2022 Total Billed Treatment Time: 15 Total Billed Treatment 1 gt Mayra Navas [employer]LECT[employer]ODU[employer] SALES ENGINEER Dec 23, 2022 14:54
[2022-12-23 19:02] VITALS: BP 107/53
[2022-12-23] MEDS: MELATONIN 3 MG TABLET PO PRN (20:22)
[2022-12-23] MEDS: ROSUVASTATIN 10 MG (CRESTOR) TABLET PO SCH (20:22)
--- NOTE | 2022-12-24 06:14 | PM&R Progress Note ---
Subjective HPI/CC On Admission Date Seen by Provider: Dec 24, 2022 Time Seen by Provider: 12:00 Subjective/Events-last exam 12/24/2022: Patient doing really well Feels like she is getting stronger Less pain No falls Changed around the times of her Xanax 12/23/2022: Patient doing tremendously well No pain is reported Walking very well with walker No neurological deficits Cardiothoracic surgeon will needed to assess carotid stenosis 12/22/2022: Patient doing well Moved down from the ICU today No residual from TIA Carotid stenosis noted maintained on Plavix and aspirin and statin Cannot perform MRI due to sophia from hip repair could heat up Review of Systems General: Fatigue, Malaise Objective Exam Vital Signs Vital Signs Date Time Temp Pulse Resp B/P (MAP) Pulse Ox O2 Delivery O2 Flow Rate FiO2 12/24/22 19:34 37.3 74 20 148/82 (104) 94 Room Air 12/22/22 22:21 21 Capillary Refill : General Appearance: No Apparent Distress, WD/WN, Chronically ill, Thin HEENT: PERRL/EOMI, Normal ENT Inspection, Pharynx Normal Neck: Full Range of Motion, Normal Inspection, Non Tender, Supple, Carotid Bruit Respiratory: Chest Non Tender, Lungs Clear, No Accessory Muscle Use, No Respiratory Distress, Decreased Breath Sounds Cardiovascular: Regular Rate, Rhythm, No Edema, No Gallop, No JVD, No Murmur, Normal Peripheral Pulses Gastrointestinal: Normal Bowel Sounds, No Organomegaly, No Pulsatile Mass, Non Tender, Soft Back: Normal Inspection, No CVA Tenderness, No Vertebral Tenderness Extremity: Normal Capillary Refill, Normal Inspection, Normal Range of Motion (Except left leg), Non Tender, No Calf Tenderness, No Pedal Edema Neurologic/Psychiatric: Alert, Oriented x3, cell operator II-XII Norm as Tested, Abnormal Gait, Depressed Affect, Motor Weakness ( left leg weakness) Skin: Normal Color, Warm/Dry Lymphatic: No Adenopathy Results/Procedures Lab Patient resulted labs reviewed. FIM Transfers Therapy Code Descriptions/Definitions Functional [place] Measure: 0=Not Assessed/NA 4=Minimal Assistance 1=Total Assistance 5=Supervision or Setup 2=Maximal Assistance 6=Modified [place] 3=Moderate Assistance 7=Complete IndependenceSCALE: Activities may be completed with or without assistive devices. 3-Lxrrkltcpx-dfcsldm completes the activity by him/herself with no assistance from a helper. 5-Set-up or Clean-up Assistance-helper sets up or cleans up; patient completes activity. [place] assists only prior to or following the activity. 4-Supervision or Touching Assistance-helper provides verbal cues and/or touching/steadying and/or contact guard assistance as patient completes activity. Assistance may be provided throughout the activity or intermittently. 3-Partial/Moderate Assistance-helper does LESS THAN HALF the effort. [place] lifts, holds or supports trunk or limbs, but provides less than half the effort. 2-Substantial/Maximal Assistance-helper does MORE THAN HALF the effort. [place] lifts or holds trunk or limbs and provides more than half the effort. 1-Ugbnwjdwt-phjjkd does ALL the effort. Patient does none of the effort to complete the activity. Or, the assistance of 2 or more helpers is required for the patient to complete the activity. If activity was not attempted, code reason: 7-Patient Refused. 9-Not Applicable-not attempted and the patient did not perform the activity before the current illness, exacerbation or injury. 10-Not Attempted due to Environmental Limitations-(lack of equipment, weather restraints, etc.). 88-Not Attempted due to Medical Conditions or Safety Concerns. Roll Left to Right (QC): 3 (Min A) Sit to Lying (QC): 3 (Min A) Sit to Stand (QC): 4 Chair/Cbd-ks-Vftml Xfer(QC): 4 Car Transfer (QC): 88 Gait Training Does the Patient Walk?: Yes Walk 10 feet (QC): 4 Walk 50 ft with 2 Turns(QC): 4 Walk 150 ft (QC): 4 Walking 10ft/uneven surface-QC: 88 Gait Assistive Device: FWW Wheelchair Training Does the Pt Use a Wheelchair?: Yes Wheel 50 ft with 2 turns (QC): 9 Wheel 150 ft (QC): 9 Type of Wheelchair: Manual Stair Training 1 Step (curb) (QC): 88 4 Steps (QC): 88 12 Steps (QC): 88 Balance Picking up an Object (QC): 3 (Min A) ADL-Treatment Eating (QC): 5 Oral Hygiene (QC): 4 (VCs SBA in sitting) Shower/Bathe Self (QC): 4 (sitting, constant VCs, HHSH, GB) Upper Body Dressing (QC): 2 Lower Body Dressing (QC): 2 On/Off Footwear (QC): 2 Toileting Hygiene (QC): 3 Assessment/Plan Assessment and Plan Assess & Plan/Chief Complaint Assessment: Left hip fracture with residual debility Acute neurological deficit with signs consistent with CVA NIH score 17 prompting ICU transfer a few hours after admissionBut resolved spontaneously so maintained on aspirin Plavix and statin COPD Current smoker Frail status Advanced age Hyperlipidemia Anxiety Vitamin D deficiency Aortic aneurysm chronic Hypertension Plan: Supportive care Monitor closely Fall risk Pain control ICU transfer for neurological deficit 12/22/2022: Aggressive rehab Supportive care 12/23/2022: Cardiothoracic surgery appointment for carotid stenosis 12/24/2022: Supportive care Monitor closely (1) Hip fracture, left (2) Tobacco abuse Status: Acute (3) Thoracic aortic aneurysm (TAA) Status: Acute SOHAM LEBLANC DO Dec 24, 2022 06:14
[2022-12-24] MEDS: ENOXAPARIN INJECTION 30 MG/0.3 ML SYR SC SCH (07:49)
[2022-12-24] MEDS: ASPIRIN E.C. 81 MG (ECOTRIN) TAB PO SCH (07:49)
[2022-12-24] MEDS: ALPRAZolam 0.5 MG (XANAX) TAB PO SCH ×2 (07:49→20:30)
[2022-12-24] MEDS: LORATADINE (CLARITIN) 10 MG TAB PO SCH (07:50)
[2022-12-24] MEDS: HYDROcodone/APAP 5 MG/325 MG (LORTAB) TAB PO PRN ×3 (07:50→20:30)
[2022-12-24] MEDS: CLOPIDOGREL 75 MG (PLAVIX) TABLET PO SCH (07:50)
[2022-12-24 07:55] VITALS: BP 112/81
[2022-12-24] MEDS: ACETAMINOPHEN 325 MG TABLET PO PRN (09:15)
[2022-12-24] MEDS: ALPRAZolam 0.25 MG (XANAX) TAB PO PRN (09:15)
--- NOTE | 2022-12-24 09:30 | Physical Therapy Daily Note ---
PT Daily Note-Current Subjective Pt in recliner upon entering and willing for therapy. Pt states her left leg is in pain this day but was unable to give a number. pt forgot that she had taken her pain med about an hour previously. at the end of treatment pt was left in recliner in room with call light and all need met Pain Section J - Health Conditions 1. Rarely or not at all 2. Occasionally 3. Frequently 4. Almost constantly 8. Unable to answer Pain Effect on Sleep: 2 Pain Interference with Therapy: 3 Pain Interference w/Day-to-Day: 3 Mental Status Patient Orientation: Person, Place, Time Transfers SCALE: Activities may be completed with or without assistive devices. 8-Ppbsxvncci-ahqbfyv completes the activity by him/herself with no assistance from a helper. 5-Set-up or Clean-up Assistance-helper sets up or cleans up; patient completes activity. [place] assists only prior to or following the activity. 4-Supervision or Touching Assistance-helper provides verbal cues and/or touching/steadying and/or contact guard assistance as patient completes activity. Assistance may be provided throughout the activity or intermittently. 3-Partial/Moderate Assistance-helper does LESS THAN HALF the effort. [place] lifts, holds or supports trunk or limbs, but provides less than half the effort. 2-Substantial/Maximal Assistance-helper does MORE THAN HALF the effort. [place] lifts or holds trunk or limbs and provides more than half the effort. 3-Aeljqxeny-pbkknf does ALL the effort. Patient does none of the effort to complete the activity. Or, the assistance of 2 or more helpers is required for the patient to complete the activity. If activity was not attempted, code reason: 7-Patient Refused. 9-Not Applicable-not attempted and the patient did not perform the activity before the current illness, exacerbation or injury. 10-Not Attempted due to Environmental Limitations-(lack of equipment, weather restraints, etc.). 88-Not Attempted due to Medical Conditions or Safety Concerns. Weight Bearing Right Lower Extremity: Right Full Weight Bearing Left Lower Extremity: Left Weight Bearing/Tolerated Exercises Seated Therapy Exercises: Ankle pumps, Sit to stand, Long arc quads, Hip flexion, Hamstring Curls, Hip abd/add, Glut set Seated Reps: 15 Treatments Pt is able to ambulate 80 ft with RW and CGA secondary to pain to and then from her room to the therapy gym. Pt is able to preform sitting ther-ex in all planes of motion available pt is able to use red thera-band for increased resistance for a total of 15 resp x 3 sets. . Assessment Current Status: Good Progress PT Usp Goals Usp Goals PT Resourcing Consultant Goals Time Frame: Jan 01, 2023 Roll Left & Right (QC): 6 Sit to Lying (QC): 6 Lying-Sitting on Side/Bed(QC): 6 Sit to Stand (QC): 4 Chair/Eys-ah-Whvjf Xfer(QC): 4 Toilet Transfer (QC): 4 Car Transfer (QC): 4 Does the Patient Walk: Yes Walk 10 feet (QC): 4 Walk 50ft with 2 Turns (QC): 4 Walk 150 ft (QC): 4 Walking 10ft on Uneven Surface: 4 1 Step (curb) (QC): 4 4 Steps (QC): 4 12 Steps (QC): 4 Picking up an Object (QC): 4 Does the Pt use WC or Scooter?: Yes Wheel 50 feet with 2 turns (QC: 4 Type: Manual Wheel 150 feet: 4 Type: Manual PT Plan Treatment/Plan Treatment Plan: Continue Plan of Care Treatment Plan: Bed Mobility, Concurrent Therapy, Education, Functional Activity Vincent, Functional Strength, Group Therapy, Gait, Safety, Therapeutic Exercise, Transfers Treatment Duration: Jan 01, 2023 Frequency: At least 5 of 7 days/Wk (IRF) Estimated Hrs Per Day: 1.5 hours per day Patient and/or Family Agrees t: Yes Time Time In: 0800 Time Out: 0900 DATE: Dec 24, 2022 Total Billed Treatment Time: 60 Total Billed Treatment 1 GT x 2 EX x 2 Mayra Navas AIR CREW SUPERVISOR Dec 24, 2022 09:30
[2022-12-24] MEDS: DOCUSATE SODIUM 100 MG (COLACE) CAP PO SCH ×2 (11:25→20:29)
[2022-12-24] MEDS: polyethylene glycoL POWDER 17 GM (MIRALAX) PACK PO SCH ×2 (11:25→20:30)
[2022-12-24] MEDS: SENNOSIDES 8.6 MG (SENOKOT) TAB PO SCH ×2 (11:26→20:30)
--- NOTE | 2022-12-24 11:55 | Speech Therapy Daily Note ---
Speech Daily Progress Note Subjective Date Seen by Provider: Dec 24, 2022 Time Seen by Provider: 09:00 Pt sitting up in her chair. Pt reports she wants to change clothes. ADDICTION COUNSELOR says she will be able to with OT later in the morning. Pt pleasant and cooperative throughout session. Pt does fatigue towards end of session, falling asleep once. Pain Numeric Pain Scale: 7 Location: Left Comment: leg - nurse notified Objective Pt completes 2 step directions with 100% accuracy independently. Pt completes 4 step sequencing of daily tasks with 70% accuracy independently. Pt completes basic reasoning with 66% accuracy with min verbal cues. Pt becomes more fatigued at this time and has a hard time remaining alert. Assessment Assessment Current Status: Good Progress Treatment Plan Continue Plan of Care Speech Short Term Goals Short Term Goals Short Term Goals 1. Pt to complete immediate memory tasks with 80% accuracy with min verbal cues. 2. Pt to complete basic problem solving tasks with 80% accuracy with min verbal cues. Speech Halfway Goals Religion Teacher Goals 1. Pt to complete mental manipulation tasks containing 3 components with 80% accuracy with min verbal cues. 2. Pt to follow basic directions with 80% accuracy with min verbal cues. 3. Pt to complete basic executive functioning tasks with 80% accuracy with min verbal cues. Speech-Plan Patient/Family Goals Patient/Family Goals: Pt's goal is to return home. Treatment Plan Speech Therapy Treatment Plan: Continue Plan of Care Treatment Duration: Dec 22, 2022 Frequency: Modified Program (IRF) Estimated Hrs Per Day: Other Rehab Potential: Good Safety Risks/Education Teaching Recipient: Patient Teaching Methods: Discussion Response to Teaching: Reinforcement Needed Education Topics Provided: Pt educated on purpose of therapy tasks. Pt receptive and will require reinforcement. Time Speech Therapy Time In: 09:00 Speech Therapy Time Out: 09:30 DATE: Dec 24, 2022 Total Billed Time: 30 Billed Treatment Time S/L Marika Hernández Speech Therapy Dec 24, 2022 11:54
--- NOTE | 2022-12-24 13:17 | Occupational Ther Daily Note ---
OT Current Status-Daily Note Subjective Pt alert, sitting in recliner. Pt agrees to therapy. Pt c/o L hip pain, did not rate. Co-treat with PT ([id number]), skills of 2 clinicians required to decrease fall risk, work on higher level balance tasks to improve dynamic balance for daily functional tasks. PT focusing on ambulation, transfers and dynamic balance while OT focusing on functional mobility, B UE placement during functional tasks and dynamic standing for functional tasks. Mental Status/Objective Patient Orientation: Person, Place, Time, Situation Attachments: IV, Telemetry ADL-Treatment SBA for toileting and hand washing standing at sink. Pt left in gym to participate in OT/PT group. All needs met. Therapy Code Descriptions/Definitions Functional [place] Measure: 0=Not Assessed/NA 4=Minimal Assistance 1=Total Assistance 5=Supervision or Setup 2=Maximal Assistance 6=Modified [place] 3=Moderate Assistance 7=Complete IndependenceSCALE: Activities may be completed with or without assistive devices. 5-Tsdkblhipy-eitkxvb completes the activity by him/herself with no assistance from a helper. 5-Set-up or Clean-up Assistance-helper sets up or cleans up; patient completes activity. [place] assists only prior to or following the activity. 4-Supervision or Touching Assistance-helper provides verbal cues and/or touching/steadying and/or contact guard assistance as patient completes activity. Assistance may be provided throughout the activity or intermittently. 3-Partial/Moderate Assistance-helper does LESS THAN HALF the effort. [place] lifts, holds or supports trunk or limbs, but provides less than half the effort. 2-Substantial/Maximal Assistance-helper does MORE THAN HALF the effort. [place] lifts or holds trunk or limbs and provides more than half the effort. 1-Ieagfsudd-klmwva does ALL the effort. Patient does none of the effort to complete the activity. Or, the assistance of 2 or more helpers is required for the patient to complete the activity. If activity was not attempted, code reason: 7-Patient Refused. 9-Not Applicable-not attempted and the patient did not perform the activity before the current illness, exacerbation or injury. 10-Not Attempted due to Environmental Limitations-(lack of equipment, weather restraints, etc.). 88-Not Attempted due to Medical Conditions or Safety Concerns. Eating (QC): 6 Toileting Hygiene (QC): 4 Other Treatment Pt ambulated to therapy gym to work on dynamic balance activity utilizing //bars(simulating counter top). Pt used 1 hand to stabilize with //bars then other hand to retrieve object and place in designated area with no LOB. Pt also working on side stepping during tasks when not holding onto object. OT Short Term Goals Short Term Goals Time Frame: Dec 29, 2022 Eatin Oral hygiene: 5 Upper body dressin OT Sawmill Manager Goals Sawmill Manager Goals Time Frame: Jan 22, 2023 Acute change in mental status: 0 Inattention: 0 Disorganized thinkin Altered level of consciousness: 0 Eating (QC): 6 Oral Hygiene (QC): 6 Toileting Hygiene (QC): 6 Shower/Bathe Self (QC): 6 Upper Body Dressing (QC): 6 Lower Body Dressing (QC): 6 On/Off Footwear (QC): 6 1=Demonstrate adherence to instructed precautions during ADL tasks. 2=Patient will verbalize/demonstrate understanding of assistive devices/modifications for ADL. 3=Patient will improve strength/tolerance for activity to enable patient to perform ADL's. OT Education/Plan Problem List/Assessment Assessment: Decreased Activ Tolerance, Decreased UE Strength, Impaired Funct Balance Discharge Recommendations Plan/Recommendations: Continue POC Treatment Plan/Plan of Care Patient would benefit from OT for education, treatment and training to promote independence in ADL's, mobility, safety and/or upper extremity function for ADL's. Plan of Care: ADL Retraining, Cognitive Retraining, Concurrent Therapy, Functional Mobility, Group Exercise/Act as Ind, UE Funct Exercise/Act, W/C Management Training Treatment Duration: Jan 22, 2023 Frequency: At least 5 of 7 days/Wk (IRF) Estimated Hrs Per Day: 1.5 hours per day Rehab Potential: Good Time Start Time: 12:30 Stop Time: 13:00 DATE: Dec 24, 2022 Total Time Billed (hr/min): 30 Billed Treatment Time 1 visit-FA 2 (30 min) co-treat with PT 30 min MOSHE SCHAFFER Dec 24, 2022 13:17
--- NOTE | 2022-12-24 13:29 | Physical Therapy Daily Note ---
PT Daily Note-Current Subjective Pt alert, sitting in recliner. Pt agrees to therapy. Pt c/o L hip pain, did not rate. Co-treat with PT ([phone]), skills of 2 clinicians required to decrease fall risk, work on higher level balance tasks to improve dynamic balance for daily functional tasks. PT focusing on ambulation, transfers and dynamic balance while OT focusing on functional mobility, B UE placement during functional tasks and dynamic standing for functional tasks. Pain Location: No Pain Reported Section J - Health Conditions 1. Rarely or not at all 2. Occasionally 3. Frequently 4. Almost constantly 8. Unable to answer Pain Effect on Sleep: 2 Pain Interference with Therapy: 3 Pain Interference w/Day-to-Day: 3 Mental Status Patient Orientation: Person, Place Attachments: Other-See Comments (Hearing Aids & Telemetry), IV Transfers SCALE: Activities may be completed with or without assistive devices. 8-Adijumbgyo-qrbodwj completes the activity by him/herself with no assistance from a helper. 5-Set-up or Clean-up Assistance-helper sets up or cleans up; patient completes activity. [place] assists only prior to or following the activity. 4-Supervision or Touching Assistance-helper provides verbal cues and/or touching/steadying and/or contact guard assistance as patient completes activity. Assistance may be provided throughout the activity or intermittently. 3-Partial/Moderate Assistance-helper does LESS THAN HALF the effort. [place] lifts, holds or supports trunk or limbs, but provides less than half the effort. 2-Substantial/Maximal Assistance-helper does MORE THAN HALF the effort. [place] lifts or holds trunk or limbs and provides more than half the effort. 3-Ditwloonc-aqpoja does ALL the effort. Patient does none of the effort to complete the activity. Or, the assistance of 2 or more helpers is required for the patient to complete the activity. If activity was not attempted, code reason: 7-Patient Refused. 9-Not Applicable-not attempted and the patient did not perform the activity before the current illness, exacerbation or injury. 10-Not Attempted due to Environmental Limitations-(lack of equipment, weather restraints, etc.). 88-Not Attempted due to Medical Conditions or Safety Concerns. Sit to Stand (QC): 4 Toilet Transfer (QC): 4 Weight Bearing Right Lower Extremity: Right Full Weight Bearing Left Lower Extremity: Left Weight Bearing/Tolerated Gait Training Does the Patient Walk?: Yes Distance: 60' Walk 10 feet (QC): 4 Walk 50 ft with 2 Turns(QC): 4 Gait Persons Needed: 1 Gait Assistive Device: FWW Wheelchair Training Does the Pt Use a Wheelchair?: No Treatments Pt ambulated to therapy gym to work on dynamic balance activity utilizing //bars(simulating counter top). Pt used 1 hand to stabilize with //bars then other hand to retrieve object and place in designated area with no LOB. Pt also working on side stepping during tasks when not holding onto object. Assessment Current Status: Good Progress Pt duglas. tx well. PT Correction Goals Infantry Unit Leader Goals PT Correction Goals Time Frame: Jan 01, 2023 Roll Left & Right (QC): 6 Sit to Lying (QC): 6 Lying-Sitting on Side/Bed(QC): 6 Sit to Stand (QC): 4 Chair/Tcm-yq-Xsftx Xfer(QC): 4 Toilet Transfer (QC): 4 Car Transfer (QC): 4 Does the Patient Walk: Yes Walk 10 feet (QC): 4 Walk 50ft with 2 Turns (QC): 4 Walk 150 ft (QC): 4 Walking 10ft on Uneven Surface: 4 1 Step (curb) (QC): 4 4 Steps (QC): 4 12 Steps (QC): 4 Picking up an Object (QC): 4 Does the Pt use WC or Scooter?: Yes Wheel 50 feet with 2 turns (QC: 4 Type: Manual Wheel 150 feet: 4 Type: Manual PT Plan Problem List Problem List: Safety Treatment/Plan Treatment Plan: Continue Plan of Care Treatment Plan: Bed Mobility, Concurrent Therapy, Education, Functional Activity Vincent, Functional Strength, Group Therapy, Gait, Safety, Therapeutic Exercise, Transfers Treatment Duration: Jan 01, 2023 Frequency: At least 5 of 7 days/Wk (IRF) Estimated Hrs Per Day: 1.5 hours per day Patient and/or Family Agrees t: Yes Safety Risks/Education Patient Education: Gait Training, Transfer Techniques, Correct Positioning, Safety Issues Teaching Recipient: Patient Teaching Methods: Discussion Response to Teaching: Verbalize Understanding Time Time In: 1230 Time Out: 1300 DATE: Dec 24, 2022 Total Billed Treatment Time: 30 Total Billed Treatment 1, GT (10m) & FA (20m) SANTANA OATES POULTRYMAN Dec 24, 2022 13:29
--- NOTE | 2022-12-24 14:29 | Occupational Ther Daily Note ---
OT Current Status-Daily Note Subjective Pt alert and cooperative, in chair in room upon arrival. Pt agreed to therapy, and requesting shower. Mental Status/Objective Patient Orientation: [place] ADL-Treatment Pt ambulated from chair in room with FWW, CGA. Pt doffed pants and brief independently, while standing with FWW, CGA. Pt sat on shower bench and doffed shirt independently. Pt completed showering/bathing self with multiple verbal cues for sequencing, seated 95% of the time, supervision. Pt dried self off, and transferred out of shower to chair in room with FWW, CGA. Pt completed upperbpdy dressing with set up assist. Pt very distracted during this time and demanded to ally 2 shirts, therapist explained pt didn't need to wear two shirts but pt refused to only ally one. Pt then required modA for lower body dressing with therapist assisting threading pants onto ankles. Pt presented with swelling to L leg/hip, nursing notified and compression stocking applied by therapist. Pt stood at sink with FWW, CGA completed grooming and oral hygiene. Pt required max verbal cues to remember to use walker instead of walking into it and not using it. Pt ambulated with FWW, CGA to chair in room, pt was left sitting in chair, call light and phone within reach, all needs met. Therapy Code Descriptions/Definitions Functional [place] Measure: 0=Not Assessed/NA 4=Minimal Assistance 1=Total Assistance 5=Supervision or Setup 2=Maximal Assistance 6=Modified [place] 3=Moderate Assistance 7=Complete IndependenceSCALE: Activities may be completed with or without assistive devices. 7-Hzacytpexp-gtqkjle completes the activity by him/herself with no assistance from a helper. 5-Set-up or Clean-up Assistance-helper sets up or cleans up; patient completes activity. [place] assists only prior to or following the activity. 4-Supervision or Touching Assistance-helper provides verbal cues and/or touching/steadying and/or contact guard assistance as patient completes activ ity. Assistance may be provided throughout the activity or intermittently. 3-Partial/Moderate Assistance-helper does LESS THAN HALF the effort. [place] lifts, holds or supports trunk or limbs, but provides less than half the effort. 2-Substantial/Maximal Assistance-helper does MORE THAN HALF the effort. [place] lifts or holds trunk or limbs and provides more than half the effort. 6-Gafytveth-zrvppw does ALL the effort. Patient does none of the effort to complete the activity. Or, the assistance of 2 or more helpers is required for the patient to complete the activity. If activity was not attempted, code reason: 7-Patient Refused. 9-Not Applicable-not attempted and the patient did not perform the activity before the current illness, exacerbation or injury. 10-Not Attempted due to Environmental Limitations-(lack of equipment, weather restraints, etc.). 88-Not Attempted due to Medical Conditions or Safety Concerns. Eating (QC): 6 Oral Hygiene (QC): 4 Shower/Bathe Self (QC): 4 Upper Body Dressing (QC): 5 Lower Body Dressing (QC): 3 On/Off Footwear: 1 Education OT Patient Education: Correct positioning, Energy conservation, Progress toward Goal/Update tx plan, Purpose of tx/functional activities, Safety issues, Trans meg techniques Teaching Recipient: Patient Teaching Methods: Discussion Response to Teaching: Verbalize Understanding OT Short Term Goals Short Term Goals Time Frame: Dec 29, 2022 Eatin Oral hygiene: 5 Upper body dressin OT Warehouse Receiving Clerk Goals Skilled Nursing Goals Time Frame: Jan 22, 2023 Acute change in mental status: 0 Inattention: 0 Disorganized thinkin Altered level of consciousness: 0 Eating (QC): 6 Oral Hygiene (QC): 6 Toileting Hygiene (QC): 6 Shower/Bathe Self (QC): 6 Upper Body Dressing (QC): 6 Lower Body Dressing (QC): 6 On/Off Footwear (QC): 6 1=Demonstrate adherence to instructed precautions during ADL tasks. 2=Patient will verbalize/demonstrate understanding of assistive devices/modifications for ADL. 3=Patient will improve strength/tolerance for activity to enable patient to perform ADL's. OT Education/Plan Problem List/Assessment Assessment: Decreased Activ Tolerance, Decreased Safety Aware Discharge Recommendations Plan/Recommendations: Continue POC Treatment Plan/Plan of Care Patient would benefit from OT for education, treatment and training to promote independence in ADL's, mobility, safety and/or upper extremity function for ADL's. Plan of Care: ADL Retraining, Cognitive Retraining, Concurrent Therapy, Functional Mobility, Group Exercise/Act as Ind, UE Funct Exercise/Act, W/C Management Training Treatment Duration: Jan 22, 2023 Frequency: At least 5 of 7 days/Wk (IRF) Estimated Hrs Per Day: 1.5 hours per day Rehab Potential: Good Time Start Time: 09:30 Stop Time: 10:30 DATE: Dec 24, 2022 Total Time Billed (hr/min): 60 Billed Treatment Time 1 visit ADL 4 (60 min) Danyelle Macias COTA Dec 24, 2022 14:28
--- NOTE | 2022-12-24 14:39 | Therapy Group Daily Note ---
Therapy Daily Group Note Patient Education Topic Exercises Exercises LE Seated Exercise, UE Exercise Session Ratio (pt:therapist): 3:1 Goal of Session: Memory Strategies, UE/LE Strengthing Goal Met for this Session: Yes Pt Benefit of Group: Contributions to Others, F/U Use of Strategies @Home, Increased Functional Safety, Increased Functional Strength, Improved Cognition, Recognition of Peers, Socialization Other/Notes pt ambulated to PT/OT group. group consisted of exercises and trivia activity. activity was to improve understand of HEP for release to home. pt met 3/4 trivia questions. pt activity participated in seated in UE and LE exercises and then ambulated back to room and was left in recliner with call light and all needs met. Start Time: 13:00 Stop Time: 14:00 Total Billed Treatment Time: 60 Total Billed Treatment 1 GRP Mayra Navas WOOD CABINETMAKER Dec 24, 2022 14:39
[2022-12-24 19:34] VITALS: BP 148/82
[2022-12-24] MEDS: MELATONIN 3 MG TABLET PO PRN (20:30)
[2022-12-24] MEDS: ROSUVASTATIN 10 MG (CRESTOR) TABLET PO SCH (20:30)
[2022-12-25] MEDS: HYDROcodone/APAP 5 MG/325 MG (LORTAB) TAB PO PRN ×2 (05:52→14:17)
[2022-12-25 08:20] VITALS: BP 133/63
[2022-12-25 08:33] VITALS: BP 133/63
[2022-12-25] MEDS: CLOPIDOGREL 75 MG (PLAVIX) TABLET PO SCH (09:19)
[2022-12-25] MEDS: ASPIRIN E.C. 81 MG (ECOTRIN) TAB PO SCH (09:19)
[2022-12-25] MEDS: ALPRAZolam 1 MG (XANAX) TAB PO SCH (09:19)
[2022-12-25] MEDS: LORATADINE (CLARITIN) 10 MG TAB PO SCH (09:19)
[2022-12-25] MEDS: ENOXAPARIN INJECTION 30 MG/0.3 ML SYR SC SCH (09:22)
[2022-12-25] MEDS: SENNOSIDES 8.6 MG (SENOKOT) TAB PO SCH ×2 (09:35→20:20)
[2022-12-25] MEDS: DOCUSATE SODIUM 100 MG (COLACE) CAP PO SCH ×2 (09:35→20:20)
[2022-12-25] MEDS: polyethylene glycoL POWDER 17 GM (MIRALAX) PACK PO SCH ×2 (09:35→20:18)
[2022-12-25 09:42] VITALS: BP 105/52
--- NOTE | 2022-12-25 10:40 | Progress Note ---
Standard Progress Note Progress Notes/Assess & Plan Date Seen by a Provider: Dec 25, 2022 Time Seen by a Provider: 10:38 Progress/Assessment & Plan Pt. verbalizes no c/o. Witnessed her ambulating with walker. LLE calf is soft and nontender with negative Eddie's. VSS Assessment: Doing well s/p IM nail left femur Plan: OT/PT mobilize dvt proph MALICK PRINGLE Dec 25, 2022 10:40
--- NOTE | 2022-12-25 10:46 | PM&R Progress Note ---
Subjective HPI/CC On Admission Date Seen by Provider: Dec 25, 2022 Time Seen by Provider: 11:00 Subjective/Events-last exam 12/25/2022: Patient doing really well getting stronger every day Minimal pain Checked meds and labs 12/24/2022: Patient doing really well Feels like she is getting stronger Less pain No falls Changed around the times of her Xanax 12/23/2022: Patient doing tremendously well No pain is reported Walking very well with walker No neurological deficits Cardiothoracic surgeon will needed to assess carotid stenosis 12/22/2022: Patient doing well Moved down from the ICU today No residual from TIA Carotid stenosis noted maintained on Plavix and aspirin and statin Cannot perform MRI due to sophia from hip repair could heat up Review of Systems General: Fatigue, Malaise Neurological: Confusion Objective Exam Vital Signs Vital Signs Date Time Temp Pulse Resp B/P (MAP) Pulse Ox O2 Delivery O2 Flow Rate FiO2 12/25/22 20:28 Room Air 12/25/22 20:04 37.5 82 20 114/64 (81) 94 12/22/22 22:21 21 Capillary Refill : General Appearance: No Apparent Distress, WD/WN, Chronically ill, Thin HEENT: PERRL/EOMI, Normal ENT Inspection, Pharynx Normal Neck: Full Range of Motion, Normal Inspection, Non Tender, Supple, Carotid Brui t Respiratory: Chest Non Tender, Lungs Clear, No Accessory Muscle Use, No Respiratory Distress, Decreased Breath Sounds Cardiovascular: Regular Rate, Rhythm, No Edema, No Gallop, No JVD, No Murmur, Normal Peripheral Pulses Gastrointestinal: Normal Bowel Sounds, No Organomegaly, No Pulsatile Mass, Non Tender, Soft Back: Normal Inspection, No CVA Tenderness, No Vertebral Tenderness Extremity: Normal Capillary Refill, Normal Inspection, Normal Range of Motion (Except left leg), Non Tender, No Calf Tenderness, No Pedal Edema Neurologic/Psychiatric: Alert, Oriented x3, superintendent laundry II-XII Norm as Tested, Abnormal Gait, Depressed Affect, Motor Weakness ( left leg weakness) Skin: Normal Color, Warm/Dry Lymphatic: No Adenopathy Results/Procedures Lab Patient resulted labs reviewed. FIM Transfers Therapy Code Descriptions/Definitions Functional [place] Measure: 0=Not Assessed/NA 4=Minimal Assistance 1=Total Assistance 5=Supervision or Setup 2=Maximal Assistance 6=Modified [place] 3=Moderate Assistance 7=Complete IndependenceSCALE: Activities may be completed with or without assistive devices. 5-Ttjjthucwf-rrcatmv completes the activity by him/herself with no assistance from a helper. 5-Set-up or Clean-up Assistance-helper sets up or cleans up; patient completes activity. [place] assists only prior to or following the activity. 4-Supervision or Touching Assistance-helper provides verbal cues and/or touching/steadying and/or contact guard assistance as patient completes activity. Assistance may be provided throughout the activity or intermittently. 3-Partial/Moderate Assistance-helper does LESS THAN HALF the effort. [place] lifts, holds or supports trunk or limbs, but provides less than half the effort. 2-Substantial/Maximal Assistance-helper does MORE THAN HALF the effort. [place] lifts or holds trunk or limbs and provides more than half the effort. 5-Sktteulep-pdpdrg does ALL the effort. Patient does none of the effort to complete the activity. Or, the assistance of 2 or more helpers is required for the patient to complete the activity. If activity was not attempted, code reason: 7-Patient Refused. 9-Not Applicable-not attempted and the patient did not perform the activity before the current illness, exacerbation or injury. 10-Not Attempted due to Environmental Limitations-(lack of equipment, weather restraints, etc.). 88-Not Attempted due to Medical Conditions or Safety Concerns. Roll Left to Right (QC): 3 (Min A) Sit to Lying (QC): 3 (Min A) Sit to Stand (QC): 4 Chair/Vkz-jw-Cpbzq Xfer(QC): 4 Car Transfer (QC): 88 Gait Training Does the Patient Walk?: Yes Distance: 60' Walk 10 feet (QC): 4 Walk 50 ft with 2 Turns(QC): 4 Walk 150 ft (QC): 4 Walking 10ft/uneven surface-QC: 88 Gait Persons Needed: 1 Gait Assistive Device: FWW Wheelchair Training Does the Pt Use a Wheelchair?: No Wheel 50 ft with 2 turns (QC): 9 Wheel 150 ft (QC): 9 Type of Wheelchair: Manual Stair Training 1 Step (curb) (QC): 88 4 Steps (QC): 88 12 Steps (QC): 88 Balance Picking up an Object (QC): 3 (Min A) ADL-Treatment Eating (QC): 6 Oral Hygiene (QC): 4 Shower/Bathe Self (QC): 4 Upper Body Dressing (QC): 5 Lower Body Dressing (QC): 3 On/Off Footwear (QC): 1 Toileting Hygiene (QC): 4 Assessment/Plan Assessment and Plan Assess & Plan/Chief Complaint Assessment: Left hip fracture with residual debility Acute neurological deficit with signs consistent with CVA NIH score 17 prompting ICU transfer a few hours after admissionBut resolved spontaneously so maintained on aspirin Plavix and statin COPD Current smoker Frail status Advanced age Hyperlipidemia Anxiety Vitamin D deficiency Aortic aneurysm chronic Hypertension Plan: Supportive care Monitor closely Fall risk Pain control ICU transfer for neurological deficit 12/22/2022: Aggressive rehab Supportive care 12/23/2022: Cardiothoracic surgery appointment for carotid stenosis 12/24/2022: Supportive care Monitor closely 12/25/2022: Supportive care Pain control (1) Hip fracture, left (2) Tobacco abuse Status: Acute (3) Thoracic aortic aneurysm (TAA) Status: Acute SOHAM LEBLANC DO Dec 25, 2022 10:46
--- NOTE | 2022-12-25 10:55 | Physical Therapy Daily Note ---
PT Daily Note-Current Subjective Pt found lying in recliner upon entry. Agreed to PT. Reports that she is very dizzy this morning. RN notified about pt's condition. States that she is having pain and stiffness in her L hip but does not rate. Pain Section J - Health Conditions 1. Rarely or not at all 2. Occasionally 3. Frequently 4. Almost constantly 8. Unable to answer Pain Effect on Sleep: 2 Pain Interference with Therapy: 3 Pain Interference w/Day-to-Day: 3 Mental Status Patient Orientation: Person, Place Transfers SCALE: Activities may be completed with or without assistive devices. 6-Qfnlsqqroc-ycxibta completes the activity by him/herself with no assistance from a helper. 5-Set-up or Clean-up Assistance-helper sets up or cleans up; patient completes activity. [place] assists only prior to or following the activity. 4-Supervision or Touching Assistance-helper provides verbal cues and/or touching/steadying and/or contact guard assistance as patient completes activity. Assistance may be provided throughout the activity or intermittently. 3-Partial/Moderate Assistance-helper does LESS THAN HALF the effort. [place] lifts, holds or supports trunk or limbs, but provides less than half the effort. 2-Substantial/Maximal Assistance-helper does MORE THAN HALF the effort. [place] lifts or holds trunk or limbs and provides more than half the effort. 8-Chhoyfvml-femdce does ALL the effort. Patient does none of the effort to complete the activity. Or, the assistance of 2 or more helpers is required for the patient to complete the activity. If activity was not attempted, code reason: 7-Patient Refused. 9-Not Applicable-not attempted and the patient did not perform the activity before the current illness, exacerbation or injury. 10-Not Attempted due to Environmental Limitations-(lack of equipment, weather restraints, etc.). 88-Not Attempted due to Medical Conditions or Safety Concerns. Sit to Lying (QC): 3 Lying to Sitting/Side of Bed(Q: 3 Sit to Stand (QC): 4 Toilet Transfer (QC): 4 SBA for sit to stand and toilet transfers due to pain and balance deficits. Sit to stands completed 10x from chair /c armrests. MIN assist for LE lifting/lowering /c bed mobility. Weight Bearing Right Lower Extremity: Right Full Weight Bearing Left Lower Extremity: Left Weight Bearing/Tolerated Gait Training Does the Patient Walk?: Yes Distance: 120, 120, 40, 40 Walk 10 feet (QC): 4 Walk 50 ft with 2 Turns(QC): 4 Gait Persons Needed: 1 Gait Assistive Device: FWW CGA for safety due to pain and balance deficits. Stair Training Stair Training: Handrails/: 2 handrails #of Steps: 4 1 Step (curb) (QC): 4 4 Steps (QC): 4 Stairs: Pattern: Step to CGA for safety due to pain and balance deficits. Verbal cues for proper step pattern. Exercises NuStep Minutes: 8 NuStep Workload: 2 Treatments Seated Therapeutic Exercises: TA sets x 10 Assessment Current Status: Good Progress Pt demonstrates limited endurance /c therapeutic activity likely due to reported pain. Pt able to ambulate up to 120 feet this visit before requiring a seated rest break. Ambulates /c use of FWW and required CGA for safety as well as verbal cues for proper posture during gait cycle. Bed mobility practiced /c raised bed height and a step to simulate home environment. Pt required MIN LE lifting assistance to complete bed mobility. Increased pain reported /c movement. Continue to progress pt as tolerated per POC to address pain, endurance, and functional ability deficits. PT Shelter Goals Factory Representative Goals PT Factory Representative Goals Time Frame: Jan 01, 2023 Roll Left & Right (QC): 6 Sit to Lying (QC): 6 Lying-Sitting on Side/Bed(QC): 6 Sit to Stand (QC): 4 Chair/Obp-ad-Kvsjg Xfer(QC): 4 Toilet Transfer (QC): 4 Car Transfer (QC): 4 Does the Patient Walk: Yes Walk 10 feet (QC): 4 Walk 50ft with 2 Turns (QC): 4 Walk 150 ft (QC): 4 Walking 10ft on Uneven Surface: 4 1 Step (curb) (QC): 4 4 Steps (QC): 4 12 Steps (QC): 4 Picking up an Object (QC): 4 Does the Pt use WC or Scooter?: Yes Wheel 50 feet with 2 turns (QC: 4 Type: Manual Wheel 150 feet: 4 Type: Manual PT Plan Treatment/Plan Treatment Plan: Continue Plan of Care Treatment Plan: Bed Mobility, Concurrent Therapy, Education, Functional Activity Vincent, Functional Strength, Group Therapy, Gait, Safety, Therapeutic Exercise, Transfers Treatment Duration: Jan 01, 2023 Frequency: At least 5 of 7 days/Wk (IRF) Estimated Hrs Per Day: 1.5 hours per day Patient and/or Family Agrees t: Yes Time Time In: 0800 Time Out: 0915 DATE: Dec 25, 2022 Total Billed Treatment Time: 75 Total Billed Treatment 1 visit GT x 1 EX x 2 FA x 2 LINCOLN CHRISTINE PTA Dec 25, 2022 10:55
[2022-12-25] MEDS: ALPRAZolam 0.5 MG (XANAX) TAB PO SCH ×2 (12:33→20:20)
--- NOTE | 2022-12-25 13:18 | Speech Therapy Daily Note ---
Speech Daily Progress Note Subjective Date Seen by Provider: Dec 25, 2022 Time Seen by Provider: 10:30 Pt cotreated with Occupational Therapy to address higher level cognitive functioning by having pt perform cognitive tasks along with physical tasks. Pt was pleasant and cooperative throughout the session. Pt does report increased pain from physical therapy earlier in the day. Pain Numeric Pain Scale: 8 Location: Left Comment: leg Objective Pt completes sequencing tasks with 90% accuracy with mod-max assist. Pt completes divided attention tasks of a physical activity and a cognitive task with mod cues. Pt completes visuospatial task with 70% accuracy with mod cues. Pt completes alternating attention with 60% accuracy with mod cues. Assessment Assessment Current Status: Fair Progress Higher level cognitive tasks were targeted this date. Pt demonstrates better sustained attention throughout the entire session. Treatment Plan Continue Plan of Care Speech Short Term Goals Short Term Goals Short Term Goals 1. Pt to complete immediate memory tasks with 80% accuracy with min verbal cues. 2. Pt to complete basic problem solving tasks with 80% accuracy with min verbal cues. Speech Mcc Goals Mcc Goals 1. Pt to complete mental manipulation tasks containing 3 components with 80% accuracy with min verbal cues. 2. Pt to follow basic directions with 80% accuracy with min verbal cues. 3. Pt to complete basic executive functioning tasks with 80% accuracy with min verbal cues. Speech-Plan Patient/Family Goals Patient/Family Goals: Pt's goal is to return home. Treatment Plan Speech Therapy Treatment Plan: Continue Plan of Care Treatment Duration: Dec 22, 2022 Frequency: Modified Program (IRF) Estimated Hrs Per Day: Other Rehab Potential: Good Safety Risks/Education Teaching Recipient: Patient Teaching Methods: Discussion Response to Teaching: Verbalize Understanding, Reinforcement Needed Education Topics Provided: Pt educated on purpose of cotreat with occupational therapy and purpose of therapy tasks. Pt receptive and verbalized understanding, but will likely require reinforcement. Discharge Recommendations Post Acute ST Time Speech Therapy Time In: 10:30 Speech Therapy Time Out: 11:00 DATE: Dec 25, 2022 Total Billed Time: 30 Billed Treatment Time S/L TX cotreat with OT Marika Khalil Speech Therapy Dec 25, 2022 13:18
--- NOTE | 2022-12-25 13:22 | Occupational Ther Daily Note ---
OT Current Status-Daily Note Subjective Pt sitting in chair in room, alert and cooperative. Agreed to therapy. Cotx ([id number]) OT/ST ADL-Treatment Pt refused to change clothes or any ADL today. Pt ambulated to therapy gym, with FWW, CGA. Pt required mod verbal cues, to keep walker close and walk steady and slow. To address strengthening and ROM pt completed 10 mins on the arm bike. Pt then ambulated back to room with FWW, requiring mod verbal cues to keep walker close. Pt then participated in cotx OT/ST ([id number]) skill of two clinicians required for higher complexity cognitive task, for increase safety when completing daily task. After session, pt was let sitting in chair in room, with call light and phone within reach. all needs met. Therapy Code Descriptions/Definitions Functional [place] Measure: 0=Not Assessed/NA 4=Minimal Assistance 1=Total Assistance 5=Supervision or Setup 2=Maximal Assistance 6=Modified [place] 3=Moderate Assistance 7=Complete IndependenceSCALE: Activities may be completed with or without assistive devices. 8-Lqsnkidmbe-dyrwhmg completes the activity by him/herself with no assistance from a helper. 5-Set-up or Clean-up Assistance-helper sets up or cleans up; patient completes activity. [place] assists only prior to or following the activity. 4-Supervision or Touching Assistance-helper provides verbal cues and/or touc zoran/steadying and/or contact guard assistance as patient completes activity. Assistance may be provided throughout the activity or intermittently. 3-Partial/Moderate Assistance-helper does LESS THAN HALF the effort. [place] lifts, holds or supports trunk or limbs, but provides less than half the effort. 2-Substantial/Maximal Assistance-helper does MORE THAN HALF the effort. [place] lifts or holds trunk or limbs and provides more than half the effort. 0-Mwrsyelyh-jvnjdv does ALL the effort. Patient does none of the effort to complete the activity. Or, the assistance of 2 or more helpers is required for the patient to complete the activity. If activity was not attempted, code reason: 7-Patient Refused. 9-Not Applicable-not attempted and the patient did not perform the activity before the current illness, exacerbation or injury. 10-Not Attempted due to Environmental Limitations-(lack of equipment, weather restraints, etc.). 88-Not Attempted due to Medical Conditions or Safety Concerns. 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 2=Patient will verbalize/demonstrate understanding of assistive devices/modifi cations for ADL. 3=Patient will improve strength/tolerance for activity to enable patient to perform ADL's. OT Education/Plan Problem List/Assessment Assessment: Decreased Activ Tolerance, Decreased Safety Aware, Decreased UE Strength Discharge Recommendations Plan/Recommendations: Continue POC Treatment Plan/Plan of Care Patient would benefit from OT for education, treatment and training to promote independence in ADL's, mobility, safety and/or upper extremity function for ADL's. Plan of Care: ADL Retraining, Cognitive Retraining, Concurrent Therapy, Functional Mobility, Group Exercise/Act as Ind, UE Funct Exercise/Act, W/C Management Training Treatment Duration: Jan 22, 2023 Frequency: At least 5 of 7 days/Wk (IRF) Estimated Hrs Per Day: 1.5 hours per day Rehab Potential: Good Time Start Time: 10:00 Stop Time: 11:00 DATE: Dec 25, 2022 Total Time Billed (hr/min): 60 Billed Treatment Time 1 visit EX (30) FA (30) CoTx (10:30-11:00) OT/Danyelle Anna COTA Dec 25, 2022 13:22
[2022-12-25 19:53] VITALS: BP 105/52
[2022-12-25 20:04] VITALS: BP 114/64
[2022-12-25] MEDS: ROSUVASTATIN 10 MG (CRESTOR) TABLET PO SCH (20:20)
--- NOTE | 2022-12-26 06:48 | PM&R Progress Note ---
Subjective HPI/CC On Admission Date Seen by Provider: Dec 26, 2022 Time Seen by Provider: 12:30 Subjective/Events-last exam 12/26/2022: Patient doing really well Working with therapy No falls Confusion is improved 12/25/2022: Patient doing really well getting stronger every day Minimal pain Checked meds and labs 12/24/2022: Patient doing really well Feels like she is getting stronger Less pain No falls Changed around the times of her Xanax 12/23/2022: Patient doing tremendously well No pain is reported Walking very well with walker No neurological deficits Cardiothoracic surgeon will needed to assess carotid stenosis 12/22/2022: Patient doing well Moved down from the ICU today No residual from TIA Carotid stenosis noted maintained on Plavix and aspirin and statin Cannot perform MRI due to sophia from hip repair could heat up Review of Systems General: Fatigue, Malaise Objective Exam Vital Signs Vital Signs Date Time Temp Pulse Resp B/P (MAP) Pulse Ox O2 Delivery O2 Flow Rate FiO2 12/26/22 15:15 96 Room Air 12/26/22 12:54 89 12/26/22 08:00 36.9 16 132/58 (82) 12/22/22 22:21 21 Capillary Refill : General Appearance: No Apparent Distress, WD/WN, Chronically ill, Thin HEENT: PERRL/EOMI, Normal ENT Inspection, Pharynx Normal Neck: Full Range of Motion, Normal Inspection, Non Tender, Supple, Carotid Bruit Respiratory: Chest Non Tender, Lungs Clear, No Accessory Muscle Use, No Respiratory Distress, Decreased Breath Sounds Cardiovascular: Regular Rate, Rhythm, No Edema, No Gallop, No JVD, No Murmur, Normal Peripheral Pulses Gastrointestinal: Normal Bowel Sounds, No Organomegaly, No Pulsatile Mass, Non Tender, Soft Back: Normal Inspection, No CVA Tenderness, No Vertebral Tenderness Extremity: Normal Capillary Refill, Normal Inspection, Normal Range of Motion (Except left leg), Non Tender, No Calf Tenderness, No Pedal Edema Neurologic/Psychiatric: Alert, Oriented x3, lead software tester II-XII Norm as Tested, Abnormal Gait, Depressed Affect, Motor Weakness ( left leg weakness) Skin: Normal Color, Warm/Dry Lymphatic: No Adenopathy Results/Procedures Lab Patient resulted labs reviewed. FIM Transfers Therapy Code Descriptions/Definitions Functional [place] Measure: 0=Not Assessed/NA 4=Minimal Assistance 1=Total Assistance 5=Supervision or Setup 2=Maximal Assistance 6=Modified [place] 3=Moderate Assistance 7=Complete IndependenceSCALE: Activities may be completed with or without assistive devices. 9-Ntmlnwqqyi-pmmbffl completes the activity by him/herself with no assistance from a helper. 5-Set-up or Clean-up Assistance-helper sets up or cleans up; patient completes activity. [place] assists only prior to or following the activity. 4-Supervision or Touching Assistance-helper provides verbal cues and/or touching/steadying and/or contact guard assistance as patient completes activity. Assistance may be provided throughout the activity or intermittently. 3-Partial/Moderate Assistance-helper does LESS THAN HALF the effort. [place] lifts, holds or supports trunk or limbs, but provides less than half the effort. 2-Substantial/Maximal Assistance-helper does MORE THAN HALF the effort. [place] lifts or holds trunk or limbs and provides more than half the effort. 1-Tyosmigkd-iyujja does ALL the effort. Patient does none of the effort to complete the activity. Or, the assistance of 2 or more helpers is required for the patient to complete the activity. If activity was not attempted, code reason: 7-Patient Refused. 9-Not Applicable-not attempted and the patient did not perform the activity before the current illness, exacerbation or injury. 10-Not Attempted due to Environmental Limitations-(lack of equipment, weather restraints, etc.). 88-Not Attempted due to Medical Conditions or Safety Concerns. Roll Left to Right (QC): 3 (Min A) Sit to Lying (QC): 3 Sit to Stand (QC): 4 Chair/Kwj-sa-Nkcgw Xfer(QC): 4 Car Transfer (QC): 88 Gait Training Does the Patient Walk?: Yes Distance: 120, 120, 40, 40 Walk 10 feet (QC): 4 Walk 50 ft with 2 Turns(QC): 4 Walk 150 ft (QC): 4 Walking 10ft/uneven surface-QC: 88 Gait Persons Needed: 1 Gait Assistive Device: FWW Wheelchair Training Does the Pt Use a Wheelchair?: No Wheel 50 ft with 2 turns (QC): 9 Wheel 150 ft (QC): 9 Type of Wheelchair: Manual Stair Training Stair Training: Handrails/: 2 handrails #of Steps: 4 1 Step (curb) (QC): 4 4 Steps (QC): 4 12 Steps (QC): 88 Stairs: Pattern: Step to Balance Picking up an Object (QC): 3 (Min A) ADL-Treatment Eating (QC): 6 Oral Hygiene (QC): 4 Shower/Bathe Self (QC): 4 Upper Body Dressing (QC): 5 Lower Body Dressing (QC): 3 On/Off Footwear (QC): 1 Toileting Hygiene (QC): 4 Assessment/Plan Assessment and Plan Assess & Plan/Chief Complaint Assessment: Left hip fracture with residual debility Acute neurological deficit with signs consistent with CVA NIH score 17 prompting ICU transfer a few hours after admissionBut resolved spontaneously so maintained on aspirin Plavix and statin COPD Current smoker Frail status Advanced age Hyperlipidemia Anxiety Vitamin D deficiency Aortic aneurysm chronic Hypertension Plan: Supportive care Monitor closely Fall risk Pain control ICU transfer for neurological deficit 12/22/2022: Aggressive rehab Supportive care 12/23/2022: Cardiothoracic surgery appointment for carotid stenosis 12/24/2022: Supportive care Monitor closely 12/25/2022: Supportive care Pain control 12/26/2022: Continue aggressive care Monitor closely (1) Hip fracture, left (2) Tobacco abuse Status: Acute (3) Thoracic aortic aneurysm (TAA) Status: Acute SOHAM LEBLANC DO Dec 26, 2022 06:48
[2022-12-26 08:00] VITALS: BP 132/58
[2022-12-26] MEDS: LORATADINE (CLARITIN) 10 MG TAB PO SCH (09:56)
[2022-12-26] MEDS: ENOXAPARIN INJECTION 30 MG/0.3 ML SYR SC SCH (09:56)
[2022-12-26] MEDS: ASPIRIN E.C. 81 MG (ECOTRIN) TAB PO SCH (09:56)
[2022-12-26] MEDS: CLOPIDOGREL 75 MG (PLAVIX) TABLET PO SCH (09:56)
[2022-12-26] MEDS: ALPRAZolam 1 MG (XANAX) TAB PO SCH (09:56)
[2022-12-26] MEDS: DOCUSATE SODIUM 100 MG (COLACE) CAP PO SCH ×2 (10:02→20:04)
[2022-12-26] MEDS: SENNOSIDES 8.6 MG (SENOKOT) TAB PO SCH ×2 (10:02→20:04)
[2022-12-26] MEDS: polyethylene glycoL POWDER 17 GM (MIRALAX) PACK PO SCH ×2 (10:02→19:57)
[2022-12-26] MEDS: ALPRAZolam 0.5 MG (XANAX) TAB PO SCH ×2 (13:49→20:04)
[2022-12-26] MEDS: HYDROcodone/APAP 5 MG/325 MG (LORTAB) TAB PO PRN (17:46)
[2022-12-26 20:01] VITALS: BP 99/66
[2022-12-26] MEDS: ROSUVASTATIN 10 MG (CRESTOR) TABLET PO SCH (20:04)
[2022-12-27] MEDS: HYDROcodone/APAP 5 MG/325 MG (LORTAB) TAB PO PRN ×4 (00:49→21:50)
--- NOTE | 2022-12-27 07:32 | PM&R Progress Note ---
Subjective HPI/CC On Admission Date Seen by Provider: Dec 27, 2022 Time Seen by Provider: 12:00 Subjective/Events-last exam 12/27/2022: No significant problems Check meds and labs No falls Pain comes and goes 12/26/2022: Patient doing really well Working with therapy No falls Confusion is improved 12/25/2022: Patient doing really well getting stronger every day Minimal pain Checked meds and labs 12/24/2022: Patient doing really well Feels like she is getting stronger Less pain No falls Changed around the times of her Xanax 12/23/2022: Patient doing tremendously well No pain is reported Walking very well with walker No neurological deficits Cardiothoracic surgeon will needed to assess carotid stenosis 12/22/2022: Patient doing well Moved down from the ICU today No residual from TIA Carotid stenosis noted maintained on Plavix and aspirin and statin Cannot perform MRI due to sophia from hip repair could heat up Review of Systems General: Fatigue, Malaise Objective Exam Vital Signs Vital Signs Date Time Temp Pulse Resp B/P (MAP) Pulse Ox O2 Delivery O2 Flow Rate FiO2 12/27/22 12:45 81 12/27/22 09:00 Room Air 12/27/22 08:00 37.0 18 120/59 (79) 92 12/22/22 22:21 21 Capillary Refill : General Appearance: No Apparent Distress, WD/WN, Chronically ill, Thin HEENT: PERRL/EOMI, Normal ENT Inspection, Pharynx Normal Neck: Full Range of Motion, Normal Inspection, Non Tender, Supple, Carotid Bruit Respiratory: Chest Non Tender, Lungs Clear, No Accessory Muscle Use, No Respiratory Distress, Decreased Breath Sounds Cardiovascular: Regular Rate, Rhythm, No Edema, No Gallop, No JVD, No Murmur, Normal Peripheral Pulses Gastrointestinal: Normal Bowel Sounds, No Organomegaly, No Pulsatile Mass, Non Tender, Soft Back: Normal Inspection, No CVA Tenderness, No Vertebral Tenderness Extremity: Normal Capillary Refill, Normal Inspection, Normal Range of Motion (Except left leg), Non Tender, No Calf Tenderness, No Pedal Edema Neurologic/Psychiatric: Alert, Oriented x3, manager gaming II-XII Norm as Tested, Abnormal Gait, Depressed Affect, Motor Weakness ( left leg weakness) Skin: Normal Color, Warm/Dry Lymphatic: No Adenopathy Results/Procedures Lab Patient resulted labs reviewed. FIM Transfers Therapy Code Descriptions/Definitions Functional [place] Measure: 0=Not Assessed/NA 4=Minimal Assistance 1=Total Assistance 5=Supervision or Setup 2=Maximal Assistance 6=Modified [place] 3=Moderate Assistance 7=Complete IndependenceSCALE: Activities may be completed with or without assistive devices. 8-Mdlfefcajs-fkusbst completes the activity by him/herself with no assistance from a helper. 5-Set-up or Clean-up Assistance-helper sets up or cleans up; patient completes activity. [place] assists only prior to or following the activity. 4-Supervision or Touching Assistance-helper provides verbal cues and/or touching/steadying and/or contact guard assistance as patient completes activity. Assistance may be provided throughout the activity or intermittently. 3-Partial/Moderate Assistance-helper does LESS THAN HALF the effort. [place] lifts, holds or supports trunk or limbs, but provides less than half the effort. 2-Substantial/Maximal Assistance-helper does MORE THAN HALF the effort. [place] lifts or holds trunk or limbs and provides more than half the effort. 0-Otwpthdcv-daxoux does ALL the effort. Patient does none of the effort to complete the activity. Or, the assistance of 2 or more helpers is required for the patient to complete the activity. If activity was not attempted, code reason: 7-Patient Refused. 9-Not Applicable-not attempted and the patient did not perform the activity before the current illness, exacerbation or injury. 10-Not Attempted due to Environmental Limitations-(lack of equipment, weather restraints, etc.). 88-Not Attempted due to Medical Conditions or Safety Concerns. Roll Left to Right (QC): 3 (Min A) Sit to Lying (QC): 3 Sit to Stand (QC): 4 Chair/Loz-ws-Ylmnr Xfer(QC): 4 Car Transfer (QC): 88 Gait Training Does the Patient Walk?: Yes Distance: 120, 120, 40, 40 Walk 10 feet (QC): 4 Walk 50 ft with 2 Turns(QC): 4 Walk 150 ft (QC): 4 Walking 10ft/uneven surface-QC: 88 Gait Persons Needed: 1 Gait Assistive Device: FWW Wheelchair Training Does the Pt Use a Wheelchair?: No Wheel 50 ft with 2 turns (QC): 9 Wheel 150 ft (QC): 9 Type of Wheelchair: Manual Stair Training Stair Training: Handrails/: 2 handrails #of Steps: 4 1 Step (curb) (QC): 4 4 Steps (QC): 4 12 Steps (QC): 88 Stairs: Pattern: Step to Balance Picking up an Object (QC): 3 (Min A) ADL-Treatment Eating (QC): 6 Oral Hygiene (QC): 4 Shower/Bathe Self (QC): 4 Upper Body Dressing (QC): 5 Lower Body Dressing (QC): 3 On/Off Footwear (QC): 1 Toileting Hygiene (QC): 4 Assessment/Plan Assessment and Plan Assess & Plan/Chief Complaint Assessment: Left hip fracture with residual debility Acute neurological deficit with signs consistent with CVA NIH score 17 prompting ICU transfer a few hours after admissionBut resolved spontaneously so maintained on aspirin Plavix and statin COPD Current smoker Frail status Advanced age Hyperlipidemia Anxiety Vitamin D deficiency Aortic aneurysm chronic Hypertension Plan: Supportive care Monitor closely Fall risk Pain control ICU transfer for neurological deficit 12/22/2022: Aggressive rehab Supportive care 12/23/2022: Cardiothoracic surgery appointment for carotid stenosis 12/24/2022: Supportive care Monitor closely 12/25/2022: Supportive care Pain control 12/26/2022: Continue aggressive care Monitor closely 12/27/2022: Supportive care Aggressive rehab (1) Hip fracture, left (2) Tobacco abuse Status: Acute (3) Thoracic aortic aneurysm (TAA) Status: Acute SOHAM LEBLANC DO Dec 27, 2022 07:32
[2022-12-27] MEDS: ASPIRIN E.C. 81 MG (ECOTRIN) TAB PO SCH (07:36)
[2022-12-27] MEDS: CLOPIDOGREL 75 MG (PLAVIX) TABLET PO SCH (07:36)
[2022-12-27] MEDS: LORATADINE (CLARITIN) 10 MG TAB PO SCH (07:36)
[2022-12-27] MEDS: ALPRAZolam 1 MG (XANAX) TAB PO SCH (07:36)
[2022-12-27] MEDS: ENOXAPARIN INJECTION 30 MG/0.3 ML SYR SC SCH (07:36)
[2022-12-27] MEDS: polyethylene glycoL POWDER 17 GM (MIRALAX) PACK PO SCH ×2 (07:37→20:48)
[2022-12-27] MEDS: SENNOSIDES 8.6 MG (SENOKOT) TAB PO SCH ×2 (07:37→20:48)
[2022-12-27] MEDS: DOCUSATE SODIUM 100 MG (COLACE) CAP PO SCH ×2 (07:37→20:40)
[2022-12-27 08:00] VITALS: BP 120/59
[2022-12-27] MEDS: ALPRAZolam 0.5 MG (XANAX) TAB PO SCH ×2 (12:22→20:42)
[2022-12-27 20:00] VITALS: BP 115/75
[2022-12-27] MEDS: ROSUVASTATIN 10 MG (CRESTOR) TABLET PO SCH (20:43)
[2022-12-28] MEDS: HYDROcodone/APAP 5 MG/325 MG (LORTAB) TAB PO PRN ×3 (05:52→16:53)
[2022-12-28 05:57] LABS: BASOPHILS # (AUTO) 0.1 10^3/uL (0.0-0.1); BASOPHILS % (AUTO) 1 % (0-10); EOSINOPHILS # (AUTO) 0.3 10^3/uL (0.0-0.3); EOSINOPHILS % (AUTO) 3 % (0-10); HEMATOCRIT 34 % (35-52); HEMOGLOBIN 10.8 g/dL (11.5-16.0); LYMPHOCYTES % (AUTO) 23 % (12-44); MEAN CORPUSCULAR HEMOGLOBIN 32 pg (25-34); MEAN CORPUSCULAR HGB CONC 32 g/dL (32-36); MEAN CORPUSCULAR VOLUME 99 fL (80-99); MEAN PLATELET VOLUME 9.6 fL (9.0-12.2); MONOCYTES # (AUTO) 0.9 10^3/uL (0.0-1.0); MONOCYTES % (AUTO) 10 % (0-12); NEUTROPHILS # (AUTO) 5.3 10^3/uL (1.8-7.8); NEUTROPHILS % (AUTO) 62 % (42-75); PLATELET COUNT 415 10^3/uL (130-400); WHITE BLOOD COUNT 8.6 10^3/uL (4.3-11.0)
[2022-12-28 06:25] LABS: ALBUMIN 3.2 GM/DL (3.2-4.5); BILIRUBIN,TOTAL 0.5 MG/DL (0.1-1.0); CALCIUM 9.1 MG/DL (8.5-10.1); CREATININE SERUM 1.1 MG/DL (0.60-1.30); POTASSIUM 4.1 MMOL/L (3.6-5.0); TOTAL PROTEIN 5.8 GM/DL (6.4-8.2)
[2022-12-28] MEDS: polyethylene glycoL POWDER 17 GM (MIRALAX) PACK PO SCH ×2 (07:56→20:12)
[2022-12-28 08:00] VITALS: BP 108/58
[2022-12-28] MEDS: CLOPIDOGREL 75 MG (PLAVIX) TABLET PO SCH (08:29)
[2022-12-28] MEDS: LORATADINE (CLARITIN) 10 MG TAB PO SCH (08:29)
[2022-12-28] MEDS: ENOXAPARIN INJECTION 30 MG/0.3 ML SYR SC SCH (08:29)
[2022-12-28] MEDS: ASPIRIN E.C. 81 MG (ECOTRIN) TAB PO SCH (08:29)
[2022-12-28] MEDS: ACETAMINOPHEN 325 MG TABLET PO PRN (08:29)
[2022-12-28] MEDS: ALPRAZolam 1 MG (XANAX) TAB PO SCH (08:29)
[2022-12-28] MEDS: DOCUSATE SODIUM 100 MG (COLACE) CAP PO SCH ×2 (08:29→20:47)
[2022-12-28] MEDS: SENNOSIDES 8.6 MG (SENOKOT) TAB PO SCH ×2 (08:29→20:47)
--- NOTE | 2022-12-28 09:44 | Physical Therapy Daily Note ---
PT Daily Note-Current Subjective Pt sitting in recliner upon arrival. Pt agrees to PT but reports pain & stiffness in L hip & upper thigh. Pain Numeric Pain Scale: 5-Moderate Pain Location: Left Location Body Site: Hip Pain Description: Ache, Tightness Section J - Health Conditions 1. Rarely or not at all 2. Occasionally 3. Frequently 4. Almost constantly 8. Unable to answer Pain Effect on Sleep: 2 Pain Interference with Therapy: 3 Pain Interference w/Day-to-Day: 3 Mental Status Patient Orientation: Person, Confused, Place Attachments: Other-See Comments (Telemetry) Transfers SCALE: Activities may be completed with or without assistive devices. 9-Uabomtgonz-mcxqyur completes the activity by him/herself with no assistance from a helper. 5-Set-up or Clean-up Assistance-helper sets up or cleans up; patient completes activity. [place] assists only prior to or following the activity. 4-Supervision or Touching Assistance-helper provides verbal cues and/or touching/steadying and/or contact guard assistance as patient completes activity. Assistance may be provided throughout the activity or intermittently. 3-Partial/Moderate Assistance-helper does LESS THAN HALF the effort. [place] lifts, holds or supports trunk or limbs, but provides less than half the effort. 2-Substantial/Maximal Assistance-helper does MORE THAN HALF the effort. [place] lifts or holds trunk or limbs and provides more than half the effort. 5-Geasudwix-hwnuiw does ALL the effort. Patient does none of the effort to complete the activity. Or, the assistance of 2 or more helpers is required for the patient to complete the activity. If activity was not attempted, code reason: 7-Patient Refused. 9-Not Applicable-not attempted and the patient did not perform the activity before the current illness, exacerbation or injury. 10-Not Attempted due to Environmental Limitations-(lack of equipment, weather restraints, etc.). 88-Not Attempted due to Medical Conditions or Safety Concerns. Sit to Stand (QC): 5 Toilet Transfer (QC): 5 Weight Bearing Right Lower Extremity: Right Full Weight Bearing Left Lower Extremity: Left Weight Bearing/Tolerated Gait Training Does the Patient Walk?: Yes Distance: 125' Walk 10 feet (QC): 5 Walk 50 ft with 2 Turns(QC): 5 Gait Assistive Device: FWW Wheelchair Training Does the Pt Use a Wheelchair?: No Treatments TF to standing and amb to BR. Pt amb in hallway before taking RB. Pt returns to room to rest in recliner at end of tx. All needs met, call light in hand. Assessment Current Status: Fair Progress Pt focused on pain and d/c planning/date & needed to be redirected to focus on tx. PT [facility] Goals Fci Goals PT [facility] Goals Time Frame: Jan 01, 2023 Roll Left & Right (QC): 6 Sit to Lying (QC): 6 Lying-Sitting on Side/Bed(QC): 6 Sit to Stand (QC): 4 Chair/Lok-vu-Ujwoh Xfer(QC): 4 Toilet Transfer (QC): 4 Car Transfer (QC): 4 Does the Patient Walk: Yes Walk 10 feet (QC): 4 Walk 50ft with 2 Turns (QC): 4 Walk 150 ft (QC): 4 Walking 10ft on Uneven Surface: 4 1 Step (curb) (QC): 4 4 Steps (QC): 4 12 Steps (QC): 4 Picking up an Object (QC): 4 Does the Pt use WC or Scooter?: Yes Wheel 50 feet with 2 turns (QC: 4 Type: Manual Wheel 150 feet: 4 Type: Manual PT Plan Problem List Problem List: Safety Treatment/Plan Treatment Plan: Continue Plan of Care Treatment Plan: Bed Mobility, Concurrent Therapy, Education, Functional Activity [place], Functional Strength, Group Therapy, Gait, Safety, Therapeutic Exercise, Transfers Treatment Duration: Jan 01, 2023 Frequency: At least 5 of 7 days/Wk (IRF) Estimated Hrs Per Day: 1.5 hours per day Patient and/or Family Agrees t: Yes Safety Risks/Education Patient Education: Gait Training, Correct Positioning, Safety Issues Teaching Recipient: Patient Teaching Methods: Discussion Response to Teaching: Reinforcement Needed Time Time In: 830 Time Out: 915 DATE: Dec 28, 2022 Total Billed Treatment Time: 45 Total Billed Treatment 1, FA x2 (30m) & GT (15m) [facility] [employer] [employer] Dec 28, 2022 09:44
[2022-12-28] MEDS: ALPRAZolam 0.5 MG (XANAX) TAB PO SCH ×2 (10:52→20:47)
--- NOTE | 2022-12-28 11:43 | PM&R Progress Note ---
Subjective HPI/CC On Admission Date Seen by Provider: Dec 28, 2022 Time Seen by Provider: 12:00 Subjective/Events-last exam 12/28/2022: Patient doing a lot better Pleased with her progress Labs reviewed No further stroke symptoms 12/27/2022: No significant problems Check meds and labs No falls Pain comes and goes 12/26/2022: Patient doing really well Working with therapy No falls Confusion is improved 12/25/2022: Patient doing really well getting stronger every day Minimal pain Checked meds and labs 12/24/2022: Patient doing really well Feels like she is getting stronger Less pain No falls Changed around the times of her Xanax 12/23/2022: Patient doing tremendously well No pain is reported Walking very well with walker No neurological deficits Cardiothoracic surgeon will needed to assess carotid stenosis 12/22/2022: Patient doing well Moved down from the ICU today No residual from TIA Carotid stenosis noted maintained on Plavix and aspirin and statin Cannot perform MRI due to sophia from hip repair could heat up Review of Systems General: Fatigue, Malaise Musculoskeletal: leg pain Neurological: Weakness, Incoordination Objective Exam Vital Signs Vital Signs Date Time Temp Pulse Resp B/P (MAP) Pulse Ox O2 Delivery O2 Flow Rate FiO2 12/29/22 01:00 76 12/28/22 20:10 Room Air 12/28/22 19:31 36.8 18 110/58 (75) 95 12/28/22 18:28 21 Capillary Refill : General Appearance: No Apparent Distress, WD/WN, Chronically ill, Thin HEENT: PERRL/EOMI, Normal ENT Inspection, Pharynx Normal Neck: Full Range of Motion, Normal Inspection, Non Tender, Supple, Carotid Bruit Respiratory: Chest Non Tender, Lungs Clear, No Accessory Muscle Use, No Respiratory Distress, Decreased Breath Sounds Cardiovascular: Regular Rate, Rhythm, No Edema, No Gallop, No JVD, No Murmur, Normal Peripheral Pulses Gastrointestinal: Normal Bowel Sounds, No Organomegaly, No Pulsatile Mass, Non Tender, Soft Back: Normal Inspection, No CVA Tenderness, No Vertebral Tenderness Extremity: Normal Capillary Refill, Normal Inspection, Normal Range of Motion (Except left leg), Non Tender, No Calf Tenderness, No Pedal Edema Neurologic/Psychiatric: Alert, Oriented x3, security services specialist II-XII Norm as Tested, Abnormal Gait, Depressed Affect, Motor Weakness ( left leg weakness) Skin: Normal Color, Warm/Dry Lymphatic: No Adenopathy Results/Procedures Lab Patient resulted labs reviewed. FIM Transfers Therapy Code Descriptions/Definitions Functional [place] Measure: 0=Not Assessed/NA 4=Minimal Assistance 1=Total Assistance 5=Supervision or Setup 2=Maximal Assistance 6=Modified [place] 3=Moderate Assistance 7=Complete IndependenceSCALE: Activities may be completed with or without assistive devices. 2-Dsyehjyzzo-ancdkzt completes the activity by him/herself with no assistance from a helper. 5-Set-up or Clean-up Assistance-helper sets up or cleans up; patient completes activity. [place] assists only prior to or following the activity. 4-Supervision or Touching Assistance-helper provides verbal cues and/or touching/steadying and/or contact guard assistance as patient completes activity. Assistance may be provided throughout the activity or intermittently. 3-Partial/Moderate Assistance-helper does LESS THAN HALF the effort. [place] lifts, holds or supports trunk or limbs, but provides less than half the effort. 2-Substantial/Maximal Assistance-helper does MORE THAN HALF the effort. [place] lifts or holds trunk or limbs and provides more than half the effort. 4-Intqqczne-vicfbo does ALL the effort. Patient does none of the effort to complete the activity. Or, the assistance of 2 or more helpers is required for the patient to complete the activity. If activity was not attempted, code reason: 7-Patient Refused. 9-Not Applicable-not attempted and the patient did not perform the activity before the current illness, exacerbation or injury. 10-Not Attempted due to Environmental Limitations-(lack of equipment, weather restraints, etc.). 88-Not Attempted due to Medical Conditions or Safety Concerns. Roll Left to Right (QC): 3 (Min A) Sit to Lying (QC): 3 Sit to Stand (QC): 5 Chair/Crk-me-Ickos Xfer(QC): 4 Car Transfer (QC): 88 Gait Training Does the Patient Walk?: Yes Distance: 125' Walk 10 feet (QC): 5 Walk 50 ft with 2 Turns(QC): 5 Walk 150 ft (QC): 4 Walking 10ft/uneven surface-QC: 88 Gait Persons Needed: 1 Gait Assistive Device: FWW Wheelchair Training Does the Pt Use a Wheelchair?: No Wheel 50 ft with 2 turns (QC): 9 Wheel 150 ft (QC): 9 Type of Wheelchair: Manual Stair Training Stair Training: Handrails/: 2 handrails #of Steps: 4 1 Step (curb) (QC): 4 4 Steps (QC): 4 12 Steps (QC): 88 Stairs: Pattern: Step to Balance Picking up an Object (QC): 3 (Min A) ADL-Treatment Eating (QC): 6 Oral Hygiene (QC): 4 Shower/Bathe Self (QC): 4 Upper Body Dressing (QC): 5 Lower Body Dressing (QC): 3 On/Off Footwear (QC): 1 Toileting Hygiene (QC): 4 Assessment/Plan Assessment and Plan Assess & Plan/Chief Complaint Assessment: Left hip fracture with residual debility Acute neurological deficit with signs consistent with CVA NIH score 17 prompting ICU transfer a few hours after admission but resolved spontaneously so maintained on aspirin Plavix and statin COPD Current smoker Frail status Advanced age Hyperlipidemia Anxiety Vitamin D deficiency Aortic aneurysm chronic Hypertension Plan: Supportive care Monitor closely Fall risk Pain control ICU transfer for neurological deficit 12/22/2022: Aggressive rehab Supportive care 12/23/2022: Cardiothoracic surgery appointment for carotid stenosis 12/24/2022: Supportive care Monitor closely 12/25/2022: Supportive care Pain control 12/26/2022: Continue aggressive care Monitor closely 12/27/2022: Supportive care Aggressive rehab 12/28/2022: Supportive care Maintain Plavix (1) Hip fracture, left (2) Tobacco abuse Status: Acute (3) Thoracic aortic aneurysm (TAA) Status: Acute SOHAM LEBLANC DO Dec 28, 2022 11:43
--- NOTE | 2022-12-28 13:12 | Speech Therapy Daily Note ---
Speech Daily Progress Note Subjective Date Seen by Provider: Dec 28, 2022 Time Seen by Provider: 10:15 Pt cotreated with OT for initial 15 minutes of session to address functional fine motor tasks with cognition. Pt then seen by MARKETING COMMUNITY LIAISON for 20 minutes independently. Pt pleasant and cooperative throughout session. Pt with family who also participate with pt in therapy services. Pt's family reports they plan on pt living with family member until ready to be alone. Pt states she is ready to home independently. Pain Location: No Pain Reported Objective Pt completes functional fine motor tasks with a cognitive component with 70% accuracy with min verbal cues. Pt continues to require cuing to stay on task as she is easily distracted. Pt taught a new card game this date. Pt with difficulty recalling the rules of the game, requiring mod cues. Pt completes speed of processing tasks with 70% accuracy with min verbal cues. Assessment Assessment Current Status: Fair Progress Treatment Plan Continue Plan of Care Speech Short Term Goals Short Term Goals Short Term Goals 1. Pt to complete immediate memory tasks with 80% accuracy with min verbal cues. 2. Pt to complete basic problem solving tasks with 80% accuracy with min verbal cues. Speech Intermediate Goals Intermediate Goals 1. Pt to complete mental manipulation tasks containing 3 components with 80% accuracy with min verbal cues. 2. Pt to follow basic directions with 80% accuracy with min verbal cues. 3. Pt to complete basic executive functioning tasks with 80% accuracy with min verbal cues. Speech-Plan Patient/Family Goals Patient/Family Goals: Pending IRU progress Treatment Plan Speech Therapy Treatment Plan: Continue Plan of Care Treatment Duration: Dec 22, 2022 Frequency: Modified Program (IRF) Estimated Hrs Per Day: Other Rehab Potential: Good Pt/Family Agrees to Plan: Yes Safety Risks/Education Teaching Recipient: Patient, Family Teaching Methods: Discussion Response to Teaching: Verbalize Understanding Education Topics Provided: Pt and family educated on purpose of therapy tasks and tasks they can do with pt when she is dismissed from IRU. Pt and family receptive and verbalized understanding. Time Speech Therapy Time In: 10:15 Speech Therapy Time Out: 10:50 DATE: Dec 28, 2022 Total Billed Time: 35 Billed Treatment Time S/L TX 15 cotreat 20 independent = 35 mins total Marika Khalil Speech Therapy Dec 28, 2022 13:12
--- NOTE | 2022-12-28 15:02 | Therapy Group Daily Note ---
Therapy Daily Group Note Patient Education Topic Energy Cons, Other List Below Exercises Balance, Sit to/from Stand, Walking, ROM Session Ratio (pt:therapist): 4:1 Goal of Session: Memory Strategies Goal Met for this Session: Yes Pt Benefit of Group: Improved Cognition, Recognition of Peers, Socialization Other/Notes Pt was sitting in chair upon arrival, pt agreed to group therapy. Pt ambulated to therapy gym with SBA FWW. Group consisted of memory strategies and ARU expectations, socialization, and a section of AROM. Pt introduced self appropriately and actively listened to peers. Pt was able to verbalize understanding of educational topic by answering questions on topic, and asking questions. Pt able to roll dice, to receive a question and participated well. After session, pt sitting in chair in room with call light/phone in reach. All needs met in room. Start Time: 13:00 Stop Time: 14:25 Total Billed Treatment Time: 85 Total Billed Treatment 1 [facility] Danyelle Macias COTA Dec 28, 2022 15:02
--- NOTE | 2022-12-28 16:27 | Occupational Ther Daily Note ---
OT Current Status-Daily Note Subjective Pt sitting in chair in room upon arrival, agreed to therapy, alert and cooperative. OT/ST cotx ([id number]) ADL-Treatment Pt ambulated to bathroom, from chair in room, with FWW, CGA. Pt completed toileting, with therapist CGA for safety precautions. Pt completed upper body dressing with set up assist, pt completed lower body dressing, with Min A, requiring help from therapist to thread pants on over weak leg first, therapist educated pt on this on this date, will introduce AE as needed. Pt completed grooming and oral hygiene standing at sink with CGA, using FWW. Pt ambulated to [facility] area on ARU with ST for a cotx of 15 mins, skill of two clinicians required for higher level cognitive activity on this date.OT focused on functional mobility, fine motor and ST focused on cognition and sequencing, divided attention activity. Pt left with ST in [facility], all needs met. Therapy Code Descriptions/Definitions Functional [place] Measure: 0=Not Assessed/NA 4=Minimal Assistance 1=Total Assistance 5=Supervision or Setup 2=Maximal Assistance 6=Modified [place] 3=Moderate Assistance 7=Complete IndependenceSCALE: Activities may be completed with or without assistive devices. 9-Wqtsokwpzt-ogqrbmv completes the activity by him/herself with no assistance from a helper. 5-Set-up or Clean-up Assistance-helper sets up or cleans up; patient completes activity. [place] assists only prior to or following the activity. 4-Supervision or Touching Assistance-helper provides verbal cues and/or touching/steadying and/or contact guard assistance as patient completes activity. Assistance may be provided throughout the activity or intermittently. 3-Partial/Moderate Assistance-helper does LESS THAN HALF the effort. [place] lifts, holds or supports trunk or limbs, but provides less than half the effort. 2-Substantial/Maximal Assistance-helper does MORE THAN HALF the effort. [place] lifts or holds trunk or limbs and provides more than half the effort. 8-Mxuvfvqcq-jazols does ALL the effort. Patient does none of the effort to complete the activity. Or, the assistance of 2 or more helpers is required for the patient to complete the activity. If activity was not attempted, code reason: 7-Patient Refused. 9-Not Applicable-not attempted and the patient did not perform the activity before the current illness, exacerbation or injury. 10-Not Attempted due to Environmental Limitations-(lack of equipment, weather restraints, etc.). 88-Not Attempted due to Medical Conditions or Safety Concerns. Upper Body Dressing (QC): 5 Lower Body Dressing (QC): 3 (Shakir) On/Off Footwear: 1 Toileting Hygiene (QC): 4 Education OT Patient Education: Correct positioning, Energy conservation, Modified ADL techniques, Progress toward Goal/Update tx plan, Purpose of tx/functional activities, Safety issues, Transfer techniques Teaching Recipient: Patient Teaching Methods: Discussion OT Short Term Goals Short Term Goals Time Frame: Dec 29, 2022 Eatin Oral hygiene: 5 Upper body dressin OT Advertising Sales Assistant Goals Advertising Sales Assistant Goals Time Frame: Jan 22, 2023 Acute change in mental status: 0 Inattention: 0 Disorganized thinkin Altered level of consciousness: 0 Eating (QC): 6 Oral Hygiene (QC): 6 Toileting Hygiene (QC): 6 Shower/Bathe Self (QC): 6 Upper Body Dressing (QC): 6 Lower Body Dressing (QC): 6 On/Off Footwear (QC): 6 1=Demonstrate adherence to instructed precautions during ADL tasks. 2=Patient will verbalize/demonstrate understanding of assistive devices/modifications for ADL. 3=Patient will improve strength/tolerance for activity to enable patient to perform ADL's. OT Education/Plan Problem List/Assessment Assessment: Decreased Activ Tolerance, Decreased Safety Aware, Decreased UE Strength Discharge Recommendations Plan/Recommendations: Continue POC Treatment Plan/Plan of Care Patient would benefit from OT for education, treatment and training to promote independence in ADL's, mobility, safety and/or upper extremity function for ADL's. Plan of Care: ADL Retraining, Cognitive Retraining, Concurrent Therapy, Functional Mobility, Group Exercise/Act as Ind, UE Funct Exercise/Act, W/C Management Training Treatment Duration: Jan 22, 2023 Frequency: At least 5 of 7 days/Wk (IRF) Estimated Hrs Per Day: 1.5 hours per day Rehab Potential: Good Time Start Time: 09:45 Stop Time: 10:30 DATE: Dec 28, 2022 Total Time Billed (hr/min): 45 Billed Treatment Time 1 visit ADL 2 (30) FA 1(15) Cotx OT/ST ([id number]) 15 min cotx Danyelle Macias COTA Dec 28, 2022 16:27
[2022-12-28 19:31] VITALS: BP 110/58
[2022-12-28] MEDS: ROSUVASTATIN 10 MG (CRESTOR) TABLET PO SCH (20:47)
[2022-12-29 07:30] VITALS: BP 104/88
[2022-12-29] MEDS: ASPIRIN E.C. 81 MG (ECOTRIN) TAB PO SCH (08:02)
[2022-12-29] MEDS: CLOPIDOGREL 75 MG (PLAVIX) TABLET PO SCH (08:02)
[2022-12-29] MEDS: ALPRAZolam 1 MG (XANAX) TAB PO SCH (08:02)
[2022-12-29] MEDS: LORATADINE (CLARITIN) 10 MG TAB PO SCH (08:02)
[2022-12-29] MEDS: ENOXAPARIN INJECTION 30 MG/0.3 ML SYR SC SCH (08:05)
[2022-12-29] MEDS: polyethylene glycoL POWDER 17 GM (MIRALAX) PACK PO SCH ×2 (08:05→19:37)
[2022-12-29] MEDS: DOCUSATE SODIUM 100 MG (COLACE) CAP PO SCH ×2 (08:05→19:37)
[2022-12-29] MEDS: SENNOSIDES 8.6 MG (SENOKOT) TAB PO SCH ×2 (08:05→19:37)
--- NOTE | 2022-12-29 09:15 | PM&R Progress Note ---
Subjective HPI/CC On Admission Date Seen by Provider: Dec 29, 2022 Time Seen by Provider: 12:00 Subjective/Events-last exam 12/29/2022: Doing much better No falls No pain today Checked meds 12/28/2022: Patient doing a lot better Pleased with her progress Labs reviewed No further stroke symptoms 12/27/2022: No significant problems Check meds and labs No falls Pain comes and goes 12/26/2022: Patient doing really well Working with therapy No falls Confusion is improved 12/25/2022: Patient doing really well getting stronger every day Minimal pain Checked meds and labs 12/24/2022: Patient doing really well Feels like she is getting stronger Less pain No falls Changed around the times of her Xanax 12/23/2022: Patient doing tremendously well No pain is reported Walking very well with walker No neurological deficits Cardiothoracic surgeon will needed to assess carotid stenosis 12/22/2022: Patient doing well Moved down from the ICU today No residual from TIA Carotid stenosis noted maintained on Plavix and aspirin and statin Cannot perform MRI due to sophia from hip repair could heat up Review of Systems General: Fatigue, Malaise Objective Exam Vital Signs Vital Signs Date Time Temp Pulse Resp B/P (MAP) Pulse Ox O2 Delivery O2 Flow Rate FiO2 12/29/22 13:00 82 12/29/22 09:00 Room Air 12/29/22 07:30 36.8 18 104/88 (93) 99 12/28/22 18:28 21 Capillary Refill : General Appearance: No Apparent Distress, WD/WN, Chronically ill, Thin HEENT: PERRL/EOMI, Normal ENT Inspection, Pharynx Normal Neck: Full Range of Motion, Normal Inspection, Non Tender, Supple, Carotid Bruit Respiratory: Chest Non Tender, Lungs Clear, No Accessory Muscle Use, No Respiratory Distress, Decreased Breath Sounds Cardiovascular: Regular Rate, Rhythm, No Edema, No Gallop, No JVD, No Murmur, Normal Peripheral Pulses Gastrointestinal: Normal Bowel Sounds, No Organomegaly, No Pulsatile Mass, Non Tender, Soft Back: Normal Inspection, No CVA Tenderness, No Vertebral Tenderness Extremity: Normal Capillary Refill, Normal Inspection, Normal Range of Motion (Except left leg), Non Tender, No Calf Tenderness, No Pedal Edema Neurologic/Psychiatric: Alert, Oriented x3, supervisor joiners II-XII Norm as Tested, Abnormal Gait, Depressed Affect, Motor Weakness ( left leg weakness) Skin: Normal Color, Warm/Dry Lymphatic: No Adenopathy Results/Procedures Lab Patient resulted labs reviewed. FIM Transfers Therapy Code Descriptions/Definitions Functional [place] Measure: 0=Not Assessed/NA 4=Minimal Assistance 1=Total Assistance 5=Supervision or Setup 2=Maximal Assistance 6=Modified [place] 3=Moderate Assistance 7=Complete IndependenceSCALE: Activities may be completed with or without assistive devices. 2-Mzhzmhxenh-xzortmr completes the activity by him/herself with no assistance from a helper. 5-Set-up or Clean-up Assistance-helper sets up or cleans up; patient completes activity. [place] assists only prior to or following the activity. 4-Supervision or Touching Assistance-helper provides verbal cues and/or touching/steadying and/or contact guard assistance as patient completes activity. Assistance may be provided throughout the activity or intermittently. 3-Partial/Moderate Assistance-helper does LESS THAN HALF the effort. [place] lifts, holds or supports trunk or limbs, but provides less than half the effort. 2-Substantial/Maximal Assistance-helper does MORE THAN HALF the effort. [place] lifts or holds trunk or limbs and provides more than half the effort. 1-Zedxyytki-qcskus does ALL the effort. Patient does none of the effort to complete the activity. Or, the assistance of 2 or more helpers is required for the patient to complete the activity. If activity was not attempted, code reason: 7-Patient Refused. 9-Not Applicable-not attempted and the patient did not perform the activity before the current illness, exacerbation or injury. 10-Not Attempted due to Environmental Limitations-(lack of equipment, weather restraints, etc.). 88-Not Attempted due to Medical Conditions or Safety Concerns. Roll Left to Right (QC): 3 (Min A) Sit to Lying (QC): 3 Sit to Stand (QC): 5 Chair/Eal-zt-Ypszj Xfer(QC): 4 Car Transfer (QC): 88 Gait Training Does the Patient Walk?: Yes Distance: 125' Walk 10 feet (QC): 5 Walk 50 ft with 2 Turns(QC): 5 Walk 150 ft (QC): 4 Walking 10ft/uneven surface-QC: 88 Gait Persons Needed: 1 Gait Assistive Device: FWW Wheelchair Training Does the Pt Use a Wheelchair?: No Wheel 50 ft with 2 turns (QC): 9 Wheel 150 ft (QC): 9 Type of Wheelchair: Manual Stair Training Stair Training: Handrails/: 2 handrails #of Steps: 4 1 Step (curb) (QC): 4 4 Steps (QC): 4 12 Steps (QC): 88 Stairs: Pattern: Step to Balance Picking up an Object (QC): 3 (Min A) ADL-Treatment Eating (QC): 6 Oral Hygiene (QC): 4 Shower/Bathe Self (QC): 4 Upper Body Dressing (QC): 5 Lower Body Dressing (QC): 3 (Shakir) On/Off Footwear (QC): 1 Toileting Hygiene (QC): 4 Assessment/Plan Assessment and Plan Assess & Plan/Chief Complaint Assessment: Left hip fracture with residual debility Acute neurological deficit with signs consistent with CVA NIH score 17 prompting ICU transfer a few hours after admission but resolved spontaneously so maintained on aspirin Plavix and statin COPD Current smoker Frail status Advanced age Hyperlipidemia Anxiety Vitamin D deficiency Aortic aneurysm chronic Hypertension Plan: Supportive care Monitor closely Fall risk Pain control ICU transfer for neurological deficit 12/22/2022: Aggressive rehab Supportive care 12/23/2022: Cardiothoracic surgery appointment for carotid stenosis 12/24/2022: Supportive care Monitor closely 12/25/2022: Supportive care Pain control 12/26/2022: Continue aggressive care Monitor closely 12/27/2022: Supportive care Aggressive rehab 12/28/2022: Supportive care Maintain Plavix 12/29/2022: Much improved status (1) Hip fracture, left (2) Tobacco abuse Status: Acute (3) Thoracic aortic aneurysm (TAA) Status: Acute SOHAM LEBLANC DO Dec 29, 2022 09:15
--- NOTE | 2022-12-29 09:46 | Occupational Ther Daily Note ---
OT Current Status-Daily Note Subjective Pt sitting in chair in room, alert and cooperative upon arrival. No pain mentioned. Mental Status/Objective Patient Orientation: Person, Place Attachments: IV ADL-Treatment Pt ambulated to bathroom, with FWW, CGA. Pt refused to change clothes, pt did stand with FWW, at sink with CGA, to complete grooming and oral hygiene with CGA. Pt then ambulated to therapy gym with FWW, CGA. To work on ROM, and arm strengthening, pt completed arm bike 12 mins, with 20 rivera, no recovery breaks required. Pt required moderate verbal cues to keep peddling the arm bike, very distracted on this date, requiring skilled instruction for correct technique, for max benefit to pt. Pt then ambulated back to room from therapy gym with FWW, CGA. Pt was left in chair in room, call light and phone within reach, all needs met in room. Therapy Code Descriptions/Definitions Functional [place] Measure: 0=Not Assessed/NA 4=Minimal Assistance 1=Total Assistance 5=Supervision or Setup 2=Maximal Assistance 6=Modified [place] 3=Moderate Assistance 7=Complete IndependenceSCALE: Activities may be completed with or without assistive devices. 3-Hshtzwtlpy-auzuktg completes the activity by him/herself with no assistance from a helper. 5-Set-up or Clean-up Assistance-helper sets up or cleans up; patient completes activity. [place] assists only prior to or following the activity. 4-Supervision or Touching Assistance-helper provides verbal cues and/or touching/steadying and/or contact guard assistance as patient completes activity. Assistance may be provided throughout the activity or intermittently. 3-Partial/Moderate Assistance-helper does LESS THAN HALF the effort. [place] lifts, holds or supports trunk or limbs, but provides less than half the effort. 2-Substantial/Maximal Assistance-helper does MORE THAN HALF the effort. [place] lifts or holds trunk or limbs and provides more than half the effort. 3-Exermnqtk-usipsd does ALL the effort. Patient does none of the effort to complete the activity. Or, the assistance of 2 or more helpers is required for the patient to complete the activity. If activity was not attempted, code reason: 7-Patient Refused. 9-Not Applicable-not attempted and the patient did not perform the activity before the current illness, exacerbation or injury. 10-Not Attempted due to Environmental Limitations-(lack of equipment, weather restraints, etc.). 88-Not Attempted due to Medical Conditions or Safety Concerns. Oral Hygiene (QC): 4 Education OT Patient Education: Correct positioning, Energy conservation, Progress toward Goal/Update tx plan, Purpose of tx/functional activities, Use of adapted equipment Teaching Recipient: Patient Teaching Methods: Discussion Response to Teaching: Verbalize Understanding OT Short Term Goals Short Term Goals Time Frame: Dec 29, 2022 Eatin Oral hygiene: 5 Upper body dressin OT Group Home Goals Psychology Professor Goals Time Frame: Jan 22, 2023 Acute change in mental status: 0 Inattention: 0 Disorganized thinkin Altered level of consciousness: 0 Eating (QC): 6 Oral Hygiene (QC): 6 Toileting Hygiene (QC): 6 Shower/Bathe Self (QC): 6 Upper Body Dressing (QC): 6 Lower Body Dressing (QC): 6 On/Off Footwear (QC): 6 1=Demonstrate adherence to instructed precautions during ADL tasks. 2=Patient will verbalize/demonstrate understanding of assistive devices/modifications for ADL. 3=Patient will improve strength/tolerance for activity to enable patient to perform ADL's. OT Education/Plan Problem List/Assessment Assessment: Decreased Activ Tolerance, Decreased Safety Aware, Decreased UE Strength Discharge Recommendations Plan/Recommendations: Continue POC Treatment Plan/Plan of Care Patient would benefit from OT for education, treatment and training to promote independence in ADL's, mobility, safety and/or upper extremity function for ADL's. Plan of Care: ADL Retraining, Cognitive Retraining, Concurrent Therapy, Functional Mobility, Group Exercise/Act as Ind, UE Funct Exercise/Act, W/C Management Training Treatment Duration: Jan 22, 2023 Frequency: At least 5 of 7 days/Wk (IRF) Estimated Hrs Per Day: 1.5 hours per day Rehab Potential: Good Time Start Time: 09:15 Stop Time: 10:00 DATE: Dec 29, 2022 Total Time Billed (hr/min): 45 Billed Treatment Time 1 visit ADL 2 (30) EX 1 (15) Danyelle Macias COTA Dec 29, 2022 09:46
--- NOTE | 2022-12-29 10:21 | Speech Therapy Daily Note ---
Speech Daily Progress Note Subjective Date Seen by Provider: Dec 29, 2022 Time Seen by Provider: 08:00 Pt sitting up in recliner. Pt pleasant and cooperative throughout session. Pain Numeric Pain Scale: 0-No Pain Objective Pt completes cognitive task of matching state to state nickname. Pt does well with using process of elimination with min verbal cues. Assessment Assessment Current Status: Good Progress Treatment Plan Continue Plan of Care Speech Short Term Goals Short Term Goals Short Term Goals 1. Pt to complete immediate memory tasks with 80% accuracy with min verbal cues. 2. Pt to complete basic problem solving tasks with 80% accuracy with min verbal cues. Speech Lead Electrical Controls Engineer Goals Longterm Goals 1. Pt to complete mental manipulation tasks containing 3 components with 80% accuracy with min verbal cues. 2. Pt to follow basic directions with 80% accuracy with min verbal cues. 3. Pt to complete basic executive functioning tasks with 80% accuracy with min verbal cues. Speech-Plan Patient/Family Goals Patient/Family Goals: Family's goal is for pt to return home with family member. Treatment Plan Speech Therapy Treatment Plan: Continue Plan of Care Treatment Duration: Dec 22, 2022 Frequency: Modified Program (IRF) Estimated Hrs Per Day: Other Rehab Potential: Good Safety Risks/Education Teaching Recipient: Patient Teaching Methods: Discussion Response to Teaching: Verbalize Understanding Education Topics Provided: Pt educated on purpose of therapy tasks. Pt receptive and verbalized understanding. Time Speech Therapy Time In: 08:00 Speech Therapy Time Out: 08:35 DATE: Dec 29, 2022 Total Billed Time: 35 Billed Treatment Time S/L Marika Hernández Speech Therapy Dec 29, 2022 10:21
--- NOTE | 2022-12-29 10:34 | Progress Note ---
Standard Progress Note Progress Notes/Assess & Plan Date Seen by a Provider: Dec 29, 2022 Time Seen by a Provider: 10:25 Progress/Assessment & Plan no complaints LLE without calf tenderness neg Eddie's s/p L hip IM geri PT/OT Final Diagnosis no complaints Vital Signs Date Time Temp Pulse Resp B/P (MAP) Pulse Ox O2 Delivery O2 Flow Rate FiO2 12/29/22 09:00 Room Air 12/29/22 07:30 36.8 79 18 104/88 (93) 99 Room Air 12/29/22 07:08 79 12/29/22 01:00 76 12/28/22 20:10 Room Air 12/28/22 19:31 36.8 80 18 110/58 (75) 95 Room Air 12/28/22 19:00 80 12/28/22 18:28 36.3 82 95 21 12/28/22 13:00 76 I & O 12/29/22 07:00 Intake Total 1200 ml Balance 1200 ml L hip incisions clean and dry no calf tenderness s/p L hip IM geri PT/OT CHERELLE HERRMANN MD Dec 29, 2022 10:34
[2022-12-29] MEDS: ALPRAZolam 0.5 MG (XANAX) TAB PO SCH ×2 (11:47→21:23)
--- NOTE | 2022-12-29 13:26 | Physical Therapy Daily Note ---
PT Daily Note-Current Subjective pt in recliner upon arrival and willing of for therapy. pt states her left hip feels tight and pulls sometimes when ambulating. pt was left in therapy commons area for the next therapy group session. with nursing present. Pain Section J - Health Conditions 1. Rarely or not at all 2. Occasionally 3. Frequently 4. Almost constantly 8. Unable to answer Pain Effect on Sleep: 2 Pain Interference with Therapy: 3 Pain Interference w/Day-to-Day: 3 Mental Status Patient Orientation: Person, Place Transfers SCALE: Activities may be completed with or without assistive devices. 0-Gpnslhavvd-qmogtsl completes the activity by him/herself with no assistance from a helper. 5-Set-up or Clean-up Assistance-helper sets up or cleans up; patient completes activity. [place] assists only prior to or following the activity. 4-Supervision or Touching Assistance-helper provides verbal cues and/or touching/steadying and/or contact guard assistance as patient completes activity. Assistance may be provided throughout the activity or intermittently. 3-Partial/Moderate Assistance-helper does LESS THAN HALF the effort. [place] lifts, holds or supports trunk or limbs, but provides less than half the effort. 2-Substantial/Maximal Assistance-helper does MORE THAN HALF the effort. [place] lifts or holds trunk or limbs and provides more than half the effort. 4-Xxzmouckf-gvvwst does ALL the effort. Patient does none of the effort to complete the activity. Or, the assistance of 2 or more helpers is required for the patient to complete the activity. If activity was not attempted, code reason: 7-Patient Refused. 9-Not Applicable-not attempted and the patient did not perform the activity before the current illness, exacerbation or injury. 10-Not Attempted due to Environmental Limitations-(lack of equipment, weather restraints, etc.). 88-Not Attempted due to Medical Conditions or Safety Concerns. Weight Bearing Right Lower Extremity: Right Full Weight Bearing Left Lower Extremity: Left Weight Bearing/Tolerated Exercises Seated Therapy Exercises: LE Protocol, Ankle pumps, Sit to stand, Long arc quads, Hip flexion, Hamstring Curls, Hip abd/add Treatments Pt is able to ambulate to and from therapy gym aprox 80 ft with RW and SBA. pt is able to preform 5 sit to stands with no LOB. pt is able to preform sitting ther-ex in all planes of motion available with 1 lb ankle weights for increased resistance for 3 sets of 12 with rest inbetween each set. . PT Residential Goals Inside Sales Specialist Goals PT Residential Goals Time Frame: Jan 01, 2023 Roll Left & Right (QC): 6 Sit to Lying (QC): 6 Lying-Sitting on Side/Bed(QC): 6 Sit to Stand (QC): 4 Chair/Qwv-cf-Vumnn Xfer(QC): 4 Toilet Transfer (QC): 4 Car Transfer (QC): 4 Does the Patient Walk: Yes Walk 10 feet (QC): 4 Walk 50ft with 2 Turns (QC): 4 Walk 150 ft (QC): 4 Walking 10ft on Uneven Surface: 4 1 Step (curb) (QC): 4 4 Steps (QC): 4 12 Steps (QC): 4 Picking up an Object (QC): 4 Does the Pt use WC or Scooter?: Yes Wheel 50 feet with 2 turns (QC: 4 Type: Manual Wheel 150 feet: 4 Type: Manual PT Plan Treatment/Plan Treatment Plan: Continue Plan of Care Treatment Plan: Bed Mobility, Concurrent Therapy, Education, Functional Acti vity Vincent, Functional Strength, Group Therapy, Gait, Safety, Therapeutic Exercise, Transfers Treatment Duration: Jan 01, 2023 Frequency: At least 5 of 7 days/Wk (IRF) Estimated Hrs Per Day: 1.5 hours per day Patient and/or Family Agrees t: Yes Time Time In: 1100 Time Out: 1200 DATE: Dec 29, 2022 Total Billed Treatment Time: 60 Total Billed Treatment 1 ex x 3 GT x 1 Mayra Navas PIPE COVERER Dec 29, 2022 13:26
--- NOTE | 2022-12-29 14:05 | Therapy Group Daily Note ---
Therapy Daily Group Note Patient Education Topic Home Safety, Exercises Exercises LE Seated Exercise, UE Exercise Session Ratio (pt:therapist): 4:1 Goal of Session: Memory Strategies, UE/LE Strengthing Goal Met for this Session: Yes Pt Benefit of Group: Contributions to Others, F/U Use of Strategies @Home, Increased Functional Safety, Increased Functional Strength, Improved Cognition, Recognition of Peers, Socialization Pt ambulated to group therapy with RW and CGA. pt engaged eating lunch and socializing with other patients in the until. pt also participate in memory/trivia game giving an anser for all qurestion asked. pt exicuted sitting UE/LE exercises to engge in sitting cardio this day to promote movment at home after realse. Start Time: 12:00 Stop Time: 13:10 Total Billed Treatment Time: 70 Total Billed Treatment 1 GRP Mayra Navas HARDWARE ASSEMBLER Dec 29, 2022 14:04
[2022-12-29 19:26] VITALS: BP 131/70
[2022-12-29] MEDS: ROSUVASTATIN 10 MG (CRESTOR) TABLET PO SCH (21:23)
[2022-12-29] MEDS: MELATONIN 3 MG TABLET PO PRN (21:25)
[2022-12-29] MEDS: HYDROcodone/APAP 5 MG/325 MG (LORTAB) TAB PO PRN (22:45)
--- NOTE | 2022-12-30 06:02 | PM&R Progress Note ---
Subjective HPI/CC On Admission Date Seen by Provider: Dec 30, 2022 Time Seen by Provider: 12:00 Subjective/Events-last exam 12/30/2022: Patient doing very well Much improved ambulation Much improved cognition At discharge she will stay with her daughter 12/29/2022: Doing much better No falls No pain today Checked meds 12/28/2022: Patient doing a lot better Pleased with her progress Labs reviewed No further stroke symptoms 12/27/2022: No significant problems Check meds and labs No falls Pain comes and goes 12/26/2022: Patient doing really well Working with therapy No falls Confusion is improved 12/25/2022: Patient doing really well getting stronger every day Minimal pain Checked meds and labs 12/24/2022: Patient doing really well Feels like she is getting stronger Less pain No falls Changed around the times of her Xanax 12/23/2022: Patient doing tremendously well No pain is reported Walking very well with walker No neurological deficits Cardiothoracic surgeon will needed to assess carotid stenosis 12/22/2022: Patient doing well Moved down from the ICU today No residual from TIA Carotid stenosis noted maintained on Plavix and aspirin and statin Cannot perform MRI due to sophia from hip repair could heat up Review of Systems General: Fatigue, Malaise Musculoskeletal: leg pain Objective Exam Vital Signs Vital Signs Date Time Temp Pulse Resp B/P (MAP) Pulse Ox O2 Delivery O2 Flow Rate FiO2 12/30/22 19:32 36.7 76 16 110/67 (81) 95 Room Air 12/28/22 18:28 21 Capillary Refill : General Appearance: No Apparent Distress, WD/WN, Chronically ill, Thin HEENT: PERRL/EOMI, Normal ENT Inspection, Pharynx Normal Neck: Full Range of Motion, Normal Inspection, Non Tender, Supple, Carotid Bruit Respiratory: Chest Non Tender, Lungs Clear, No Accessory Muscle Use, No Respiratory Distress, Decreased Breath Sounds Cardiovascular: Regular Rate, Rhythm, No Edema, No Gallop, No JVD, No Murmur, Normal Peripheral Pulses Gastrointestinal: Normal Bowel Sounds, No Organomegaly, No Pulsatile Mass, Non Tender, Soft Back: Normal Inspection, No CVA Tenderness, No Vertebral Tenderness Extremity: Normal Capillary Refill, Normal Inspection, Normal Range of Motion (Except left leg), Non Tender, No Calf Tenderness, No Pedal Edema Neurologic/Psychiatric: Alert, Oriented x3, esthetician spa II-XII Norm as Tested, Abnormal Gait, Depressed Affect, Motor Weakness ( left leg weakness) Skin: Normal Color, Warm/Dry Lymphatic: No Adenopathy Results/Procedures Lab Patient resulted labs reviewed. FIM Transfers Therapy Code Descriptions/Definitions Functional [place] Measure: 0=Not Assessed/NA 4=Minimal Assistance 1=Total Assistance 5=Supervision or Setup 2=Maximal Assistance 6=Modified [place] 3=Moderate Assistance 7=Complete IndependenceSCALE: Activities may be completed with or without assistive devices. 1-Vajpgahpbo-ocgylqt completes the activity by him/herself with no assistance from a helper. 5-Set-up or Clean-up Assistance-helper sets up or cleans up; patient completes activity. [place] assists only prior to or following the activity. 4-Supervision or Touching Assistance-helper provides verbal cues and/or touching/steadying and/or contact guard assistance as patient completes activity. Assistance may be provided throughout the activity or intermittently. 3-Partial/Moderate Assistance-helper does LESS THAN HALF the effort. [place] lifts, holds or supports trunk or limbs, but provides less than half the effort. 2-Substantial/Maximal Assistance-helper does MORE THAN HALF the effort. [place] lifts or holds trunk or limbs and provides more than half the effort. 5-Copzjxabq-sttixa does ALL the effort. Patient does none of the effort to complete the activity. Or, the assistance of 2 or more helpers is required for the patient to complete the activity. If activity was not attempted, code reason: 7-Patient Refused. 9-Not Applicable-not attempted and the patient did not perform the activity before the current illness, exacerbation or injury. 10-Not Attempted due to Environmental Limitations-(lack of equipment, weather restraints, etc.). 88-Not Attempted due to Medical Conditions or Safety Concerns. Roll Left to Right (QC): 3 (Min A) Sit to Lying (QC): 3 Sit to Stand (QC): 5 Chair/Fth-gz-Bgdnm Xfer(QC): 4 Car Transfer (QC): 88 Gait Training Does the Patient Walk?: Yes Distance: 125' Walk 10 feet (QC): 5 Walk 50 ft with 2 Turns(QC): 5 Walk 150 ft (QC): 4 Walking 10ft/uneven surface-QC: 88 Gait Persons Needed: 1 Gait Assistive Device: FWW Wheelchair Training Does the Pt Use a Wheelchair?: No Wheel 50 ft with 2 turns (QC): 9 Wheel 150 ft (QC): 9 Type of Wheelchair: Manual Stair Training Stair Training: Handrails/: 2 handrails #of Steps: 4 1 Step (curb) (QC): 4 4 Steps (QC): 4 12 Steps (QC): 88 Stairs: Pattern: Step to Balance Picking up an Object (QC): 3 (Min A) ADL-Treatment Eating (QC): 6 Oral Hygiene (QC): 4 Shower/Bathe Self (QC): 4 Upper Body Dressing (QC): 5 Lower Body Dressing (QC): 3 (Shakir) On/Off Footwear (QC): 1 Toileting Hygiene (QC): 4 Assessment/Plan Assessment and Plan Assess & Plan/Chief Complaint Assessment: Left hip fracture with residual debility Acute neurological deficit with signs consistent with CVA NIH score 17 prompting ICU transfer a few hours after admission but resolved spontaneously so maintained on aspirin Plavix and statin COPD Current smoker Frail status Advanced age Hyperlipidemia Anxiety Vitamin D deficiency Aortic aneurysm chronic Hypertension Plan: Supportive care Monitor closely Fall risk Pain control ICU transfer for neurological deficit 12/22/2022: Aggressive rehab Supportive care 12/23/2022: Cardiothoracic surgery appointment for carotid stenosis 12/24/2022: Supportive care Monitor closely 12/25/2022: Supportive care Pain control 12/26/2022: Continue aggressive care Monitor closely 12/27/2022: Supportive care Aggressive rehab 12/28/2022: Supportive care Maintain Plavix 12/29/2022: Much improved status 12/30/2022: Supportive care Cardiology consult (1) Hip fracture, left (2) Tobacco abuse Status: Acute (3) Thoracic aortic aneurysm (TAA) Status: Acute SOHAM LEBLANC DO Dec 30, 2022 06:02
[2022-12-30 08:00] VITALS: BP 134/62
[2022-12-30] MEDS: ASPIRIN E.C. 81 MG (ECOTRIN) TAB PO SCH (08:25)
[2022-12-30] MEDS: CLOPIDOGREL 75 MG (PLAVIX) TABLET PO SCH (08:26)
[2022-12-30] MEDS: LORATADINE (CLARITIN) 10 MG TAB PO SCH (08:26)
[2022-12-30] MEDS: ALPRAZolam 1 MG (XANAX) TAB PO SCH (08:26)
[2022-12-30] MEDS: HYDROcodone/APAP 5 MG/325 MG (LORTAB) TAB PO PRN ×2 (08:27→21:07)
[2022-12-30] MEDS: ENOXAPARIN INJECTION 30 MG/0.3 ML SYR SC SCH (08:28)
[2022-12-30] MEDS: DOCUSATE SODIUM 100 MG (COLACE) CAP PO SCH ×2 (09:00→19:47)
[2022-12-30] MEDS: polyethylene glycoL POWDER 17 GM (MIRALAX) PACK PO SCH ×2 (09:12→19:47)
[2022-12-30] MEDS: SENNOSIDES 8.6 MG (SENOKOT) TAB PO SCH ×2 (09:12→19:47)
--- NOTE | 2022-12-30 09:23 | Speech Therapy Daily Note ---
Speech Daily Progress Note Subjective Date Seen by Provider: Dec 30, 2022 Time Seen by Provider: 07:58 Pt sitting up in recliner. She states she hasn't had her medications yet this morning and she appears more anxious throughout the session. The nurse brings in her medications during the session. Pt states she realizes she is not ready to go home, even with help. She states she wants the sophia out before going home. Pt reports her vision is blurry this morning, with and without her glasses. Pt puts eyedrops in her eyes and states that resolves the blurriness. Pt pleasant and cooperative throughout the session. Pain Location: No Pain Reported Objective Pt completes medication management task. At the start of the task, pt puts one pill in the Wednesday slot, then does not complete the rest of the week. Pt grabs the next medication and goes to start putting it in and becomes confused by why she only has one pill on Wednesday. Pt realizes there is a mistake, but is unable to figure out how to correct it. With a verbal prompt, pt is then able to correctly fill out the medication organizer. Pt has distractions throughout the task, and is still able to complete with 100% accuracy independently following the initial verbal prompt at the beginning of the task. Pt gets to the bottle that is an as needed medication for pain, pt is able to accurately state she would not put the medication in her pill organizer and she would set the bottle aside as she would only take it when needed and not on a schedule. Pt the completes a deductive reasoning puzzle with 100% accuracy with min to mod verbal cues. Assessment Assessment Current Status: Good Progress Treatment Plan Continue Plan of Care Speech Short Term Goals Short Term Goals Short Term Goals 1. Pt to complete immediate memory tasks with 80% accuracy with min verbal cues. 2. Pt to complete basic problem solving tasks with 80% accuracy with min verbal cues. Speech Jail Goals Mechanical Equipment Test Engineer Goals 1. Pt to complete mental manipulation tasks containing 3 components with 80% accuracy with min verbal cues. 2. Pt to follow basic directions with 80% accuracy with min verbal cues. 3. Pt to complete basic executive functioning tasks with 80% accuracy with min verbal cues. Speech-Plan Patient/Family Goals Patient/Family Goals: Family's goal is for pt to live with her daughter. Treatment Plan Speech Therapy Treatment Plan: Continue Plan of Care Treatment Duration: Dec 22, 2022 Frequency: Modified Program (IRF) Estimated Hrs Per Day: Other Rehab Potential: Good Safety Risks/Education Teaching Recipient: Patient Teaching Methods: Discussion Response to Teaching: Verbalize Understanding Education Topics Provided: Pt educated on purpose of therapy tasks. Pt receptive and verbalized understanding. Time Speech Therapy Time In: 07:58 Speech Therapy Time Out: 09:00 DATE: Dec 30, 2022 Total Billed Time: 62 Billed Treatment Time S/L Marika Hernández Speech Therapy Dec 30, 2022 09:23
[2022-12-30] MEDS: ALPRAZolam 0.5 MG (XANAX) TAB PO SCH ×2 (11:54→21:08)
--- NOTE | 2022-12-30 12:23 | Physical Therapy Daily Note ---
PT Daily Note-Current Subjective Pt sitting in recliner upon arrival. Pt agrees to PT. Pain Numeric Pain Scale: 10-Worst Possible Pain Location: Left, Upper Location Body Site: Thigh Pain Description: Sharp Section J - Health Conditions 1. Rarely or not at all 2. Occasionally 3. Frequently 4. Almost constantly 8. Unable to answer Pain Effect on Sleep: 2 Pain Interference with Therapy: 3 Pain Interference w/Day-to-Day: 3 Mental Status Patient Orientation: Person, Confused, Place Transfers SCALE: Activities may be completed with or without assistive devices. 5-Gsxqdzvvhi-ghpnguf completes the activity by him/herself with no assistance from a helper. 5-Set-up or Clean-up Assistance-helper sets up or cleans up; patient completes activity. [place] assists only prior to or following the activity. 4-Supervision or Touching Assistance-helper provides verbal cues and/or touching/steadying and/or contact guard assistance as patient completes activity. Assistance may be provided throughout the activity or intermittently. 3-Partial/Moderate Assistance-helper does LESS THAN HALF the effort. Broadway lif ts, holds or supports trunk or limbs, but provides less than half the effort. 2-Substantial/Maximal Assistance-helper does MORE THAN HALF the effort. [place] lifts or holds trunk or limbs and provides more than half the effort. 1-Hsmgcswtm-xrcfpd does ALL the effort. Patient does none of the effort to complete the activity. Or, the assistance of 2 or more helpers is required for the patient to complete the activity. If activity was not attempted, code reason: 7-Patient Refused. 9-Not Applicable-not attempted and the patient did not perform the activity before the current illness, exacerbation or injury. 10-Not Attempted due to Environmental Limitations-(lack of equipment, weather restraints, etc.). 88-Not Attempted due to Medical Conditions or Safety Concerns. Roll Left & Right (QC): 6 Sit to Lying (QC): 6 Lying to Sitting/Side of Bed(Q: 6 Sit to Stand (QC): 4 Chair/Kdg-fc-Wthzu Xfer(QC): 4 Toilet Transfer (QC): 4 Weight Bearing Right Lower Extremity: Right Full Weight Bearing Left Lower Extremity: Left Weight Bearing/Tolerated Gait Training Does the Patient Walk?: Yes Distance: 300' Walk 10 feet (QC): 4 Walk 50 ft with 2 Turns(QC): 4 Walk 150 ft (QC): 4 Gait Assistive Device: FWW Exercises Seated Therapy Exercises: Ankle pumps, Long arc quads, Hamstring Curls, Hip abd/add, Glut set Seated Reps: 15 Treatments TF from recliner to standing and amb to BR. Pt amb in hallway. Pt completes Seated EX as well as participates in discussion w/HEARING HEALTHCARE PRACTITIONER over pain management, how to prevent stiffness/benefit of continued movement & recall of current events & how pt & HEARING HEALTHCARE PRACTITIONER have overlapping familiar connections. Pt returns to room to rest at end of tx to rest in recliner, eat lunch with all needs met, call light in hand. Assessment Current Status: Good Progress Pt's gait starts off stiff and more analgetic but lessens as pt continues to move. PT Wringer Machine Operator Goals Wringer Machine Operator Goals PT Mcc Goals Time Frame: Jan 01, 2023 Roll Left & Right (QC): 6 Sit to Lying (QC): 6 Lying-Sitting on Side/Bed(QC): 6 Sit to Stand (QC): 4 Chair/Xhf-jj-Wekpx Xfer(QC): 4 Toilet Transfer (QC): 4 Car Transfer (QC): 4 Does the Patient Walk: Yes Walk 10 feet (QC): 4 Walk 50ft with 2 Turns (QC): 4 Walk 150 ft (QC): 4 Walking 10ft on Uneven Surface: 4 1 Step (curb) (QC): 4 4 Steps (QC): 4 12 Steps (QC): 4 Picking up an Object (QC): 4 Does the Pt use WC or Scooter?: Yes Wheel 50 feet with 2 turns (QC: 4 Type: Manual Wheel 150 feet: 4 Type: Manual PT Plan Problem List Problem List: Activity Tolerance, Safety Treatment/Plan Treatment Plan: Continue Plan of Care Treatment Plan: Bed Mobility, Concurrent Therapy, Education, Functional Activity Vincent, Functional Strength, Group Therapy, Gait, Safety, Therapeutic Exercise, Transfers Treatment Duration: Jan 01, 2023 Frequency: At least 5 of 7 days/Wk (IRF) Estimated Hrs Per Day: 1.5 hours per day Patient and/or Family Agrees t: Yes Safety Risks/Education Patient Education: Gait Training, Correct Positioning, Safety Issues Teaching Recipient: Patient Teaching Methods: Discussion Response to Teaching: Verbalize Understanding Time Time In: 1030 Time Out: 1200 DATE: Dec 30, 2022 Total Billed Treatment Time: 90 Total Billed Treatment 1, FA x3 (45m), EX (20m) & GT x2 (25m) SANTANA OATES HEARING HEALTHCARE PRACTITIONER Dec 30, 2022 12:23
--- NOTE | 2022-12-30 13:09 | Occupational Ther Daily Note ---
OT Current Status-Daily Note Subjective Pt sitting in chair in room upon arrival, alert and cooperative. Pt refused to change clothing on this date but requested tomorrow be the day. ADL-Treatment Pt ambulated with FWW, CGA to bathroom, completed toilet hygiene, with CGA. Pt ambulated to sink and washed hands. Pt then ambulated to therapy gym with FWW, CGA to address functional endurance, functional mobility, and functional balance. Pt completed arm bike to address strengthening and endurance, for 10 mins at 20 rivera. Pt didn't require recovery breaks during that time. Pt ambula brittny from therapy gym to room, with FWW, CGA with mod verbal cues to keep walker close, and verbal cues for guidance to keep on straight path when walking. Pt sat in chair and was left with call light within reach, and all needs met. Therapy Code Descriptions/Definitions Functional [place] Measure: 0=Not Assessed/NA 4=Minimal Assistance 1=Total Assistance 5=Supervision or Setup 2=Maximal Assistance 6=Modified [place] 3=Moderate Assistance 7=Complete IndependenceSCALE: Activities may be completed with or without assistive devices. 1-Depeblewzt-aujunie completes the activity by him/herself with no assistance from a helper. 5-Set-up or Clean-up Assistance-helper sets up or cleans up; patient completes activity. [place] assists only prior to or following the activity. 4-Supervision or Touching Assistance-helper provides verbal cues and/or touching/steadying and/or contact guard assistance as patient completes activity. Assistance may be provided throughout the activity or intermittently. 3-Partial/Moderate Assistance-helper does LESS THAN HALF the effort. Saxis lifts, holds or supports trunk or limbs, but provides less than half the effort. 2-Substantial/Maximal Assistance-helper does MORE THAN HALF the effort. S[place] lifts or holds trunk or limbs and provides more than half the effort. 4-Ifzkglwig-vcnzpy does ALL the effort. Patient does none of the effort to complete the activity. Or, the assistance of 2 or more helpers is required for the patient to complete the activity. If activity was not attempted, code reason: 7-Patient Refused. 9-Not Applicable-not attempted and the patient did not perform the activity before the current illness, exacerbation or injury. 10-Not Attempted due to Environmental Limitations-(lack of equipment, weather restraints, etc.). 88-Not Attempted due to Medical Conditions or Safety Concerns. Education OT Patient Education: Correct positioning, Energy conservation, Exercise program, Progress toward Goal/Update tx plan, Purpose of tx/functional activities, Safety issues Teaching Recipient: Patient Teaching Methods: Discussion OT Short Term Goals Short Term Goals Time Frame: Dec 29, 2022 Eatin Oral hygiene: 5 Upper body dressin OT Retirement Goals Auto Mechanic Apprentice Goals Time Frame: Jan 22, 2023 Acute change in mental status: 0 Inattention: 0 Disorganized thinkin Altered level of consciousness: 0 Eating (QC): 6 Oral Hygiene (QC): 6 Toileting Hygiene (QC): 6 Shower/Bathe Self (QC): 6 Upper Body Dressing (QC): 6 Lower Body Dressing (QC): 6 On/Off Footwear (QC): 6 1=Demonstrate adherence to instructed precautions during ADL tasks. 2=Patient will verbalize/demonstrate understanding of assistive devices/modifications for ADL. 3=Patient will improve strength/tolerance for activity to enable patient to perform ADL's. OT Education/Plan Problem List/Assessment Assessment: Decreased Activ Tolerance Discharge Recommendations Plan/Recommendations: Continue POC Therapy Discharge Recommendati: Bath Aide, Home & Family Treatment Plan/Plan of Care Patient would benefit from OT for education, treatment and training to promote independence in ADL's, mobility, safety and/or upper extremity function for ADL's. Plan of Care: ADL Retraining, Cognitive Retraining, Concurrent Therapy, Functional Mobility, Group Exercise/Act as Ind, UE Funct Exercise/Act, W/C Management Training Treatment Duration: Jan 22, 2023 Frequency: At least 5 of 7 days/Wk (IRF) Estimated Hrs Per Day: 1.5 hours per day Rehab Potential: Good Time Start Time: 12:45 Stop Time: 13:13 DATE: Dec 30, 2022 Total Time Billed (hr/min): 28 Billed Treatment Time 1 visit EX 2 (28) Danyelle Macias COTA Dec 30, 2022 13:09
--- NOTE | 2022-12-30 14:27 | Consultation-Cardiology ---
HPI-Cardiology Cardiology Consultation: Date of Consultation 12/30/22 Time Seen by a Provider: 14:15 Date of Admission 12-18-22 Attending Physician Brad Enrique MD Admitting Physician Admitting Physician: Hazel Leblanc DO Attending Physician: Hazel Leblanc DO Consulting Physician REGINA COLEMAN HPI: Chief Complaint: TIA on 12-21-22 Provider requesting consult: Dr. Leblanc Ms. Vicente is an 82 yr old female who came in on 12-18-22 after a non-syncopal fall at home resulting in a left hip fracture. She underwent left hip repair by Dr. Mueller on 12-19-22. She was on the IRU when she developed left sided facial droop, left sided weakness and mental status changes. She had a CT of the head which did not show any acute findings. Symptoms resolved. [facility] stroke team was contacted and TpA was not advised d/t symptom resolution. We have been consulted today d/t patient having telemetry with no arrhythmia seen thus far. She denies any CP, SOB, weakness since the event on 12-21-22. She reports she does not really recall the events of that day, but has been doing fine since then. Review of Systems-Cardiology Review of Systems Constitutional: No chills, No fever, No malaise Eyes: No vision change Ears/Nose/Throat: No epistaxis Respiratory: As described under HPI Cardiovascular: As described under HPI Gastrointestinal: no symptoms reported Genitourinary: no symptoms reported Musculoskeletal: no symptoms reported Skin: No rash on exposed areas, No ulcerations on exposed areas Psychiatric/Neurological: As described under HPI Hematologic: No bleeding abnormalities All Other Systems Reviewed Negative Unless Noted: Yes EYB-Wybqlu-Utyfds Hx Patient Social History Marrital Status: single Employed/Student: retired Smoking Status: Former Smoker Alcohol Use?: No Pt feels they are or have been: No Past Medical History PMH As described under Assessment. Family Medical History Family Medical History: She reports her mother had h/o DVT's, [place] in her 80's. She reports her father had an abdominal aneurysm. Allergies and Home Medications Allergies Coded Allergies: Penicillins (Verified Allergy, Unknown, 07/30/20) Uncoded Allergies: WASP AND BEE STINGS (Allergy, Unknown, 07/30/20) Patient Home Medication List Alprazolam (Alprazolam) 1 Mg Tablet, 1 MG PO DAILY Prescribed by: HAZEL LEBLANC on 01/01/23548 Alprazolam (Alprazolam) 1 Mg Tablet, 0.5 MG PO 1200 Prescribed by: HAZEL LEBLANC on 01/01/23548 Alprazolam (Alprazolam) 1 Mg Tablet, 0.5 MG PO HS Prescribed by: HAZEL LEBLANC on 01/01/23548 Ascorbic Acid/Ascorbate Sodium (Vitamin C 500 mg Tablet Chew) 500 Mg Tab.chew, 1,000 MG PO DAILY, (Reported) Entered as Reported by: Antonio Ross on 12/19/22348 Aspirin (Aspirin EC) 81 Mg Tablet.dr, 81 MG PO DAILY Prescribed by: HAZEL LEBLANC on 01/01/23548 Cholecalciferol (Vitamin D3) (Vitamin D3) 25 Mcg (1000 Unit) Capsule, 25 MCG PO DAILY, (Reported) Entered as Reported by: Antonio Ross on 12/19/22348 Clopidogrel Bisulfate (Clopidogrel) 75 Mg Tablet, 75 MG PO DAILY Prescribed by: HAZEL LEBLANC on 01/01/23548 Hydrocodone/Acetaminophen (Hydrocodone-Acetamin 5-325 mg) 5 Mg-325 Mg Tablet, 1 EA PO Q4H PRN for PAIN-MODERATE (5-7) Prescribed by: HAZEL LEBLANC on 01/01/23548 Ipratropium/Albuterol Sulfate (Iprat-Albut 0.5-3(2.5) mg/3 ml) 0.5 Mg-3 Mg (2.5 Mg Base)/3 Ml Ampul.neb, 3 ML INH RTQ6HR PRN for SOA/ WHEEZING Prescribed by: HAZEL LEBLANC on 12/22/22 09 L. Acidoph/L. Plantar/L. Rhamn (Probiotic Pearls Women's Sfgl) 1 Billion Cell Capsule.dr, 1 EACH PO DAILY, (Reported) Entered as Reported by: Antonio Ross on 12/19/22348 Loratadine (Claritin) 10 Mg Tablet, 10 MG PO DAILY Prescribed by: HAZEL LEBLANC on 01/01/23548 Nicotine (Nicotine Patch) 14 Mg/24 Hour Patch.td24, 14 MG TD DAILY Prescribed by: HAZEL LEBLANC on 01/01/23548 Omeprazole (Omeprazole) 20 Mg Tablet.dr, 20 MG PO DAILY Prescribed by: HAZEL LEBLANC on 01/01/23 0549 Ondansetron (Ondansetron Odt) 4 Mg Tab.rapdis, 4 MG PO Q6H PRN for NAUSEA/VOMITING-1ST LINE Prescribed by: HAZEL LEBLANC on 01/01/23 0549 Propylene Glycol/Peg 400/Pf (Systane 0.3-0.4% Eye Drops) 0.3 %-0.4 % Droperette, 1 DROP OU BID, (Reported) Entered as Reported by: Antonio Ross on 12/19/22 0349 Rosuvastatin Calcium (Rosuvastatin Calcium) 10 Mg Tablet, 10 MG PO DAILY Prescribed by: HAZEL LEBLANC on 01/01/23 0549 Sennosides (Senna Lax) 8.6 Mg Tablet, 8.6 MG PO BID Prescribed by: HAZEL LEBLANC on 01/01/23 0549 Vitamin B Complex/Folic Acid (Super B Maxi Complex Caplet) 0.4 Mg Tablet, 0.4 MG PO DAILY, (Reported) Entered as Reported by: TATYANA STEWART on 12/21/22 0900 Physical Exam-Cardiology Physical Exam Vital Signs/I&O 01/01/23 01/01/23 01/01/23 01:00 07:00 07:55 Temp 36.6 Pulse 80 71 72 Resp 16 B/P (MAP) 131/61 (84) Pulse Ox 95 O2 Delivery Room Air 01/01/23 00:00 Intake Total 980 ml Balance 980 ml Capillary Refill : Constitutional: AAO x 3, well-developed, well-nourished HEENT: PERRL, hearing is well preserved, oral hygience is good Neck: carotid bruit, carotid pulses are 2 + bilaterally Respiratory: No accessory muscle use, No respiratory distress; chest expansion is symmetric, chest is bilaterally symmetric, other (prolonged exp phase) Cardiovascular: regular rate-rhythm; No JVD; S1 and S2 Gastrointestinal: No tender; soft, round; No guarding; audible bowel sounds Extremities: other (mild bilat LE swelling - LAURIE hose in place) Neurologic/Psychiatric: other (moves all extremities) Skin: No rash on exposed areas, No ulcerations on exposed areas ECG Impression ECG Initial ECG Rhythm: Normal Sinus A/P-Cardiology Assessment/Admission Diagnosis S/P fall resulting in L hip fracture on 12-18-22 - S/P L hip IM nail by Dr. Mueller on 12-19-22 TIA - 12-21-22 - CT of the head showed no acute findings - d/t resolution of symptoms [facility] stroke team did not advise TPA - management per Dr. Leblanc Carotid dz: - Carotid u/s of 12-21-22: There is interval progression of stenosis involving the ECA with increased velocities. There is roughly 50-69% stenosis involving the right ECA and greater than 70% stenosis but less than near occlusion involving the left ECA. The remainder of the bilateral carotid arteries shows atherosclerotic disease without significant Doppler grayscale stenosis. TAA and AAA - Per CT of the abdomen on 12-18-22: Thoracic and abdominal aortic aneurysm measures up to 5 cm. Echocardiogram of 12-22-[address] Gurrola (cardiology locum) showed LVEF 55-60%. Mitral valve annulus mild to mod calcified. AoV thickening, consistent with sclerosis. Trivial TR. No pericardial effusion. COPD H/O tobaccoism - quit smoking approx 3 months ago Discussion and Recomendations Probable TIA which is likely secondary to carotid dz - continue Plavix and ASA Continue tele for now AAA and TAA seen on CT of abdomen Advise out pt f/u with CV services Continue current medication regimen Records have been reviewed Advise continued smoking cessation Monitor lab Further recs will be based on her course We would like to thank Dr. Leblanc for this consult REGINA ORTEGA Dec 30, 2022 14:27
--- NOTE | 2022-12-30 18:58 | Consultation-Cardiology ---
HPI-Cardiology Cardiology Consultation: Date of Consultation 12/30/22 Time Seen by a Provider: 18:40 Date of Admission Attending Physician Brad Enrique MD Admitting Physician Admitting Physician: Hazel Leblanc DO Attending Physician: Hazel Leblanc DO Consulting Physician IRIS ESCALONA MD, MA, FACP, FACC, [facility], [facility] HPI: Chief Complaint: TIA on 12-21-22 Provider requesting consult: Dr. Leblanc Ms. Vicente is an 82 yr old female who came in on 12-18-22 after a non-syncopal fall at home resulting in a left hip fracture. She underwent left hip repair by Dr. Mueller on 12-19-22. She was on the IRU when she developed left sided facial droop, left sided weakness and mental status changes. She had a CT of the head which did not show any acute findings. Symptoms resolved. [facility] stroke team was contacted and TpA was not advised d/t symptom resolution. We have been consulted today d/t patient having telemetry with no arrhythmia seen thus far. She denies any CP, SOB, weakness since the event on 12-21-22. She reports she does not really recall the events of that day, but has been doing fine since then. Review of Systems-Cardiology Review of Systems Constitutional: No chills, No fever, No malaise Eyes: No vision change Ears/Nose/Throat: No epistaxis Respiratory: As described under HPI Cardiovascular: As described under HPI Gastrointestinal: no symptoms reported Genitourinary: no symptoms reported Musculoskeletal: no symptoms reported Skin: No rash on exposed areas, No ulcerations on exposed areas Psychiatric/Neurological: As described under HPI Hematologic: No bleeding abnormalities All Other Systems Reviewed Negative Unless Noted: Yes DPF-Ycpwbe-Pmhzmy Hx Patient Social History Marrital Status: single Employed/Student: retired Smoking Status: Former Smoker Alcohol Use?: No Pt feels they are or have been: No Past Medical History PMH As described under Assessment. Family Medical History Family Medical History: She reports her mother had h/o DVT's, [place] in her 80's. She reports her father had an abdominal aneurysm. Allergies and Home Medications Allergies Coded Allergies: Penicillins (Verified Allergy, Unknown, 07/30/20) Uncoded Allergies: WASP AND BEE STINGS (Allergy, Unknown, 07/30/20) Patient Home Medication List Home Medication List Reviewed: Yes Alprazolam (Alprazolam) 1 Mg Tablet, 1 MG PO DAILY, (Reported) Entered as Reported by: TATYANA STEWART on 12/21/22858 Last Action: Continued Alprazolam (Alprazolam) 1 Mg Tablet, 0.5 MG PO 1200, (Reported) Entered as Reported by: TATYANA STEWART on 12/21/22858 Last Action: Continued Alprazolam (Alprazolam) 1 Mg Tablet, 0.5 MG PO HS, (Reported) Entered as Reported by: TATYANA STEWART on 12/21/22858 Last Action: Continued Ascorbic Acid/Ascorbate Sodium (Vitamin C 500 mg Tablet Chew) 500 Mg Tab.chew, 1,000 MG PO DAILY, (Reported) Entered as Reported by: Antonio Ross on 12/19/22348 Aspirin (Aspirin EC) 81 Mg Tablet.dr, 81 MG PO DAILY Prescribed by: HAZEL LEBLANC on 12/22/22917 Cholecalciferol (Vitamin D3) (Vitamin D3) 25 Mcg (1000 Unit) Capsule, 25 MCG PO DAILY, (Reported) Entered as Reported by: Antonio Ross on 12/19/22348 Clopidogrel Bisulfate (Clopidogrel) 75 Mg Tablet, 75 MG PO DAILY Prescribed by: HAZEL LEBLANC on 12/22/22917 Ipratropium/Albuterol Sulfate (Iprat-Albut 0.5-3(2.5) mg/3 ml) 0.5 Mg-3 Mg (2.5 Mg Base)/3 Ml Ampul.neb, 3 ML INH RTQ6HR PRN for SOA/ WHEEZING Prescribed by: HAZEL LEBLANC on 12/22/22917 L. Acidoph/L. Plantar/L. Rhamn (Probiotic Pearls Women's Sfgl) 1 Billion Cell Capsule.dr, 1 EACH PO DAILY, (Reported) Entered as Reported by: Antonio Ross on 12/19/22348 Loratadine (Claritin) 10 Mg Tablet, 10 MG PO DAILY, (Reported) Entered as Reported by: TATYANA STEWART on 12/21/22899 Nicotine (Nicotine Patch) 14 Mg/24 Hour Patch.td24, 14 MG TD DAILY, (Reported) Entered as Reported by: Antonio Ross on 12/19/22348 Omeprazole (Omeprazole) 20 Mg Tablet., 20 MG PO DAILY, (Reported) Entered as Reported by: Antonio Ross on 12/19/22 034 Propylene Glycol/Peg 400/Pf (Systane 0.3-0.4% Eye Drops) 0.3 %-0.4 % Droperette, 1 DROP OU BID, (Reported) Entered as Reported by: Antonio Ross on 12/19/22 034 Rosuvastatin Calcium (Rosuvastatin Calcium) 10 Mg Tablet, 10 MG PO DAILY, (Reported) Entered as Reported by: Antonio Ross on 12/19/22 034 Vitamin B Complex/Folic Acid (Super B Maxi Complex Caplet) 0.4 Mg Tablet, 0.4 MG PO DAILY, (Reported) Entered as Reported by: TATYANA STEWART on 12/21/22 0900 Physical Exam-Cardiology Physical Exam Vital Signs/I&O 12/30/22 12/30/22 12/30/22 12/30/22 07:25 08:00 09:12 12:19 Temp 35.4 Pulse 74 77 73 Resp 16 B/P (MAP) 134/62 (86) Pulse Ox 90 O2 Delivery Room Air Room Air 12/30/22 00:00 Intake Total 720 ml Balance 720 ml Capillary Refill : Constitutional: AAO x 3, well-developed, well-nourished HEENT: PERRL, hearing is well preserved, oral hygience is good Neck: carotid bruit, carotid pulses are 2 + bilaterally Respiratory: No accessory muscle use, No respiratory distress; chest expansion is symmetric, chest is bilaterally symmetric, other (prolonged exp phase) Cardiovascular: regular rate-rhythm; No JVD; S1 and S2 Gastrointestinal: No tender; soft, round; No guarding; audible bowel sounds Extremities: other (mild bilat LE swelling - LAURIE hose in place) Neurologic/Psychiatric: other (moves all extremities) Skin: No rash on exposed areas, No ulcerations on exposed areas A/P-Cardiology Assessment/Admission Diagnosis S/P fall resulting in L hip fracture on 12-18-22 - S/P L hip IM nail by Dr. Mueller on 12-19-22 TIA - 12-21-22 - CT of the head showed no acute findings - d/t resolution of symptoms [facility] stroke team did not advise TPA - management per Dr. Leblanc Carotid dz: - Carotid u/s of 12-21-22: There is interval progression of stenosis involving the ECA with increased velocities. There is roughly 50-69% stenosis involving the right ECA and greater than 70% stenosis but less than near occlusion involving the left ECA. The remainder of the bilateral carotid arteries shows atherosclerotic disease without significant Doppler grayscale stenosis. TAA and AAA - Per CT of the abdomen on 12-18-22: Thoracic and abdominal aortic aneurysm measures up to 5 cm. Echocardiogram of 12-22-[address] Gurrola (cardiology locum) showed LVEF 55-60%. Mitral valve annulus mild to mod calcified. AoV thickening, consistent with sclerosis. Trivial TR. No pericardial effusion. COPD H/O tobaccoism - quit smoking approx 3 months ago Discussion and Recomendations Probable TIA which is likely secondary to carotid dz - continue Plavix and ASA Continue tele for now AAA and TAA seen on CT of abdomen Advise out pt f/u with CV services Continue current medication regimen Records have been reviewed Advise continued smoking cessation Monitor lab Further recs will be based on her course We would like to thank Dr. Leblanc for this consult IRIS ESCALONA MD FACP FAC CCDS Dec 30, 2022 18:58
[2022-12-30 19:32] VITALS: BP 110/67
[2022-12-30] MEDS: MELATONIN 3 MG TABLET PO PRN (21:07)
[2022-12-30] MEDS: ROSUVASTATIN 10 MG (CRESTOR) TABLET PO SCH (21:07)
--- NOTE | 2022-12-31 05:41 | PM&R Progress Note ---
Subjective HPI/CC On Admission Date Seen by Provider: Dec 31, 2022 Time Seen by Provider: 12:00 Subjective/Events-last exam 12/31/2022: Patient doing really well No pain is reported No falls Checked meds and labs 12/30/2022: Patient doing very well Much improved ambulation Much improved cognition At discharge she will stay with her daughter 12/29/2022: Doing much better No falls No pain today Checked meds 12/28/2022: Patient doing a lot better Pleased with her progress Labs reviewed No further stroke symptoms 12/27/2022: No significant problems Check meds and labs No falls Pain comes and goes 12/26/2022: Patient doing really well Working with therapy No falls Confusion is improved 12/25/2022: Patient doing really well getting stronger every day Minimal pain Checked meds and labs 12/24/2022: Patient doing really well Feels like she is getting stronger Less pain No falls Changed around the times of her Xanax 12/23/2022: Patient doing tremendously well No pain is reported Walking very well with walker No neurological deficits Cardiothoracic surgeon will needed to assess carotid stenosis 12/22/2022: Patient doing well Moved down from the ICU today No residual from TIA Carotid stenosis noted maintained on Plavix and aspirin and statin Cannot perform MRI due to sophia from hip repair could heat up Review of Systems General: Fatigue, Malaise Musculoskeletal: leg pain Neurological: Weakness Objective Exam Vital Signs Vital Signs Date Time Temp Pulse Resp B/P (MAP) Pulse Ox O2 Delivery O2 Flow Rate FiO2 12/31/22 20:32 36.6 83 16 114/64 (81) 96 Room Air 12/28/22 18:28 21 Capillary Refill : General Appearance: No Apparent Distress, WD/WN, Chronically ill, Thin HEENT: PERRL/EOMI, Normal ENT Inspection, Pharynx Normal Neck: Full Range of Motion, Normal Inspection, Non Tender, Supple, Carotid Bruit Respiratory: Chest Non Tender, Lungs Clear, No Accessory Muscle Use, No Respiratory Distress, Decreased Breath Sounds Cardiovascular: Regular Rate, Rhythm, No Edema, No Gallop, No JVD, No Murmur, Normal Peripheral Pulses Gastrointestinal: Normal Bowel Sounds, No Organomegaly, No Pulsatile Mass, Non Tender, Soft Back: Normal Inspection, No CVA Tenderness, No Vertebral Tenderness Extremity: Normal Capillary Refill, Normal Inspection, Normal Range of Motion (Except left leg), Non Tender, No Calf Tenderness, No Pedal Edema Neurologic/Psychiatric: Alert, Oriented x3, technical marketing engineer II-XII Norm as Tested, Abnormal Gait, Depressed Affect, Motor Weakness ( left leg weakness) Skin: Normal Color, Warm/Dry Lymphatic: No Adenopathy Results/Procedures Lab Patient resulted labs reviewed. FIM Transfers Therapy Code Descriptions/Definitions Functional [place] Measure: 0=Not Assessed/NA 4=Minimal Assistance 1=Total Assistance 5=Supervision or Setup 2=Maximal Assistance 6=Modified [place] 3=Moderate Assistance 7=Complete IndependenceSCALE: Activities may be completed with or without assistive devices. 4-Voniyrksai-twcpheo completes the activity by him/herself with no assistance from a helper. 5-Set-up or Clean-up Assistance-helper sets up or cleans up; patient completes activity. [place] assists only prior to or following the activity. 4-Supervision or Touching Assistance-helper provides verbal cues and/or touching/steadying and/or contact guard assistance as patient completes activity. Assistance may be provided throughout the activity or intermittently. 3-Partial/Moderate Assistance-helper does LESS THAN HALF the effort. [place] lifts, holds or supports trunk or limbs, but provides less than half the effort. 2-Substantial/Maximal Assistance-helper does MORE THAN HALF the effort. [place] lifts or holds trunk or limbs and provides more than half the effort. 1-Iuupurthu-fnymwy does ALL the effort. Patient does none of the effort to complete the activity. Or, the assistance of 2 or more helpers is required for the patient to complete the activity. If activity was not attempted, code reason: 7-Patient Refused. 9-Not Applicable-not attempted and the patient did not perform the activity before the current illness, exacerbation or injury. 10-Not Attempted due to Environmental Limitations-(lack of equipment, weather restraints, etc.). 88-Not Attempted due to Medical Conditions or Safety Concerns. Roll Left to Right (QC): 6 Sit to Lying (QC): 6 Sit to Stand (QC): 4 Chair/Oat-yf-Qtoua Xfer(QC): 4 Car Transfer (QC): 88 Gait Training Does the Patient Walk?: Yes Distance: 300' Walk 10 feet (QC): 4 Walk 50 ft with 2 Turns(QC): 4 Walk 150 ft (QC): 4 Walking 10ft/uneven surface-QC: 88 Gait Persons Needed: 1 Gait Assistive Device: FWW Wheelchair Training Does the Pt Use a Wheelchair?: No Wheel 50 ft with 2 turns (QC): 9 Wheel 150 ft (QC): 9 Type of Wheelchair: Manual Stair Training Stair Training: Handrails/: 2 handrails #of Steps: 4 1 Step (curb) (QC): 4 4 Steps (QC): 4 12 Steps (QC): 88 Stairs: Pattern: Step to Balance Picking up an Object (QC): 3 (Min A) ADL-Treatment Eating (QC): 6 Oral Hygiene (QC): 4 Shower/Bathe Self (QC): 4 Upper Body Dressing (QC): 5 Lower Body Dressing (QC): 3 (Shakir) On/Off Footwear (QC): 1 Toileting Hygiene (QC): 4 Assessment/Plan Assessment and Plan Assess & Plan/Chief Complaint Assessment: Left hip fracture with residual debility Acute neurological deficit with signs consistent with CVA NIH score 17 prompting ICU transfer a few hours after admission but resolved spontaneously so maintained on aspirin Plavix and statin COPD Current smoker Frail status Advanced age Hyperlipidemia Anxiety Vitamin D deficiency Aortic aneurysm chronic Hypertension Plan: Supportive care Monitor closely Fall risk Pain control ICU transfer for neurological deficit 12/22/2022: Aggressive rehab Supportive care 12/23/2022: Cardiothoracic surgery appointment for carotid stenosis 12/24/2022: Supportive care Monitor closely 12/25/2022: Supportive care Pain control 12/26/2022: Continue aggressive care Monitor closely 12/27/2022: Supportive care Aggressive rehab 12/28/2022: Supportive care Maintain Plavix 12/29/2022: Much improved status 12/30/2022: Supportive care Cardiology consult 12/31/2022: Needs follow-up with cardiology Cardiothoracic surgery appointment for carotid stenosis (1) Hip fracture, left (2) Tobacco abuse Status: Acute (3) Thoracic aortic aneurysm (TAA) Status: Acute SOHAM LEBLANC DO Dec 31, 2022 05:41
[2022-12-31] MEDS: ALPRAZolam 1 MG (XANAX) TAB PO SCH (07:13)
[2022-12-31] MEDS: HYDROcodone/APAP 5 MG/325 MG (LORTAB) TAB PO PRN ×2 (07:13→21:01)
[2022-12-31 08:00] VITALS: BP 133/71
[2022-12-31] MEDS: SENNOSIDES 8.6 MG (SENOKOT) TAB PO SCH ×2 (10:00→21:00)
[2022-12-31] MEDS: DOCUSATE SODIUM 100 MG (COLACE) CAP PO SCH ×2 (10:00→21:00)
[2022-12-31] MEDS: polyethylene glycoL POWDER 17 GM (MIRALAX) PACK PO SCH ×2 (10:00→21:00)
[2022-12-31] MEDS: CLOPIDOGREL 75 MG (PLAVIX) TABLET PO SCH (10:08)
[2022-12-31] MEDS: ENOXAPARIN INJECTION 30 MG/0.3 ML SYR SC SCH (10:08)
[2022-12-31] MEDS: ASPIRIN E.C. 81 MG (ECOTRIN) TAB PO SCH (10:08)
[2022-12-31] MEDS: LORATADINE (CLARITIN) 10 MG TAB PO SCH (10:08)
[2022-12-31] MEDS: ALPRAZolam 0.5 MG (XANAX) TAB PO SCH ×2 (11:18→21:01)
--- NOTE | 2022-12-31 11:22 | Speech Therapy Daily Note ---
Speech Daily Progress Note Subjective Date Seen by Provider: Dec 31, 2022 Time Seen by Provider: 10:00 Pt's daughter Vivien present for family training. [employer]IV[employer]GE cotreats with PT this date to address functional cognitive and memory to increase safety with physical tasks. Pt sitting up in recliner and reporting hip pain. Objective Pt is able to recall physical restrictions from surgery with min assist with 60% accuracy. Therapist discussed with pt and daughter about putting up signs to remind pt of those restrictions. [employer]GE, PT, and pt's daughter discuss different activities and help pt brainstorm ways to modify those activities. Pt is able to identify possible barriers from restrictions with min-mod assist in conversation. Pt is able to identify functional cognitive tasks she can do at home, to continue to target and improve her cognitive skills. Assessment Assessment Current Status: Fair Progress Treatment Plan Continue Plan of Care Speech Short Term Goals Short Term Goals Short Term Goals 1. Pt to complete immediate memory tasks with 80% accuracy with min verbal cues. 2. Pt to complete basic problem solving tasks with 80% accuracy with min verbal cues. Speech Fdc Goals Fdc Goals 1. Pt to complete mental manipulation tasks containing 3 components with 80% accuracy with min verbal cues. 2. Pt to follow basic directions with 80% accuracy with min verbal cues. 3. Pt to complete basic executive functioning tasks with 80% accuracy with min verbal cues. Speech-Plan Patient/Family Goals Patient/Family Goals: Pt's goal is to return home with her daughter. Treatment Plan Speech Therapy Treatment Plan: Continue Plan of Care Treatment Duration: Dec 22, 2022 Frequency: Modified Program (IRF) Estimated Hrs Per Day: Other Rehab Potential: Good Safety Risks/Education Teaching Recipient: Patient, Family Teaching Methods: Discussion Response to Teaching: Verbalize Understanding Education Topics Provided: Pt and daughter were educated on cognitive tasks pt has completed and current concerns with cognition. Pt was encouraged to complete medication management and paying bills once home, but with supervision. Pt also encouraged to perform other functional cognitive tasks, such as following a recipe while someone cooks. Pt and daughter receptive and verbalized understanding. Discharge Recommendations Post Acute ST Time Speech Therapy Time In: 10:00 Speech Therapy Time Out: 11:00 DATE: Dec 31, 2022 Total Billed Time: 60 Billed Treatment Time S/L TX cotreat with PT Marika Khalil Speech Therapy Dec 31, 2022 11:22
--- NOTE | 2022-12-31 12:13 | Physical Therapy Daily Note ---
PT Daily Note-Current Subjective Pt sitting in recliner with daughter, Mame present. Pt agrees to PT/ST co- treat. PRIVATE WEALTH ADVISOR cotreats with PT this date to address functional cognitive and memory to increase safety with physical tasks. Pain Numeric Pain Scale: 5-Moderate Pain Location: Left Location Body Site: Hip Pain Description: Ache Comment: Reported stiffness and pain w/movement but not rated Section J - Health Conditions 1. Rarely or not at all 2. Occasionally 3. Frequently 4. Almost constantly 8. Unable to answer Pain Effect on Sleep: 2 Pain Interference with Therapy: 3 Pain Interference w/Day-to-Day: 3 Mental Status Patient Orientation: Person, Confused, Place Attachments: Other-See Comments (Telemetry) Transfers SCALE: Activities may be completed with or without assistive devices. 0-Ogiettehwn-rjsxnzg completes the activity by him/herself with no assistance from a helper. 5-Set-up or Clean-up Assistance-helper sets up or cleans up; patient completes activity. [place] assists only prior to or following the activity. 4-Supervision or Touching Assistance-helper provides verbal cues and/or touching/steadying and/or contact guard assistance as patient completes activity. Assistance may be provided throughout the activity or intermittently. 3-Partial/Moderate Assistance-helper does LESS THAN HALF the effort. Firth lifts, holds or supports trunk or limbs, but provides less than half the effort. 2-Substantial/Maximal Assistance-helper does MORE THAN HALF the effort. Firth lifts or holds trunk or limbs and provides more than half the effort. 0-Zuhcfkgro-lrsjie does ALL the effort. Patient does none of the effort to complete the activity. Or, the assistance of 2 or more helpers is required for the patient to complete the activity. If activity was not attempted, code reason: 7-Patient Refused. 9-Not Applicable-not attempted and the patient did not perform the activity before the current illness, exacerbation or injury. 10-Not Attempted due to Environmental Limitations-(lack of equipment, weather restraints, etc.). 88-Not Attempted due to Medical Conditions or Safety Concerns. Roll Left & Right (QC): 5 Sit to Lying (QC): 4 Lying to Sitting/Side of Bed(Q: 5 Sit to Stand (QC): 5 Chair/Jvp-li-Fjnwd Xfer(QC): 5 Toilet Transfer (QC): 5 Car Transfer (QC): 4 Weight Bearing Right Lower Extremity: Right Full Weight Bearing Left Lower Extremity: Left Weight Bearing/Tolerated Gait Training Does the Patient Walk?: Yes Distance: 60' x2 Walk 10 feet (QC): 5 Walk 50 ft with 2 Turns(QC): 5 Walk 150 ft (QC): 5 Walking 10ft/uneven surface-QC: 5 Gait Assistive Device: FWW Analgtic gait pattern & encouraged staying closer to FWW Wheelchair Training Does the Pt Use a Wheelchair?: No Stair Training Stair Training: Handrails/: 1 handrail #of Steps: 4 1 Step (curb) (QC): 5 4 Steps (QC): 5 12 Steps (QC): 88 Stairs: Pattern: Step to Balance Picking up an Object (QC): 5 Treatments Pt works w/PT & PRIVATE WEALTH ADVISOR to recall Hip Precautions. Therapist discussed with pt and daughter about putting up signs to remind pt of those restrictions. PRIVATE WEALTH ADVISOR, PT, and pt's daughter discuss different activities and help pt brainstorm ways to modify those activities. Pt is able to identify possible barriers from restrictions with min-mod assist in conversation. Pt is able to identify functional cognitive tasks she can do at home, to continue to target and improve her cognitive skills. Family Training also involves QC scoring items listed above including demonstration of transfers lunba. sit to stand, amb. in hallway & amb. of 4 steps using handrail w/VC for safety. Pt & daughter are also left written HEP for Supine & Supine LE EX as well as UE w/Red Tband. Pt returns to room to rest in recliner at end of tx w/all needs met, call light in hand. Assessment Current Status: Good Progress Confusion is improving and pt has improved with independence of transfers and amb. Pt still reports pain in L hip & thigh but pain does not limit as much as pt perceives pain to limit. PT Mcc Goals Mcc Goals PT Hook Up Driver Goals Time Frame: Jan 01, 2023 Roll Left & Right (QC): 6 Sit to Lying (QC): 6 Lying-Sitting on Side/Bed(QC): 6 Sit to Stand (QC): 4 Chair/Bkr-ug-Fsuzz Xfer(QC): 4 Toilet Transfer (QC): 4 Car Transfer (QC): 4 Does the Patient Walk: Yes Walk 10 feet (QC): 4 Walk 50ft with 2 Turns (QC): 4 Walk 150 ft (QC): 4 Walking 10ft on Uneven Surface: 4 1 Step (curb) (QC): 4 4 Steps (QC): 4 12 Steps (QC): 4 Picking up an Object (QC): 4 Does the Pt use WC or Scooter?: Yes Wheel 50 feet with 2 turns (QC: 4 Type: Manual Wheel 150 feet: 4 Type: Manual PT Plan Problem List Problem List: Safety Treatment/Plan Treatment Plan: Continue Plan of Care Treatment Plan: Bed Mobility, Concurrent Therapy, Education, Functional Activity Vincent, Functional Strength, Group Therapy, Gait, Safety, Therapeutic Exercise, Transfers Treatment Duration: Jan 01, 2023 Frequency: At least 5 of 7 days/Wk (IRF) Estimated Hrs Per Day: 1.5 hours per day Patient and/or Family Agrees t: Yes Safety Risks/Education Patient Education: Gait Training, Transfer Techniques, Steps, Issued Written HEP, Reviewed Precautions, Correct Positioning, Safety Issues Teaching Recipient: Patient, Family Teaching Methods: Demonstration, Discussion Response to Teaching: Verbalize Understanding, Return Demonstration Time Time In: 1000 Time Out: 1115 DATE: Dec 31, 2022 Total Billed Treatment Time: 75 Total Billed Treatment 1, FA x3 (45m), EX (20m) & GT (10m) SANTANA OATES PTA Dec 31, 2022 12:13
--- NOTE | 2022-12-31 12:56 | Progress Note - Cardiology ---
Cardiology SOAP Progress Note Subjective: Sitting up in the recliner No c/o CP, SOB, palpitations Objective: I&O/Vital Signs 01/01/23 01/01/23 01/01/23 01:00 07:00 07:55 Temp 36.6 Pulse 80 71 72 Resp 16 B/P (MAP) 131/61 (84) Pulse Ox 95 O2 Delivery Room Air 01/01/23 00:00 Intake Total 980 ml Balance 980 ml Constitutional: AAO x 3, well-developed, well-nourished Respiratory: No accessory muscle use, No respiratory distress; chest expansion is symmetric, chest is bilaterally symmetric, other (prolonged exp phase) Cardiovascular: regular rate-rhythm; No JVD; S1 and S2 Gastrointestional: No tender; soft, round; No guarding; audible bowel sounds Extremities: other (mild bilat LE swelling - LAURIE hose in place) Neurologic/Psychiatric: other (moves all extremities) Skin: No rash on exposed areas, No ulcerations on exposed areas A/P: Assessment: S/P fall resulting in L hip fracture on 12-18-22 - S/P L hip IM nail by Dr. Mueller on 12-19-22 TIA - 12-21-22 - CT of the head showed no acute findings - d/t resolution of symptoms [facility] stroke team did not advise TPA - management per Dr. Gan Carotid dz: - Carotid u/s of 12-21-22: There is interval progression of stenosis involving the ECA with increased velocities. There is roughly 50-69% stenosis involving the right ECA and greater than 70% stenosis but less than near occlusion involving the left ECA. The remainder of the bilateral carotid arteries shows atherosclerotic disease without significant Doppler grayscale stenosis. TAA and AAA - Per CT of the abdomen on 12-18-22: Thoracic and abdominal aortic aneurysm measures up to 5 cm. Echocardiogram of 12-22-[address] Gurrola (cardiology locum) showed LVEF 55-60%. Mitral valve annulus mild to mod calcified. AoV thickening, consistent with sclerosis. Trivial TR. No pericardial effusion. COPD H/O tobaccoism - quit smoking approx 3 months ago Plan: Probable TIA which is likely secondary to carotid dz - continue Plavix and ASA Continue tele for now AAA and TAA seen on CT of abdomen Advise out pt f/u with CV services Continue current medication regimen Advise continued smoking cessation Monitor lab REGINA ORTEGA DIAL PAINTER Dec 31, 2022 12:56
--- NOTE | 2022-12-31 14:51 | Occupational Ther Daily Note ---
OT Current Status-Daily Note Subjective Pt seen in room, up in recliner, agreeable to OT. No pain mentioned. Appearance Alert and cooperative ADL-Treatment Therapy Code Descriptions/Definitions Functional [place] Measure: 0=Not Assessed/NA 4=Minimal Assistance 1=Total Assistance 5=Supervision or Setup 2=Maximal Assistance 6=Modified [place] 3=Moderate Assistance 7=Complete IndependenceSCALE: Activities may be completed with or without assistive devices. 6-Ohikxkxanb-eukriig completes the activity by him/herself with no assistance from a helper. 5-Set-up or Clean-up Assistance-helper sets up or cleans up; patient completes activity. [place] assists only prior to or following the activity. 4-Supervision or Touching Assistance-helper provides verbal cues and/or touching/steadying and/or contact guard assistance as patient completes a ctivity. Assistance may be provided throughout the activity or intermittently. 3-Partial/Moderate Assistance-helper does LESS THAN HALF the effort. [place] lifts, holds or supports trunk or limbs, but provides less than half the effort. 2-Substantial/Maximal Assistance-helper does MORE THAN HALF the effort. [place] lifts or holds trunk or limbs and provides more than half the effort. 2-Zktqccydd-aakqjm does ALL the effort. Patient does none of the effort to complete the activity. Or, the assistance of 2 or more helpers is required for the patient to complete the activity. If activity was not attempted, code reason: 7-Patient Refused. 9-Not Applicable-not attempted and the patient did not perform the activity before the current illness, exacerbation or injury. 10-Not Attempted due to Environmental Limitations-(lack of equipment, weather restraints, etc.). 88-Not Attempted due to Medical Conditions or Safety Concerns. Other Treatment Pt completed 10 repetitions bilat UE to strengthen arms to help with getting up and down and ADLs. She needed visual and physical cues to do the exercises correctly and had a little difficulty switching sides with the same exercise. She followed written instructions with physical assistance to identify each exercise. She completed 10 reps each exercise using red (medium resistance) theraband. Pt left up in recliner, all needs met. Education OT Patient Education: Exercise program, Purpose of tx/functional activities Teaching Recipient: Patient Teaching Methods: Demonstration, Discussion Response to Teaching: Verbalize Understanding, Return Demonstration, Reinforcement Needed OT Short Term Goals Short Term Goals Time Frame: Dec 29, 2022 Eatin Oral hygiene: 5 Upper body dressin OT Retirement Goals Retirement Goals Time Frame: Jan 22, 2023 Acute change in mental status: 0 Inattention: 0 Disorganized thinkin Altered level of consciousness: 0 Eating (QC): 6 Oral Hygiene (QC): 6 Toileting Hygiene (QC): 6 Shower/Bathe Self (QC): 6 Upper Body Dressing (QC): 6 Lower Body Dressing (QC): 6 On/Off Footwear (QC): 6 1=Demonstrate adherence to instructed precautions during ADL tasks. 2=Patient will verbalize/demonstrate understanding of assistive devices/modifications for ADL. 3=Patient will improve strength/tolerance for activity to enable patient to perform ADL's. OT Education/Plan Discharge Recommendations Plan/Recommendations: Continue POC Treatment Plan/Plan of Care Patient would benefit from OT for education, treatment and training to promote independence in ADL's, mobility, safety and/or upper extremity function for ADL's. Plan of Care: ADL Retraining, Cognitive Retraining, Concurrent Therapy, Functional Mobility, Group Exercise/Act as Ind, UE Funct Exercise/Act, W/C Management Training Treatment Duration: Jan 22, 2023 Frequency: At least 5 of 7 days/Wk (IRF) Estimated Hrs Per Day: 1.5 hours per day Rehab Potential: Good Time Start Time: 13:15 Stop Time: 13:30 DATE: Dec 31, 2022 Total Time Billed (hr/min): 15 Billed Treatment Time visit, 15 minutes exercise LANG CELESTE OT Dec 31, 2022 14:51
--- NOTE | 2022-12-31 15:11 | Physical Therapy Progress Note ---
Therapy Progress Note Patient has mobility limitation that significantly impairs her ability to participate in one or more mobility-related activities of daily living (MRADL) in the home. Patient is able to safely use walker and functional mobility deficit can be sufficiently resolved with the use of a walker. Patient has no need for a cane or wheelchair at this time. SANTANA OATES PSYCHOTHERAPIST Dec 31, 2022 15:11
--- NOTE | 2022-12-31 15:26 | Occupational Ther Daily Note ---
OT Current Status-Daily Note Subjective Pt alert and cooperative, pt sitting up in chair upon arrival. Pain and stiffness mentioned at beginning of treatment, pt couldn't rate it. ADL-Treatment Pt ambulated to bathroom from chair with FWW, CGA. Pt completed toilet transfer with CGA. Pt completed toileti hygiene independently. Pt transferred to shower bench and doffed clothing. Pt bathed/showered self with supervision when standing. Pt dried self off, and therapist put telemetry back on and pt completed upper body dressing dressing with set up assist. Pt transferred out of shower to chair in bathroom with CGA, FWW. Pt is Shakir with donning brief and lower body dressing, requiring help threading pants over L Leg only, due to pain and swelling in that Leg. Pt stood with FWW, CGA to pull up brief and pants. Pt ambulated with FWW, CGA to sink, stood and completed grooming and oral hygiene. Pt ambulated with FWW, working on functional mobility, endurance. Pt left in chair in room, all needs met, call light and phone within reach. Therapy Code Descriptions/Definitions Functional [place] Measure: 0=Not Assessed/NA 4=Minimal Assistance 1=Total Assistance 5=Supervision or Setup 2=Maximal Assistance 6=Modified [place] 3=Moderate Assistance 7=Complete IndependenceSCALE: Activities may be completed with or without assistive devices. 2-Hterysardp-kulqpdq completes the activity by him/herself with no assistance from a helper. 5-Set-up or Clean-up Assistance-helper sets up or cleans up; patient completes activity. [place] assists only prior to or following the activity. 4-Supervision or Touching Assistance-helper provides verbal cues and/or touching/steadying and/or contact guard assistance as patient completes activity. Assistance may be provided throughout the activity or intermittently. 3-Partial/Moderate Assistance-helper does LESS THAN HALF the effort. [place] lifts, holds or supports trunk or limbs, but provides less than half the effort. 2-Substantial/Maximal Assistance-helper does MORE THAN HALF the effort. [place] lifts or holds trunk or limbs and provides more than half the effort. 6-Elhwqdcea-jlnyqq does ALL the effort. Patient does none of the effort to complete the activity. Or, the assistance of 2 or more helpers is required for the patient to complete the activity. If activity was not attempted, code reason: 7-Patient Refused. 9-Not Applicable-not attempted and the patient did not perform the activity before the current illness, exacerbation or injury. 10-Not Attempted due to Environmental Limitations-(lack of equipment, weather restraints, etc.). 88-Not Attempted due to Medical Conditions or Safety Concerns. Eating (QC): 6 Oral Hygiene (QC): 4 (CGA) Shower/Bathe Self (QC): 4 Upper Body Dressing (QC): 5 Lower Body Dressing (QC): 3 (Shakir) On/Off Footwear: 3 Toileting Hygiene (QC): 6 BIMS CAM BIMS Expression of Ideas and Wants: Without Difficulty Understanding Verbal Content: Understands IRF VERITO BIMS: IRF VERITO BIMS Response (Comments) Value Repitition of Three Words Three 3 Recalls Socks Yes, No Cue Required 2 Recalls Blue Yes, No Cue Required 2 Recalls Bed Yes, After Cueing 1 Year Correct 3 Month Accurate Within 5 Days 2 Day Correct 1 Total 14 Patient Normally Able to Recal: Current Session, Location of own room, Staff Names and faces, That he/she in a [facility] Should Staff Asses. Mental St.: No CAM Mental Status Change/Baseline: 0 Inattention: 0 Disorganized thinkin Altered level of consciousness: 0 OT Short Term Goals Short Term Goals Time Frame: Dec 29, 2022 Eatin Oral hygiene: 5 Upper body dressin OT Alf Goals Alf Goals Time Frame: Jan 22, 2023 Acute change in mental status: 0 Inattention: 0 Disorganized thinkin Altered level of consciousness: 0 Eating (QC): 6 (met) Oral Hygiene (QC): 6 (notmet) Toileting Hygiene (QC): 6 Shower/Bathe Self (QC): 6 Upper Body Dressing (QC): 6 Lower Body Dressing (QC): 6 On/Off Footwear (QC): 6 1=Demonstrate adherence to instructed precautions during ADL tasks. 2=Patient will verbalize/demonstrate understanding of assistive devices/modifications for ADL. 3=Patient will improve strength/tolerance for activity to enable patient to perform ADL's. OT Education/Plan Problem List/Assessment Assessment: Decreased Activ Tolerance, Decreased Safety Aware Discharge Recommendations Plan/Recommendations: Continue POC Treatment Plan/Plan of Care Patient would benefit from OT for education, treatment and training to promote independence in ADL's, mobility, safety and/or upper extremity function for ADL's. Plan of Care: ADL Retraining, Cognitive Retraining, Concurrent Therapy, Functional Mobility, Group Exercise/Act as Ind, UE Funct Exercise/Act, W/C Management Training Treatment Duration: Jan 22, 2023 Frequency: At least 5 of 7 days/Wk (IRF) Estimated Hrs Per Day: 1.5 hours per day Rehab Potential: Good Time Start Time: 09:00 Stop Time: 10:00 DATE: Dec 31, 2022 Total Time Billed (hr/min): 60 Billed Treatment Time 1 visit ADL 4 (60) Danyelle Macias COTA Dec 31, 2022 15:26
--- NOTE | 2022-12-31 17:39 | Progress Note - Cardiology ---
Cardiology SOAP Progress Note Subjective: No cp or palp or syncope or shortness of breath Denies focal weakness Some gen weakness present No n/v/d Objective: I&O/Vital Signs 12/31/22 12/31/22 12/31/22 12/31/22 07:00 08:00 09:15 13:00 Temp 36.7 Pulse 73 75 79 Resp 16 B/P (MAP) 133/71 (91) Pulse Ox 92 O2 Delivery Room Air Room Air 12/31/22 00:00 Intake Total 800 ml Balance 800 ml Constitutional: AAO x 3, well-developed, well-nourished Respiratory: No accessory muscle use, No respiratory distress; chest expansion is symmetric, chest is bilaterally symmetric, other (prolonged exp phase) Cardiovascular: regular rate-rhythm; No JVD; S1 and S2 Gastrointestional: No tender; soft, round; No guarding; audible bowel sounds Extremities: other (mild bilat LE swelling - LAURIE hose in place) Neurologic/Psychiatric: other (moves all extremities) Skin: No rash on exposed areas, No ulcerations on exposed areas A/P: Assessment: S/P fall resulting in L hip fracture on 12-18-22 - S/P L hip IM nail by Dr. Mueller on 12-19-22 TIA - 12-21-22 - CT of the head showed no acute findings - d/t resolution of symptoms [facility] stroke team did not advise TPA - management per Dr. Gan Carotid dz: - Carotid u/s of 12-21-22: There is interval progression of stenosis involving the ECA with increased velocities. There is roughly 50-69% stenosis involving the right ECA and greater than 70% stenosis but less than near occlusion involving the left ECA. The remainder of the bilateral carotid arteries shows atherosclerotic disease without significant Doppler grayscale stenosis. TAA and AAA - Per CT of the abdomen on 12-18-22: Thoracic and abdominal aortic aneurysm measures up to 5 cm. Echocardiogram of 12-22-[address] Gurrola (cardiology locum) showed LVEF 55-60%. Mitral valve annulus mild to mod calcified. AoV thickening, consistent with sclerosis. Trivial TR. No pericardial effusion. COPD H/O tobaccoism - quit smoking approx 3 months ago Plan: Probable TIA which is likely secondary to carotid dz - continue Plavix and ASA AAA and TAA seen on CT of abdomen Advise out pt f/u with CV services Continue current medication regimen Advise continued smoking cessation IRIS ESCALONA MD FACP FAC CCDS Dec 31, 2022 17:39
[2022-12-31 20:32] VITALS: BP 114/64
[2022-12-31] MEDS: ROSUVASTATIN 10 MG (CRESTOR) TABLET PO SCH (21:01)
[2023-01-01] MEDS ORDERED: SNN187T PO (05:49)
[2023-01-01] MEDS ORDERED: CLOP75TA28 PO (05:49)
[2023-01-01] MEDS ORDERED: NICO-587 TD (05:49)
[2023-01-01] MEDS ORDERED: ALPR1TAB7 PO ×3 (05:49)
[2023-01-01] MEDS ORDERED: ONDA4TAB11 PO (05:49)
[2023-01-01] MEDS ORDERED: LORA10TA76 PO (05:49)
[2023-01-01] MEDS ORDERED: ROSU10TA28 PO (05:49)
[2023-01-01] MEDS ORDERED: ASPI-1238 PO (05:49)
[2023-01-01] MEDS ORDERED: ACHD5005 PO (05:49)
[2023-01-01] MEDS ORDERED: OMEP20TA56 PO (05:49)
--- NOTE | 2023-01-01 05:50 | D/C HH Face to Face Order ---
D/C HH Face to Face Orders Reconcile Patient Problems Problems Reviewed?: Yes Instructions for Patient HH Patient Instructions/FollowUp: pcp 1 week Physician to follow Patient: Iva Discharge Diet for Home: No Restrictions Patient Problems: hip fx cva Patient Data-Allergies,Ht & Wt Patient Allergies: Coded Allergies: Penicillins (Verified Allergy, Unknown, 07/30/20) Uncoded Allergies: WASP AND BEE STINGS (Allergy, Unknown, 07/30/20) Home Health Need/Face to Face Date of Face to Face: Jan 01, 2023 Clinical Findings: Generalized weakness and fatigue, Instability, Muscle weakness I have seen Pt [id number]: Yes Discharged To: Home Diagnosis/Conditions: hip fx Patient is Homebound due to: CognItive deficits, Albino fall risk due to instabilty, Muscle weakness Homebound Status Due to the above stated illness, injury or surgical procedure (medical condition or diagnosis) and associated clinical findings, the patient is homebound because of his/her inability to leave home except with aid of a supportive device and/or person AND leaving the home requires a considerable and taxing effort or is medically contraindicated. Pt req the following assistanc: [facility] Nursing Orders Home Health Services Order: Nursing Services, Smelter Operator-Evaluate & Treat, Physical Therapy-Evaluate & Treat Certify Stmt I certify that this patient is under my care and that I, a nurse practitioner or a physician; a application assistant working with me, had a face to face encounter that - meets the physician face to face encounter requirements with this patient as dated. SOHAM LEBLANC DO Jan 01, 2023 05:50
--- NOTE | 2023-01-01 05:51 | Discharge Summary ---
Diagnosis/Chief Complaint Date of Admission Dec 21, 2022 at 11:44 Date of Discharge Discharge Date: Jan 01, 2023 Discharge Diagnosis Assessment: Left hip fracture with residual debility Acute neurological deficit with signs consistent with CVA NIH score 17 prompting ICU transfer a few hours after admission but resolved spontaneously so maintained on aspirin Plavix and statin COPD Current smoker Frail status Advanced age Hyperlipidemia Anxiety Vitamin D deficiency Aortic aneurysm chronic Hypertension Plan: Supportive care Monitor closely Fall risk Pain control ICU transfer for neurological deficit 12/22/2022: Aggressive rehab Supportive care 12/23/2022: Cardiothoracic surgery appointment for carotid stenosis 12/24/2022: Supportive care Monitor closely 12/25/2022: Supportive care Pain control 12/26/2022: Continue aggressive care Monitor closely 12/27/2022: Supportive care Aggressive rehab 12/28/2022: Supportive care Maintain Plavix 12/29/2022: Much improved status 12/30/2022: Supportive care Cardiology consult 12/31/2022: Needs follow-up with cardiology Cardiothoracic surgery appointment for carotid stenosis (1) Hip fracture, left (2) Tobacco abuse Status: Acute (3) Thoracic aortic aneurysm (TAA) Status: Acute Discharge Summary Discharge Physical Examination Allergies: Coded Allergies: Penicillins (Verified Allergy, Unknown, 07/30/20) Uncoded Allergies: WASP AND BEE STINGS (Allergy, Unknown, 07/30/20) Vitals & I&Os Vital Signs Date Time Temp Pulse Resp B/P (MAP) Pulse Ox O2 Delivery O2 Flow Rate FiO2 01/01/23 19:46 36.6 77 16 131/61 95 Room Air 12/28/22 18:28 21 General Appearance: Alert, Oriented X3, Cooperative Respiratory: Clear to Auscultation Cardiovascular: Regular Rate Psych/Mental Status: Mental Status NL Hospital Course Was the Problem List Reviewed?: Yes Patient had a standard but slight complicated course after she was admitted following hip fracture but a few hours after she arrived in [facility]U she suffered an neuro deficit thought to be from CVA with NIH score of 16 with left sided weakness so she was immediately moved to ICU but signs of CVA resolved and carotid stenosis dx and placed on Plavix ASA and statin with good results. She will have appt for assessment of that as outpatient. Overall she was able to participate in therapy and regain function and was able to DC home with daughter with HH. Labs (last 24 hrs) Laboratory Tests 12/21/22 13:45: Glucometer 130H 12/21/22 14:10: White Blood Count 10.5, Red Blood Count 3.62L, Hemoglobin 11.4L, Hematocrit 36, Mean Corpuscular Volume 98, Mean Corpuscular Hemoglobin 32, Mean Corpuscular Hemoglobin Concent 32, Red Cell Distribution Width 13.1, Platelet Count 194, Mean Platelet Volume 10.7, Immature Granulocyte % (Auto) 0, Neutrophils (%) (Auto) 76H, Lymphocytes (%) (Auto) 12, Monocytes (%) (Auto) 11, Eosinophils (%) (Auto) 0, Basophils (%) (Auto) 0, Neutrophils # (Auto) 8.1H, Lymphocytes # (Auto) 1.3, Monocytes # (Auto) 1.1H, Eosinophils # (Auto) 0.0, Basophils # (Auto) 0.0, Immature Granulocyte # (Auto) 0.0, Prothrombin Time 14.0, INR Comment 1.1, Activated Partial Thromboplast Time 38H, D-Dimer 5.05H, Sodium Level 140, Potassium Level 3.7, Chloride Level 101, Carbon Dioxide Level 31, Anion Gap 8, Blood Urea Nitrogen 14, Creatinine 0.84, Estimat Glomerular Filtration Rate 68, BUN/Creatinine Ratio 17, Glucose Level 130H, Calcium Level 9.0, Corrected Calcium 9.5, Total Bilirubin 0.7, Aspartate Amino Transf (AST/SGOT) 27, Alanine Aminotransferase (ALT/SGPT) 10, Alkaline Phosphatase 119, Troponin I < 0.028, Total Protein 6.0L, Albumin 3.4 12/22/22 22:54: Urine Color YELLOW, Urine Clarity SL CLOUDY, Urine pH 7.0, Urine Specific [place] 1.020, Urine Protein TRACEH, Urine Glucose (UA) NEGATIVE, Urine Ketones NEGATIVE, Urine Nitrite NEGATIVE, Urine Bilirubin NEGATIVE, Urine Urobilinogen 0.2, Urine Leukocyte Esterase NEGATIVE, Urine RBC (Auto) 2+H, Urine RBC 2-5H, Urine WBC 0-2, Urine Crystals NONE, Urine Bacteria NEGATIVE, Urine Casts PRESENT, Urine Hyaline Casts 0-2H, Urine Mucus NO, Urine Culture Indicated NO 12/28/22 05:37: White Blood Count 8.6, Red Blood Count 3.41L, Hemoglobin 10.8L, Hematocrit 34L, Mean Corpuscular Volume 99, Mean Corpuscular Hemoglobin 32, Mean Corpuscular Hemoglobin Concent 32, Red Cell Distribution Width 13.8, Platelet Count 415H, Me an Platelet Volume 9.6, Immature Granulocyte % (Auto) 1, Neutrophils (%) (Auto) 62, Lymphocytes (%) (Auto) 23, Monocytes (%) (Auto) 10, Eosinophils (%) (Auto) 3, Basophils (%) (Auto) 1, Neutrophils # (Auto) 5.3, Lymphocytes # (Auto) 2.0, Monocytes # (Auto) 0.9, Eosinophils # (Auto) 0.3, Basophils # (Auto) 0.1, Immature Granulocyte # (Auto) 0.1, Sodium Level 139, Potassium Level 4.1, Chloride Level 104, Carbon Dioxide Level 26, Anion Gap 9, Blood Urea Nitrogen 28H, Creatinine 1.10, Estimat Glomerular Filtration Rate 50, BUN/Creatinine Ratio 25, Glucose Level 107H, Calcium Level 9.1, Corrected Calcium 9.7, Total Bilirubin 0.5, Aspartate Amino Transf (AST/SGOT) 49H, Alanine Aminotransferase (ALT/SGPT) 29, Alkaline Phosphatase 142H, Total Protein 5.8L, Albumin 3.2 Pending Labs Laboratory Tests 12/21/22 13:45: Glucometer 130 12/21/22 14:10: White Blood Count 10.5, Red Blood Count 3.62, Hemoglobin 11.4, Hematocrit 36, Mean Corpuscular Volume 98, Mean Corpuscular Hemoglobin 32, Mean Corpuscular Hemoglobin Concent 32, Red Cell Distribution Width 13.1, Platelet Count 194, Mean Platelet Volume 10.7, Immature Granulocyte % (Auto) 0, Neutrophils (%) (Auto) 76, Lymphocytes (%) (Auto) 12, Monocytes (%) (Auto) 11, Eosinophils (%) (Auto) 0, Basophils (%) (Auto) 0, Neutrophils # (Auto) 8.1, Lymphocytes # (Auto) 1.3, Monocytes # (Auto) 1.1, Eosinophils # (Auto) 0.0, Basophils # (Auto) 0.0, Immature Granulocyte # (Auto) 0.0, Prothrombin Time 14.0, INR Comment 1.1, Activated Partial Thromboplast Time 38, D-Dimer 5.05, Sodium Level 140, Potassium Level 3.7, Chloride Level 101, Carbon Dioxide Level 31, Anion Gap 8, Blood Urea Nitrogen 14, Creatinine 0.84, Estimat Glomerular Filtration Rate 68, BUN/Creatinine Ratio 17, Glucose Level 130, Calcium Level 9.0, Corrected Calcium 9.5, Total Bilirubin 0.7, Aspartate Amino Transf (AST/SGOT) 27, Alanine Aminotransferase (ALT/SGPT) 10, Alkaline Phosphatase 119, Troponin I < 0.028, Total Protein 6.0, Albumin 3.4 12/22/22 22:54: Urine Color YELLOW, Urine Clarity SL CLOUDY, Urine pH 7.0, Urine Specific [place] 1.020, Urine Protein TRACE, Urine Glucose (UA) NEGATIVE, Urine Ketones NEGATIVE, Urine Nitrite NEGATIVE, Urine Bilirubin NEGATIVE, Urine Urobilinogen 0.2, Urine Leukocyte Esterase NEGATIVE, Urine RBC (Auto) 2+, Urine RBC 2-5, Urine WBC 0-2, Urine Crystals NONE, Urine Bacteria NEGATIVE, Urine Casts PRESENT, Urine Hyaline Casts 0-2, Urine Mucus NO, Urine Culture Indicated NO 12/28/22 05:37: White Blood Count 8.6, Red Blood Count 3.41, Hemoglobin 10.8, Hematocrit 34, Mean Corpuscular Volume 99, Mean Corpuscular Hemoglobin 32, Mean Corpuscular Hemoglobin Concent 32, Red Cell Distribution Width 13.8, Platelet Count 415, Mean Platelet Volume 9.6, Immature Granulocyte % (Auto) 1, Neutrophils (%) (Auto) 62, Lymphocytes (%) (Auto) 23, Monocytes (%) (Auto) 10, Eosinophils (%) (Auto) 3, Basophils (%) (Auto) 1, Neutrophils # (Auto) 5.3, Lymphocytes # (Auto) 2.0, Monocytes # (Auto) 0.9, Eosinophils # (Auto) 0.3, Basophils # (Auto) 0.1, Immature Granulocyte # (Auto) 0.1, Sodium Level 139, Potassium Level 4.1, Chloride Level 104, Carbon Dioxide Level 26, Anion Gap 9, Blood Urea Nitrogen 28, Creatinine 1.10, Estimat Glomerular Filtration Rate 50, BUN/Creatinine Ratio 25, Glucose Level 107, Calcium Level 9.1, Corrected Calcium 9.7, Total Bilirubin 0.5, Aspartate Amino Transf (AST/SGOT) 49, Alanine Aminotransferase (ALT/SGPT) 29, Alkaline Phosphatase 142, Total Protein 5.8, Albumin 3.2 Discharge Home Medications: Active Scripts Active Nicotine Patch (Nicotine) 7 Mg/24 Hour Patch.td24 7 Mg TD DAILY Ondansetron Odt (Ondansetron) 4 Mg Tab.rapdis 4 Mg PO Q6H PRN Senna Lax (Sennosides) 8.6 Mg Tablet 8.6 Mg PO BID Hydrocodone-Acetamin 5-325 mg (Hydrocodone/Acetaminophen) 5 Mg-325 Mg Tablet 1 Ea PO Q4H PRN Aspirin EC (Aspirin) 81 Mg Tablet.dr 81 Mg PO DAILY Clopidogrel (Clopidogrel Bisulfate) 75 Mg Tablet 75 Mg PO DAILY Claritin (Loratadine) 10 Mg Tablet 10 Mg PO DAILY Alprazolam 1 Mg Tablet 0.5 Mg PO HS Alprazolam 1 Mg Tablet 0.5 Mg PO 1200 Alprazolam 1 Mg Tablet 1 Mg PO DAILY Omeprazole 20 Mg Tablet.dr 20 Mg PO DAILY Rosuvastatin Calcium 10 Mg Tablet 10 Mg PO DAILY Iprat-Albut 0.5-3(2.5) mg/3 ml (Ipratropium/Albuterol Sulfate) 0.5 Mg-3 Mg (2.5 Mg Base)/3 Ml Ampul.neb 3 Ml INH RTQ6HR PRN 30 Days Reported Super B Maxi Complex Caplet (Vitamin B Complex/Folic Acid) 0.4 Mg Tablet 0.4 Mg PO DAILY Vitamin D3 (Cholecalciferol (Vitamin D3)) 25 Mcg (1000 Unit) Capsule 25 Mcg PO DAILY Vitamin C 500 mg Tablet Chew (Ascorbic Acid/Ascorbate Sodium) 500 Mg Tab.chew 1,000 Mg PO DAILY TAKES 2 (500MG) TAB Probiotic Pearls Women's Sfgl (L. Acidoph/L. Plantar/L. Rhamn) 1 Billion Cell Capsule.dr 1 Each PO DAILY Systane 0.3-0.4% Eye Drops (Propylene Glycol/Peg 400/Pf) 0.3 %-0.4 % Droperette 1 Drop OU BID Instructions to patient/family Please see electronic discharge instructions given to patient. Diagnosis/Problems Diagnosis/Problems (1) Hip fracture, left (2) Tobacco abuse Status: Acute (3) Thoracic aortic aneurysm (TAA) Status: Acute SOHAM LEBLANC DO Jan 01, 2023 05:51
[2023-01-01] MEDS: HYDROcodone/APAP 5 MG/325 MG (LORTAB) TAB PO PRN (06:31)
[2023-01-01 07:55] VITALS: BP 131/61
[2023-01-01] MEDS: ALPRAZolam 1 MG (XANAX) TAB PO SCH (08:32)
[2023-01-01] MEDS: ASPIRIN E.C. 81 MG (ECOTRIN) TAB PO SCH (08:32)
[2023-01-01] MEDS: CLOPIDOGREL 75 MG (PLAVIX) TABLET PO SCH (08:32)
[2023-01-01] MEDS: LORATADINE (CLARITIN) 10 MG TAB PO SCH (08:32)
[2023-01-01] MEDS: ENOXAPARIN INJECTION 30 MG/0.3 ML SYR SC SCH (08:34)
[2023-01-01] MEDS: polyethylene glycoL POWDER 17 GM (MIRALAX) PACK PO SCH (08:34)
[2023-01-01] MEDS: DOCUSATE SODIUM 100 MG (COLACE) CAP PO SCH (08:34)
[2023-01-01] MEDS: SENNOSIDES 8.6 MG (SENOKOT) TAB PO SCH (08:35)
--- NOTE | 2023-01-01 11:04 | Progress Note - Cardiology ---
Cardiology SOAP Progress Note Subjective: No c/o Going home today Objective: I&O/Vital Signs 01/01/23 01/01/23 01/01/23 01/01/23 01:00 07:00 07:55 09:00 Temp 36.6 Pulse 80 71 72 Resp 16 B/P (MAP) 131/61 (84) Pulse Ox 95 O2 Delivery Room Air Room Air 01/01/23 00:00 Intake Total 980 ml Balance 980 ml Constitutional: AAO x 3, well-developed, well-nourished Respiratory: No accessory muscle use, No respiratory distress; chest expansion is symmetric, chest is bilaterally symmetric, other (prolonged exp phase) Cardiovascular: regular rate-rhythm; No JVD; S1 and S2 Gastrointestional: No tender; soft, round; No guarding; audible bowel sounds Extremities: other (mild bilat LE swelling - LAURIE hose in place) Neurologic/Psychiatric: other (moves all extremities) Skin: No rash on exposed areas, No ulcerations on exposed areas A/P: Assessment: S/P fall resulting in L hip fracture on 12-18-22 - S/P L hip IM nail by Dr. Mueller on 12-19-22 TIA - 12-21-22 - CT of the head showed no acute findings - d/t resolution of symptoms [facility] stroke team did not advise TPA - management per Dr. Gan Carotid dz: - Carotid u/s of 12-21-22: There is interval progression of stenosis involving the ECA with increased velocities. There is roughly 50-69% stenosis involving the right ECA and greater than 70% stenosis but less than near occlusion involving the left ECA. The remainder of the bilateral carotid arteries shows atherosclerotic disease without significant Doppler grayscale stenosis. TAA and AAA - Per CT of the abdomen on 12-18-22: Thoracic and abdominal aortic aneurysm measures up to 5 cm. Echocardiogram of 12-22-[address] Gurrola (cardiology locum) showed LVEF 55-60%. Mitral valve annulus mild to mod calcified. AoV thickening, consistent with sclerosis. Trivial TR. No pericardial effusion. COPD H/O tobaccoism - quit smoking approx 3 months ago Plan: Probable TIA which is likely secondary to carotid dz - continue Plavix and ASA AAA and TAA seen on CT of abdomen Advise out pt f/u with CV services Continue current medication regimen Advise continued smoking cessation Out pt f/u REGINA ORTEGA Jan 01, 2023 11:04
[2023-01-01] MEDS: ALPRAZolam 0.5 MG (XANAX) TAB PO SCH (12:24)
[2023-01-01] MEDS ORDERED: NICO-586 TD (14:44)
[2023-01-01 19:12] VITALS: BP 117/63
[2023-01-01 19:46] VITALS: BP 131/61
--- NOTE | 2023-01-04 12:53 | Therapy Team Discharge Summary ---
Therapy Discharge Summary Discharge Recommendations Date of Discharge Jan 01, 2023 at 18:40 Physical Therapy Pt fell on 12/17/22, was unable to get up until the next day, when someone arrive d and helped her up. ED 12/18/22 with L hip comminuted intertrochantic fx of femur, s/p L hip IM nail on 12/19/22. Pt was admitted to ARU on 12/21/22. At [facility], pt reports she was Ind with no AD and driving. Pt reports she does own a FWW. Upon PT eval, pt was Min A for functional mobility, w/c mobility, and walking approximately 10ft with the FWW. PT focused on B LE strengthening, functional mobility, walking, safety, endurance, balance, and Ind. Pt progressed well with PT and met most set goals. Pt d/c from ARU to home with family assistance and HH on 01/01/23. D/C from PT. Roll Left to Right (QC): 5 Sit to Lying (QC): 4 Lying to Sitting/Side of Bed(Q: 5 Sit to Stand (QC): 5 Chair/Ygb-vb-Thjik Xfer(QC): 5 Toilet Transfer (QC): 5 Car Transfer (QC): 4 Does the Patient Walk: Yes Mode of Locomotion: Walk Anticipated Mode of Locomotion: Walk Walk 10 feet (QC): 5 Walk 50 ft with 2 Turns(QC): 5 Walk 150 ft (QC): 5 Walking 10ft on uneven surface: 5 Gait Assistive Device: FWW Does the Pt Use a Wheelchair: No Wheel 50 ft with 2 turns (QC): 9 Wheel 150 ft (QC): 9 Type of Wheelchair: N/A #of Steps: 4 1 Step (curb) (QC): 5 4 Steps (QC): 5 12 Steps (QC): 88 Walking Assistive Device: Walker Balance Sitting Static: Good Balance Sitting Dynamic: Fair Balance-Standing Static: Fair Picking up an Object (QC): 5 Occupational Therapy Decreased Activ Tolerance, Decreased Safety Aware Eating (QC): 6 Oral Hygiene (QC): 4 (CGA) Shower/Bathe Self (QC): 4 Upper Body Dressing (QC): 5 Lower Body Dressing (QC): 3 (Shakir) On/Off Footwear (QC): 3 Toileting Hygiene (QC): 6 PT Nursing Home Goals Nursing Home Goals PT Nursing Home Goals Time Frame: Jan 01, 2023 Roll Left to Right (QC): 6 Sit to Lying (QC): 6 Lying-Sitting on Side/Bed(QC): 6 Sit to Stand (QC): 4 Chair/Vog-ew-Drzlu Xfer(QC): 4 Toilet/Commode Transfer (QC): 4 Car Transfer (QC): 4 Does the Patient Walk: Yes Walk 10 feet (QC): 4 Walk 10ft-Uneven Surface(QC): 4 Walk 50ft with 2 Turns (QC): 4 Walk 150 ft (QC): 4 Does the Pt use WC or Scooter?: Yes Wheel 50 feet with 2 turns (QC: 4 Type: Manual Wheel 150 feet: 4 Type: Manual 1 Step (curb) (QC): 4 4 Steps (QC): 4 12 Steps (QC): 4 Picking up an Object (QC): 4 OT Nursing Home Goals Nursing Home Goals Time Frame: Jan 22, 2023 Acute change in mental status: 0 Inattention: 0 Disorganized thinkin Altered level of consciousness: 0 Eating (QC): 6 (met) Oral Hygiene (QC): 6 (notmet) Toileting Hygiene (QC): 6 Shower/Bathe Self (QC): 6 Upper Body Dressing (QC): 6 Lower Body Dressing (QC): 6 On/Off Footwear (QC): 6 1=Demonstrate adherence to instructed precautions during ADL tasks. 2=Patient will verbalize/demonstrate understanding of assistive d evices/modifications for ADL. 3=Patient will improve strength/tolerance for activity to enable patient to perform ADL's. Speech Administrative Assistant Data Entry Goals Administrative Assistant Data Entry Goals 1. Pt to complete mental manipulation tasks containing 3 components with 80% accuracy with min verbal cues. 2. Pt to follow basic directions with 80% accuracy with min verbal cues. 3. Pt to complete basic executive functioning tasks with 80% accuracy with min verbal cues. JOB VERGARA PT Jan 04, 2023 12:53
--- NOTE | 2023-01-04 14:56 | Therapy Team Discharge Summary ---
Therapy Discharge Summary Discharge Recommendations Date of Discharge Jan 01, 2023 at 18:40 Physical Therapy Roll Left to Right (QC): 5 Sit to Lying (QC): 4 Lying to Sitting/Side of Bed(Q: 5 Sit to Stand (QC): 5 Chair/Oeb-uu-Cqmxd Xfer(QC): 5 Toilet Transfer (QC): 5 Car Transfer (QC): 4 Does the Patient Walk: Yes Mode of Locomotion: Walk Anticipated Mode of Locomotion: Walk Walk 10 feet (QC): 5 Walk 50 ft with 2 Turns(QC): 5 Walk 150 ft (QC): 5 Walking 10ft on uneven surface: 5 Gait Assistive Device: FWW Does the Pt Use a Wheelchair: No Wheel 50 ft with 2 turns (QC): 9 Wheel 150 ft (QC): 9 Type of Wheelchair: N/A #of Steps: 4 1 Step (curb) (QC): 5 4 Steps (QC): 5 12 Steps (QC): 88 Walking Assistive Device: Walker Balance Sitting Static: Good Balance Sitting Dynamic: Fair Balance-Standing Static: Fair Picking up an Object (QC): 5 Occupational Therapy Pt fell on 12/17/22, was unable to get up until the next day, when someone arrived and helped her up. ED 12/18/22 with L hip comminuted intertrochantic fx of femur, s/p L hip IM nail on 12/19/22. Pt was admitted to ARU on 12/21/22. At [facility], pt reports she was Independent with no AD and driving. Pt reports she does own a FWW. Upon OT eval, pt was Min A for functional mobility, w/c mobility, and ADLS. OT focused on B UE strengthening, functional mobility, safety, endurance, balance, and ADL sequences Pt progressed well with OT and met most set goals. Pt d/c from ARU to home with family assistance and HH on 01/01/23. D/C from OT Decreased Activ Tolerance, Decreased Safety Aware Eating (QC): 6 Oral Hygiene (QC): 4 (CGA) Shower/Bathe Self (QC): 4 Upper Body Dressing (QC): 5 Lower Body Dressing (QC): 3 (Shakir) On/Off Footwear (QC): 3 Toileting Hygiene (QC): 6 PT [facility] Goals Manager Of Project Management Goals PT Manager Of Project Management Goals Time Frame: Jan 01, 2023 Roll Left to Right (QC): 6 Sit to Lying (QC): 6 Lying-Sitting on Side/Bed(QC): 6 Sit to Stand (QC): 4 Chair/Hpf-mw-Fwqnn Xfer(QC): 4 Toilet/Commode Transfer (QC): 4 Car Transfer (QC): 4 Does the Patient Walk: Yes Walk 10 feet (QC): 4 Walk 10ft-Uneven Surface(QC): 4 Walk 50ft with 2 Turns (QC): 4 Walk 150 ft (QC): 4 Does the Pt use WC or Scooter?: Yes Wheel 50 feet with 2 turns (QC: 4 Type: Manual Wheel 150 feet: 4 Type: Manual 1 Step (curb) (QC): 4 4 Steps (QC): 4 12 Steps (QC): 4 Picking up an Object (QC): 4 OT Chcf Goals Chcf Goals Time Frame: Jan 22, 2023 Acute change in mental status: 0 Inattention: 0 Disorganized thinkin Altered level of consciousness: 0 Eating (QC): 6 (met) Oral Hygiene (QC): 6 (notmet) Toileting Hygiene (QC): 6 Shower/Bathe Self (QC): 6 Upper Body Dressing (QC): 6 Lower Body Dressing (QC): 6 On/Off Footwear (QC): 6 1=Demonstrate adherence to instructed precautions during ADL tasks. 2=Patient will verbalize/demonstrate understanding of assistive devices/modifications for ADL. 3=Patient will improve strength/tolerance for activity to enable patient to perform ADL's. Speech Manager Of Project Management Goals Chcf Goals 1. Pt to complete mental manipulation tasks containing 3 components with 80% accuracy with min verbal cues. 2. Pt to follow basic directions with 80% accuracy with min verbal cues. 3. Pt to complete basic executive functioning tasks with 80% accuracy with min verbal cues. JOSE GONG OT Jan 04, 2023 14:56
== END 2023-01-01 18:40 | disposition home health service (06) | DRG 560 ==
PROVIDERS: ADMIT Internal Medicine; ATTEND Internal Medicine
DX: S72.142D Displaced intertrochanteric fracture of left femur, subsequent encounter for closed fracture with routine healing (principal); G45.9 Transient cerebral ischemic attack, unspecified; F17.200 Nicotine dependence, unspecified, uncomplicated; J44.9 Chronic obstructive pulmonary disease, unspecified; E78.00 Pure hypercholesterolemia, unspecified; M19.90 Unspecified osteoarthritis, unspecified site; F41.9 Anxiety disorder, unspecified; R54 Age-related physical debility; I71.20 Thoracic aortic aneurysm, without rupture, unspecified; I08.3 Combined rheumatic disorders of mitral, aortic and tricuspid valves; E55.9 Vitamin D deficiency, unspecified; Z88.0 Allergy status to penicillin; Z79.899 Other long term (current) drug therapy; Z91.81 History of falling; W19.XXXD Unspecified fall, subsequent encounter
CPT/HCPCS: 36415; 70450; 71045; 80053; 81000; 82947; 84484; 85025; 85379; 85610; 85730; 93005; 94760

== ENCOUNTER 2022-12-21 14:28 | Inpatient (IN) | payer MEDICARE ==
[~2022-12-21] VITALS: Ht 162.5 cm; Wt 55.0 kg
[2022-12-21] MEDS ORDERED: NS IV 500 ML 500 ML IV PRN ×2 (15:00→17:15)
[2022-12-21] MEDS ORDERED: ACETAMINOPHEN 325 MG TABLET PO PRN ×2 (15:00→21:30)
[2022-12-21] MEDS ORDERED: ONDANSETRON 4 MG (ZOFRAN) ORAL DISSOLVE TAB PO PRN (15:00)
[2022-12-21] MEDS ORDERED: MELATONIN 3 MG TABLET PO PRN ×2 (15:00→21:30)
[2022-12-21] MEDS ORDERED: MILK OF MAGNESIA 400 MG/5 ML 30 ML UDC PO PRN ×2 (15:00→21:30)
[2022-12-21] MEDS ORDERED: diphenhydrAMINE 50 MG/ML INJ (BENADRYL) IVP PRN (15:00)
[2022-12-21] MEDS ORDERED: ANTACID SUSP 30 ML UDC (MYLANTA) PO PRN ×2 (15:00→21:30)
[2022-12-21] MEDS ORDERED: BISACODYL 10 MG SUPP (DULCOLAX) PR PRN ×2 (15:00→21:30)
[2022-12-21] MEDS ORDERED: polyethylene glycoL POWDER 17 GM (MIRALAX) PACK PO PRN ×2 (15:00→21:30)
[2022-12-21] MEDS ORDERED: diphenhydrAMINE 25 MG TAB (BENADRYL) PO PRN (15:00)
[2022-12-21] MEDS ORDERED: LACTULOSE SYRUP 10GM/15ML (ENULOSE) 30ML UDC PO PRN ×2 (15:00→21:30)
[2022-12-21] MEDS ORDERED: ONDANSETRON 4 MG/2 ML (SDV) Z0FRAN IV PRN (15:00)
[2022-12-21] MEDS ORDERED: CALCIUM CARBONATE 500 MG (TUMS) TAB.CHEW PO PRN ×2 (15:00→21:30)
[2022-12-21] MEDS ORDERED: HYDROmorphone 2 MG/ML VIAL (DILAUDID) IV PRN (15:00)
[2022-12-21 15:09] VITALS: BP 130/63
[2022-12-21] MEDS ORDERED: RT-ALBUTEROL/IPRATROPIUM 3 ML (DUONEB) VIAL INH PRN ×2 (15:15→21:30)
[2022-12-21] MEDS: NS IV 1000 ML 1,000 ML IV SCH ×2 (15:39→17:22)
[2022-12-21] MEDS: ASPIRIN E.C. 81 MG (ECOTRIN) TAB PO NR ×2 (15:39→17:23)
--- NOTE | 2022-12-21 15:42 | Progress Note ---
Progress Note Pt was admitted to the ICU following acute mental status change in IRF while working with therapy. She was evaluated by RN and found to have an NIH of 17 due to garbled speech, right eye gazed, left upper and lower extremity weakness, and left facial droop. She was taken emergently to CT scan to rule out ICH. CT Head was read at negative. I examined patietn and NIH improved to 4. I Called and spoke with [facility] Stroke neurology about treatment options. They did not recommend TPA given improved symptoms. Recommended MRI in AM and ASA/Plavix if okay with surgery. I had preemptively spoken twith Dr Mueller regarding anticoagulation given recent surgery and he was ok with TPA if needed. KEYLA MEI MD Dec 21, 2022 15:42
[2022-12-21] MEDS ORDERED: HALOPERIDOL 5 MG/ML (HALDOL) VIAL IM PRN (16:00)
[2022-12-21] MEDS ORDERED: LORazepam INJ 2 MG/ML (ATIVAN) VIAL IVP PRN (16:00)
[2022-12-21] MEDS ORDERED: DexMEDEtomidine 250 ML DRIP 250 ML IV PRN (16:30)
--- NOTE | 2022-12-21 18:39 | Tele-ICU Consult ---
History of Present Illness History of Present Illness Date Seen by Provider: Dec 21, 2022 Time Seen by Provider: 15:12 Date of Admission History of Present Illness (Tele-ICU Physician , consultation as per request of PCP Service provided via interactive audio and video telecommunications E-CARE system to a patient admitted to ICU bed in [facility]. Available chart/ vitals / labs / Images reviewed H&P is from ER notes Patient's information available about PMH, Shx, Fhx allergy reviewed inEMR. ROS as per chart and RN report Now in ICU, hemodynamically stable Video assessment done using teleICU camera, rest of exam as per RN Discussed with RN. Hospital course: Acute mental status change - ? CVA vs TIA vs other - NIH of 17 due to garbled speech, right eye gazed, left upper and lower extremity weakness, and left facial droop - improved/resolved when arrived to ICU CTH - no new findings - as per notes - PCP discussed with " [facility] Stroke neurology about treatment options. They did not recommend TPA given improved symptoms" - MRI pending -neurocheck -ASA/Plavix Confusion , agitation - prn precedex , haldol for now - avoid sedatives s/p recent Intertrochanteric fracture of left hip AAA, thoracic aneurism od aorta - will not allow SBP > 160 , follow nwurostatuis Plans in collaboration with bedside consultants and IM MDs. Discussed with RN to reach out if any questions or concerns A total of 20 minutes of critical care time was devoted to this patient today, required to treat and/or prevent further deterioration of critical care condition ( as above ) . I am remotely monitoring this patient from another state. I am unable to do the bedside exam, and history/physical and pertinent information is taken from other notes in the computer and bedside staff. . Allergies and Home Medications Allergies Coded Allergies: Penicillins (Verified Allergy, Unknown, 07/30/20) Uncoded Allergies: WASP AND BEE STINGS (Allergy, Unknown, 07/30/20) Home Medications Alprazolam 1 Mg Tablet, 1 MG PO DAILY, (Reported) Alprazolam 1 Mg Tablet, 0.5 MG PO 1200, (Reported) Alprazolam 1 Mg Tablet, 0.5 MG PO HS, (Reported) Ascorbic Acid/Ascorbate Sodium 500 Mg Tab.chew, 1,000 MG PO DAILY, (Reported) TAKES 2 (500MG) TAB Cetirizine HCl 10 Mg Tablet, 10 MG PO HS, (Reported) Cholecalciferol (Vitamin D3) 25 Mcg (1000 Unit) Capsule, 25 MCG PO DAILY, (Reported) L. Acidoph/L. Plantar/L. Rhamn 1 Billion Cell Capsule.dr, 1 EACH PO DAILY, (Reported) Loratadine 10 Mg Tablet, 10 MG PO DAILY, (Reported) Nicotine 14 Mg/24 Hour Patch.td24, 14 MG TD DAILY, (Reported) Omeprazole 20 Mg Tablet.dr, 20 MG PO DAILY, (Reported) Propylene Glycol/Peg 400/Pf 0.3 %-0.4 % Droperette, 1 DROP OU BID, (Reported) Rosuvastatin Calcium 10 Mg Tablet, 10 MG PO DAILY, (Reported) Vitamin B Complex/Folic Acid 0.4 Mg Tablet, 0.4 MG PO DAILY, (Reported) Past Medical/Social/Family Hx Patient Social History Tobacco Use?: No Smoking Status: Former Smoker Use of E-Cig and/or Vaping dev: No Substance use?: No Alcohol Use?: No Pt stated abuse/neglect: Unable to obtain Immunizations Up To Date First/Initial COVID19 Vaccinat: DECEMBER Tetanus Booster (TDap): More Than 5 Years Hepatitis A: No Hepatitis B: No TB Skin Test: None Current Status status: No status: No Advance Directives: Unable to obtain Communicates: Verbally Primary Language: [place] Preferred Spoken Language: [place] Is interpretation needed?: No Sensory deficits: Hearing impairment Implanted or Applied Medical D: Orthopedic hardware Review of Systems Constitutional: see HPI Focused Exam Height, Weight, BMI Height: '" Weight: lbs. oz. kg; 18.78 BMI Method: Exam Exam Patient acknowledged, consented, and participated in this virtual visit which was conducted using real time audio/video Vital Signs Date Time Temp Pulse Resp B/P (MAP) Pulse Ox O2 Delivery O2 Flow Rate FiO2 12/21/22 18:00 85 14 186/88 (120) Room Air 12/21/22 16:00 99 Room Air 12/21/22 16:00 86 24 145/131 (133) 91 Room Air 12/21/22 15:49 80 12/21/22 15:16 36.6 Room Air 12/21/22 15:09 36.6 86 90 21 12/21/22 15:00 80 16 169/82 (111) 92 Room Air 12/21/22 14:49 37.3 12/21/22 14:30 100 Nasal Cannula 2.00 Height & Weight Height: '" Weight: lbs. oz. kg; 18.78 BMI Method: General Appearance: Other Assessment/Plan Assessment/Plan 1 GONZALO SANCHEZ MD Dec 21, 2022 18:39
--- NOTE | 2022-12-21 18:51 | History & Physical ---
History of Present Illness HPI/Chief Complaint Chief complaint: CVA/TIA while in inpatient rehab requiring ICU transfer for possible tPA HPI: This is an 82-year-old female who had just arrived in inpatient rehab to recover from hip fracture who began showing signs of stroke with NIH score of 17. She was immediately transferred up to the ICU and by the time she arrived her NIH score was 2. Currently she is doing much better and her grandson is at the bedside. She denies any significant new issues. She is slightly confused. CT without contrast did not show any evidence of stroke. MRI will be obtained tomorrow. She will go back to inpatient rehab. Aspirin and Plavix initiated. Source: patient, family, RN/MD, old records Exam Limitations: clinical condition Date Seen 12/21/22 Time Seen by a Provider: 19:00 Attending Physician Brad Enrique MD PCP Admitting Physician: Bety Haq MD Attending Physician: Bety Haq MD Referring Physician Date of Admission Dec 21, 2022 at 14:28 Home Medications & Allergies Home Medications Reviewed patient Home Medication Reconciliation performed by pharmacy medication reconciliations electronics repair technician and/or nursing. Patients Allergies have been reviewed. Allergies Allergies Coded Allergies Penicillins (Verified Allergy, Unknown, 07/30/20) Uncoded Allergies WASP AND BEE STINGS ( Allergy, Unknown, 07/30/20) Past Jdcjycn-Nbifzu-Eeyphe Hx Past Med/Social Hx: Reviewed Nursing Past Med/Soc Hx, Reviewed and Corrections made Patient Social History Marrital Status: single Employed/Student: retired Alcohol Use: Denies Use Smoking Status: Former Smoker Past Medical History Respiratory: COPD Currently Using CPAP: No Currently Using BIPAP: No Cardiac: Hypertension Family History No Pertinent Family Hx Review of Systems Constitutional: see HPI, malaise, weakness EENTM: no symptoms reported Respiratory: dyspnea on exertion Cardiovascular: no symptoms reported Gastrointestinal: no symptoms reported Musculoskeletal: back pain, joint pain Skin: see HPI Psychiatric/Neurological: Weakness Physical Exam Physical Exam Vital Signs Vital Signs - First Documented 12/21/22 12/21/22 12/21/22 12/21/22 14:30 14:49 15:00 15:09 Temp 37.3 Pulse 80 Resp 16 B/P (MAP) 169/82 (111) Pulse Ox 100 O2 Delivery Nasal Cannula O2 Flow Rate 2.00 FiO2 21 Capillary Refill : Height, Weight, BMI Height: '" Weight: lbs. oz. kg; 18.78 BMI Method: General Appearance: Chronically ill, Other Eyes: Bilateral Eye Normal Inspection, Bilateral Eye PERRL HEENT: PERRL/EOMI, Normal ENT Inspection, Pharynx Normal Neck: Full Range of Motion, Normal Inspection, Non Tender, Supple, Carotid Bruit Respiratory: Chest Non Tender, Lungs Clear, Normal Breath Sounds, No Accessory Muscle Use, No Respiratory Distress Cardiovascular: Regular Rate, Rhythm, No Edema, No Gallop, No JVD, No Murmur, Normal Peripheral Pulses Gastrointestinal: Normal Bowel Sounds, No Organomegaly, No Pulsatile Mass, Non Tender, Soft Back: Normal Inspection, No CVA Tenderness, No Vertebral Tenderness Extremity: Normal Capillary Refill, Normal Inspection, Normal Range of Motion, Non Tender, No Calf Tenderness, No Pedal Edema Neurologic/Psychiatric: Alert, No Motor/Sensory Deficits, Normal Mood/Affect, 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 Assessment/Plan Admission Diagnosis Assessment: CVA/TIA with NIH score of 17 while on inpatient rehab transfer to ICU NIH score of 2 Right hip fracture status post repair Advanced age COPD Confusion Plan: ICU MRI tomorrow Supportive care Inpatient rehab once stable Admission Status: Inpatient Order (span 2 midnights) Reason for Inpatient Admission: CVA/TIA SOHAM LEBLANC DO Dec 21, 2022 18:51
[2022-12-21] MEDS: SENNOSIDES 8.6 MG (SENOKOT) TAB PO SCH (20:08)
[2022-12-21] MEDS ORDERED: morphine INJ 4 MG/ML 1 ML (VIAL/SYRINGE) IVP PRN (21:30)
[2022-12-21] MEDS ORDERED: ONDANSETRON 4 MG/2 ML (SDV) Z0FRAN IVP PRN (21:30)
[2022-12-21] MEDS ORDERED: HYDROcodone/APAP 5 MG/325 MG (LORTAB) TAB PO PRN (21:30)
[2022-12-21] MEDS ORDERED: hydrALAZINE (APESOLINE) 20 MG/ML VIAL IV PRN (21:30)
[2022-12-21] MEDS ORDERED: NICOTINE 14 MG (NICODERM) PATCH TD PRN (21:30)
[2022-12-21] MEDS: DOCUSATE SODIUM 100 MG (COLACE) CAP PO SCH (21:45)
[2022-12-21] MEDS: RT-ALBUTEROL/IPRATROPIUM 3 ML (DUONEB) VIAL INH SCH (21:56)
[2022-12-22] MEDS: RT-ALBUTEROL/IPRATROPIUM 3 ML (DUONEB) VIAL INH SCH ×2 (03:09→07:30)
[2022-12-22 04:24] LABS: POTASSIUM 3.4 MMOL/L (3.6-5.0)
[2022-12-22 04:25] LABS: ALBUMIN 2.8 GM/DL (3.2-4.5)
[2022-12-22 04:27] LABS: TOTAL PROTEIN 4.9 GM/DL (6.4-8.2)
[2022-12-22] MEDS: NS IV 1000 ML 1,000 ML IV SCH ×2 (04:28→08:53)
[2022-12-22 04:29] LABS: BILIRUBIN,TOTAL 0.5 MG/DL (0.1-1.0)
[2022-12-22 04:30] LABS: PHOSPHORUS 2.3 MG/DL (2.3-4.7)
[2022-12-22 04:31] LABS: CREATININE SERUM 0.75 MG/DL (0.60-1.30)
[2022-12-22 04:34] LABS: MAGNESIUM 1.6 MG/DL (1.6-2.4)
[2022-12-22] MEDS: MAGNESIUM 1 GM/100 ML IVPB 100 ML IV SCH ×4 (04:44→07:48)
[2022-12-22 05:13] LABS: BASOPHILS % (AUTO) 0 % (0-10); EOSINOPHILS % (AUTO) 0 % (0-10); HEMATOCRIT 30 % (35-52); HEMOGLOBIN 9.5 g/dL (11.5-16.0); LYMPHOCYTES # (AUTO) 1.1 10^3/uL (1.0-4.0); LYMPHOCYTES % (AUTO) 14 % (12-44); MEAN CORPUSCULAR HEMOGLOBIN 32 pg (25-34); MEAN CORPUSCULAR HGB CONC 32 g/dL (32-36); MEAN CORPUSCULAR VOLUME 98 fL (80-99); MEAN PLATELET VOLUME 10.6 fL (9.0-12.2); MONOCYTES # (AUTO) 0.9 10^3/uL (0.0-1.0); MONOCYTES % (AUTO) 12 % (0-12); NEUTROPHILS # (AUTO) 5.6 10^3/uL (1.8-7.8); NEUTROPHILS % (AUTO) 73 % (42-75); PLATELET COUNT 163 10^3/uL (130-400); WHITE BLOOD COUNT 7.7 10^3/uL (4.3-11.0)
[2022-12-22] MEDS ORDERED: KCL 20 MEQ TAB (K-DUR) PO SCH ×2 (06:00)
[2022-12-22] MEDS ORDERED: KCL 20 MEQ TAB (K-DUR) PO ONE (06:00)
[2022-12-22] MEDS ORDERED: MAGNESIUM 1 GM/100 ML IVPB 100 ML IV SCH ×2 (06:00)
[2022-12-22] MEDS ORDERED: POTASSIUM CL 10MEQ/50ML IVPB 50 ML IV SCH ×2 (06:00)
[2022-12-22] MEDS ORDERED: ENOXAPARIN INJECTION 30 MG/0.3 ML SYR SC SCH (08:00)
--- NOTE | 2022-12-22 08:29 | Tele-ICU Progress Note ---
Subjective Date Seen by a Provider: Dec 22, 2022 Time Seen by a Provider: 08:23 Subjective/Events-last exam (Tele-ICU Physician , Progress Note ) Service provided via interactive audio and video telecommunications E-CARE system to a patient admitted to ICU bed in [facility]. Patient is seen today due to persistent need of ICU care Available chart/ vitals / labs / Images reviewed Video assessment done using teleICU camera, rest of exam as per RN Discussed with RN 82 yo F with garbled speech, possible TIA, has left sided weakness but imrproved, tPA not given, NIH score is 0 recent hip Fx, has thoracic anurysm of aorta On ASA/Plavix, on SQ Lovenox for DVT prophylaxsis Sepsis Event Evaluation Height, Weight, BMI Height: '" Weight: lbs. oz. kg; 18.78 BMI Method: Exam Exam Patient acknowledged, consented, and participated in this virtual visit which was conducted using real time audio/video Vital Signs Date Time Temp Pulse Resp B/P (MAP) Pulse Ox O2 Delivery O2 Flow Rate FiO2 12/22/22 08:05 97 Nasal Cannula 2.00 12/22/22 08:00 82 15 166/76 (106) 96 Nasal Cannula 2.00 12/22/22 07:35 35.9 12/22/22 07:31 95 Nasal Cannula 2.00 12/22/22 07:27 78 12/22/22 07:00 78 16 148/76 (100) Nasal Cannula 2.00 12/22/22 06:00 83 15 153/76 (101) 96 Nasal Cannula 2.00 12/22/22 05:00 80 13 135/68 (84) 98 Nasal Cannula 2.00 12/22/22 04:00 95 Nasal Cannula 2.00 12/22/22 04:00 84 14 150/68 (99) 95 Nasal Cannula 2.00 12/22/22 03:30 80 14 151/67 (105) 96 Nasal Cannula 2.00 12/22/22 03:09 95 Nasal Cannula 2.00 12/22/22 02:00 82 21 145/67 (97) 96 Nasal Cannula 2.00 12/22/22 01:00 80 12/22/22 01:00 80 12 163/75 (110) 98 Nasal Cannula 2.00 12/22/22 00:30 85 15 135/66 (97) 98 Nasal Cannula 2.00 12/22/22 00:00 85 21 154/78 (108) 95 Nasal Cannula 2.00 12/22/22 00:00 37.0 12/21/22 23:59 96 Nasal Cannula 2.00 12/21/22 23:00 81 15 132/67 (92) 96 Nasal Cannula 2.00 12/21/22 22:00 89 14 111/86 (96) 99 Nasal Cannula 2.00 12/21/22 21:56 96 Nasal Cannula 2.00 12/21/22 21:00 96 19 114/61 (82) 97 Nasal Cannula 2.00 12/21/22 20:19 91 Nasal Cannula 2.00 12/21/22 20:15 87 Room Air 12/21/22 20:07 37.7 Room Air 12/21/22 20:00 101 18 114/59 (79) Room Air 12/21/22 20:00 94 Room Air 12/21/22 19:15 92 15 144/78 (96) Room Air 12/21/22 19:00 89 19 168/78 (110) Room Air 12/21/22 19:00 90 12/21/22 18:00 85 14 186/88 (120) Room Air 12/21/22 16:00 99 Room Air 12/21/22 16:00 86 24 145/131 (133) 91 Room Air 12/21/22 15:49 80 12/21/22 15:16 36.6 Room Air 12/21/22 15:09 36.6 86 90 21 12/21/22 15:00 80 16 169/82 (111) 92 Room Air 12/21/22 14:49 37.3 12/21/22 14:30 100 Nasal Cannula 2.00 I & O 12/22/22 07:00 Intake Total 300 ml Output Total 300 ml Balance 0 ml Height & Weight Height: '" Weight: lbs. oz. kg; 18.78 BMI Method: General Appearance: No Apparent Distress, Chronically ill, Other HEENT: PERRL/EOMI, Normal ENT Inspection, Pharynx Normal Neck: Full Range of Motion, Normal Inspection, Non Tender, Supple, Carotid Bruit Respiratory: Chest Non Tender, Lungs Clear, Normal Breath Sounds, No Accessory Muscle Use, No Respiratory Distress Cardiovascular: Regular Rate, Rhythm, No Edema, No Gallop, No JVD, No Murmur, Normal Peripheral Pulses Gastrointestinal: normal bowel sounds, non tender, soft Extremity: Normal Capillary Refill, Normal Inspection, Normal Range of Motion, Non Tender, No Calf Tenderness, No Pedal Edema Neurologic/Psychiatric: Alert, Oriented x3, No Motor/Sensory Deficits, Normal Mood/Affect, stock handler II-XII Norm as Tested, Depressed Affect, Disoriented, Motor Weakness (Generalized) Skin: Normal Color, Warm/Dry Lymphatic: No Adenopathy Results Lab Laboratory Tests 12/22/22 04:07 12/22/22 05:02 Assessment/Plan Assessment/Plan TIA, continue on DPT, control BP, DVT and GIB prophylaxsis BP 166/76, not on any scheduled meds, will start on amlodipine 5 mg, Hx of AAA Critical Care: Critically Ill Patient JAIME NIETO MD Dec 22, 2022 08:29
[2022-12-22] MEDS: DOCUSATE SODIUM 100 MG (COLACE) CAP PO SCH (08:49)
[2022-12-22] MEDS: SENNOSIDES 8.6 MG (SENOKOT) TAB PO SCH (08:50)
--- NOTE | 2022-12-22 08:54 | Diagnostic Imaging Report ---
CHEST 1 VIEW, AP/PA ONLY Indication: Dyspnea Comparison: 12/21/2022 Findings: Capsular calcifications of the breast implants are unchanged. Visible lungs are clear. No pleural effusion or pneumothorax. Stable cardiac silhouette. Impression: 1. No acute cardiopulmonary process by portable radiography. Dictated by: Dictated on workstation # [id number]
[2022-12-22] MEDS ORDERED: LORATADINE (CLARITIN) 10 MG TAB PO SCH (09:00)
[2022-12-22] MEDS ORDERED: ALPRAZolam 0.5 MG (XANAX) TAB PO SCH (09:00)
[2022-12-22] MEDS ORDERED: CLOPIDOGREL 75 MG (PLAVIX) TABLET PO SCH (09:00)
[2022-12-22] MEDS ORDERED: ASPIRIN E.C. 81 MG (ECOTRIN) TAB PO SCH (09:00)
[2022-12-22] MEDS ORDERED: DOCUSATE SODIUM 100 MG (COLACE) CAP PO SCH (09:00)
[2022-12-22] MEDS ORDERED: SENNOSIDES 8.6 MG (SENOKOT) TAB PO SCH (09:00)
[2022-12-22] MEDS ORDERED: CLOP75TA28 PO (09:18)
[2022-12-22] MEDS ORDERED: IPRA3AMP31 INH (09:18)
[2022-12-22] MEDS ORDERED: ASPI-1238 PO (09:18)
--- NOTE | 2022-12-22 09:19 | Discharge Summary ---
Diagnosis/Chief Complaint Date of Admission Dec 21, 2022 at 14:28 Date of Discharge Discharge Date: Dec 22, 2022 Discharge Diagnosis Assessment: CVA/TIA with NIH score of 17 while on inpatient rehab transfer to ICU NIH score of 2Unable to obtain MRI due to recent hip fracture with sophia Right hip fracture status post repair on 12/19/2022 Advanced age Carotid stenosis COPD Confusion Discharge Summary Discharge Physical Examination Allergies: Coded Allergies: Penicillins (Verified Allergy, Unknown, 07/30/20) Uncoded Allergies: WASP AND BEE STINGS (Allergy, Unknown, 07/30/20) Vitals & I&Os Vital Signs Date Time Temp Pulse Resp B/P (MAP) Pulse Ox O2 Delivery O2 Flow Rate FiO2 12/22/22 09:55 12/22/22 09:00 85 14 95 Nasal Cannula 2.00 12/22/22 07:35 35.9 12/21/22 15:09 21 Hospital Course Was the Problem List Reviewed?: Yes Patient had a short course after she was moved from inpatient rehab to the ICU emergently due to stroke with NIH score of 17 but a few minutes later upon arrival to the ICU it was already down to a 2. Carotid stenosis was noted on carotid ultrasound which was in the external carotid artery. Plavix and aspirin and statin were initiated she was moved down to inpatient rehab again to further recover from hip fracture and then most recently TIA. Labs (last 24 hrs) Laboratory Tests 12/22/22 04:07: Sodium Level 141, Potassium Level 3.4L, Chloride Level 105, Carbon Dioxide Level 27, Anion Gap 9, Blood Urea Nitrogen 13, Creatinine 0.75, Estimat Glomerular Filtration Rate 78, BUN/Creatinine Ratio 17, Glucose Level 110H, Calcium Level 8.0L, Corrected Calcium 9.0, Phosphorus Level 2.3, Magnesium Level 1.6, Total Bilirubin 0.5, Aspartate Amino Transf (AST/SGOT) 24, Alanine Aminotransferase (ALT/SGPT) 10, Alkaline Phosphatase 95, Total Protein 4.9L, Albumin 2.8L, Triglycerides Level 58, Cholesterol Level 118, LDL Cholesterol Direct 59, VLDL Cholesterol 12, HDL Cholesterol 48 12/22/22 05:02: White Blood Count 7.7, Red Blood Count 3.02L, Hemoglobin 9.5L, Hematocrit 30L, Mean Corpuscular Volume 98, Mean Corpuscular Hemoglobin 32, Mean Corpuscular Hemoglobin Concent 32, Red Cell Distribution Width 13.1, Platelet Count 163, Mean Platelet Volume 10.6, Immature Granulocyte % (Auto) 1, Neutrophils (%) (Auto) 73, Lymphocytes (%) (Auto) 14, Monocytes (%) (Auto) 12, Eosinophils (%) (Auto) 0, Basophils (%) (Auto) 0, Neutrophils # (Auto) 5.6, Lymphocytes # (Auto) 1.1, Monocytes # (Auto) 0.9, Eosinophils # (Auto) 0.0, Basophils # (Auto) 0.0, Immature Granulocyte # (Auto) 0.0 Microbiology 12/21/22 MRSA Screen - Final, Complete MRSA not isolated Pending Labs Microbiology Date/Time Source Procedure Growth Status 12/21/22 15:00 Nasal MRSA Screen - Final MRSA not isolated Complete Laboratory Tests 12/22/22 04:07: Sodium Level 141, Potassium Level 3.4, Chloride Level 105, Carbon Dioxide Level 27, Anion Gap 9, Blood Urea Nitrogen 13, Creatinine 0.75, Estimat Glomerular Filtration Rate 78, BUN/Creatinine Ratio 17, Glucose Level 110, Calcium Level 8.0, Corrected Calcium 9.0, Phosphorus Level 2.3, Magnesium Level 1.6, Total Bilirubin 0.5, Aspartate Amino Transf (AST/SGOT) 24, Alanine Aminotransferase (ALT/SGPT) 10, Alkaline Phosphatase 95, Total Protein 4.9, Albumin 2.8, Triglycerides Level 58, Cholesterol Level 118, LDL Cholesterol Direct 59, VLDL Cholesterol 12, HDL Cholesterol 48 12/22/22 05:02: White Blood Count 7.7, Red Blood Count 3.02, Hemoglobin 9.5, Hematocrit 30, Mean Corpuscular Volume 98, Mean Corpuscular Hemoglobin 32, Mean Corpuscular Hemoglobin Concent 32, Red Cell Distribution Width 13.1, Platelet Count 163, Mean Platelet Volume 10.6, Immature Granulocyte % (Auto) 1, Neutrophils (%) (Auto) 73, Lymphocytes (%) (Auto) 14, Monocytes (%) (Auto) 12, Eosinophils (%) (Auto) 0, Basophils (%) (Auto) 0, Neutrophils # (Auto) 5.6, Lymphocytes # (Auto) 1.1, Monocytes # (Auto) 0.9, Eosinophils # (Auto) 0.0, Basophils # (Auto) 0.0, Immature Granulocyte # (Auto) 0.0 Discharge Home Medications: Active Scripts Active Aspirin EC (Aspirin) 81 Mg Tablet.dr 81 Mg PO DAILY 30 Days Clopidogrel (Clopidogrel Bisulfate) 75 Mg Tablet 75 Mg PO DAILY 30 Days Iprat-Albut 0.5-3(2.5) mg/3 ml (Ipratropium/Albuterol Sulfate) 0.5 Mg-3 Mg (2.5 Mg Base)/3 Ml Ampul.neb 3 Ml INH RTQ6HR PRN 30 Days Reported Claritin (Loratadine) 10 Mg Tablet 10 Mg PO DAILY Super B Maxi Complex Caplet (Vitamin B Complex/Folic Acid) 0.4 Mg Tablet 0.4 Mg PO DAILY Alprazolam 1 Mg Tablet 0.5 Mg PO HS Alprazolam 1 Mg Tablet 0.5 Mg PO 1200 Alprazolam 1 Mg Tablet 1 Mg PO DAILY Vitamin D3 (Cholecalciferol (Vitamin D3)) 25 Mcg (1000 Unit) Capsule 25 Mcg PO DAILY Vitamin C 500 mg Tablet Chew (Ascorbic Acid/Ascorbate Sodium) 500 Mg Tab.chew 1,000 Mg PO DAILY TAKES 2 (500MG) TAB Probiotic Pearls Women's Sfgl (L. Acidoph/L. Plantar/L. Rhamn) 1 Billion Cell Capsule.dr 1 Each PO DAILY Omeprazole 20 Mg Tablet.dr 20 Mg PO DAILY Systane 0.3-0.4% Eye Drops (Propylene Glycol/Peg 400/Pf) 0.3 %-0.4 % Droperette 1 Drop OU BID Nicotine Patch (Nicotine) 14 Mg/24 Hour Patch.td24 14 Mg TD DAILY Rosuvastatin Calcium 10 Mg Tablet 10 Mg PO DAILY Instructions to patient/family Please see electronic discharge instructions given to patient. SOHAM LEBLANC DO Dec 22, 2022 09:19
--- NOTE | 2022-12-22 09:22 | Physical Therapy Progress Note ---
Therapy Progress Note Patient returning to ARU on this date per physician. No evaluation initiated from transfer. BRITTANY ZHU PT Dec 22, 2022 09:21
--- NOTE | 2022-12-22 09:23 | Diagnostic Imaging Report ---
CLINICAL INDICATION: Patient with TIA. Patient has history of hypertension, dizziness, confusion, and memory loss. COMPARISON: Ultrasound carotid arteries dated 06/24/2021. EXAM: Real-time ultrasound carotid Doppler Duplex imaging was performed bilaterally with multiple Real-time grayscale images obtained in various projections. Additional spectral analysis and color Doppler duple images were also obtained. Peak systolic velocity, ICA/CCA peak systolic ratio, spectral analysis, and vascular morphology were studied. FINDINGS: ARTERY VELOCITY Right Left CCA 0.77 m/s 0.90 m/s ICA 1.31 m/s 1.41 m/s ECA 1.95 m/s 2.48 m/s ICA/CCA 1.7 1.6 VERT.ART Antegrade Antegrade There is heterogeneous atherosclerotic disease involving the bilateral carotid arteries with the bilateral ECA affected the most. There are elevated velocities involving the bilateral ECA. Previously, the right and left ECA peak systolic velocities were 0.81 and 0.86, respectively. IMPRESSION: 1: There is interval progression of stenosis involving the ECA with increased velocities. There is roughly 50-69% stenosis involving the right ECA and greater than 70% stenosis but less than near occlusion involving the left ECA. 2: The remainder of the bilateral carotid arteries shows atherosclerotic disease without significant Doppler grayscale stenosis. Dictated by: Dictated on workstation # [id number]
[2022-12-22] MEDS ORDERED: ROSUVASTATIN 10 MG (CRESTOR) TABLET PO SCH (21:00)
[2022-12-23] MEDS ORDERED: amLODIPine 5 MG (NORVASC) TAB PO SCH (09:00)
== END 2022-12-22 09:55 | DRG 69 ==
LOC: ICU 14:28
PROVIDERS: ADMIT Family Medicine; ATTEND Family Medicine
DX: G45.9 Transient cerebral ischemic attack, unspecified (principal); I65.23 Occlusion and stenosis of bilateral carotid arteries; R41.0 Disorientation, unspecified; R29.717 NIHSS score 17; S72.141D Displaced intertrochanteric fracture of right femur, subsequent encounter for closed fracture with routine healing; I71.40 Abdominal aortic aneurysm, without rupture, unspecified; I71.20 Thoracic aortic aneurysm, without rupture, unspecified; I10 Essential (primary) hypertension; Z66 Do not resuscitate; J44.9 Chronic obstructive pulmonary disease, unspecified; H91.90 Unspecified hearing loss, unspecified ear; Z87.891 Personal history of nicotine dependence; Z79.899 Other long term (current) drug therapy; Z79.02 Long term (current) use of antithrombotics/antiplatelets; Z79.82 Long term (current) use of aspirin; Z88.0 Allergy status to penicillin
CPT/HCPCS: 36415; 71045; 80053; 80061; 83735; 84100; 85025; 87081; 93306; 93880; 94640; 94664

== ENCOUNTER 2023-02-03 16:56 | Emergency (ER) | payer MEDICARE ==
[~2023-02-03 16:56] MED LIST changes: +ACHD5005 PO; +ASPI-1238 PO; +CLOP75TA28 PO; +IPRA3AMP31 INH; +NICO-586 TD; +ONDA4TAB11 PO; +SENN-341 PO
[2023-02-03] MEDS ORDERED: NS IV 500 ML 500 ML IV STA ×2 (17:27→20:23)
--- NOTE | 2023-02-03 17:29 | ED General ---
General Chief Complaint: Dizziness/Syncope Stated Complaint: LOW BP 85/58 Source of Information: Patient Exam Limitations: No Limitations (ANA MARÍA BARAHONA MD) History of Present Illness Date Seen by Provider: Feb 03, 2023 Time Seen by Provider: 16:58 Initial Comments 82-year-old female with past medical history most notable for hypertension, hyperlipidemia, and within the past couple months a hip fracture that was repaired coming in due to low blood pressure. It has been low off and on for 3 weeks. Her primary care provider started her on a blood pressure medicine to in crease her blood pressure, they are unsure what it was. They stopped taking this 2 weeks ago because her blood pressure was very elevated with it. Blood pressure typically in the mornings is in the 80s, she drinks plenty of fluids throughout the day, and they are typically able to get up to around 100 systolic by the end of the day. Today it has been lower for a slightly longer and home health wanted them to be evaluated in the ER. She feels generally weak, no passing out, no chest pain, fever, shortness of breath, abdominal pain, she did have an episode of nonbloody nonbilious vomiting earlier, no diarrhea, focal weakness or numbness, or any other concerns. She does endorse burning with urination. (ANA MARÍA BARAHONA MD) Allergies and Home Medications Allergies Coded Allergies: Penicillins (Verified Allergy, Unknown, 07/30/20) Sulfa (Sulfonamide Antibiotics) (Verified Allergy, Unknown, 02/03/23) Uncoded Allergies: WASP AND BEE STINGS (Allergy, Unknown, 07/30/20) Patient Home Medication List Home Medication List Reviewed: Yes (ANA MARÍA BARAHONA MD) Alprazolam (Alprazolam) 1 Mg Tablet, 1 MG PO DAILY Prescribed by: SOHAM LEBLANC on 01/01/23 0549 Alprazolam (Alprazolam) 1 Mg Tablet, 0.5 MG PO 1200 Prescribed by: SOHAM LEBLANC on 01/01/23 0549 Alprazolam (Alprazolam) 1 Mg Tablet, 0.5 MG PO HS Prescribed by: SOHAM LEBLANC on 01/01/23 0549 Ascorbic Acid/Ascorbate Sodium (Vitamin C 500 mg Tablet Chew) 500 Mg Tab.chew, 1,000 MG PO DAILY, (Reported) Entered as Reported by: Antonio Ross on 12/19/22348 Aspirin (Aspirin EC) 81 Mg Tablet.dr, 81 MG PO DAILY Prescribed by: SOHAM LEBLANC on 01/01/23548 Cholecalciferol (Vitamin D3) (Vitamin D3) 25 Mcg (1000 Unit) Capsule, 25 MCG PO DAILY, (Reported) Entered as Reported by: Antonio Ross on 12/19/22348 Clopidogrel Bisulfate (Clopidogrel) 75 Mg Tablet, 75 MG PO DAILY Prescribed by: SOHAM LEBLANC on 01/01/23548 Hydrocodone/Acetaminophen (Hydrocodone-Acetamin 5-325 mg) 5 Mg-325 Mg Tablet, 1 EA PO Q4H PRN for PAIN-MODERATE (5-7) Prescribed by: SOHAM LEBLANC on 01/01/23548 Ipratropium/Albuterol Sulfate (Iprat-Albut 0.5-3(2.5) mg/3 ml) 0.5 Mg-3 Mg (2.5 Mg Base)/3 Ml Ampul.neb, 3 ML INH RTQ6HR PRN for SOA/ WHEEZING Prescribed by: SOHAM LEBLANC on 12/22/22 0918 L. Acidoph/L. Plantar/L. Rhamn (Probiotic Pearls Women's Sfgl) 1 Billion Cell Capsule.dr, 1 EACH PO DAILY, (Reported) Entered as Reported by: Antonio Ross on 12/19/22348 Loratadine (Claritin) 10 Mg Tablet, 10 MG PO DAILY Prescribed by: SOHAM LEBLANC on 01/01/23 05 Nicotine (Nicotine Patch) 7 Mg/24 Hour Patch.td24, 7 MG TD DAILY Prescribed by: SOHAM LEBLANC on 01/01/23 1444 Omeprazole (Omeprazole) 20 Mg Tablet.dr, 20 MG PO DAILY Prescribed by: SOHAM LEBLANC on 01/01/23 05 Ondansetron (Ondansetron Odt) 4 Mg Tab.rapdis, 4 MG PO Q6H PRN for NAUSEA/VOMITING-1ST LINE Prescribed by: SOHAM LEBLANC on 01/01/23 05 Propylene Glycol/Peg 400/Pf (Systane 0.3-0.4% Eye Drops) 0.3 %-0.4 % Droperette, 1 DROP OU BID, (Reported) Entered as Reported by: Antonio Ross on 12/19/22 0349 Rosuvastatin Calcium (Rosuvastatin Calcium) 10 Mg Tablet, 10 MG PO DAILY Prescribed by: SOHAM LEBLANC on 01/01/23 0549 Sennosides (Senna Lax) 8.6 Mg Tablet, 8.6 MG PO BID Prescribed by: SOHAM LEBLANC on 01/01/23 0549 Vitamin B Complex/Folic Acid (Super B Maxi Complex Caplet) 0.4 Mg Tablet, 0.4 MG PO DAILY, (Reported) Entered as Reported by: TATYANA STEWART on 12/21/22 0900 Review of Systems Review of Systems Constitutional: No fever EENTM: no symptoms reported Respiratory: no symptoms reported Cardiovascular: see HPI Gastrointestinal: see HPI Genitourinary: no symptoms reported Musculoskeletal: no symptoms reported Skin: no symptoms reported (ANA MARÍA BARAHONA MD) Past Mzxebee-Jwynqu-Mneyzr Hx Immunizations Up To Date First/Initial COVID19 Vaccinat: DECEMBER (ANA MARÍA BARAHONA MD) Past Medical History Surgery/Hospitalization HX: Hs of pneumonia Currently Using CPAP: No Currently Using BIPAP: No Hypertension (ANA MARÍA BARAHONA MD) Family Medical History No Pertinent Family Hx (ANA MARÍA BARAHONA MD) Physical Exam Vital Signs Vital Signs - First Documented 02/03/23 17:17 Temp 36.7 Pulse 73 Resp 14 B/P (MAP) 155/83 (107) Pulse Ox 97 O2 Delivery Room Air (MATT RACHEL MD) Vital Signs Capillary Refill : (ANA MARÍA BARAHONA MD) Height, Weight, BMI Height: '" Weight: lbs. oz. kg; 18.78 BMI Method: General Appearance: No Apparent Distress, WD/WN Eyes: Bilateral Eye Normal Inspection HEENT: PERRL/EOMI, Normal ENT Inspection, Pharynx Normal Neck: Full Range of Motion, Normal Inspection, Non Tender, Supple Respiratory: Chest Non Tender, Lungs Clear, Normal Breath Sounds, No Accessory Muscle Use, No Respiratory Distress Cardiovascular: Regular Rate, Rhythm, Normal Peripheral Pulses Gastrointestinal: Normal Bowel Sounds, Non Tender, Soft; No Distended, No Guarding Back: Normal Inspection Extremity: Normal Capillary Refill, Normal Inspection, Normal Range of Motion, Non Tender, No Calf Tenderness Neurologic/Psychiatric: Alert, No Motor/Sensory Deficits, Normal Mood/Affect Skin: Normal Color, Warm/Dry (ANA MARÍA BARAHONA MD) Progress/Results/Core Measures Suspected Sepsis SIRS Temperature: Pulse: Respiratory Rate: Laboratory Tests 02/03/23 17:29: White Blood Count 6.6 Blood Pressure / Mean: Laboratory Tests 02/03/23 17:29: Platelet Count 308 (ANA MARÍA BARAHONA MD) Results/Orders Lab Results Laboratory Tests Test 02/03/23 17:29 02/03/23 18:30 Range/Units White Blood Count 6.6 4.3-11.0 10^3/uL Red Blood Count 4.08 3.80-5.11 10^6/uL Hemoglobin 13.1 11.5-16.0 g/dL Hematocrit 41 35-52 % Mean Corpuscular Volume 101 H 80-99 fL Mean Corpuscular Hemoglobin 32 25-34 pg Mean Corpuscular Hemoglobin Concent 32 32-36 g/dL Red Cell Distribution Width 13.5 10.0-14.5 % Platelet Count 308 130-400 10^3/uL Mean Platelet Volume 10.0 9.0-12.2 fL Immature Granulocyte % (Auto) 0 % Neutrophils (%) (Auto) 75 42-75 % Lymphocytes (%) (Auto) 15 12-44 % Monocytes (%) (Auto) 9 0-12 % Eosinophils (%) (Auto) 1 0-10 % Basophils (%) (Auto) 1 0-10 % Neutrophils # (Auto) 4.9 1.8-7.8 10^3/uL Lymphocytes # (Auto) 1.0 1.0-4.0 10^3/uL Monocytes # (Auto) 0.6 0.0-1.0 10^3/uL Eosinophils # (Auto) 0.0 0.0-0.3 10^3/uL Basophils # (Auto) 0.0 0.0-0.1 10^3/uL Immature Granulocyte # (Auto) 0.0 0.0-0.1 10^3/uL Prothrombin Time 13.8 12.2-14.7 SEC INR Comment 1.0 0.8-1.4 Activated Partial Thromboplast Time 28 24-35 SEC Sodium Level 141 135-145 MMOL/L Potassium Level 4.4 3.6-5.0 MMOL/L Chloride Level 102 98-107 MMOL/L Carbon Dioxide Level 27 21-32 MMOL/L Anion Gap 12 5-14 MMOL/L Blood Urea Nitrogen 27 H 7-18 MG/DL Creatinine 1.35 H 0.60-1.30 MG/DL Estimat Glomerular Filtration Rate 39 BUN/Creatinine Ratio 20 Glucose Level 137 H 70-105 MG/DL Calcium Level 10.0 8.5-10.1 MG/DL Corrected Calcium 10.0 8.5-10.1 MG/DL Magnesium Level 2.2 1.6-2.4 MG/DL Total Bilirubin 0.3 0.1-1.0 MG/DL Aspartate Amino Transf (AST/SGOT) 23 5-34 U/L Alanine Aminotransferase (ALT/SGPT) 15 0-55 U/L Alkaline Phosphatase 127 40-136 U/L Troponin I < 0.028 <0.028 NG/ML B-Type Natriuretic Peptide 349.8 H <100.0 PG/ML Total Protein 7.3 6.4-8.2 GM/DL Albumin 4.0 3.2-4.5 GM/DL Urine Color YELLOW Urine Clarity CLEAR Urine pH 5.5 5-9 Urine Specific [place] >=1.030 1.016-1.022 Urine Protein 1+ H NEGATIVE Urine Glucose (UA) NEGATIVE NEGATIVE Urine Ketones TRACE H NEGATIVE Urine Nitrite NEGATIVE NEGATIVE Urine Bilirubin NEGATIVE NEGATIVE Urine Urobilinogen 0.2 < = 1.0 MG/DL Urine Leukocyte Esterase NEGATIVE NEGATIVE Urine RBC (Auto) NEGATIVE NEGATIVE Urine RBC NONE /HPF Urine WBC 2-5 /HPF Urine Squamous Epithelial Cells 0-2 /HPF Urine Crystals NONE /LPF Urine Bacteria TRACE /HPF Urine Casts PRESENT /LPF Urine Hyaline Casts 2-5 H /LPF Urine Mucus SMALL H /LPF Urine Culture Indicated NO (MATT RACHEL MD) My Orders Orders - MATT RACHEL MD Orthostatic Vital Signs (Adult (02/03/23 19:12) Ns Iv 500 Ml (Sodium Chloride 0.9%) (02/03/23 20:23) (MATT RACHEL MD) Vital Signs/I&O 02/03/23 02/03/23 02/03/23 02/03/23 17:17 17:41 20:22 21:42 Temp 36.7 Pulse 73 69 71 70 78 74 90 95 Resp 14 20 B/P (MAP) 155/83 (107) 140/78 (98) 158/89 (112) 172/75 100/72 (81) 156/96 (116) 77/52 (60) 124/85 (98) Pulse Ox 97 95 O2 Delivery Room Air Room Air 02/04/23 00:00 Intake Total 1000 ml Balance 1000 ml (MATT RACHEL MD) Vital Signs/I&O Capillary Refill : (ANA MARÍA BARAHONA MD) Progress Note : Progress Note 82-year-old female presenting due to intermittent low blood pressures over the past 3 weeks. Initial blood pressure here 150s systolic which on repeat continued to be normal. Upon standing she was orthostatic and her blood pressure dropped down to 77/52. An IV was placed and she was given a gentle bolus of IV fluids especially given the decreased p.o. intake and episodes of vomiting x 2 earlier today. I suspect this is hypovolemic in nature. EKG ordered and interpreted by me showing no acute ischemic changes. Basic labs also ordered including urinalysis given her dysuria. (ANA MARÍA BARAHONA MD) Progress Note : Time: 21:01 Progress Note Patient reassessed by me after her second fluid bolus of 500ml NS. She feels much better. Asymptomatic. After the initial fluid bolus orthostatic vital signs were reevaluated and she did become slightly tachycardic into the mid 90s with a systolic blood pressure in the 120s. With the second fluid bolus her bl ood pressure and pulse remained stable. Her family members are at the bedside and I have discussed ongoing hydration with the patient. Daughter states that it is very hard to get her to drink fluids. I recommended that she drink some dilute Gatorade on a daily basis to help keep her electrolytes in order. Encouraged follow-up with her primary care physician. I have reassured her that she has no findings concerning for urinary tract infection or other concerning infections. All questions are sought and answered. Patient is improved at discharge. (MATT RACHEL MD) ECG Initial ECG Impression Date: Feb 03, 2023 Initial ECG Impression Time: 17:33 Initial ECG Rate: 69 Initial ECG Rhythm: Normal Sinus Comment Narrow QRS, normal axis, no significant ST changes or T wave abnormalities (ANA MARÍA BARAHONA MD) Diagnostic Imaging Diagonstic Imaging: Xray (chest) (ANA MARÍA BARAHONA MD) Comments [facility]. [place], [place] NAME: ALPA CORDERO [facility] REC#: [id number] PT STATUS: REG ER : 1940 PHYSICIAN: ANA MARÍA BARAHONA MD ADMIT DATE: 02/03/23/ER Draft Date of Exam:02/03/23 CHEST 1 VIEW, AP/PA ONLY EXAMINATION: Chest, 1 view. HISTORY: Weakness, hypotensive. COMPARISON: 12/22/2022 FINDINGS: Heart size and pulmonary vasculature are normal. The lungs are clear without consolidation, pleural effusion or pneumothorax. Degenerative changes of the thoracic spine. Osseous structures are otherwise intact. Evaluation of the lower lungs is somewhat obscured by calcified breast implants. IMPRESSION: No acute radiographic abnormality in the chest. Dictated on workstation # [id number] Dict: 02/03/23 1800 Trans: 02/03/23 1802 [facility] [id number] Interpreted by: MERVAT MACDONALD DO Electronically signed by: (MATT RACHEL MD) Departure Impression Primary Impression: Orthostatic hypotension Disposition: 01 HOME, SELF-CARE Condition: Improved Departure-Patient Inst. Decision time for Depature: 20:59 (MATT RACHEL MD) Referrals: TRAN ENRIQUE MD (PCP/Family) Primary Care Physician Patient Instructions: Low Blood Pressure Add. Discharge Instructions: Increase your daily water intake as desired. You should balance this with electrolyte water such as maybe dilute Gatorade. You have had a normal heart ultrasound within the last 3 months that does not show any evidence of congestive heart failure therefore you should not be too worried about excess fluid intake. If you do become short of breath or develop lower extremity swelling, back off on the amount of water you are drinking. If you have concerning symptoms please return to the emergency room for reevaluation. Please follow-up with Dr. Enrique as scheduled. Copy Copies To 1: TRAN ENRIQUE MD, ZACHARY K MD Feb 03, 2023 17:29 MATT RACHEL MD Feb 03, 2023 18:11
[2023-02-03 17:37] LABS: BASOPHILS % (AUTO) 1 % (0-10); EOSINOPHILS % (AUTO) 1 % (0-10); HEMATOCRIT 41 % (35-52); HEMOGLOBIN 13.1 g/dL (11.5-16.0); LYMPHOCYTES % (AUTO) 15 % (12-44); MEAN CORPUSCULAR HEMOGLOBIN 32 pg (25-34); MEAN CORPUSCULAR HGB CONC 32 g/dL (32-36); MEAN CORPUSCULAR VOLUME 101 fL (80-99); MONOCYTES # (AUTO) 0.6 10^3/uL (0.0-1.0); MONOCYTES % (AUTO) 9 % (0-12); NEUTROPHILS # (AUTO) 4.9 10^3/uL (1.8-7.8); NEUTROPHILS % (AUTO) 75 % (42-75); PLATELET COUNT 308 10^3/uL (130-400); WHITE BLOOD COUNT 6.6 10^3/uL (4.3-11.0)
[2023-02-03 17:41] VITALS: BP_SYST 100; BP_SYST 140; BP_SYST 77; BP_DIAS 52; BP_DIAS 72; BP_DIAS 78
[2023-02-03 17:46] LABS: CHLORIDE 102 MMOL/L (98-107); POTASSIUM 4.4 MMOL/L (3.6-5.0); PROTHROMBIN TIME PATIENT 13.8 SEC (12.2-14.7); SODIUM 141 MMOL/L (135-145)
[2023-02-03 17:49] LABS: GLUCOSE 137 MG/DL (70-105); TOTAL PROTEIN 7.3 GM/DL (6.4-8.2)
[2023-02-03 17:50] LABS: BILIRUBIN,TOTAL 0.3 MG/DL (0.1-1.0); CARBON DIOXIDE 27 MMOL/L (21-32)
[2023-02-03 17:52] LABS: ALKALINE PHOSPHATASE 127 U/L (40-136); CREATININE SERUM 1.35 MG/DL (0.60-1.30); GFR ESTIMATED 39
[2023-02-03 17:53] LABS: BUN/CREATININE RATIO 20
[2023-02-03 17:55] LABS: ALANINE AMINOTRANSFERASE 15 U/L (0-55); MAGNESIUM 2.2 MG/DL (1.6-2.4)
--- NOTE | 2023-02-03 18:02 | Diagnostic Imaging Report ---
EXAMINATION: Chest, 1 view. HISTORY: Weakness, hypotensive. COMPARISON: 12/22/2022 FINDINGS: Heart size and pulmonary vasculature are normal. The lungs are clear without consolidation, pleural effusion or pneumothorax. Degenerative changes of the thoracic spine. Osseous structures are otherwise intact. Evaluation of the lower lungs is somewhat obscured by calcified breast implants. IMPRESSION: No acute radiographic abnormality in the chest. Dictated by: Dictated on workstation # [id number]
[2023-02-03 18:46] LABS: CLARITY,URINE CLEAR; COLOR,URINE YELLOW; PH,URINE 5.5 (5-9)
[2023-02-03 18:47] LABS: BACTERIA,URINE TRACE /HPF; BILIRUBIN,URINE NEGATIVE (NEGATIVE); GLUCOSE, URINE (UA) NEGATIVE (NEGATIVE); KETONES,URINE TRACE (NEGATIVE); LEUKOCYTE ESTERASE ,URINE NEGATIVE (NEGATIVE); NITRITE,URINE NEGATIVE (NEGATIVE); PROTEIN,URINE 1+ (NEGATIVE); SQUAMOUS EPITHELIAL CELL,UR 0-2 /HPF
[2023-02-03 20:22] VITALS: BP_SYST 124; BP_SYST 156; BP_SYST 158; BP_DIAS 85; BP_DIAS 89; BP_DIAS 96
[2023-02-03 21:42] VITALS: BP 172/75
== END 2023-02-03 21:42 | disposition home or self-care (01) ==
LOC: EDUNIT# 16:56 → ER 16:56
DX: I95.1 Orthostatic hypotension (principal)
CPT/HCPCS: 36415; 71045; 80053; 81000; 83735; 83880; 84484; 85025; 85610; 85730; 93005; 93041

== ENCOUNTER 2023-03-05 09:06 | Outpatient (CLI) | payer MEDICARE ==
[~2023-03-05] VITALS: Ht 162.6 cm; Wt 46.7 kg
[2023-03-05] MEDS ORDERED: CETI10TA17 PO (12:35)
[2023-03-05] MEDS ORDERED: NF-CRES10T PO (12:35)
[2023-03-05] MEDS ORDERED: CALC500T7 PO (12:35)
[2023-03-05] MEDS ORDERED: MAGN1TAB31 PO (12:35)
== END 2023-03-05 12:47 | disposition home or self-care (01) ==
LOC: PREOP 09:06
PROVIDERS: ATTEND Internal Medicine
DX: Z01.818 Encounter for other preprocedural examination (principal)

== ENCOUNTER 2023-03-09 07:04 | Day surgery (SDC) | payer MEDICARE ==
[~2023-03-09] VITALS: Ht 162.2 cm; Wt 46.7 kg
[~2023-03-09 07:04] MED LIST changes: +CALC500T7 PO; +MAGN1TAB31 PO; +NF-CRES10T PO
[2023-03-09] MEDS ORDERED: LACTATED RINGERS 1,000 ML 1,000 ML IV STA (07:05)
[2023-03-09] MEDS ORDERED: HURRICAINE EXT TUBE (BENZOCAINE) XX PRN (07:15)
[2023-03-09 07:25] VITALS: BP 145/84
--- NOTE | 2023-03-09 07:32 | Pre-Op Note & Conscious Sedat ---
Pre-Operative Progress Note Date H&P Reviewed: Mar 09, 2023 Time H&P Reviewed: 07:31 History & Physical: H&P Reviewed, Patient Examed, No changes noted Pre-Op Diagnosis: nausea vomiting epigastric pain Moderate Sedation PreProcedure ASA Score 3 Airway Lungs Heart ASA score ASA 1: a normal healthy patient ASA 2: a patient with a mild systemic disease (mid diabetes, controlled hypertension, obesity ASA 3: a patient with a severe systemic disease that limits activity (angina, COPD, prior Myocardial infarction) ASA 4: a patient with an incapacitating disease that is a constant threat to life (CHF, renal failure) ASA 5: a moribund patient not expected to survive 24 hrs. (ruptured aneurysm) ASA 6: a declared brain- patient whose organs are being harvested. For emergent operations, add the letter E after the classification Mallampati Classification Grade 1 Sedation Plan Analgesia, Amnesia, Plan communicated to team members, Discussed options with patient/fam, Discussed risks with patient/fam The patient is an appropriate candidate to undergo the planned procedure, sedation, and anesthesia. The patient immediately re-assessed prior to indication. TRAN PHOENIX MD Mar 09, 2023 07:32
[2023-03-09] MEDS ORDERED: KETAMINE 50 MG/5 ML SYRINGE ONE (07:37)
[2023-03-09 08:00] VITALS: BP 133/62
--- NOTE | 2023-03-09 08:04 | Progress Note-Post Operative ---
Post-Procedure Note Physician (s)/Song Plugger (s) Physician TRAN PHOENIX MD Pre-Procedure Diagnosis Pre-Procedure Diagnosis: nausea vomiting epigastric pain Post-Procedure Diagnosis Post-operative diagnosis: Patient was placed in the left lateral decubitus position. The endoscope inserted into the oral cavity and under direct visualization the esophagus is intubated. The endoscope is passed down esophagus to stomach and second portion of the duodenum. A careful inspection was made as the endoscope withdrawn. Findings: The posterior pharynx epiglottis arytenoid aperture and true and false vocal folds were unremarkable to gross inspection. Present in the proximal esophagus there was some adherent whitish exudate raising the possibility of candidiasis brushing was obtained and submitted for culture the area was otherwise unremarkable no ulceration was noted. Present at the Z-line there is some mild erythema without evidence for erosive esophagitis and a small sliding hiatal hernia was noted. The cardia of the stomach was unremarkable. There were several small areas of erosion with hemosiderin staining circular in nature suspicious for underlying aspirin related gastropathy noted in the fundus biopsy was obtained and submitted for histopathology and Helicobacter evaluation. No ulceration was noted. The pylorus pyloric channel and duodenal bulb was unremarkable. There was rather severe angulation without evidence for stricture formation but could not rule out the possibility of some extrinsic compression noted in the second portion of the duodenum. No mucosal abnormalities are noted in the area with normal villous architecture. There was no evidence for dilatation of the duodenal bulb. A/P 1. Some whitish exudate was noted in the proximal portion of the esophagus raising concern for candidiasis brushings were obtained and submitted for culture. 2. Findings suggesting aspirin related gastropathy noted in the fundus of the stomach biopsies were obtained and submitted for histopathology and Helicobacter evaluation. There was some angulation of the second portion of the duodenum had some difficulty getting past the the distal duodenal bulb but in doing so did not see any evidence for stricture formation or any mucosal abnormalities in the area with no dilatation or retained food or fluid in the stomach. Today's findings probably do not explain the patient's symptoms we will proceed with Ultrasound of the Abdomen. TRAN PHOENIX MD Mar 09, 2023 08:04
[2023-03-09 08:05] VITALS: BP 134/58
[2023-03-09 08:10] VITALS: BP 157/70
[2023-03-09 08:51] VITALS: BP 157/70
--- NOTE | 2023-03-09 12:03 | Anesthesia-General Post-Op ---
MAC Patient Condition Mental Status/LOC: Same as Preop Cardiovascular: Satisfactory Nausea/Vomiting: Absent Respiratory: Satisfactory Pain: Controlled Complications: Absent Post Op Complications Complications None Follow Up Care/Instructions Patient Instructions None needed. Anesthesiology Discharge Order Discharge Order Patient is doing well, no complaints, stable vital signs, no apparent adverse anesthesia problems. No complications reported per nursing. MALICK AVELAR CRNA Mar 09, 2023 12:02
--- NOTE | 2023-03-15 08:55 | HISTORY AND PHYSICAL ---
DATE OF SERVICE: 03/09/2023 EGD HISTORY AND PHYSICAL HISTORY OF PRESENT ILLNESS: The patient is an 82-year-old white female, who reports a 2-month history of intermittent nausea with vomiting. It is predominantly in the morning. She reports a poor appetite and her weight by our office scale is down 6 pounds to 103.4. She has been thin, but now she is underweight with a BMI of 19. She had occult positive blood, denying melena or bright red blood per rectum. She currently is on no ulcerogenic type medications, no aspirin or nonsteroidal medication, etc. She was seen for followup of depression for which she had received the prescription for fluoxetine, but she did not get the medication filled, has been taking nothing and reports that she feels that she is doing better from a mood standpoint, but just troubled by intermittent nausea. She denies any associated pain. Denies dysphagia with no past history of peptic ulcer disease. PAST MEDICAL HISTORY: Significant for hip pinning for a hip fracture, increasing frailty, past longstanding tobaccoism with COPD. SOCIAL HISTORY: She has an [id number] past smoking history. No reported significant alcohol intake. PHYSICAL EXAMINATION: GENERAL: Reveals a frail, elderly white female who did not appear to be in acute distress. VITAL SIGNS: Blood pressure 130/80. CHEST: Clear. CARDIOVASCULAR: Reveals a regular rate and rhythm without murmur, S3 or S4. ABDOMEN: Soft, supple. Mild epigastric discomfort to palpation is present without rebound or guarding. No mass or organomegaly noted. Herrera sign negative. ASSESSMENT AND PLAN: For occult positive blood in the stool, intermittent nausea and vomiting and weight loss, and previous heavy smoker, the patient is being set up for an EGD evaluation with further recommendations pending evaluation. Job ID: [id number] DocumentID: [id number] Dictated Date: 03/04/2023 15:20:04 Associate Brand Manager Date: 03/04/2023 15:55:00 Dictated By: TRAN PHOENIX MD <Dictated by TRAN PHOENIX MD> <Electronically signed by TRAN PHOENIX MD> 03/05/[address] [facility], [place]
== END 2023-03-09 08:51 | disposition home or self-care (01) ==
LOC: ENDO 07:04
PROVIDERS: ATTEND Internal Medicine
DX: K31.89 Other diseases of stomach and duodenum (principal); K22.89 Other specified disease of esophagus; K44.9 Diaphragmatic hernia without obstruction or gangrene; R63.4 Abnormal weight loss; R19.5 Other fecal abnormalities; Z87.891 Personal history of nicotine dependence
CPT/HCPCS: 87101

== ENCOUNTER → 2023-03-18 | Outpatient (CLI) | payer MEDICARE ==
--- NOTE | 2023-03-18 08:57 | Diagnostic Imaging Report ---
PROCEDURE: US Gallbladder. TECHNIQUE: Multiple real-time grayscale images were obtained over the right upper quadrant in various projections. INDICATION: Epigastric pain Liver parenchyma is homogeneous with normal echotexture. The portal vein is patent with hepatopetal flow. Gallbladder is clear with no stones or wall thickening. Common duct is not dilated. Pancreas is obscured by bowel gas. IVC is patent. There is aneurysm dilatation of the mid abdominal aorta which measures 3.9 x 4.8 cm. Right kidney measures 9.9 cm in length and appears normal. There is no ascites. IMPRESSION: Abdominal aortic aneurysm Dictated by: Dictated on workstation # [id number]
== END ==
LOC: RAD 07:43
PROVIDERS: ATTEND Internal Medicine
DX: I71.40 Abdominal aortic aneurysm, without rupture, unspecified (principal)
CPT/HCPCS: 76705